=== PATIENT | female | born 1955 | race Hispanic/Latino ===

== ENCOUNTER 2018-06-17 17:48 | Emergency (ER) | payer OTHER ==
[2018-06-17] MEDS ORDERED: HYDROCODONE/APAP 7.5/325 MG TAB ONE (18:33)
--- NOTE | 2018-06-17 19:07 | RAD REPORT ---
EXAM DESCRIPTION: CT - CTHCSPWOC - 06/17/2018 6:41 pm CLINICAL HISTORY: Trauma, head and neck injury. PAIN COMPARISON: Head C Spine Mpr Wo Con dated 07/06/2017Head C Spine Mpr Wo Con dated 07/06/2017 TECHNIQUE: Axial 5 mm thick images of the head were obtained. Axial 2 mm thick images of the cervical spine were obtained with sagittal and coronal reconstruction images generated and reviewed. All CT scans are performed using dose optimization technique as appropriate and may include automated exposure control or mA/KV adjustment according to patient size. FINDINGS: CT HEAD WITHOUT CONTRAST: No acute hemorrhage, hydrocephalus or extra-axial collection is identified.No areas of brain edema or midline shift. The paranasal sinuses and mastoids are clear.The calvarium is intact. CT CERVICAL SPINE WITHOUT CONTRAST: No fracture or subluxation.No prevertebral soft tissues swelling is identified. IMPRESSION: No acute intracranial or cervical spine findings.
--- NOTE | 2018-06-17 19:31 | EDPHYS ---
Physician Documentation [facility] Name: Familia Ingram Age: 63 yrs Sex: Female : 1955 Arrival Date: 06/17/2018 Time: 17:49 Bed 20 Private MD: None, None ED Physician Dakota Quinn HPI: 06/17 18:38 This 63 yrs old Female presents to ER via Wheelchair with complaints of Head jr8 pain. 18:38 The patient or guardian reports pain. The complaints affect the left occipital area and jr8 right occipital area. Context of injury: The problem was sustained at home, resulted from a fall. Onset: The symptoms/episode began/occurred acutely, today. Associated signs and symptoms: Loss of consciousness: This patient did not experience any loss of consciousness. Pertinent positives: neck pain. Severity of symptoms: At their worst the symptoms were moderate, in the emergency department the symptoms are unchanged. The patient has not experienced similar symptoms in the past. The patient has not recently seen a physician. Patient stated that she has been having pain all over but today fell backwards on accident and hit head. Pain to head and neck now. Denies LOC. Feels numbness to right arm . Historical: - Allergies: 18:11 PENICILLINS; ch - PMHx: 18:11 Diabetes - IDDM; neurapathy; ch - PSHx: 18:11 None; ch - Immunization history:: Adult Immunizations up to date, Flu vaccine is not up to date. - Social history:: Smoking status: Patient uses tobacco products, smokes one-half pack cigarettes per day, Patient/guardian denies using alcohol, street drugs. - Ebola Screening: : Patient negative for fever greater than or equal to 101.5 degrees Fahrenheit, and additional compatible Ebola Virus Disease symptoms Patient denies exposure to infectious person Patient denies travel to an Ebola-affected area in the 21 days before illness onset No symptoms or risks identified at this time. ROS: 18:38 Eyes: Negative for injury, pain, redness, and discharge, ENT: Negative for injury, jr8 pain, and discharge, Cardiovascular: Negative for chest pain, palpitations, and edema, Respiratory: Negative for shortness of breath, cough, wheezing, and pleuritic chest pain, Abdomen/GI: Negative for abdominal pain, nausea, vomiting, diarrhea, and constipation, Back: Negative for injury and pain, MS/Extremity: Negative for injury and deformity, Skin: Negative for injury, rash, and discoloration. 18:38 Neck: Positive for pain with movement, pain at rest, Negative for bony tenderness. 18:38 Neuro: Positive for headache, numbness, Negative for altered mental status, dizziness, gait disturbance, hearing loss, loss of consciousness, seizure activity, speech changes, syncope, near syncope, tingling, tinnitus, tremor, visual changes, weakness. Exam: 18:38 Eyes: Pupils equal round and reactive to light, extra-ocular motions intact. Lids and jr8 lashes normal. Conjunctiva and sclera are non-icteric and not injected. Cornea within normal limits. Periorbital areas with no swelling, redness, or edema. ENT: Nares patent. No nasal discharge, no septal abnormalities noted. Tympanic membranes are normal and external auditory canals are clear. Oropharynx with no redness, swelling, or masses, exudates, or evidence of obstruction, uvula midline. Mucous membranes moist. Cardiovascular: Regular rate and rhythm with a normal S1 and S2. No gallops, murmurs, or rubs. Normal PMI, no JVD. No pulse deficits. Respiratory: Lungs have equal breath sounds bilaterally, clear to auscultation and percussion. No rales, rhonchi or wheezes noted. No increased work of breathing, no retractions or nasal flaring. Abdomen/GI: Soft, non-tender, with normal bowel sounds. No distension or tympany. No guarding or rebound. No evidence of tenderness throughout. Back: No spinal tenderness. No costovertebral tenderness. Full range of motion. Skin: Warm, dry with normal turgor. Normal color with no rashes, no lesions, and no evidence of cellulitis. MS/ Extremity: Pulses equal, no cyanosis. Neurovascular intact. Full, normal range of motion. Neuro: Awake and alert, GCS 15, oriented to person, place, time, and situation. Cranial nerves II-XII grossly intact. Motor strength 5/5 in all extremities. Sensory grossly intact. Cerebellar exam normal. Normal gait. 18:38 Neck: External neck: tenderness, that is mild, of the left mid cervical area, right mid cervical area, left trapezius and right trapezius, C-spine: vertebral tenderness, is not appreciated, crepitus, is not appreciated, Thyroid: appears normal, Trachea: is midline with no obvious abnormalities, ROM/movement: pain, that is mild, with any movement, limited range of motion, is not appreciated, Lymph nodes: no appreciated lymphadenopathy. Vital Signs: 18:11 BP 127 / 66; Pulse 68; Resp 18; Temp 98.1; Pulse Ox 99% on R/A; Weight 99.79 kg; Height ch 5 ft. 2 in. (157.48 cm); Pain 6/10; 19:30 BP 124 / 67; Pulse 60; Resp 14; Pulse Ox 96% ; bp 20:24 BP 125 / 92; Pulse 56; Resp 16; Pulse Ox 96% ; bp 18:11 Body Mass Index 40.24 (99.79 kg, 157.48 cm) ch Preston Coma Score: 18:38 Eye Response: spontaneous(4). Verbal Response: oriented(5). Motor Response: obeys jr8 commands(6). Total: 15. MDM: 18:23 Patient medically screened. jr8 19:28 Data reviewed: vital signs, nurses notes, radiologic studies, CT scan, and as a result, jr8 I will discharge patient. Data interpreted: Pulse oximetry: on room air is 99 %. Interpretation: normal. Counseling: I had a detailed discussion with the patient and/or guardian regarding: the historical points, exam findings, and any diagnostic results supporting the discharge/admit diagnosis, radiology results, the need for outpatient follow up, a family practitioner, to return to the emergency department if symptoms worsen or persist or if there are any questions or concerns that arise at home. 06/17 18:35 Order name: Glucose, Ancillary Testing; Complete Time: 18:41 EDMS 06/17 18:23 Order name: CT Head C Spine; Complete Time: 19:28 jr8 06/17 18:23 Order name: D stick; Complete Time: 18:34 jr8 Administered Medications: 18:34 Drug: [place] (7.5 mg-325 mg) 1 tabs Route: PO; jl7 19:02 Follow up: Response: Pain is decreased bp 19:50 Drug: Insulin Regular Human 10 units {Co-Signature: aa1 (Gaby Galan RN).} Route: bp Sub-Q; Site: right lower abdomen; 20:29 Follow up: Response: No adverse reaction bp Point of Care Testing: Blood Glucose: 18:36 Blood Glucose: 251 mg/dL; jl7 20:24 Blood Glucose: 237 mg/dL; bp Ranges: Critical Glucose Levels:Adult <50 mg/dl or >400 mg/dl <40 mg/dl or >180 mg/dl Disposition: 06/17/18 19:31 Discharged to Home. Impression: Acute pain due to trauma. - Condition is Stable. - Discharge Instructions: Head Injury, Adult. - Medication Reconciliation Form, Thank You Letter, Antibiotic Education, Prescription Opioid Use form. - Follow up: Private Physician; When: 2 - 3 days; Reason: Recheck today's complaints, Continuance of care, Re-evaluation by your physician. - Problem is new. - Symptoms have improved. Addendum: 06/19/2018 10:47 Co-signature as Attending Physician, Dakota Quinn MD I agree with the assessment and k dr plan of care. Signatures: Dispatcher [employer] EDMS Asiya De La Paz, RN RN Dakota Quinn MD MD [facility] Michael Lorenzo PA PA jr8 Constantino Neal RN RN jl7 Kyrie Lay, OTF RN bp Gaby Galan RN aa1 Corrections: (The following items were deleted from the chart) 06/17 20:30 19:31 06/17/2018 19:31 Discharged to Home. Impression: Acute pain due to trauma. bp Condition is Stable. Forms are Medication Reconciliation Form, Thank You Letter, Antibiotic Education, Prescription Opioid Use. Follow up: Private Physician; When: 2 - 3 days; Reason: Recheck today's complaints, Continuance of care, Re-evaluation by your physician. Problem is new. Symptoms have improved. jr8
--- NOTE | 2018-06-17 19:31 | ER ---
Nurse's Notes [facility] Name: Familia Ingram Age: 63 yrs Sex: Female : 1955 Arrival Date: 06/17/2018 Time: 17:49 Bed 20 Private MD: None, None Diagnosis: Acute pain due to trauma Presentation: 06/17 18:09 Presenting complaint: Patient states: pain to R hip, down my R leg, and sprading from ch my hip into my privates. has been there for weeks. when I sleep I get cramps in my legs. I fell this morning after tripping and hit my head, now all my body equally tingles and hurts. And I ran out of my diabetes medications 5-6 months ago, my doctor cant see me because my medicare wont pay her. Transition of care: patient was not received from another setting of care. Onset of symptoms was May 30, 2018. Risk Assessment: Do you want to hurt yourself or someone else? Patient reports no desire to harm self or others. Initial Sepsis Screen: Does the patient meet any 2 criteria? No. Patient's initial sepsis screen is negative. Does the patient have a suspected source of infection? No. Patient's initial sepsis screen is negative. Care prior to arrival: None. 18:09 Method Of Arrival: Wheelchair ch 18:09 Acuity: SUNNY 3 ch Triage Assessment: 18:11 General: Appears in no apparent distress. comfortable, Behavior is calm, cooperative, ch appropriate for age. Pain: Complains of pain in head, suprapubic area, right lower quadrant, pelvis, right arm, right leg, right foot and right gluteus hawa Pain currently is 6 out of 10 on a pain scale. Historical: - Allergies: 18:11 PENICILLINS; ch - PMHx: 18:11 Diabetes - IDDM; neurapathy; - PSHx: 18:11 None; - Immunization history:: Adult Immunizations up to date, Flu vaccine is not up to date. - Social history:: Smoking status: Patient uses tobacco products, smokes one-half pack cigarettes per day, Patient/guardian denies using alcohol, street drugs. - Ebola Screening: : Patient negative for fever greater than or equal to 101.5 degrees Fahrenheit, and additional compatible Ebola Virus Disease symptoms Patient denies exposure to infectious person Patient denies travel to an Ebola-affected area in the 21 days before illness onset No symptoms or risks identified at this time. Screenin:35 Abuse screen: Denies threats or abuse. Denies injuries from another. Nutritional jl7 screening: No deficits noted. Tuberculosis screening: No symptoms or risk factors identified. Fall Risk None identified. Assessment: 18:35 General: Appears in no apparent distress. uncomfortable, Behavior is calm, cooperative, jl7 appropriate for age. Pain: Complains of pain in all over Pain currently is 6 out of 10 on a pain scale. Neuro: Level of Consciousness is awake, alert, obeys commands, Oriented to person, place, time, situation. Cardiovascular: Patient's skin is warm and dry. Respiratory: Airway is patent Respiratory effort is even, unlabored, Respiratory pattern is regular, symmetrical. GI: No signs and/or symptoms were reported involving the gastrointestinal system. : No signs and/or symptoms were reported regarding the genitourinary system. EENT: No signs and/or symptoms were reported regarding the EENT system. Derm: Skin is pink, warm \T\ dry. Musculoskeletal: No signs and/or symptoms reported regarding the musculoskeletal system. 19:02 Reassessment: RECD REPORT FROM JE VANESSA. 63YO HF P/W GEN MYALGIA AND DIABETES bp NON-COMPLIANCE. ALL CURRENT STUDIES IN PROCESS, VS STABLE ON MONITOR. 19:49 Reassessment: D/C ON HOLD FOR GLUCOSE CONTROL. bp 20:28 Reassessment: PT D/C HOME WITH FAMILY, DX WITH ACUTE PAIN DUE TO FALL. bp Vital Signs: 18:11 BP 127 / 66; Pulse 68; Resp 18; Temp 98.1; Pulse Ox 99% on R/A; Weight 99.79 kg; Height ch 5 ft. 2 in. (157.48 cm); Pain 6/10; 19:30 BP 124 / 67; Pulse 60; Resp 14; Pulse Ox 96% ; bp 20:24 BP 125 / 92; Pulse 56; Resp 16; Pulse Ox 96% ; bp 18:11 Body Mass Index 40.24 (99.79 kg, 157.48 cm) Bean Coma Score: 18:38 Eye Response: spontaneous(4). Verbal Response: oriented(5). Motor Response: obeys jr8 commands(6). Total: 15. ED Course: 17:49 Patient arrived in ED. sb2 17:49 None, None is Private Physician. sb2 18:10 Triage completed. ch 18:11 Arm band placed on left wrist. Patient placed in an exam room, on a stretcher. ch 18:16 Michael Lorenzo PA is PHCP. jr8 18:16 Dakota Quinn MD is Attending Physician. jr8 18:16 Je Neal, OTF is Primary Nurse. jl7 18:[address] jg6 18:35 Patient has correct armband on for positive identification. Placed in gown. Bed in low jl7 position. Call light in reach. Side rails up X 1. Pulse ox on. NIBP on. 18:41 CT Head C Spine In Process Unspecified. EDMS 19:01 Primary Nurse role handed off by Je Neal RN bp 19:01 Kyrie Lay, RN is Primary Nurse. bp 20:28 No provider procedures requiring assistance completed. Patient did not have IV access bp during this emergency room visit. Administered Medications: 18:34 Drug: [place] (7.5 mg-325 mg) 1 tabs Route: PO; jl7 19:02 Follow up: Response: Pain is decreased bp 19:50 Drug: Insulin Regular Human 10 units {Co-Signature: aa1 (Gaby Galan RN).} Route: bp Sub-Q; Site: right lower abdomen; 20:29 Follow up: Response: No adverse reaction bp Point of Care Testing: Blood Glucose: 18:36 Blood Glucose: 251 mg/dL; jl7 20:24 Blood Glucose: 237 mg/dL; bp Ranges: Outcome: 19:31 Discharge ordered by . jr8 20:28 Discharged to home via wheelchair, with family. bp 20:28 Condition: stable 20:28 Discharge instructions given to patient, family, Instructed on discharge instructions, follow up and referral plans. medication usage, Demonstrated understanding of instructions, follow-up care, medications, Prescriptions given X 2, NOVOLIN 70/30, TRUJEO 20:30 Patient left the ED. bp Signatures: Dispatcher [employer] EDLA Asiya De La Paz RN RN Michael Lorenzo PA PA jrJe Cooper RN RN jl7 Peltier, Brian, RN RN bp Maddison Hobbs sb2 Quynh Howell jg6 Gaby Galan RN aa1
[2018-06-17] MEDS ORDERED: INSULIN -REGULAR HUMAN 50 UNIT/0.5 ML ML ONE (19:50)
[2018-06-17 20:41] VITALS: TEMP 98.1
[2018-06-17 20:42] VITALS: O2SAT 96
[2018-06-17 20:43] VITALS: BP 125/92
== END 2018-06-17 20:30 | disposition home or self-care (01) ==
LOC: ER 17:48
DX: G89.11 Acute pain due to trauma (principal); W19.XXXA Unspecified fall, initial encounter; Y93.89 Activity, other specified; Y92.009 Unspecified place in unspecified non-institutional (private) residence as the place of occurrence of the external cause; Z88.0 Allergy status to penicillin; F17.210 Nicotine dependence, cigarettes, uncomplicated
CPT/HCPCS: 70450; 72125; 82962; 96372; 99284

== ENCOUNTER 2019-08-03 09:27 | Emergency (ER) | payer OTHER ==
[2019-08-03] MEDS ORDERED: ONDANSETRON 4 MG/2 ML VIAL ONE (09:56)
[2019-08-03] MEDS ORDERED: NA CHLORIDE 0.9% 1,000 ML ONE (09:56)
[2019-08-03] MEDS ORDERED: MORPHINE 4 MG/ML SYR ONE (09:56)
[2019-08-03 10:19] LABS: Absolute Lymphocytes (CBC) 2.9 K/uL (0.7-4.9); Basophils % 0.9 % (0-1.3); Hematocrit 44.2 % (36.0-45.0); Lymphocytes % 28.6 % (15.3-44.8); MPV 10.5 fL (7.6-11.3); RBC Red Blood Cell Count 5.05 M/uL (3.86-4.86)
[2019-08-03 11:03] LABS: Bilirubin Direct 0.1 mg/dL (0-0.2); Bilirubin Total 0.4 mg/dL (0.2-1.0); Protein, Total 6.4 g/dL (6.4-8.2)
--- NOTE | 2019-08-03 11:39 | RAD REPORT ---
EXAM DESCRIPTION: CTAbdomen Pelvis W Contrast - 08/03/2019 11:29 am CLINICAL HISTORY: Abdominal pain. abdominal pain COMPARISON: Abdomen Pelvis W Contrast dated 12/11/2017; Abdomen Pelvis W Contrast dated 05/31/2016 TECHNIQUE: Biphasic CT imaging of the abdomen and pelvis was performed with 100 ml non-ionic IV cont rast. All CT scans are performed using dose optimization technique as appropriate and may include automated exposure control or mA/KV adjustment according to patient size. FINDINGS: The lung bases are clear. The liver demonstrates diffuse fatty infiltration. The spleen, pancreas and kidneys are within normal limits. Bilateral adrenal masses are present, unchanged. No bowel obstruction, free air, free fluid or abscess. Moderate fecal retention in the colon. The marquita endix is normal. No evidence of significant lymphadenopathy. No suspicious bony findings. IMPRESSION: Fatty liver. Stable bilateral adrenal masses. Moderate stool retained in the colon.
[2019-08-03] MEDS ORDERED: FENTANYL CITR 100 MCG/2 ML ONE (12:01)
--- NOTE | 2019-08-03 12:42 | RAD REPORT ---
EXAM DESCRIPTION: US - Abdomen Exam Limited - 08/03/2019 12:29 pm CLINICAL HISTORY: ABD PAIN COMPARISON: No comparisons FINDINGS: The gallbladder demonstrates no gallstones. No pericholecystic fluid or gallbladder wall t hickening. The common bile duct is normal measuring 4 mm. The liver demonstrates no findings of intrahepatic biliary dilatation. IMPRESSION: Unremarkable examination.
--- NOTE | 2019-08-03 12:49 | ER ---
Nurse's Notes [facility] Name: Familia Ingram Age: 64 yrs Sex: Female : 1955 Arrival Date: 08/03/2019 Time: 09:29 Bed 16 Private MD: Diagnosis: Generalized abdominal pain;Urinary tract infection, site not specified Presentation: 08/03 09:35 Presenting complaint: Patient states: RUQ PAIN x3 MONTHS, SEEN AND CLEARED BY PCP. bp Transition of care: patient was not received from another setting of care. Onset of symptoms is unknown. Risk Assessment: Do you want to hurt yourself or someone else? Patient reports no desire to harm self or others. Initial Sepsis Screen: Does the patient meet any 2 criteria? No. Patient's initial sepsis screen is negative. Does the patient have a suspected source of infection? No. Patient's initial sepsis screen is negative. Care prior to arrival: None. 09:35 Method Of Arrival: Ambulatory bp 09:35 Acuity: SUNNY 3 bp Historical: - Allergies: 09:36 PENICILLINS; bp - Home Meds: 09:36 Humulin 70/30 100 unit/mL (70-30) Sub-Q susp [Active]; bp - PMHx: 09:36 Diabetes - IDDM; neurapathy; bp - Immunization history:: Adult Immunizations up to date. - Social history:: Smoking status: Patient/guardian denies using tobacco. - Ebola Screening: : No symptoms or risks identified at this time. Screenin:51 Abuse screen: Denies threats or abuse. Denies injuries from another. Nutritional sv screening: No deficits noted. Tuberculosis screening: No symptoms or risk factors identified. Fall Risk None identified. Assessment: 10:05 General: Appears in no apparent distress. uncomfortable, well developed, Behavior is sv calm, cooperative, appropriate for age. Pain: Complains of pain in right upper quadrant Quality of pain is described as sharp, Pain began 3 months ago Is intermittent. Neuro: Level of Consciousness is awake, alert, obeys commands, Oriented to person, place, time, situation, Gait is steady. Respiratory: Respiratory effort is even, unlabored, Respiratory pattern is regular, symmetrical. GI: Abdomen is round. Derm: Skin is pink, warm \T\ dry. 11:23 Reassessment: Patient appears in no apparent distress at this time. Patient and/or sv family updated on plan of care and expected duration. Pain level reassessed. Patient is alert, oriented x 3, equal unlabored respirations, skin warm/dry/pink. Patient states feeling better. Patient states symptoms have improved. 12:05 Reassessment: Patient appears in no apparent distress at this time. Patient and/or sv family updated on plan of care and expected duration. Pain level reassessed. Patient is alert, oriented x 3, equal unlabored respirations, skin warm/dry/pink. Pain: Complains of pain in right upper quadrant Pain currently is 8 out of 10 on a pain scale. 13:09 Reassessment: Patient appears in no apparent distress at this time. Patient and/or sv family updated on plan of care and expected duration. Pain level reassessed. Patient is alert, oriented x 3, equal unlabored respirations, skin warm/dry/pink. Patient denies pain at this time. Patient states feeling better. Patient states symptoms have improved. Vital Signs: 09:36 BP 134 / 65; Pulse 79; Resp 17; Temp 97.6; Pulse Ox 100% ; Weight 96.62 kg; Height 5 bp ft. 2 in. (157.48 cm); 10:30 BP 105 / 53; Pulse 68; Resp 18; Pulse Ox 97% ; sv 11:04 BP 98 / 50; Pulse 69; Resp 16; Pulse Ox 99% ; sv 12:00 BP 109 / 54; Pulse 65; Resp 18; Pulse Ox 99% ; sv 12:30 Pain 2/10; sv 12:33 BP 123 / 61; Pulse 65; Resp 18; Pulse Ox 99% ; sv 13:05 Pain 4/10; sv 09:36 Body Mass Index 38.96 (96.62 kg, 157.48 cm) bp ED Course: 09:29 Patient arrived in ED. as 09:35 Triage completed. bp 09:36 Arm band placed on. bp 09:38 Nova Negrete RN is Primary Nurse. sv 09:45 Selvin Bartholomew PA is PHCP. jmm 09:45 Srinivas Bernal MD is Attending Physician. jmm 09:51 Nurse Practitioner and/or Physician Maintenance Of Way Clerk to see patient. sv 09:51 Patient has correct armband on for positive identification. Bed in low position. Call sv light in reach. Door closed. Head of bed elevated. 10:05 Inserted saline lock: 20 gauge in left forearm, using aseptic technique. Blood sv collected. Flushed left forearm with 5 ml normal saline. 11:[address] Scan. sv 11:[address] via wheelchair. sv 11:29 CT Abd/Pelvis - IV Contrast Only In Process Unspecified. EDMS 11:50 Urine collected: clean catch specimen, clear. dh3 12:10 Patient taken to ultrasound. via wheelchair. sv 12:26 Ultrasound completed. Patient tolerated well. Patient moved back from ultrasound. lc3 12:28 Patient moved back from ultrasound. sv 12:30 US Abdomen Limited In Process Unspecified. EDMS 12:48 Brigette Sánchez MD is Referral Physician. [facility] [place] 13:09 No provider procedures requiring assistance completed. IV discontinued, intact, sv bleeding controlled, No redness/swelling at site. Pressure dressing applied. Administered Medications: 10:12 Drug: NS 0.9% 1000 ml Route: IV; Rate: 1 bolus; Site: left forearm; sv 11:00 Follow up: Response: No adverse reaction; IV Status: Completed infusion; IV Intake: sv 1000ml 10:12 Drug: morphine 4 mg Route: IVP; Site: left forearm; sv 13:05 Follow up: Pain 4/10; Response: No adverse reaction; Pain is decreased; RASS: Alert and sv Calm (0) 10:12 Drug: Zofran 4 mg Route: IVP; Site: left forearm; sv 10:40 Follow up: Response: No adverse reaction sv 12:06 Drug: fentaNYL (PF) 25 mcg Route: IVP; Site: left forearm; sv 12:30 Follow up: Pain 2/10 Adult; Response: No adverse reaction; Pain is decreased; RASS: sv Alert and Calm (0) Intake: 11:00 IV: 1000ml; Total: 1000ml. sv Outcome: 12:48 Discharge ordered by . [facility] [place] 13:09 Discharged to home ambulatory, with friend. sv 13:09 Condition: stable 13:09 Condition: improved 13:09 Discharge instructions given to patient, Instructed on discharge instructions, follow up and referral plans. medication usage, Demonstrated understanding of instructions, follow-up care, medications, Prescriptions given X 2. 13:09 Patient left the ED. sv Signatures: Dispatcher [employer] EDMS Nova Negrete RN RN sv Selvin Bartholomew PA PA jmm Martinez, Amelia as Cunningham, Laulita lc3 Herrera, De[facility] Kyrie Lay RN RN bp Corrections: (The following items were deleted from the chart) 13:05 10:40 Pain 4/10 Adult; Response: No adverse reaction; Pain is decreased sv sv
--- NOTE | 2019-08-03 12:49 | EDPHYS ---
Physician Documentation [facility] Name: Familia Ingram Age: 64 yrs Sex: Female : 1955 Arrival Date: 08/03/2019 Time: 09:29 Bed 16 Private MD: ED Physician Srinivas Bernal HPI: 08/03 09:53 This 64 yrs old Female presents to ER via Ambulatory with complaints of jmm Epigastric Pain - x3 months. 09:53 The patient presents with abdominal pain. Onset: The symptoms/episode began/occurred jmm gradually, 3 month(s) ago. The symptoms do not radiate. Associated signs and symptoms: Pertinent positives: Pertinent negatives: nausea and vomiting, fever. The symptoms are described as achy. Modifying factors: The symptoms are alleviated by nothing, the symptoms are aggravated by nothing. This is a 64 year old female with a history of DM, that presents to the ED with complaints of worsening right sided abdominal pain beginning 3 months ago. Patient states evaluation by GI revealed precancerous polyps which were removed. . Historical: - Allergies: 09:36 PENICILLINS; bp - Home Meds: 09:36 Humulin 70/30 100 unit/mL (70-30) Sub-Q susp [Active]; bp - PMHx: 09:36 Diabetes - IDDM; neurapathy; bp - Immunization history:: Adult Immunizations up to date. - Social history:: Smoking status: Patient/guardian denies using tobacco. - Ebola Screening: : No symptoms or risks identified at this time. ROS: 09:53 Constitutional: Negative for fever, chills, and weight loss, Cardiovascular: Negative jmm for chest pain, palpitations, and edema, Respiratory: Negative for shortness of breath, cough, wheezing, and pleuritic chest pain. 09:53 Abdomen/GI: Positive for abdominal pain. 09:53 All other systems are negative. Exam: 09:53 Constitutional: This is a well developed, well nourished patient who is awake, alert, jmm and in no acute distress. Head/Face: atraumatic. Eyes: EOMI, no conjunctival erythema appreciated ENT: Moist Mucus Membranes Neck: Trachea midline, Supple Chest/axilla: Normal chest wall appearance and motion. Cardiovascular: Regular rate and rhythm. No edema appreciated Respiratory: Normal respirations, no respiratory distress appreciated 09:53 Abdomen/GI: Inspection: abdomen appears normal, Bowel sounds: normal, Palpation: soft, moderate abdominal tenderness, in the right upper quadrant and right lower quadrant. 09:53 Musculoskeletal/extremity: ROM: intact in all extremities. 09:53 Skin: Appearance: Color: normal in color. 09:53 Neuro: Orientation: is normal, Mentation: is normal, Memory: is normal. 09:53 Psych: Behavior/mood is pleasant, cooperative. Vital Signs: 09:36 BP 134 / 65; Pulse 79; Resp 17; Temp 97.6; Pulse Ox 100% ; Weight 96.62 kg; Height 5 bp ft. 2 in. (157.48 cm); 10:30 BP 105 / 53; Pulse 68; Resp 18; Pulse Ox 97% ; sv 11:04 BP 98 / 50; Pulse 69; Resp 16; Pulse Ox 99% ; sv 12:00 BP 109 / 54; Pulse 65; Resp 18; Pulse Ox 99% ; sv 12:30 Pain 2/10; sv 12:33 BP 123 / 61; Pulse 65; Resp 18; Pulse Ox 99% ; sv 13:05 Pain 4/10; sv 09:36 Body Mass Index 38.96 (96.62 kg, 157.48 cm) bp MDM: 09:53 Patient medically screened. [facility] 12:46 Data reviewed: vital signs, nurses notes. Counseling: I had a detailed discussion with keena the patient and/or guardian regarding: the historical points, exam findings, and any diagnostic results supporting the discharge/admit diagnosis, lab results, radiology results, the need for outpatient follow up, to return to the emergency department if symptoms worsen or persist or if there are any questions or concerns that arise at home. ED course: Patient is alert and non toxic in appearance in the ED. Patient advised to follow up with GI. I discussed CT results with the patient and the need to follow up with pcp for reevaluation. Patient was otherwise given strict return precautions. Patient understood and agrees with the plan of care. . 08/03 09:54 Order name: Basic Metabolic Panel; Complete Time: 11:04 [facility] 08/03 09:54 Order name: CBC with Diff; Complete Time: 10:25 [facility] 08/03 09:54 Order name: Creatinine for Radiology; Complete Time: 11:22 [facility] 08/03 09:54 Order name: Hepatic Function; Complete Time: 11:04 [facility] 08/03 09:54 Order name: Lipase; Complete Time: 11:04 [facility] 08/03 11:50 Order name: Urine Culture dh3 08/03 09:54 Order name: IV Saline Lock; Complete Time: 10:12 [facility] 08/03 09:54 Order name: CT Abd/Pelvis - IV Contrast Only; Complete Time: 11:45 [facility] 08/03 11:55 Order name: US Abdomen Limited; Complete Time: 12:45 [facility] 08/03 12:01 Order name: Urine Dipstick--Ancillary (enter results) bd 08/03 09:54 Order name: Labs collected and sent; Complete Time: 10:12 [facility] 08/03 09:54 Order name: Urine Dipstick-Ancillary (obtain specimen); Complete Time: 11:51 [facility] 08/03 10:31 Order name: Labs - recollect needed; Complete Time: 11:10 bd Administered Medications: 10:12 Drug: NS 0.9% 1000 ml Route: IV; Rate: 1 bolus; Site: left forearm; sv 11:00 Follow up: Response: No adverse reaction; IV Status: Completed infusion; IV Intake: sv 1000ml 10:12 Drug: morphine 4 mg Route: IVP; Site: left forearm; sv 13:05 Follow up: Pain 4/10; Response: No adverse reaction; Pain is decreased; RASS: Alert and sv Calm (0) 10:12 Drug: Zofran 4 mg Route: IVP; Site: left forearm; sv 10:40 Follow up: Response: No adverse reaction sv 12:06 Drug: fentaNYL (PF) 25 mcg Route: IVP; Site: left forearm; sv 12:30 Follow up: Pain 2/10 Adult; Response: No adverse reaction; Pain is decreased; RASS: sv Alert and Calm (0) Disposition: 08/04 06:20 Co-signature as Attending Physician, Srinivas Bernal MD I agree with the assessment and chris plan of care. Disposition: 08/03/19 12:48 Discharged to Home. Impression: Generalized abdominal pain, Urinary tract infection, site not specified. - Condition is Stable. - Discharge Instructions: Abdominal Pain, Adult, Urinary Tract Infection, Adult. - Prescriptions for Bentyl 20 mg Oral Tablet - take 1 tablet by ORAL route every 6 hours As needed; 20 tablet. Cipro 500 mg Oral Tablet - take 1 tablet by ORAL route every 12 hours for 10 days; 20 tablet. - Medication Reconciliation Form, Thank You Letter, Antibiotic Education, Prescription Opioid Use form. - Follow up: Brigette Sánchez MD; When: 2 - 3 days; Reason: Recheck today's complaints, Continuance of care, Re-evaluation by your physician. Signatures: Dispatcher [employer] EDMS Deidre Calolway Stephanie, RN RN Srinivas Manjarrez MD MD cha Mickail, Joel, PA PA [facility] Kyrie Lay, RN RN bp Corrections: (The following items were deleted from the chart) 08/03 12:49 12:48 08/03/2019 12:48 Discharged to Home. Impression: Generalized abdominal pain. [facility] Condition is Stable. Forms are Medication Reconciliation Form, Thank You Letter, Antibiotic Education, Prescription Opioid Use. Follow up: Brigette Sánchez; When: 2 - 3 days; Reason: Recheck today's complaints, Continuance of care, Re-evaluation by your physician. [facility] 13:09 12:49 08/03/2019 12:48 Discharged to Home. Impression: Generalized abdominal pain; sv Urinary tract infection, site not specified. Condition is Stable. Discharge Instructions: Abdominal Pain, Adult. Prescriptions for Bentyl 20 mg Oral Tablet - take 1 tablet by ORAL route every 6 hours As needed; 20 tablet. and Forms are Medication Reconciliation Form, Thank You Letter, Antibiotic Education, Prescription Opioid Use. Follow up: Brigette Sánchez; When: 2 - 3 days; Reason: Recheck today's complaints, Continuance of care, Re-evaluation by your physician. [facility]
[2019-08-03 13:16] VITALS: TEMP 97.6
[2019-08-03 13:18] VITALS: O2SAT 99
[2019-08-03 13:22] VITALS: BP 123/61
[2019-08-03 13:37] LABS: Urine Blood 1+ (NEG); Urine Glucose 2+ (NEG); Urine Protein NEGATIVE (NEG); Urine Specific Gravity 1.015 (1.005-1.030); Urine pH 7.5 (5.0-7.0)
== END 2019-08-03 13:09 | disposition home or self-care (01) ==
LOC: ER 09:27
DX: N39.0 Urinary tract infection, site not specified (principal); E11.9 Type 2 diabetes mellitus without complications; Z79.4 Long term (current) use of insulin
CPT/HCPCS: 96361; 87088; 85025; 87086; 80048; 36415; 80076; 81003; 83690; 74177; 76705; 96375; 96374; 99284; Q9967; J3010; J7030; J2405

== ENCOUNTER 2019-09-12 11:46 | Emergency (ER) | payer OTHER ==
--- OUTSIDE RECORDS SUMMARY | 2019-09-12 11:47 | XMS REPORT ---
:1955 [facility] Address [address] [place] [address] Dr. Emanuel [address] [place] [id number] Care Team Providers Name Role Phone Unavailable Unavailable Unavailable Problems This patient has no known problems. Allergies, Adverse Reactions, Alerts This patient has no known allergies or adverse reactions. Medications This patient has no known medications.
[2019-09-12] MEDS ORDERED: ONDANSETRON 4 MG/2 ML VIAL ONE (12:52)
[2019-09-12] MEDS ORDERED: MORPHINE 2 MG/ML SYR ONE (12:52)
[2019-09-12 13:26] LABS: Albumin 3.5 g/dL (3.4-5.0); Bilirubin Direct 0.2 mg/dL (0-0.2); Bilirubin Total 0.6 mg/dL (0.2-1.0); Potassium 3.7 mmol/L (3.5-5.1); Protein, Total 7.2 g/dL (6.4-8.2)
--- NOTE | 2019-09-12 13:34 | RAD REPORT ---
EXAM DESCRIPTION: US - Abdomen Exam Limited - 09/12/2019 1:26 pm CLINICAL HISTORY: abdominal pain COMPARISON: Abdomen Exam Limited dated 08/03/2019 FINDINGS: The gallbladder demonstrates no gallstones. No pericholecystic fluid or gallbladder wall t hickening. The common bile duct is normal measuring 4 mm. The liver demonstrates no findings of intrahepatic biliary dilatation. IMPRESSION: Unremarkable examination.
[2019-09-12 14:06] LABS: Urine Blood TRACE (NEG); Urine Glucose 2+ (NEG); Urine Protein NEGATIVE (NEG); Urine pH 6.5 (5.0-7.0)
[2019-09-12 14:07] LABS: Absolute Lymphocytes (CBC) 4.1 K/uL (0.7-4.9); Basophils % 0.8 % (0-1.3); Hematocrit 44.9 % (36.0-45.0); MPV 10.3 fL (7.6-11.3); RBC Red Blood Cell Count 5.21 M/uL (3.86-4.86)
[2019-09-12 14:12] LABS: Urine Bacteria >50 /HPF (<20); Urine Culture Reflex Order REFLEXED; Urine Yeast PRESENT (NONE SEEN)
--- NOTE | 2019-09-12 14:18 | RAD REPORT ---
EXAM DESCRIPTION: CTAbdomen Pelvis W Contrast - 09/12/2019 2:10 pm CLINICAL HISTORY: Abdominal pain. right sided abdominal pain COMPARISON: Abdomen Pelvis W Contrast dated 08/03/2019; Abdomen Pelvis W Contrast dated 8; Abdomen Pelvis W Contrast dated 05/31/2016 TECHNIQUE: Biphasic CT imaging of the abdomen and pelvis was performed with 100 ml non-ionic IV cont rast. All CT scans are performed using dose optimization technique as appropriate and may include automated exposure control or mA/KV adjustment according to patient size. FINDINGS: The lung bases are clear. The liver is diffusely fatty. Spleen, pancreas, and kidneys are within normal limits. Bilateral adren al masses, unchanged. No bowel obstruction, free air, free fluid or abscess. Sigmoid diverticulosis without diverticulitis. The appendix is normal. No evidence of significant lymphadenopathy. Lumbosacral degenerative changes. IMPRESSION: No acute intra-abdominal or pelvic finding.
--- NOTE | 2019-09-12 14:40 | EDPHYS ---
Physician Documentation [facility] Name: Familia Ingram Age: 64 yrs Sex: Female : 1955 Arrival Date: 09/12/2019 Time: 11:47 Bed 25 Private MD: ED Physician Dakota Quinn HPI: 09/12 12:21 This 64 yrs old Female presents to ER via Ambulatory with complaints of jmm Abdominal Pain. 12:21 The patient presents with abdominal pain in the upper abdomen. Onset: The jmm symptoms/episode began/occurred gradually, 4 month(s) ago. The symptoms do not radiate. Associated signs and symptoms: Pertinent positives: dysuria, Pertinent negatives: nausea and vomiting, fever. Modifying factors: The symptoms are alleviated by nothing, the symptoms are aggravated by. This is a 64 year old female with a history of DM that presents to the ED with complaints of episotgastric abdominal pain which has been ongoing for the past 4 months. Denies vomiting. Visited GI 2 months ago with negative EGD. Denies fever, denies vomiting, but complains of dysuria. . Historical: - Allergies: 12:08 PENICILLINS; sg - Home Meds: 12:08 Humulin 70/30 100 unit/mL (70-30) Sub-Q susp [Active]; sg - PMHx: 12:08 Diabetes - IDDM; Neuropathy; sg - Immunization history:: Adult Immunizations up to date. - Social history:: Smoking status: Patient/guardian denies using tobacco. - Ebola Screening: : Patient negative for fever greater than or equal to 101.5 degrees Fahrenheit, and additional compatible Ebola Virus Disease symptoms Patient denies exposure to infectious person Patient denies travel to an Ebola-affected area in the 21 days before illness onset No symptoms or risks identified at this time. ROS: 12:21 Constitutional: Negative for fever, chills, and weight loss, Cardiovascular: Negative jmm for chest pain, palpitations, and edema, Respiratory: Negative for shortness of breath, cough, wheezing, and pleuritic chest pain. 12:21 Abdomen/GI: Positive for abdominal pain. 12:21 : Positive for urinary symptoms. 12:21 All other systems are negative. Exam: 12:21 Constitutional: This is a well developed, well nourished patient who is awake, alert, jmm and in no acute distress. Head/Face: atraumatic. Eyes: EOMI, no conjunctival erythema appreciated ENT: Moist Mucus Membranes Neck: Trachea midline, Supple Chest/axilla: Normal chest wall appearance and motion. Cardiovascular: Regular rate and rhythm. No edema appreciated Respiratory: Normal respirations, no respiratory distress appreciated 12:21 Abdomen/GI: Inspection: abdomen appears normal, Bowel sounds: normal, Palpation: soft, mild abdominal tenderness, in the right upper quadrant. 12:21 Musculoskeletal/extremity: ROM: intact in all extremities. 12:21 Skin: Exam negative for Appearance: Color: normal in color. 12:21 Neuro: Orientation: is normal, Mentation: is normal, Memory: is normal. 12:21 Psych: Behavior/mood is pleasant, cooperative. Vital Signs: 12:04 BP 131 / 52; Pulse 78; Resp 18; Temp 97.6; Pulse Ox 96% on R/A; Weight 97.52 kg; Height sg 5 ft. 5 in. (165.10 cm); Pain 8/10; 13:00 BP 106 / 57; Pulse 63; Resp 18; Pulse Ox 98% on R/A; ca1 13:45 BP 132 / 45; Pulse 67; Resp 18 S; Pulse Ox 98% on R/A; ca1 14:45 BP 102 / 59; Pulse 71; Resp 17 S; Pulse Ox 98% on R/A; ca1 12:04 Body Mass Index 35.78 (97.52 kg, 165.10 cm) sg MDM: 12:21 Patient medically screened. [facility] 14:38 Data reviewed: vital signs, nurses notes. Counseling: I had a detailed discussion with [facility] the patient and/or guardian regarding: the historical points, exam findings, and any diagnostic results supporting the discharge/admit diagnosis, lab results, radiology results, the need for outpatient follow up, to return to the emergency department if symptoms worsen or persist or if there are any questions or concerns that arise at home. 14:38 ED course: Patient is alert and non toxic in appearance in the ED. Pain is relieved. [facility] Patient is advised to follow up with GI for reevaluation. Patient otherwise given strict return precautions. Patient understood and agrees with the plan of care. . 09/12 12:24 Order name: Basic Metabolic Panel; Complete Time: 13:29 [facility] 09/12 12:24 Order name: CBC with Diff; Complete Time: 14:17 [facility] 09/12 12:24 Order name: Creatinine for Radiology; Complete Time: 13:26 [facility] 09/12 12:24 Order name: Hepatic Function; Complete Time: 13:29 [facility] 09/12 12:24 Order name: Lipase; Complete Time: 13:29 [facility] 09/12 13:48 Order name: Urine Microscopic Only; Complete Time: 14:17 ca1 09/12 12:24 Order name: IV Saline Lock; Complete Time: 13:01 [facility] 09/12 12:24 Order name: Labs collected and sent; Complete Time: 13:01 [facility] 09/12 12:24 Order name: US Abdomen Limited; Complete Time: 13:40 [facility] 09/12 13:42 Order name: CT Abd/Pelvis - IV Contrast Only; Complete Time: 14:19 [facility] 09/12 13:50 Order name: Urine Dipstick--Ancillary (enter results); Complete Time: 14:17 ms 09/12 14:13 Order name: Urine Culture [facility] 09/12 12:24 Order name: Urine Dipstick-Ancillary (obtain specimen); Complete Time: 13:48 [facility] 09/12 13:25 Order name: Labs - recollect needed; Complete Time: 13:54 ms Administered Medications: 13:02 Drug: Zofran 4 mg Route: IVP; Site: left antecubital; ca1 13:54 Follow up: Response: No adverse reaction; Nausea is decreased ca1 13:05 Drug: morphine 2 mg {Note: RASS - 0.} Route: IVP; Site: left antecubital; ca1 13:54 Follow up: Response: No adverse reaction; Pain is decreased; RASS: Alert and Calm (0) ca1 Disposition: 16:41 Co-signature as Attending Physician, Dakota Quinn MD I agree with the assessment and kdr plan of care. Disposition: 09/12/19 14:39 Discharged to Home. Impression: Upper abdominal pain, unspecified, Urinary tract infection, site not specified. - Condition is Stable. - Discharge Instructions: Abdominal Pain, Adult, Urinary Tract Infection, Adult. - Prescriptions for Bentyl 20 mg Oral Tablet - take 2 tablet by ORAL route every 6 hours As needed; 40 tablet. Ultracet 37.5- 325 mg Oral Tablet - take 1 tablet by ORAL route every 6 hours - for up to 5 days; do not exceed 8 tablets per day.; 12 tablet. Macrobid 100 mg Oral Capsule - take 1 capsule by ORAL route every 12 hours for 7 days; 14 capsule. - Medication Reconciliation Form, Thank You Letter, Antibiotic Education, Prescription Opioid Use form. - Follow up: Brigette Sánchez MD; When: 2 - 3 days; Reason: Recheck today's complaints, Continuance of care, Re-evaluation by your physician. Signatures: Dispatcher [employer] EDAbhi Martinez, RN RN sg Dakota Quinn MD MD kdr Selvin Bartholomew PA PA Alka Dowd ms Shahrzad Lackey, RN RN ca1 Corrections: (The following items were deleted from the chart) 14:50 14:39 09/12/2019 14:39 Discharged to Home. Impression: Upper abdominal pain, ca1 unspecified; Urinary tract infection, site not specified. Condition is Stable. Forms are Medication Reconciliation Form, Thank You Letter, Antibiotic Education, Prescription Opioid Use. Follow up: Brigette Sánchez; When: 2 - 3 days; Reason: Recheck today's complaints, Continuance of care, Re-evaluation by your physician. keena
--- NOTE | 2019-09-12 14:40 | ER ---
Nurse's Notes [facility] Name: Familia Ingram Age: 64 yrs Sex: Female : 1955 Arrival Date: 09/12/2019 Time: 11:47 Bed 25 Private MD: Diagnosis: Upper abdominal pain, unspecified;Urinary tract infection, site not specified Presentation: 09/12 12:05 Presenting complaint: Patient states: R upper and lower abd pain, reports having been sg seen and treated for the pain and given medication but the medications just are not working, reports feeling tired when walking that started today. Transition of care: patient was not received from another setting of care. Onset of symptoms was September 12, 2019. Risk Assessment: Do you want to hurt yourself or someone else? Patient reports no desire to harm self or others. Initial Sepsis Screen: Does the patient meet any 2 criteria? No. Patient's initial sepsis screen is negative. Does the patient have a suspected source of infection? Yes: Acute abdominal pain. Care prior to arrival: None. 12:05 Method Of Arrival: Ambulatory sg 12:05 Acuity: SUNNY 3 sg Historical: - Allergies: 12:08 PENICILLINS; sg - Home Meds: 12:08 Humulin 70/30 100 unit/mL (70-30) Sub-Q susp [Active]; sg - PMHx: 12:08 Diabetes - IDDM; Neuropathy; sg - Immunization history:: Adult Immunizations up to date. - Social history:: Smoking status: Patient/guardian denies using tobacco. - Ebola Screening: : Patient negative for fever greater than or equal to 101.5 degrees Fahrenheit, and additional compatible Ebola Virus Disease symptoms Patient denies exposure to infectious person Patient denies travel to an Ebola-affected area in the 21 days before illness onset No symptoms or risks identified at this time. Screenin:01 Abuse screen: Denies threats or abuse. Denies injuries from another. Nutritional ca1 screening: No deficits noted. Tuberculosis screening: No symptoms or risk factors identified. Fall Risk IV access (20 points). Assessment: 13:01 General: Appears in no apparent distress. uncomfortable, Behavior is calm, cooperative, ca1 appropriate for age. Pain: Complains of pain in right upper quadrant Pain radiates to right mid back Pain currently is 7 out of 10 on a pain scale. Quality of pain is described as "something is pulling inside" Pain began 2-3 days ago. Is continuous. Neuro: Level of Consciousness is awake, alert, obeys commands, Oriented to person, place, time, situation. Cardiovascular: Heart tones S1 S2 present Capillary refill < 3 seconds Patient's skin is warm and dry. Respiratory: Airway is patent Respiratory effort is even, unlabored, Respiratory pattern is regular, symmetrical, Breath sounds are clear bilaterally. GI: Abdomen is round non-distended, Bowel sounds present X 4 quads. Abd is soft X 4 quads Abdomen is tender to palpation in right upper quadrant Reports bloating, constipation, nausea. : Reports incontinence. EENT: No deficits noted. No signs and/or symptoms were reported regarding the EENT system. Derm: Skin is intact, is healthy with good turgor, Skin is pink, warm \\T\\ dry. Musculoskeletal: Circulation, motion, and sensation intact. Capillary refill < 3 seconds, Range of motion: intact in all extremities. 14:00 Reassessment: Patient appears in no apparent distress at this time. Patient and/or ca1 family updated on plan of care and expected duration. Pain level reassessed. Patient is alert, oriented x 3, equal unlabored respirations, skin warm/dry/pink. 14:45 Reassessment: Patient appears in no apparent distress at this time. Patient is alert, ca1 oriented x 3, equal unlabored respirations, skin warm/dry/pink. Vital Signs: 12:04 BP 131 / 52; Pulse 78; Resp 18; Temp 97.6; Pulse Ox 96% on R/A; Weight 97.52 kg; Height sg 5 ft. 5 in. (165.10 cm); Pain 8/10; 13:00 BP 106 / 57; Pulse 63; Resp 18; Pulse Ox 98% on R/A; ca1 13:45 BP 132 / 45; Pulse 67; Resp 18 S; Pulse Ox 98% on R/A; ca1 14:45 BP 102 / 59; Pulse 71; Resp 17 S; Pulse Ox 98% on R/A; ca1 12:04 Body Mass Index 35.78 (97.52 kg, 165.10 cm) ED Course: 11:47 Patient arrived in ED. mr 12:02 Selvin Bartholomew PA is PHCP. jmm 12:02 Dakota Quinn MD is Attending Physician. jmm 12:03 Arm band placed on. sg 12:06 Triage completed. sg 12:13 Shahrzad Lackey, OTF is Primary Nurse. ca1 13:00 Ultrasound completed. Patient tolerated well. sg3 13:01 Patient has correct armband on for positive identification. Placed in gown. Bed in low ca1 position. Call light in reach. Side rails up X 1. Pulse ox on. NIBP on. Warm blanket given. 13:01 No provider procedures requiring assistance completed. Initial lab(s) drawn, by me, ca1 sent to lab. Inserted saline lock: 22 gauge in left antecubital area, using aseptic technique. Blood collected. 13:27 US Abdomen Limited In Process Unspecified. EDMS 13:54 Lab(s) recollected, by me, sent to lab. ca1 13:57 Urine collected: clean catch specimen, cloudy, Amount Voided: 50mL. ca1 14:10 CT completed. Patient tolerated procedure well. Patient moved back from CT. mw3 14:11 CT Abd/Pelvis - IV Contrast Only In Process Unspecified. EDMS 14:39 Brigette Sánchez MD is Referral Physician. jmm 14:40 IV discontinued, intact, bleeding controlled, No redness/swelling at site. Pressure ca1 dressing applied. Administered Medications: 13:02 Drug: Zofran 4 mg Route: IVP; Site: left antecubital; ca1 13:54 Follow up: Response: No adverse reaction; Nausea is decreased ca1 13:05 Drug: morphine 2 mg {Note: RASS - 0.} Route: IVP; Site: left antecubital; ca1 13:54 Follow up: Response: No adverse reaction; Pain is decreased; RASS: Alert and Calm (0) ca1 Outcome: 14:39 Discharge ordered by MD. jmm 14:40 Discharged to home ambulatory. ca1 14:40 Condition: stable 14:40 Discharge instructions given to patient, Instructed on discharge instructions, follow up and referral plans. medication usage, Demonstrated understanding of instructions, follow-up care, medications, Prescriptions given X 3. 14:50 Patient left the ED. ca1 Signatures: Dispatcher [employer] EDMS Abhi Hicks RN RN sg Selvin Bartholomew PA PA [facility] Yee Joseph mr DumontLluvia 3 Mariia Alexandre mw3 Shahrzad Lackey RN RN ca1 Corrections: (The following items were deleted from the chart) 13:20 13:19 BP 106 / 57; Pulse 63bpm; Resp 18bpm; Pulse Ox 98% RA; ca1 ca1 21:34 14:40 Discharge instructions given to patient, Instructed on discharge instructions, ca1 follow up and referral plans. medication usage, Demonstrated understanding of instructions, follow-up care, medications, Prescriptions given X 2, ca1
[2019-09-12 15:06] VITALS: TEMP 97.6
[2019-09-12 15:07] VITALS: O2SAT 98
[2019-09-12 15:10] VITALS: BP 102/59
== END 2019-09-12 14:50 | disposition home or self-care (01) ==
LOC: ER 11:46
DX: N39.0 Urinary tract infection, site not specified (principal); E11.40 Type 2 diabetes mellitus with diabetic neuropathy, unspecified; Z79.4 Long term (current) use of insulin; Z88.0 Allergy status to penicillin
CPT/HCPCS: 87088; 85025; 87086; 80048; 36415; 80076; 83690; 74177; 76705; 96375; 96374; 99284; Q9967; J2270; J2405; 81003; 81015

== ENCOUNTER 2020-06-12 08:57 | Emergency (ER) | payer OTHER ==
--- OUTSIDE RECORDS SUMMARY | 2020-06-12 08:58 | XMS REPORT | Continuity of Care Document ---
:1955 Author Organization [facility] t Address [address] [place] [address] [address]. [address] [place] [address] Care Team Providers Name Role Phone Unavailable Unavailable Unavailable Problems This patient has no known problems. Allergies, Adverse Reactions, Alerts This patient has no known allergies or adverse reactions. Medications This patient has no known medications. Procedures This patient has no known procedures. Results This patient has no known results.
[2020-06-12] MEDS ORDERED: NA CHLORIDE 0.9% 1,000 ML ONE (10:04)
[2020-06-12] MEDS ORDERED: FAMOTIDINE 20 MG/2 ML VIAL IV ONE (10:04)
[2020-06-12] MEDS ORDERED: ACETAMINOPHEN 500 MG TAB ONE (10:26)
[2020-06-12] MEDS ORDERED: ACETAMINOPHEN 325 MG TABLET ONE (10:27)
[2020-06-12 10:39] LABS: Absolute Lymphocytes (CBC) 3.3 K/uL (0.7-4.9); Basophils % 0.7 % (0-1.3); Hematocrit 45.8 % (36.0-45.0); Lymphocytes % 31.4 % (15.3-44.8); MPV 10.8 fL (7.6-11.3); RBC Red Blood Cell Count 5.24 M/uL (3.86-4.86)
[2020-06-12 10:54] LABS: ALT/SGPT 39 U/L (12-78); AST/SGOT 32 U/L (15-37); Alkaline Phosphatase 186 U/L (45-117); BUN Blood Urea Nitrogen 10 mg/dL (7-18); Bicarbonate 25 mmol/L (21-32); Bilirubin Direct 0.2 mg/dL (0-0.2); Bilirubin Total 0.8 mg/dL (0.2-1.0); Glucose Level 234 mg/dL (74-106); Magnesium 2.2 mg/dL (1.8-2.4); NT PRO-BNP 73 pg/mL (<125); Sodium Level 141 mmol/L (136-145); Troponin (Emerg Dept Use Only) < 0.02 ng/mL (0.0-0.045)
--- NOTE | 2020-06-12 11:50 | RAD REPORT ---
EXAM DESCRIPTION: CT - Abdomen Pelvis W Contrast - 06/12/2020 11:23 am CLINICAL HISTORY: Abdominal pain COMPARISON: 2015 TECHNIQUE: Computed axial tomography of the abdomen pelvis was obtained. 100 cc Isovue-300 was admin istered intravenously. Oral contrast was not requested which limits evaluation of bowel. All CT scans are performed using dose optimization technique as appropriate and may include automated exposure control or mA/KV adjustment according to patient size. FINDINGS: Fatty liver Spleen, pancreas, and kidneys appear unremarkable. Bilateral adrenal masses without significant likely adenomas Small calcified uterine fibroids are present. There is no evidence of diverticulitis. Normal appendix Spondylosis involves the lumbar spine resulting in spinal stenosis IMPRESSION: No acute abnormality is displayed.
--- NOTE | 2020-06-12 11:54 | RAD REPORT ---
EXAM DESCRIPTION: Lexy Single View06/12/2020 10:29 am CLINICAL HISTORY: Chest pain COMPARISON: 2017 FINDINGS: The lungs appear clear of acute infiltrate. The heart is normal size IMPRESSION: No acute abnormalities displayed
[2020-06-12 12:02] LABS: Urine Blood TRACE (NEG); Urine Glucose 2+ (NEG); Urine Protein NEGATIVE (NEG); Urine Specific Gravity 1.015 (1.005-1.030)
--- NOTE | 2020-06-12 12:13 | ER ---
Nurse's Notes [facility] Name: Familia Ingram Age: 65 yrs Sex: Female : 1955 Arrival Date: 06/12/2020 Time: 09:00 Bed 20 Private MD: Diagnosis: Urinary tract infection, site not specified;Abdominal tenderness;Dysuria;Functional dyspepsia;Type 1 diabetes mellitus Presentation: 06/12 09:18 Chief complaint: Patient states: upper abd pain that began "months ago" but got worse aa5 last night. Pt denies N/V/D. Reports constipation and reports last BM was 2 days ago. Pt also reports body aches, headaches, and burning with urination x 2 days ago. 09:18 Coronavirus screen: Client denies travel out of the [place] in the last 14 days. headache, aa5 muscle pain, Pt also reports baseline smoker's cough Client presents with at least one sign or symptom that may indicate coronavirus-19. Standard/surgical mask placed on the client. Provider contacted for isolation considerations. The client denies any previous COVID testing. Ebola Screen: Patient negative for fever greater than or equal to 101.5 degrees Fahrenheit, and additional compatible Ebola Virus Disease symptoms. Initial Sepsis Screen: Does the patient meet any 2 criteria? No. Patient's initial sepsis screen is negative. Does the patient have a suspected source of infection? No. Patient's initial sepsis screen is negative. Risk Assessment: Do you want to hurt yourself or someone else? Patient reports no desire to harm self or others. Onset of symptoms was 2019. 09:18 Acuity: SUNNY 3 aa5 09:18 Method Of Arrival: Ambulatory aa5 Historical: - Allergies: 09:19 PENICILLINS; aa5 09:19 Flu vaccine; aa5 - PMHx: 09:19 Diabetes - IDDM; neuropathy; aa5 - Immunization history:: Adult Immunizations unknown. - Social history:: Smoking status: Patient reports the use of cigarette tobacco products, smokes one-half pack cigarettes per day. - Family history:: not pertinent. Screenin:10 Abuse screen: Denies threats or abuse. Denies injuries from another. Nutritional ca1 screening: No deficits noted. Tuberculosis screening: No symptoms or risk factors identified. Fall Risk IV access (20 points). Assessment: 10:10 General: Appears in no apparent distress. comfortable, Behavior is calm, cooperative, ca1 appropriate for age. Pain: Complains of pain in face and scalp and left upper quadrant and right upper quadrant and epigastric area Pain currently is 8 out of 10 on a pain scale. Pain began 2-3 days ago. Is intermittent. Neuro: Level of Consciousness is awake, alert, obeys commands, Oriented to person, place, time, situation, Appropriate for age. Cardiovascular: Heart tones S1 S2 present Capillary refill < 3 seconds Patient's skin is warm and dry. Rhythm is sinus rhythm. Respiratory: Airway is patent Respiratory effort is even, unlabored, Respiratory pattern is regular, symmetrical, Breath sounds are clear bilaterally. GI: Abdomen is round non-distended, Bowel sounds present X 4 quads. Abd is soft and non tender X 4 quads. Reports constipation. : No signs and/or symptoms were reported regarding the genitourinary system. EENT: No signs and/or symptoms were reported regarding the EENT system. Derm: Skin is intact, is healthy with good turgor, Skin is pink, warm \\T\\ dry. Musculoskeletal: Circulation, motion, and sensation intact. Capillary refill < 3 seconds. 11:00 Reassessment: Patient appears in no apparent distress at this time. Patient and/or ca1 family updated on plan of care and expected duration. Pain level reassessed. Patient is alert, oriented x 3, equal unlabored respirations, skin warm/dry/pink. 11:45 Reassessment: Patient appears in no apparent distress at this time. Patient and/or ca1 family updated on plan of care and expected duration. Pain level reassessed. Patient is alert, oriented x 3, equal unlabored respirations, skin warm/dry/pink. 12:44 Reassessment: Patient appears in no apparent distress at this time. Patient is alert, ca1 oriented x 3, equal unlabored respirations, skin warm/dry/pink. Vital Signs: 09:18 BP 129 / 46; Pulse 73; Resp 18 S; Temp 98.6(O); Pulse Ox 96% on R/A; Weight 95.25 kg aa5 (R); Height 5 ft. 2 in. (157.48 cm) (R); Pain 7/10; 10:26 BP 103 / 74; Pulse 63; Resp 15 S; Pulse Ox 98% on R/A; ca1 12:01 BP 112 / 48; Pulse 59; Resp 19 S; Pulse Ox 95% on R/A; ca1 12:44 BP 109 / 60; Pulse 59; Resp 19 S; Pulse Ox 97% on R/A; ca1 09:18 Body Mass Index 38.41 (95.25 kg, 157.48 cm) aa5 ED Course: 09:00 Patient arrived in ED. as 09:18 Arm band placed on Patient placed in an exam room, on a stretcher. aa5 09:19 Srinivas Bernal MD is Attending Physician. chris 09:35 Triage completed. aa5 09:49 Shahrzad Lackey, OTF is Primary Nurse. ca1 10:10 Patient has correct armband on for positive identification. Placed in gown. Bed in low ca1 position. Call light in reach. Side rails up X2. cook fish eggs on. Pulse ox on. NIBP on. Warm blanket given. 10:10 No provider procedures requiring assistance completed. Initial lab(s) drawn, by az, ca1 sent to lab. Inserted saline lock: 22 gauge in right antecubital area, using aseptic technique. Blood collected. 10:24 COVID-19 Sent. ca1 10:29 XRAY Chest (1 view) In Process Unspecified. EDMS 11:23 CT Abd/Pelvis - IV Contrast Only In Process Unspecified. EDMS 12:12 Brigette Sánchez MD is Referral Physician. chris 12:52 IV discontinued, intact, bleeding controlled, No redness/swelling at site. Pressure ca1 dressing applied. Administered Medications: 10:11 Drug: NS 0.9% 1000 ml Route: IV; Rate: 1 bolus; Site: right antecubital; ca1 11:15 Follow up: Response: No adverse reaction; IV Status: Completed infusion; IV Intake: ca1 1000ml 10:13 Drug: Pepcid 20 mg Route: IVP; Site: right antecubital; ca1 12:45 Follow up: Response: No adverse reaction ca1 10:22 Drug: Tylenol 650 mg Route: PO; ca1 12:12 Follow up: Response: No adverse reaction; Pain is decreased ca1 12:17 Drug: Rocephin 1 grams Route: IV; Rate: per protocol; Site: right antecubital; ca1 12:45 Follow up: Response: No adverse reaction; IV Status: Completed infusion ca1 Intake: 11:15 IV: 1000ml; Total: 1000ml. ca1 Outcome: 12:13 Discharge ordered by . chris 12:52 Discharged to home ambulatory. ca1 12:52 Condition: stable 12:52 Discharge instructions given to patient, Instructed on discharge instructions, follow up and referral plans. medication usage, Demonstrated understanding of instructions, follow-up care, medications, Prescriptions given X 4. 12:53 Patient left the ED. ca1 Addendum: 06/15/2020 09:25 Addendum: Culture Results: Positive urine culture. Bacteria is resistant to, has a a5 intermediate sensitivity, or is not tested against prescribed antibiotics. Report given to IMTIAZ for further evaluation and then to electronic component processor for follow up with patient. Prescription called-in to pharmacy of choice. to [facility] pharmacy in [place], [place] per pt's request. Called-in Levaquin 500mg PO Daily x 3 days per JEAN-CLAUDE Devlin, pt also instructed to stop taking Cipro. 15:02 Addendum: COVID-19 Result: Negative result given to RN to notify pt. Notified pt of a a5 negative COVID 19 swab results. Pt advised that even with a negative test result they should remain in isolation until symptom free for 3 days without medication. Pt also advised to return to the ED for worsening symptoms. Signatures: Dispatcher [employer] EDNJ Srinivas Bernal MD MD cha Martinez, Amelia as Calderon, Audri, RN RN aa5 Shahrzad Lackey RN RN ca1 Corrections: (The following items were deleted from the chart) 06/12 10:24 10:22 To radiology for Abdomen Pelvis W Con+CT.RAD.BRZ. ca1 ca1
--- NOTE | 2020-06-12 12:13 | EDPHYS ---
Physician Documentation [facility] Name: Familia Ingram Age: 65 yrs Sex: Female : 1955 Arrival Date: 06/12/2020 Time: 09:00 Bed 20 Private MD: ED Physician Srinivas Bernal HPI: 06/12 09:50 This 65 yrs old Female presents to ER via Ambulatory with complaints of chris Abdominal Pain. 09:50 The patient presents with abdominal pain in the upper abdomen, in the left upper chris quadrant, abdominal distention in the upper abdomen, in the lower abdomen. Onset: The symptoms/episode began/occurred 2 day(s) ago. malaise, abd pain, cough, weakness. The patient or guardian reports cough, that is intermittent. Onset: The symptoms/episode began/occurred 5 day(s) ago. Severity of symptoms: At their worst the symptoms were mild, in the emergency department the symptoms are unchanged. Onset: The symptoms/episode began/occurred gradually. Modifying factors: The symptoms are alleviated by cool environment, the symptoms are aggravated by smoke. Associated signs and symptoms: Pertinent positives: nausea. Modifying factors: The symptoms are alleviated by nothing, the symptoms are aggravated by movement, touching the area. Severity of pain: At its worst the pain was moderate in the emergency department the pain is unchanged. Associated signs and symptoms: Pertinent positives: nausea. Severity of symptoms: At their worst the symptoms were mild moderate. The patient has not experienced similar symptoms in the past. Historical: - Allergies: 09:19 PENICILLINS; aa5 09:19 Flu vaccine; aa5 - PMHx: 09:19 Diabetes - IDDM; neuropathy; aa5 - Immunization history:: Adult Immunizations unknown. - Social history:: Smoking status: Patient reports the use of cigarette tobacco products, smokes one-half pack cigarettes per day. - Family history:: not pertinent. ROS: 09:50 Constitutional: Negative for fever, chills, and weight loss, Eyes: Negative for injury, chris pain, redness, and discharge, ENT: Negative for injury, pain, and discharge, Neck: Negative for injury, pain, and swelling, Cardiovascular: Negative for chest pain, palpitations, and edema, Back: Negative for injury and pain, : Negative for injury, bleeding, discharge, and swelling, MS/Extremity: Negative for injury and deformity, Skin: Negative for injury, rash, and discoloration, Neuro: Negative for headache, weakness, numbness, tingling, and seizure. 09:50 Respiratory: Positive for cough. 09:50 Abdomen/GI: Positive for abdominal pain, nausea, of the epigastric area, right upper quadrant and left upper quadrant. Exam: 09:50 Constitutional: This is a well developed, well nourished patient who is awake, alert, chris and in no acute distress. Head/Face: Normocephalic, atraumatic. Eyes: Pupils equal round and reactive to light, extra-ocular motions intact. Lids and lashes normal. Conjunctiva and sclera are non-icteric and not injected. Cornea within normal limits. Periorbital areas with no swelling, redness, or edema. ENT: Nares patent. No nasal discharge, no septal abnormalities noted. Tympanic membranes are normal and external auditory canals are clear. Oropharynx with no redness, swelling, or masses, exudates, or evidence of obstruction, uvula midline. Mucous membranes moist. Neck: Trachea midline, no thyromegaly or masses palpated, and no cervical lymphadenopathy. Supple, full range of motion without nuchal rigidity, or vertebral point tenderness. No Meningismus. Chest/axilla: Normal chest wall appearance and motion. Nontender with no deformity. No lesions are appreciated. Cardiovascular: Regular rate and rhythm with a normal S1 and S2. No gallops, murmurs, or rubs. Normal PMI, no JVD. No pulse deficits. Respiratory: Lungs have equal breath sounds bilaterally, clear to auscultation and percussion. No rales, rhonchi or wheezes noted. No increased work of breathing, no retractions or nasal flaring. Back: No spinal tenderness. No costovertebral tenderness. Full range of motion. Skin: Warm, dry with normal turgor. Normal color with no rashes, no lesions, and no evidence of cellulitis. MS/ Extremity: Pulses equal, no cyanosis. Neurovascular intact. Full, normal range of motion. Neuro: Awake and alert, GCS 15, oriented to person, place, time, and situation. Cranial nerves II-XII grossly intact. Motor strength 5/5 in all extremities. Sensory grossly intact. Cerebellar exam normal. Normal gait. Psych: Awake, alert, with orientation to person, place and time. Behavior, mood, and affect are within normal limits. 09:50 Abdomen/GI: Inspection: distension, Bowel sounds: normal, Palpation: moderate abdominal tenderness, in the epigastric area, right upper quadrant and left upper quadrant, Liver: no appreciated palpable abnormalities, Hernia: not appreciated. 10:26 ECG was reviewed by the Attending Physician. [facility] Vital Signs: 09:18 BP 129 / 46; Pulse 73; Resp 18 S; Temp 98.6(O); Pulse Ox 96% on R/A; Weight 95.25 kg aa5 (R); Height 5 ft. 2 in. (157.48 cm) (R); Pain 7/10; 10:26 BP 103 / 74; Pulse 63; Resp 15 S; Pulse Ox 98% on R/A; ca1 12:01 BP 112 / 48; Pulse 59; Resp 19 S; Pulse Ox 95% on R/A; ca1 12:44 BP 109 / 60; Pulse 59; Resp 19 S; Pulse Ox 97% on R/A; ca1 09:18 Body Mass Index 38.41 (95.25 kg, 157.48 cm) aa5 MDM: 09:19 Patient medically screened. [facility] 09:56 Data reviewed: vital signs, nurses notes, lab test result(s), EKG, radiologic studies, chris CT scan, plain films. 09:56 Differential Diagnosis sepsis, flu, Bronchitis Influenza Upper Respiratory Infection chris Pneumonia. Differential diagnosis: cholecystitis, Cholelithiasis, Irritable bowel syndrome, myocardia ischemia or infarction, non-specific abd pain, Peptic Ulcer Disease, Perf. Duodenal Ulcer, Perf. Gastric Ulcer, Peritonitis, Ureterolithiasis, urinary tract infection. Data interpreted: shelter monitor: rate is 73 beats/min, rhythm is regular, Pulse oximetry: on room air is 96 %. Test interpretation: by ED physician or midlevel provider: ECG, plain radiologic studies. Counseling: I had a detailed discussion with the patient and/or guardian regarding: the historical points, exam findings, and any diagnostic results supporting the discharge/admit diagnosis, lab results, radiology results. 12:10 ED course: all labs explained, follow up important, patient will do. [facility] 06/12 09:47 Order name: Basic Metabolic Panel; Complete Time: 10:[address] [facility] 06/12 09:47 Order name: CBC with Diff; Complete Time: 10:[address] [facility] 06/12 09:47 Order name: LFT's; Complete Time: 10:[address] [facility] 06/12 09:47 Order name: Magnesium; Complete Time: 10:[address] [facility] 06/12 09:47 Order name: NT PRO-BNP; Complete Time: 10:[address] [facility] 06/12 09:47 Order name: Troponin (emerg Dept Use Only); Complete Time: 10:[address] [facility] 06/12 09:47 Order name: XRAY Chest (1 view); Complete Time: 12:[address] [facility] 06/12 09:49 Order name: Lipase [facility] 06/12 09:49 Order name: COVID-[address] [facility] 06/12 09:49 Order name: Lipase; Complete Time: 10:59 EDAK 06/12 11:52 Order name: Urine Dipstick--Ancillary (enter results) me 06/12 11:53 Order name: Urine Dipstick-Ancillary; Complete Time: 12:09 EDAK 06/12 12:10 Order name: Urine Culture [facility] 06/12 12:11 Order name: Urine Culture [facility] 06/12 09:47 Order name: Cardiac monitoring; Complete Time: 10:[address] [facility] 06/12 09:47 Order name: EKG - Nurse/Tech; Complete Time: 10:[address] [facility] 06/12 09:47 Order name: IV Saline Lock; Complete Time: 10:[address] [facility] 06/12 09:47 Order name: Labs collected and sent; Complete Time: 10:[address] [facility] 06/12 09:47 Order name: O2 Per Protocol; Complete Time: 10:[address] [facility] 06/12 09:47 Order name: O2 Sat Monitoring; Complete Time: 10:[address] [facility] 06/12 09:49 Order name: CT Abd/Pelvis - IV Contrast Only; Complete Time: 12:[address] [facility] 06/12 09:49 Order name: Urine Dipstick-Ancillary (obtain specimen); Complete Time: 12:[address] [facility] EC:26 Rate is 62 beats/min. Rhythm is regular. QRS [place] is Normal. [place] interval is normal. QRS chris interval is normal. QT interval is normal. No Q waves. T waves are Normal. No ST changes noted. Clinical impression: Normal ECG and No evidence of ischemia. Interpreted by me. Reviewed by me. Administered Medications: 10:11 Drug: NS 0.9% 1000 ml Route: IV; Rate: 1 bolus; Site: right antecubital; ca1 11:15 Follow up: Response: No adverse reaction; IV Status: Completed infusion; IV Intake: ca1 1000ml 10:13 Drug: Pepcid 20 mg Route: IVP; Site: right antecubital; ca1 12:45 Follow up: Response: No adverse reaction ca1 10:22 Drug: Tylenol 650 mg Route: PO; ca1 12:12 Follow up: Response: No adverse reaction; Pain is decreased ca1 12:17 Drug: Rocephin 1 grams Route: IV; Rate: per protocol; Site: right antecubital; ca1 12:45 Follow up: Response: No adverse reaction; IV Status: Completed infusion ca1 Disposition: 06/12/20 12:13 Discharged to Home. Impression: Urinary tract infection, site not specified, Abdominal tenderness, Dysuria, Functional dyspepsia, Type 1 diabetes mellitus. - Condition is Stable. - Discharge Instructions: Abdominal Pain, Adult, Type 1 Diabetes Mellitus, Diagnosis, Adult, Dysuria, Nausea and Vomiting, Adult, Urinary Tract Infection, Adult, Urinary Tract Infection, Adult, [id number], Abdominal Pain, Adult, [id number], Diabetes Mellitus and Food, Type 1 Diabetes Mellitus, Self Care, Adult, [id number]. - Prescriptions for Bentyl 20 mg Oral Tablet - take 1 tablet by ORAL route every 6 hours As needed; 20 tablet. Pepcid 20 mg Oral Tablet - take 1 tablet by ORAL route every 12 hours for 10 days; 20 tablet. Zofran 4 mg Oral Tablet - take 1 tablet by ORAL route every 12 hours As needed; 20 tablet. Cipro 500 mg Oral Tablet - take 1 tablet by ORAL route every 12 hours for 7 days; 14 tablet. - Medication Reconciliation Form, Thank You Letter, Antibiotic Education, Prescription Opioid Use form. - Follow up: Private Physician; When: 2 - 3 days; Reason: Recheck today's complaints, Continuance of care, Re-evaluation by your physician. Follow up: Brigette Sácnhez MD; When: 2 - 3 days; Reason: Recheck today's complaints, Re-evaluation by your physician. - Problem is new. - Symptoms have improved. Signatures: Dispatcher [employer] EDSrinivas Miller MD MD cha Calderon, Audri RN RN aa5 Constantino Neal RN RN jlShahrzad Lacy RN RN ca1 Corrections: (The following items were deleted from the chart) 12:53 12:13 06/12/2020 12:13 Discharged to Home. Impression: Urinary tract infection, site ca1 not specified; Abdominal tenderness; Dysuria; Functional dyspepsia; Type 1 diabetes mellitus. Condition is Stable. Forms are Medication Reconciliation Form, Thank You Letter, Antibiotic Education, Prescription Opioid Use. Follow up: Private Physician; When: 2 - 3 days; Reason: Recheck today's complaints, Continuance of care, Re-evaluation by your physician. Follow up: Brigette Sánchez; When: 2 - 3 days; Reason: Recheck today's complaints, Re-evaluation by your physician. Problem is new. Symptoms have improved. chris
[2020-06-12] MEDS ORDERED: CEFTRIAXONE/SWI 1gm 1 GM/10 ML SYR ONE (12:25)
--- NOTE | 2020-06-14 10:47 | EKG ---
Test Date: 2020-06-12 Test Time: 10:21:07 [employer]al Supply Supervisor: SHANKAR MEASUREMENT RESULTS: Intervals: Rate: 62 OR: 192 QRSD: 82 QT: 430 QTc: 436 [place]: P: 46 OR: 192 QRS: 48 T: 28 INTERPRETIVE STATEMENTS: Normal sinus rhythm Normal ECG Compared to ECG 09/29/2015 17:35:12 No significant changes Electronically Signed On 06-14-20 10:43:59 CDT by Sudheer Alford
== END 2020-06-12 12:53 | disposition home or self-care (01) ==
LOC: ER 08:57
DX: N39.0 Urinary tract infection, site not specified (principal); K30 Functional dyspepsia; R30.0 Dysuria; E10.9 Type 1 diabetes mellitus without complications; F17.210 Nicotine dependence, cigarettes, uncomplicated; Z88.0 Allergy status to penicillin; Z88.7 Allergy status to serum and vaccine
CPT/HCPCS: 96365; 96361; 93005; 87088; 85025; 87086; 80048; 36415; 83735; 80076; 87077; 87186; 81003; 84484; 83690; 83880; 74177; 71045; 96375; 99284; U0002; Q9967; J0696; J7030

== ENCOUNTER 2021-01-08 08:16 | Emergency (ER) | payer OTHER ==
--- OUTSIDE RECORDS SUMMARY | 2021-01-08 08:19 | XMS REPORT | Continuity of Care Document ---
:1955 Author Organization [facility] t Address [address] [place] [address] Care Team Providers Name Role Phone Unavailable Unavailable Unavailable Problems This patient has no known problems. Allergies, Adverse Reactions, Alerts This patient has no known allergies or adverse reactions. Medications This patient has no known medications. Procedures This patient has no known procedures. Results This patient has no known results.
[2021-01-08] MEDS ORDERED: NA CHLORIDE 0.9% 1,000 ML ONE (08:58)
[2021-01-08] MEDS ORDERED: MORPHINE 4 MG/ML SYR ONE (08:58)
[2021-01-08] MEDS ORDERED: ONDANSETRON 4 MG/2 ML VIAL ONE (08:58)
[2021-01-08 09:07] LABS: Absolute Lymphocytes (CBC) 3.5 K/uL (0.7-4.9); Basophils % 0.5 % (0-1.3); Hematocrit 47.6 % (36.0-45.0); Lymphocytes % 29.7 % (15.3-44.8); RBC Red Blood Cell Count 5.43 M/uL (3.86-4.86)
[2021-01-08 09:09] LABS: Urine Blood NEGATIVE (NEG); Urine Glucose 1+ (NEG); Urine Protein NEGATIVE (NEG)
[2021-01-08 09:27] LABS: ALT/SGPT 42 U/L (12-78); AST/SGOT 35 U/L (15-37); Albumin 3.3 g/dL (3.4-5.0); Alkaline Phosphatase 183 U/L (45-117); BUN Blood Urea Nitrogen 6 mg/dL (7-18); Bicarbonate 27 mmol/L (21-32); Bilirubin Direct 0.1 mg/dL (0-0.2); Bilirubin Total 0.6 mg/dL (0.2-1.0); Glucose Level 162 mg/dL (74-106); Lipase 91 U/L (73-393); Potassium 3.8 mmol/L (3.5-5.1); Protein, Total 7.2 g/dL (6.4-8.2); Sodium Level 141 mmol/L (136-145)
--- NOTE | 2021-01-08 10:05 | RAD REPORT ---
EXAM DESCRIPTION: CT - Abdomen Pelvis W Contrast - 01/08/2021 9:47 am CLINICAL HISTORY: Abdominal pain COMPARISON: 2019 and 2015 TECHNIQUE: Computed axial tomography of the abdomen pelvis was obtained. 100 cc Isovue-300 was admin istered intravenously. Oral contrast was not requested which limits evaluation of bowel. All CT scans are performed using dose optimization technique as appropriate and may include automated exposure control or mA/KV adjustment according to patient size. FINDINGS: Fatty liver Spleen, pancreas and kidneys are unremarkable. Bilateral adrenal masses unchanged presumably adenomas Spondylosis involves the lumbar spine resulting in spinal stenosis. Normal appendix. No evidence of diverticulitis. Small calcified uterine fibroids IMPRESSION: No acute abnormality is displayed.
--- NOTE | 2021-01-08 10:06 | RAD REPORT ---
EXAM DESCRIPTION: Lexy Single View01/08/2021 9:10 am CLINICAL HISTORY: Chest pain COMPARISON: 2019 FINDINGS: The lungs appear clear of acute infiltrate. The heart is normal size IMPRESSION: No acute abnormalities displayed
--- NOTE | 2021-01-08 11:02 | ER ---
Nurse's Notes [facility] Name: Familia Ingram Age: 65 yrs Sex: Female : 1955 Arrival Date: 01/08/2021 Time: 08:18 Bed 18 Private MD: Mariaa Gibson C Diagnosis: Upper abdominal pain, unspecified Presentation: 01/08 08:19 Chief complaint: Patient states: Pain in the right arm, chest tightness, reports she rb3 feels like she needs to burp and can't. Pain 8/10 radiates to the LUQ. Coronavirus screen: At this time, the client does not indicate any symptoms associated with coronavirus-19. Ebola Screen: Patient denies travel to an Ebola-affected area in the 21 days before illness onset. Initial Sepsis Screen: Does the patient meet any 2 criteria? No. Patient's initial sepsis screen is negative. Risk Assessment: Do you want to hurt yourself or someone else? Patient reports no desire to harm self or others. 08:19 Method Of Arrival: Ambulatory rb3 08:19 Initial Sepsis Screen: Does the patient have a suspected source of infection? No. rb3 Patient's initial sepsis screen is negative. Onset of symptoms was January 07, 2021. 08:19 Acuity: SUNNY 3 rb3 Triage Assessment: 08:19 General: Appears in no apparent distress. Behavior is calm, cooperative, Denies fever. rb3 Pain: Complains of pain in right arm, left upper quadrant Pain currently is 8 out of 10 on a pain scale. Neuro: Level of Consciousness is awake, alert, obeys commands, Oriented to person, place, time, situation. Cardiovascular: Patient's skin is warm and dry. Respiratory: Reports cough that is dry, Airway is patent Respiratory effort is even, unlabored, Respiratory pattern is regular, symmetrical. GI: No signs and/or symptoms were reported involving the gastrointestinal system. : No signs and/or symptoms were reported regarding the genitourinary system. Musculoskeletal: Range of motion: intact in all extremities. Historical: - Allergies: 08:19 FLU VACCINE; rb3 08:19 PENICILLINS; rb3 - Home Meds: 08:19 Levemir 100 unit/mL subcutaneous soln 60 unit [Active]; Insulin 10 units twice a day rb3 [Active]; - PMHx: 08:19 Diabetes - IDDM; neurapathy; rb3 - PSHx: 08:19 None; rb3 - Immunization history:: Adult Immunizations unknown. - Social history:: Smoking status: Patient reports the use of cigarette tobacco products, smokes one-half pack cigarettes per day, Patient/guardian denies using alcohol, street drugs. - Family history:: not pertinent. Screenin:19 Abuse screen: Denies threats or abuse. Nutritional screening: No deficits noted. rb3 Tuberculosis screening: No symptoms or risk factors identified. Fall Risk None identified. Assessment: 08:19 General: See triage assessment. rb3 09:15 Reassessment: Patient appears in no apparent distress at this time. Patient and/or rb3 family updated on plan of care and expected duration. Pain level reassessed. Patient is alert, oriented x 3, equal unlabored respirations, skin warm/dry/pink. 10:15 Reassessment: Patient appears in no apparent distress at this time. No changes from rb3 previously documented assessment. 11:13 Reassessment: Patient appears in no apparent distress at this time. Patient and/or rb3 family updated on plan of care and expected duration. Pain level reassessed. Patient is alert, oriented x 3, equal unlabored respirations, skin warm/dry/pink. Vital Signs: 08:19 BP 144 / 72; Pulse 68; Resp 17; Temp 97.4(TE); Pulse Ox 100% on R/A; Weight 92.53 kg; rb3 Height 5 ft. 2 in. (157.48 cm); Pain 8/10; 09:15 BP 115 / 59; Pulse 60; Resp 16; Pulse Ox 97% ; Pain 6/10; rb3 10:15 BP 116 / 43; Pulse 60; Resp 17; Pulse Ox 100% ; rb3 11:01 BP 126 / 57; Pulse 62; Resp 19; Pulse Ox 100% ; rb3 08:19 Body Mass Index 37.31 (92.53 kg, 157.48 cm) rb3 ED Course: 08:18 Patient arrived in ED. am2 08:19 Mariaa Gibson FNP is Private Physician. am2 08:19 Terra Foster, RN is Primary Nurse. rb3 08:19 Arm band placed on right wrist. rb3 08:19 Patient has correct armband on for positive identification. Bed in low position. Call rb3 light in reach. Side rails up X 1. Pulse ox on. NIBP on. 08:21 Isabela Chen MD is Attending Physician. ma2 08:30 Triage completed. rb3 08:56 Pillow given. mh5 08:56 Urine collected: clean catch specimen, clear. mh5 08:57 Troponin (Emerg Dept Use Only) Sent. mh5 08:57 Troponin (emerg Dept Use Only) Sent. mh5 08:57 Basic Metabolic Panel Sent. mh5 08:58 CBC with Diff Sent. mh5 08:58 Hepatic Function Sent. mh5 08:58 Lipase Sent. mh5 08:58 Inserted saline lock: 20 gauge in right antecubital area, using aseptic technique. rb3 Blood collected. 09:12 Chest Single View XRAY In Process Unspecified. EDMS 09:47 CT Abd/Pelvis - IV Contrast Only In Process Unspecified. EDMS 11:01 Specner Hoover MD is Referral Physician. ma2 11:28 No provider procedures requiring assistance completed. IV discontinued, intact, rb3 bleeding controlled, No redness/swelling at site. Pressure dressing applied. Administered Medications: 09:01 Drug: morphine 4 mg Route: IVP; Site: right antecubital; rb3 09:17 Follow up: Response: No adverse reaction; Pain is decreased rb3 09:01 Drug: Zofran (Ondansetron) 4 mg Route: IVP; Site: right antecubital; rb3 09:17 Follow up: Response: No adverse reaction; Nausea is decreased rb3 09:02 Drug: NS 0.9% 1000 ml Route: IV; Rate: 1 bolus; Site: right antecubital; rb3 10:11 Follow up: IV Status: Completed infusion rb3 Outcome: 11:01 Discharge ordered by . ma2 11:28 Discharged to home ambulatory. rb3 11:28 Condition: stable 11:28 Discharge instructions given to patient, Instructed on discharge instructions, follow up and referral plans. medication usage, Demonstrated understanding of instructions, follow-up care, medications, Prescriptions given X 2. 11:28 Patient left the ED. rb3 Signatures: Dispatcher [employer] EDMS Alka Arias 5 Sarai Levine am2 Isabela Chen MD MD ma2 Terra Foster, RN RN rb3 Corrections: (The following items were deleted from the chart) 08:36 08:19 Pulse 68bpm; Resp 17bpm; Pulse Ox 100% RA; Temp 97.4F Temporal; 92.53 kg; Height rb3 5 ft. 2 in.; BMI: 37.3; Pain 8/10; rb3
--- NOTE | 2021-01-08 11:02 | EDPHYS ---
Physician Documentation [facility] Name: Familia Ingram Age: 65 yrs Sex: Female : 1955 Arrival Date: 01/08/2021 Time: 08:18 Bed 18 Private MD: Mariaa Gibson C ED Physician Isabela Chen HPI: 01/08 08:50 This 65 yrs old Female presents to ER via Ambulatory with complaints of Pain ma2 All Over, Heartburn. 08:50 The patient presents with abdominal pain in the epigastric area. Onset: The ma2 symptoms/episode began/occurred gradually, 2 day(s) ago. Associated signs and symptoms: Pertinent negatives: anorexia, chest pain, diarrhea, fever. Severity of pain: At its worst the pain was mild in the emergency department the pain is unchanged. The patient has experienced similar episodes in the past. Historical: - Allergies: 08:19 FLU VACCINE; rb3 08:19 PENICILLINS; rb3 - Home Meds: 08:19 Levemir 100 unit/mL subcutaneous soln 60 unit [Active]; Insulin 10 units twice a day rb3 [Active]; - PMHx: 08:19 Diabetes - IDDM; neurapathy; rb3 - PSHx: 08:19 None; rb3 - Immunization history:: Adult Immunizations unknown. - Social history:: Smoking status: Patient reports the use of cigarette tobacco products, smokes one-half pack cigarettes per day, Patient/guardian denies using alcohol, street drugs. - Family history:: not pertinent. ROS: 08:50 Constitutional: Negative for fever, chills, and weight loss. ma2 08:50 All other systems are negative. Exam: 08:50 Constitutional: This is a well developed, well nourished patient who is awake, alert, ma2 and in no acute distress. 08:50 Head/Face: Normocephalic, atraumatic. ENT: Nares patent. No nasal discharge, no septal abnormalities noted. Tympanic membranes are normal and external auditory canals are clear. Oropharynx with no redness, swelling, or masses, exudates, or evidence of obstruction, uvula midline. Mucous membranes moist. Neck: Trachea midline, no thyromegaly or masses palpated, and no cervical lymphadenopathy. Supple, full range of motion without nuchal rigidity, or vertebral point tenderness. No Meningismus. Chest/axilla: Normal chest wall appearance and motion. Nontender with no deformity. No lesions are appreciated. Cardiovascular: Regular rate and rhythm with a normal S1 and S2. No gallops, murmurs, or rubs. Normal PMI, no JVD. No pulse deficits. Respiratory: Lungs have equal breath sounds bilaterally, clear to auscultation and percussion. No rales, rhonchi or wheezes noted. No increased work of breathing, no retractions or nasal flaring. Abdomen/GI: Soft, non-tender, with normal bowel sounds. No distension or tympany. No guarding or rebound. No evidence of tenderness throughout. Vital Signs: 08:19 BP 144 / 72; Pulse 68; Resp 17; Temp 97.4(TE); Pulse Ox 100% on R/A; Weight 92.53 kg; rb3 Height 5 ft. 2 in. (157.48 cm); Pain 8/10; 09:15 BP 115 / 59; Pulse 60; Resp 16; Pulse Ox 97% ; Pain 6/10; rb3 10:15 BP 116 / 43; Pulse 60; Resp 17; Pulse Ox 100% ; rb3 11:01 BP 126 / 57; Pulse 62; Resp 19; Pulse Ox 100% ; rb3 08:19 Body Mass Index 37.31 (92.53 kg, 157.48 cm) rb3 MDM: 08:21 Patient medically screened. [facility] 08:50 Differential diagnosis: cholecystitis, Cholelithiasis, diverticulitis, Irritable bowel nh2 syndrome. 10:59 Data reviewed: vital signs, nurses notes. Counseling: I had a detailed discussion with ma2 the patient and/or guardian regarding: the historical points, exam findings, and any diagnostic results supporting the discharge/admit diagnosis, the presence of at least one elevated blood pressure reading (>120/80) during this emergency department visit, the need for outpatient follow up. Response to treatment: the patient's symptoms have markedly improved after treatment. 01/08 08:23 Order name: Basic Metabolic Panel; Complete Time: 09:32 [facility] 01/08 08:23 Order name: CBC with Diff [facility] 01/08 08:23 Order name: Hepatic Function; Complete Time: 09:32 [facility] 01/08 08:23 Order name: Lipase; Complete Time: 09:32 [facility] 01/08 08:27 Order name: Troponin (emerg Dept Use Only) [facility] 01/08 08:28 Order name: Troponin (Emerg Dept Use Only); Complete Time: 09:32 [facility] 01/08 08:23 Order name: IV Saline Lock; Complete Time: 08:57 [facility] 01/08 08:23 Order name: Labs collected and sent; Complete Time: 08:57 [facility] 01/08 08:36 Order name: CT Abd/Pelvis - IV Contrast Only; Complete Time: 10:19 [facility] 01/08 08:36 Order name: Chest Single View XRAY; Complete Time: 10:19 [facility] 01/08 08:56 Order name: Urine Dipstick--Ancillary (enter results); Complete Time: 09:32 01/08 08:27 Order name: Urine Dipstick-Ancillary (obtain specimen); Complete Time: 08:56 ma Administered Medications: 09:01 Drug: morphine 4 mg Route: IVP; Site: right antecubital; rb3 09:17 Follow up: Response: No adverse reaction; Pain is decreased rb3 09:01 Drug: Zofran (Ondansetron) 4 mg Route: IVP; Site: right antecubital; rb3 09:17 Follow up: Response: No adverse reaction; Nausea is decreased rb3 09:02 Drug: NS 0.9% 1000 ml Route: IV; Rate: 1 bolus; Site: right antecubital; rb3 10:11 Follow up: IV Status: Completed infusion rb3 Disposition: 01/08/21 11:01 Discharged to Home. Impression: Upper abdominal pain, unspecified. - Condition is Stable. - Discharge Instructions: Abdominal Pain, Adult. - Prescriptions for Diclofenac Sodium 75 mg Oral Tablet Sustained Release - take 1 tablet by ORAL route 2 times per day; 30 tablet. Pepcid 20 mg Oral Tablet - take 1 tablet by ORAL route once daily for 10 days; 10 tablet. - Medication Reconciliation Form, Thank You Letter, Antibiotic Education, Prescription Opioid Use form. - Follow up: Private Physician; When: Tomorrow; Reason: If symptoms return. Follow up: Spencer Hoover MD; When: Tomorrow; Reason: Continuance of care. Signatures: Dispatcher [employer] EDKS Isabela Chen, MD MD ma2 Terra Foster RN RN rb3 Corrections: (The following items were deleted from the chart) 11:28 11:01 01/08/2021 11:01 Discharged to Home. Impression: Upper abdominal pain, rb3 unspecified. Condition is Stable. Prescriptions for Diclofenac Sodium 75 mg Oral Tablet Sustained Release - take 1 tablet by ORAL route 2 times per day; 30 tablet, Pepcid 20 mg Oral Tablet - take 1 tablet by ORAL route once daily for 10 days; 10 tablet. and Forms are Medication Reconciliation Form, Thank You Letter, Antibiotic Education, Prescription Opioid Use. Follow up: Private Physician; When: Tomorrow; Reason: If symptoms return. Follow up: Spencer Hoover; When: Tomorrow; Reason: Continuance of care. ma2
[2021-01-08 11:33] VITALS: TEMP 97.4
[2021-01-08 11:35] VITALS: O2SAT 100
[2021-01-08 11:37] VITALS: BP 126/57
== END 2021-01-08 11:28 | disposition home or self-care (01) ==
LOC: ER 08:16
DX: R10.13 Epigastric pain (principal); E11.40 Type 2 diabetes mellitus with diabetic neuropathy, unspecified; Z79.4 Long term (current) use of insulin; F17.210 Nicotine dependence, cigarettes, uncomplicated; Z88.0 Allergy status to penicillin; Z88.7 Allergy status to serum and vaccine
CPT/HCPCS: 96361; 85025; 80048; 36415; 80076; 81003; 84484; 83690; 74177; 71045; 96375; 96374; 99284; Q9967; J7030; J2405

== ENCOUNTER 2021-03-06 07:15 | Day surgery (SDC) | payer OTHER ==
--- NOTE | 2021-03-03 16:10 | RAD REPORT ---
EXAM DESCRIPTION: Lexy Duran And Margarito (2 Views)03/03/2021 4:01 pm CLINICAL HISTORY: Preop COMPARISON: December 2020 FINDINGS: The lungs appear clear of acute infiltrate. The heart is normal size IMPRESSION: No acute abnormalities displayed
[2021-03-03 16:17] LABS: Absolute Lymphocytes (CBC) 4.1 K/uL (0.7-4.9); Basophils % 0.4 % (0-1.3); Hematocrit 47.5 % (36.0-45.0); Lymphocytes % 32.2 % (15.3-44.8); MPV 10.2 fL (7.6-11.3); RBC Red Blood Cell Count 5.43 M/uL (3.86-4.86)
[2021-03-03 16:25] LABS: BUN Blood Urea Nitrogen 10 mg/dL (7-18); Bicarbonate 30 mmol/L (21-32); Glucose Level 228 mg/dL (74-106); Potassium 4.1 mmol/L (3.5-5.1); Sodium Level 142 mmol/L (136-145)
[2021-03-06] MEDS ORDERED: NA CHLORIDE 0.9% 1,000 ML ONE (07:55)
[2021-03-06] MEDS ORDERED: FENTANYL CITR 100 MCG/2 ML ONE (08:27)
[2021-03-06] MEDS ORDERED: propofoL 200 MG/20 ML VIAL IV ONE (08:27)
[2021-03-06] MEDS ORDERED: LIDOCAINE 1% MPF 5 ML VIAL ONE (08:28)
[2021-03-06] MEDS ORDERED: MIDAZOLAM HCL 2 MG/2 ML INJ ONE (08:28)
[2021-03-06] MEDS: CEFAZOLIN/SWI 1gm 1 GM/10 ML SYR ONE ×2 (08:42→08:45)
[2021-03-06] MEDS ORDERED: NS 0.9% VIAL 10 ML ONE (09:08)
[2021-03-06] MEDS ORDERED: EPHEDRINE SULF 50 MG/ML VIAL ONE (09:08)
[2021-03-06] MEDS ORDERED: KETOROLAC 30 MG/ML INJ ONE (09:14)
[2021-03-06] MEDS ORDERED: ONDANSETRON 4 MG/2 ML VIAL ONE (09:30)
[2021-03-06 10:03] VITALS: O2SAT 100
--- NOTE | 2021-03-06 13:04 | DS ---
Diagnosis: Tender left flank abdominal wall mass. Procedure: Excisional biopsy of left flank abdominal wall mass, 5 x 5 cm with layered closure. Disposition: Home. Discharge Instructions: Activity as tolerated. No heavy lifting. MAXI drain to bulb suction, require output q.24 hours. Followup in my office in 1 week. Keep the area intact. Medications: See previous orders. NATALYA/CINTHIA Voice ID: [id number] Report ID: [id number]
[2021-03-06 15:02] VITALS: BP 109/74; TEMP 96.8
--- NOTE | 2021-03-06 18:42 | OP ---
Date of Procedure: 03/06/2021 Surgeon: Freddy Arias MD Preoperative Diagnosis: Tender left flank pain. Postoperative Diagnosis: Tender left flank pain. Procedure: Excisional biopsy with layered closure of tender left flank pain. Anesthesia: General plus local. Complications: None. Findings: Fatty tumor. Indication: This is the case of a 65-year-old patient, who comes with specific tenderness over the l eft flank, lateral abdominal area right at midaxillary line. The patient can pinpoint the area of th e lump. The patient happened to have also a rib cage right in that region so she was told many times could be many causes that may be also even the costochondritis, but she still has a lump in that are a and she pinpointed when she pressed the lump, it is where she has more of the tenderness so she wan ts the lump excised. The lump is deep. It is palpated by me and the patient. The benefits, alterna tives, and risks were explained to the patient, which include, but not limited to infection, bleeding , damage to adjacent structures, anesthesia complication, nonhealing wound, seroma, hematoma, MS, and even . She also understands this may not relieve any symptoms. She might need more than one s urgical intervention. She understood, signed a consent. Procedure In Detail: The area of concern was marked by me and the patient in the holding room. The patient was brought to the operating room, placed in supine position. Anesthesia was done without co mplication. The left flank and abdomen were prepped and draped in usual sterile fashion. The incisi on was made, marked by me and the patient marked in the holding area. Incision was carried down to t he subcutaneous tissue. Indeed, we noticed a fatty tumor in that region, goes all the way down to mu scles, some fascia of the muscle have to come with it. It does not penetrate the muscle. The area w as irrigated. That left big incision and deep incision in that area, so we are afraid she is going t o have a seroma since there is volume loss in that region, so we put a MAXI drain exiting through anoth er incision, secured in place with 2-0 nylon. Then, we proceeded to close this in about 3 layers and then after that, the skin was approximated with karyn. The patient tolerated the procedure well. Sponge count and instrument counts correct. The patient was sent to recovery in stable condition. NATALYA/MODL Voice ID: [id number] Report ID: [id number]
== END 2021-03-06 10:50 | disposition home or self-care (01) ==
LOC: OR 07:15
PROVIDERS: ATTEND Surgery
PROC: 0JB80ZZ Excision of Abdomen Subcutaneous Tissue and Fascia, Open Approach (ICD-10-PCS; 2021-03-06)
PROC: 0JQ80ZZ Repair Abdomen Subcutaneous Tissue and Fascia, Open Approach (ICD-10-PCS; principal; 2021-03-06 08:30)
DX: D17.1 Benign lipomatous neoplasm of skin and subcutaneous tissue of trunk (principal); E11.9 Type 2 diabetes mellitus without complications; F17.210 Nicotine dependence, cigarettes, uncomplicated; Z20.822 Contact with and (suspected) exposure to COVID-19
CPT/HCPCS: 11406; 12032; 93005; 85025; 80048; 36415; 82947 ×2; 88304; 71046; U0003; J2704; J2250; J3010; J0690; J7030; J2405

== ENCOUNTER 2021-05-21 12:48 | Emergency (ER) | payer OTHER ==
--- OUTSIDE RECORDS SUMMARY | 2021-05-21 12:50 | XMS REPORT | Continuity of Care Document ---
:1955 Author Organization [facility] t Address [address] [place] [address] Care Team Providers Name Role Phone Unavailable Unavailable Unavailable Problems This patient has no known problems. Allergies, Adverse Reactions, Alerts This patient has no known allergies or adverse reactions. Medications This patient has no known medications. Procedures This patient has no known procedures. Results This patient has no known results.
--- NOTE | 2021-05-21 17:29 | ER ---
Nurse's Notes [facility] Name: Familia Ingram Age: 66 yrs Sex: Female : 1955 Arrival Date: 05/21/2021 Time: 12:55 Bed Waiting Private MD: Diagnosis: Presentation: 05/21 13:35 Chief complaint: Patient states: Dizzy, L sided [place], R arm pain, body aches, slight ll1 cough for 3 days. + diarrhea. No fever. Coronavirus screen: Client denies travel out of the [place] in the last 14 days. cough unrelated to allergies, diarrhea, fatigue, headache, runny nose, Client presents with at least one sign or symptom that may indicate coronavirus-19. Standard/surgical mask placed on the client. Ebola Screen: Patient denies travel to an Ebola-affected area in the 21 days before illness onset. Initial Sepsis Screen: Does the patient meet any 2 criteria? No. Patient's initial sepsis screen is negative. Does the patient have a suspected source of infection? No. Patient's initial sepsis screen is negative. Risk Assessment: Do you want to hurt yourself or someone else? Patient reports no desire to harm self or others. Onset of symptoms was May 19, 2021. 13:35 Method Of Arrival: Ambulatory ll1 13:35 Acuity: SUNNY 3 ll1 Historical: - Allergies: 13:38 FLU VACCINE; ll1 - PMHx: 13:38 Diabetes - IDDM; neuropathy; ll1 - PSHx: 13:38 abdominal tumor removed; ll1 - Immunization history:: Client reports receiving the 2nd dose of the Covid vaccine, Flu vaccine is not up to date. - Social history:: Smoking status: Patient reports the use of cigarette tobacco products, smokes one-half pack cigarettes per day. Vital Signs: 13:35 BP 121 / 60; Pulse 76; Resp 18; Temp 97.3; Pulse Ox 99% ; Weight 99.79 kg; Height 5 ft. ll1 2 in. (157.48 cm); Pain 5/10; 13:35 Body Mass Index 40.24 (99.79 kg, 157.48 cm) ll1 ED Course: 12:55 Patient arrived in ED. ds1 13:37 Triage completed. ll1 13:38 Arm band placed on. ll1 Administered Medications: No medications were administered Outcome: 17:29 Patient left the ED. ll1 Signatures: Priscilla Owen ds1 Perla Douglas RN RN ll1 Corrections: (The following items were deleted from the chart) 13:38 13:38 Allergies: PENICILLINS; 1 1
[2021-05-21 17:34] VITALS: BP 121/60; TEMP 97.3; O2SAT 99
== END 2021-05-21 17:29 | disposition left against medical advice (07) ==
LOC: ER 12:48
DX: Z53.21 Procedure and treatment not carried out due to patient leaving prior to being seen by health care provider (principal)
CPT/HCPCS: 99281

== ENCOUNTER 2022-02-01 20:15 | Emergency (ER) | payer OTHER ==
--- OUTSIDE RECORDS SUMMARY | 2022-02-01 20:17 | XMS REPORT | Continuity of Care Document ---
:1955 Author Organization [facility] t Address [address] [place] [address] [address] [place] [id number] Care Team Providers Name Role Phone Unavailable Unavailable Unavailable Problems This patient has no known problems. Allergies, Adverse Reactions, Alerts This patient has no known allergies or adverse reactions. Medications This patient has no known medications. Procedures This patient has no known procedures. Results This patient has no known results.
[2022-02-01 22:33] LABS: Absolute Lymphocytes (CBC) 5.5 K/uL (0.7-4.9); Hematocrit 48.1 % (36.0-45.0); Lymphocytes % 32.6 % (15.3-44.8); RBC Red Blood Cell Count 5.51 M/uL (3.86-4.86)
[2022-02-01 22:42] LABS: BUN Blood Urea Nitrogen 8 mg/dL (7-18); Bicarbonate 26 mmol/L (21-32); Glucose Level 164 mg/dL (74-106); Potassium 3.7 mmol/L (3.5-5.1); Sodium Level 139 mmol/L (136-145)
[2022-02-01] MEDS ORDERED: FENTANYL CITR 100 MCG/2 ML ONE (23:46)
--- NOTE | 2022-02-02 01:45 | ER ---
Nurse's Notes [facility] Name: Familia Ingram Age: 66 yrs Sex: Female : 1955 Arrival Date: 02/01/2022 Time: 20:22 Bed 28 Private MD: Diagnosis: Fall (on) (from) other stairs and steps;Contusion of left lower leg;Pain in right hip;Low back pain;Contusion of unspecified part of head, initial encounter Presentation: 02/01 20:46 Chief complaint: Patient states: I started to go up the stairs at my apartment and my jb4 legs gave out and I fell on my right side. My right arm hurts. I have knot on the right side of my head, my neck hurts and my feet are swollen, and my back hurts. 20:46 Care prior to arrival: None. Mechanism of Injury: Fall from standing position. Trauma jb4 event details: Injury occurred in the [facility]. 20:46 Acuity: SUNNY 2 jb4 20:46 Method Of Arrival: Wheelchair jb4 20:46 Coronavirus screen: At this time, the client does not indicate any symptoms associated jb4 with coronavirus-19. 20:46 Ebola Screen: No symptoms or risks identified at this time. Initial Sepsis Screen: Does jb4 the patient meet any 2 criteria? No. Patient's initial sepsis screen is negative. Does the patient have a suspected source of infection? No. Patient's initial sepsis screen is negative. Risk Assessment: Do you want to hurt yourself or someone else? Patient reports no desire to harm self or others. Transition of care: patient was not received from another setting of care. 02/02 00:30 Onset of symptoms was February 01, 2022. Trauma Activation: Alert Physician: ED Physician; Name: Chapito; Notified At: 20:46; Arrived At: 20:46 Physician: General Surgeon; Name: ; Notified At: 20:46; Arrived At: Physician: Radiology; Name: ; Notified At: 20:46; Arrived At: Physician: Respiratory; Name: ; Notified At: 20:46; Arrived At: Physician: Lab; Name: ; Notified At: 20:46; Arrived At: Historical: - Allergies: 02/01 20:52 FLU VACCINE; bb - Home Meds: 20:52 Humulin 70/30 100 unit/mL (70-30) Sub-Q susp [Active]; insulin 10 units twice a day bb [Active]; Levemir 100 unit/mL subcutaneous soln 60 unit [Active]; - PMHx: 20:52 Diabetes - IDDM; neurapathy; bb - PSHx: 20:52 abdominal tumor removed; bb - Immunization history:: Adult Immunizations up to date. - Social history:: Smoking status: Patient reports the use of cigarette tobacco products, smokes one pack cigarettes per day. - Immunization history: Last tetanus immunization: unknown. Screenin:26 Abuse screen: Denies threats or abuse. Tuberculosis screening: No symptoms or risk jb4 factors identified. 23:36 Nutritional screening: No deficits noted. Fall Risk Fall in past 12 months (25 points). fu No secondary diagnosis (0 pts). IV access (20 points). Ambulatory Aid- None/Bed Rest/Nurse Assist (0 pts). Gait- Normal/Bed Rest/Wheelchair (0 pts) Mental Status- Oriented to own ability (0 pts). Total Perdomo Fall Scale indicates High Risk Score (45 or more points). Fall prevention measures have been instituted. Side Rails Up X 2 Placed Close to Nursing Station Frequent Obs/Assessments Occuring As available patient and family educated on Fall Prevention Program and Strategies. Primary Survey: 20:26 NO uncontrolled hemorrhage observed. A: The patient is alert. Airway: patent, No jb4 supplemental oxygen in use on arrival. Oral cavity: clear, gag reflex present, Trachea midline. Breathing/Chest: Respiratory pattern: regular, Respiratory effort: spontaneous, unlabored. Circulation: Skin color: pink, Skin temperature: warm, dry. Disability Alert. Exposure/Environment: All clothing and personal items were removed. Forensic evidence collection is not deemed to be indicated at this time. Items placed in patient belonging bag. A warming method has been applied: A warm blanket has been provided to the patient. 21:41 Reassessment Airway Airway Patent Breathing/Chest Respiratory pattern Regular fu Circulation Heart rhythm Sinus rhythm Heart tones Present Pulses Palpable Color [place] Temperature Warm Disability Alert. Assessment: 21:49 General: Appears uncomfortable, Behavior is calm, cooperative, appropriate for age. fu Pain: Complains of pain in head, right shoulder, rosie, hip, both legs Pain does not radiate. Pain currently is 9 out of 10 on a pain scale. Pain began 6 hours ago. Neuro: Level of Consciousness is awake, alert, obeys commands, Oriented to person, place, time, situation, [employer] are equal bilaterally Moves all extremities. Speech is normal, Facial symmetry appears normal. Respiratory: Respiratory effort is even, unlabored, Respiratory pattern is regular. Derm: abrasion to left big toe, swelling of left knee and both feet. 22:30 Reassessment: Patient and/or family updated on plan of care and expected duration. Pain fu level reassessed. Patient is alert, oriented x 3, equal unlabored respirations, skin warm/dry/pink. 23:33 Reassessment: No changes from previously documented assessment. Patient and/or family fu updated on plan of care and expected duration. Pain level reassessed. Patient is alert, oriented x 3, equal unlabored respirations, skin warm/dry/pink. patient complaining of pain, PCP notified. 02/02 00:36 Reassessment: Patient and/or family updated on plan of care and expected duration. Pain fu level reassessed. Patient is alert, oriented x 3, equal unlabored respirations, skin warm/dry/pink. Patient states feeling better. Patient states symptoms have improved. 02:02 Reassessment: Patient appears in no apparent distress at this time. Patient and/or wh family updated on plan of care and expected duration. Pain level reassessed. Patient is alert, oriented x 3, equal unlabored respirations, skin warm/dry/pink. Vital Signs: 02/01 20:46 BP 140 / 115; Pulse 87; Resp 18; Temp 98.1(TE); Pulse Ox 100% on R/A; Weight 108.8 kg jb4 (R); Height 5 ft. 1 in. (154.94 cm) (R); Pain 10/10; 21:46 BP 139 / 90; Pulse 81; Resp 18; Pulse Ox 98% on R/A; Pain 9/10; fu 22:45 BP 113 / 67; Pulse 79; Resp 13; Temp 97.6(O); Pulse Ox 100% on R/A; Pain 9/10; fu 23:30 BP 127 / 84; Pulse 77; Resp 22; Pulse Ox 100% on R/A; fu 02/02 00:00 BP 107 / 96; Pulse 77; Resp 17; Pulse Ox 100% on R/A; fu 00:30 BP 120 / 85; Pulse 78; Resp 17; Pulse Ox 100% on R/A; fu 02:00 BP 121 / 89; Pulse 59; Resp 18; Pulse Ox 100% ; wh 02/01 20:46 Body Mass Index 45.32 (108.80 kg, 154.94 cm) jb4 Tolley Coma Score: 02/01 20:26 Eye Response: spontaneous(4). Verbal Response: oriented(5). Motor Response: obeys jb4 commands(6). Total: 15. Trauma Score (Adult): 20:26 Eye Response: spontaneous(1); Verbal Response: oriented(1); Motor Response: obeys jb4 commands(2); Systolic BP: > 89 mm Hg(4); Respiratory Rate: 10 to 29 per min(4); Bean Score: 15; Trauma Score: 12 ED Course: 20:22 Patient arrived in ED. kz 20:26 Patient has correct armband on for positive identification. Bed in low position. Call jb4 light in reach. Side rails up X 1. 20:26 Patient maintains SpO2 saturation greater than 95% on room air. jb4 20:52 Triage completed. bb 20:53 Arm band placed on right wrist. bb 21:21 Jordan Sethi RN is Primary Nurse. fu 21:33 Srinivas Oliveros PA is PHCP. cp 21:33 Dakota Quinn MD is Attending Physician. cp 22:00 Initial lab(s) drawn, by co, sent to lab. Inserted saline lock: 20 gauge in left fu antecubital area, using aseptic technique. Blood collected. 22:09 Basic Metabolic Panel Sent. fu 22:09 CBC with Diff Sent. fu 22:09 Type And Screen Sent. fu 23:29 CT Traumagram (Head C Spine CAP W Con) In Process Unspecified. EDMS 23:37 palliative care nurse on. Pulse ox on. NIBP on. Warm blanket given. fu 02/02 00:30 Thermoregulation: warm blanket given to patient. 01:01 Report given to OTF Garrison. fu 01:02 XRAY Tib Fib LEFT In Process Unspecified. EDMS 01:03 XRAY Foot LEFT 3 View In Process Unspecified. EDMS 02:02 No provider procedures requiring assistance completed. IV discontinued, intact, bleeding controlled, No redness/swelling at site. Administered Medications: 02/01 23:48 Drug: fentaNYL (PF) 25 mcg Route: IVP; Site: left antecubital; fu 02/02 00:34 Follow up: Response: Pain is decreased Intake: 02:03 PO: 50ml (Water); Total: 50ml. Outcome: 01:44 Discharge ordered by MD. cp 02:03 Discharged to home via wheelchair, with family. 02:03 Condition: stable 02:03 Discharge instructions given to patient, family, Instructed on discharge instructions, follow up and referral plans. medication usage, POC Demonstrated understanding of instructions, follow-up care, medications, POC Prescriptions given X 2. 02:03 Patient's length of stay was not longer than 2 hours. 02:04 Patient left the ED. Signatures: Dispatcher [employer] Lesia Joshua RN RN bb Page, Corey, PA PA cp Bryson, James, RN RN [facility] Meli Mejia RN RN Jordan Sethi RN RN fu Zapata, Kelly kz Corrections: (The following items were deleted from the chart) 02/01 22:41 20:46 Chief complaint: Patient states: I started to go up the stairs at my apartment jb4 and my legs gave out and I fell on my right side. My right arm hurts. I have knot on the right side of my head, my neck hurts and my feet are swollen, and my back hurts. 22:41 20:46 Method Of Arrival: Wheelchair [facility] :41 20:46 Acuity: SUNNY 2 [facility] 22:43 20:46 Coronavirus screen: At this time, the client does not indicate any symptoms 4 associated with coronavirus-19. :43 20:46 Ebola Screen: No symptoms or risks identified at this time. [facility] 22:43 20:46 Initial Sepsis Screen: Does the patient meet any 2 criteria? No. Patient's 4 initial sepsis screen is negative. Does the patient have a suspected source of infection? No. Patient's initial sepsis screen is negative. 20:46 Risk Assessment: Do you want to hurt yourself or someone else? Patient reports no 4 desire to harm self or others. 20:46 Onset of symptoms was February 01, 2022 [facility] 20:46 Transition of care: patient was not received from another setting of care. [facility] : 20:46 BP 140 / 115; Pulse 87bpm; Resp 18bpm; Pulse Ox 100% RA; Temp 98.1F Temporal; jb4 108.86 kg; Height 5 ft. 1 in. Reported; BMI: 45.3; Pain 10/10; bb 23:49 23:33 Reassessment: No changes from previously documented assessment. Patient and/or fu family updated on plan of care and expected duration. Pain level reassessed. Patient is alert, oriented x 3, equal unlabored respirations, skin warm/dry/pink. fu
--- NOTE | 2022-02-02 01:45 | EDPHYS ---
Physician Documentation [facility] Name: Familia Ingram Age: 66 yrs Sex: Female : 1955 Arrival Date: 02/01/2022 Time: 20:22 Bed 28 Private MD: ED Physician Dakota Quinn HPI: 02/01 22:00 This 66 yrs old Female presents to ER via Wheelchair with complaints of Fall cp Injury. 22:00 Details of fall: The patient fell from an upright position, while walking, and struck a cp concrete surface. Onset: The symptoms/episode began/occurred this afternoon. Associated injuries: The patient sustained injury to the head, contusion, neck injury, pain, upper back injury, pain, injury to the low back, pain, left lower leg and left foot, painful injury. Severity of symptoms: in the emergency department the symptoms are unchanged, despite home interventions. 22:00 Daughter reports patient has cane and/or walker to assist with ambulation but was not cp using prior to fall. Historical: - Allergies: 20:52 FLU VACCINE; bb - Home Meds: 20:52 Humulin 70/30 100 unit/mL (70-30) Sub-Q susp [Active]; insulin 10 units twice a day bb [Active]; Levemir 100 unit/mL subcutaneous soln 60 unit [Active]; - PMHx: 20:52 Diabetes - IDDM; neurapathy; bb - PSHx: 20:52 abdominal tumor removed; bb - Immunization history:: Adult Immunizations up to date. - Social history:: Smoking status: Patient reports the use of cigarette tobacco products, smokes one pack cigarettes per day. - Immunization history: Last tetanus immunization: unknown. ROS: 22:10 Constitutional: Negative for body aches, chills, fever, poor PO intake. cp 22:10 Neck: Positive for pain with movement, pain at rest. cp 22:10 Cardiovascular: Positive for chest pain, of the chest, Negative for edema, palpitations. 22:10 Respiratory: Negative for cough, shortness of breath, wheezing. 22:10 Abdomen/GI: Negative for abdominal pain, nausea, vomiting, and diarrhea. 22:10 Back: Positive for pain at rest, pain with movement. 22:10 MS/extremity: Positive for pain, swelling, tenderness, of the left lower leg and left foot, Negative for decreased range of motion, deformity. Exam: 22:17 Constitutional: The patient appears in no acute distress, alert, awake, cp non-diaphoretic, non-toxic, well developed, well nourished, obese, uncomfortable. 22:17 Head/face: Noted is swelling, that is mild, of the right frontal area, tenderness, cp that is mild, of the right frontal area. 22:17 Eyes: Periorbital structures: appear normal, Pupils: equal, round, and reactive to light and accomodation, Extraocular movements: intact throughout, Sclera: no appreciated abnormality, Lids and lashes: appear normal, bilaterally. 22:17 ENT: External ear(s): are unremarkable, Nose: is normal, Mouth: Lips: moist, Oral mucosa: moist, Posterior pharynx: Airway: no evidence of obstruction, patent. 22:17 Neck: C-spine: C-collar placed in ED. 22:17 Chest/axilla: Inspection: normal, Palpation: crepitus, is not appreciated, tenderness, that is mild, of the anterior aspect of right upper chest and anterior aspect of left upper chest. 22:17 Cardiovascular: Rate: normal, Rhythm: regular, Pulses: dorsalis pedis pulses palpable, weak, Edema: pedal edema, that is very mild, JVD: is not appreciated. 22:17 Respiratory: the patient does not display signs of respiratory distress, Respirations: normal, no use of accessory muscles, no retractions, labored breathing, is not present, Breath sounds: are clear throughout, no decreased breath sounds, no stridor, no wheezing. 22:17 Abdomen/GI: Inspection: abdomen appears normal, Palpation: abdomen is soft and non-tender, in all quadrants. 22:17 Back: pain, that is moderate, of the thoracic area and lumbar area, ROM is painful, with all movement. 22:17 Musculoskeletal/extremity: Extremities: grossly normal except: noted in the left lower leg and left foot: pain, swelling, tenderness, Perfusion: the extremity is cool, bilateral lower legs. 22:17 Neuro: Orientation: to person, place \T\ time. Mentation: is normal, Motor: moves all fours, strength is normal, Sensation: no obvious gross deficits. Vital Signs: 20:46 BP 140 / 115; Pulse 87; Resp 18; Temp 98.1(TE); Pulse Ox 100% on R/A; Weight 108.8 kg jb4 (R); Height 5 ft. 1 in. (154.94 cm) (R); Pain 10/10; 21:46 BP 139 / 90; Pulse 81; Resp 18; Pulse Ox 98% on R/A; Pain 9/10; fu 22:45 BP 113 / 67; Pulse 79; Resp 13; Temp 97.6(O); Pulse Ox 100% on R/A; Pain 9/10; fu 23:30 BP 127 / 84; Pulse 77; Resp 22; Pulse Ox 100% on R/A; fu 02/02 00:00 BP 107 / 96; Pulse 77; Resp 17; Pulse Ox 100% on R/A; fu 00:30 BP 120 / 85; Pulse 78; Resp 17; Pulse Ox 100% on R/A; fu 02:00 BP 121 / 89; Pulse 59; Resp 18; Pulse Ox 100% ; wh 02/01 20:46 Body Mass Index 45.32 (108.80 kg, 154.94 cm) jb4 Renick Coma Score: 02/01 20:26 Eye Response: spontaneous(4). Verbal Response: oriented(5). Motor Response: obeys jb4 commands(6). Total: 15. Trauma Score (Adult): 20:26 Eye Response: spontaneous(1); Verbal Response: oriented(1); Motor Response: obeys jb4 commands(2); Systolic BP: > 89 mm Hg(4); Respiratory Rate: 10 to 29 per min(4); Bean Score: 15; Trauma Score: 12 MDM: 21:39 Patient medically screened. cp 22:00 Differential diagnosis: closed head injury, contusion, fracture, laceration, multiple cp trauma. 02/02 01:44 Data reviewed: vital signs, nurses notes, lab test result(s), radiologic studies, CT cp scan, plain films. 01:44 Test interpretation: by ED physician or midlevel provider: plain radiologic studies. cp Counseling: I had a detailed discussion with the patient and/or guardian regarding: the historical points, exam findings, and any diagnostic results supporting the discharge/admit diagnosis, lab results, radiology results, the need for outpatient follow up, a family practitioner, to return to the emergency department if symptoms worsen or persist or if there are any questions or concerns that arise at home. Response to treatment: Pain improved. Radiology studies reviewed. Will discharge to home for continued monitoring. Special discussion: Based on the patient's history, exam and DX evaluation, there is no indication for emergent intervention or inpatient TX. It is understood by the patient/guardian that if the SXs persist or worsen they need to return immediately for re-evaluation. 02/01 21:49 Order name: Basic Metabolic Panel; Complete Time: 23:00 cp 02/01 23:00 Interpretation: Normal except: CL 111; GLUC 164. cp 02/01 21:49 Order name: CBC with Diff; Complete Time: 23:00 cp 02/02 01:17 Interpretation: Normal except: WBC 16.9; RBC 5.51; HGB 15.6; HCT 48.1; NEUT A 10.0; cp LYMA 5.5. 02/01 21:49 Order name: Type And Screen; Complete Time: 01:17 cp 02/01 21:49 Order name: CT Traumagram (Head C Spine CAP W Con) cp 02/02 00:28 Order name: XRAY Tib Fib LEFT cp 02/02 00:28 Order name: XRAY Foot LEFT 3 View cp 02/01 21:49 Order name: Labs collected and sent; Complete Time: 22:09 cp Administered Medications: 02/01 23:48 Drug: fentaNYL (PF) 25 mcg Route: IVP; Site: left antecubital; fu 02/02 00:34 Follow up: Response: Pain is decreased fu Disposition: 05:26 Co-signature as Attending Physician, Dakota Quinn MD I agree with the assessment and kdr plan of care. Disposition Summary: 02/02/22 01:44 Discharge Ordered Location: Home cp Problem: new cp Symptoms: have improved cp Condition: Stable cp Diagnosis - Fall (on) (from) other stairs and steps cp - Contusion of left lower leg cp - Pain in right hip cp - Low back pain cp - Contusion of unspecified part of head, initial encounter cp Followup: cp - With: Private Physician - When: 2 - 3 days - Reason: Recheck today's complaints Discharge Instructions: - Discharge Summary Sheet cp - Acute Back Pain, Adult cp - Hip Pain cp - Back Exercises cp - Facial or Scalp Contusion cp - Heat Therapy cp Forms: - Medication Reconciliation Form cp - Thank You Letter cp - Antibiotic Education cp - Prescription Opioid Use cp Prescriptions: - Ibuprofen 800 mg Oral Tablet - take 1 tablet by ORAL route every 8 hours As needed take with food; 30 tablet; cp Refills: 0, Product Selection Permitted - Lidoderm 5 % Topical adhesive patch,medicated - apply 1 patch by TOPICAL route once daily; 1 box; Refills: 0, Product Selection cp Permitted Signatures: Dispatcher [employer] EDDakota Oreilly MD MD kdr Ballard, Brenda RN RN bb Srinivas Oliveros PA PA cp Sagar Mathis, RN RN jb4 Jordan Sethi RN RN fu Corrections: (The following items were deleted from the chart) 01:39 01:18 Urine Dipstick-Ancillary ordered. cp wh
[2022-02-02 09:19] VITALS: TEMP 97.6; O2SAT 100
[2022-02-02 09:27] VITALS: BP 121/89
--- NOTE | 2022-02-02 13:51 | RAD REPORT ---
EXAM DESCRIPTION: RAD - Tib Fib Left - 02/02/2022 1:00 am CLINICAL HISTORY: 66 years Female, PAIN left lower cavity pain TECHNIQUE: 2 views COMPARISON: None. FINDINGS: BONES/JOINT: Bones are demineralized. No acute fracture or dislocation. No focal lytic or blastic abnormality. SOFT TISSUES: Unremarkable. No radiopaque foreign body. IMPRESSION: 1. No acute fracture. Electronically signed by: Marlon Wolff MD 02/02/2022 1:30 AM CDT Due to temporary technical issues with the PACS/Fluency reporting system, reports are being signed by the in house radiologist without review as a courtesy to ensure prompt reporting. The interpreting r adiologist is fully responsible for the content of the report.
--- NOTE | 2022-02-02 13:55 | RAD REPORT ---
EXAM DESCRIPTION: RAD - Foot Left 3 View - 02/02/2022 1:01 am CLINICAL HISTORY: 66 years Female, PAIN left foot pain TECHNIQUE: 3 views COMPARISON: None. FINDINGS: BONES/JOINT: Osteopenia. No acute fracture or dislocation. Joint spaces are unremarkable. SOFT TISSUES: Unremarkable. No radiopaque foreign body. IMPRESSION: 1. No acute osseous abnormalities or significant degenerative changes. 2. Osteopenia. Electronically signed by: Marlon Wolff MD 02/02/2022 1:31 AM CDT Due to temporary technical issues with the PACS/Fluency reporting system, reports are being signed by the in house radiologist without review as a courtesy to ensure prompt reporting. The interpreting r adiologist is fully responsible for the content of the report.
--- NOTE | 2022-02-02 13:58 | RAD REPORT ---
EXAM DESCRIPTION: CT - Head C Spine Cap Jase Schaefer - 02/02/2022 6:48 am CLINICAL HISTORY: 66 years Female, fall, head pain, neck pain, and right-sided body pain TECHNIQUE: Helical CT axial images are obtained of the brain and cervical spine without IV contrast. Multiplanar reconstruction. Helical CT axial images are obtained from the thoracic inlet to the pubi c symphysis with IV contrast. No oral contrast was administered. Multiplanar reconstruction. This exam was performed according to our departmental dose-optimization program, which includes automated exposure control, adjustment of the mA and/or kV according to patient size and/or use of iterative r econstruction technique. COMPARISON: CT brain 06/09/2018, CT abdomen pelvis 01/08/2021 FINDINGS: BRAIN: BRAIN: No infarcts. No parenchymal hemorrhage, intra-axial mass, mass effect, or midline shift. No a bnormal extra-axial fluid collections. VENTRICLES: Ventricles are normal in size and configuration. No hydrocephalus. CALVARIUM: Bone windows show no skull fracture or calvarial lesions. PARANASAL SINUSES AND MASTOIDS: Visualized paranasal sinuses are clear. Mastoid air cells are mayo r. CERVICAL SPINE: VERTEBRA: There is straightening of the cervical spine. No acute fracture or subluxation. Cervical vertebra are normal in height. Moderate degenerative changes atlantodental interval. Mild anterio r marginal osteophytes at C5 and C6. Craniocervical junction is intact. DISCS: Mild disc space narrowing C5-C6 level. LEVELS: From the C2-C3 through the C7-T1 levels, no canal or foraminal stenosis. SOFT TISSUES: Paravertebral soft tissues are unremarkable. CHEST: LUNGS: No pulmonary contusion or consolidation. Lung parenchyma is clear. No pulmonary masses or suspicious nodules. MEDIASTINUM: Small calcified mediastinal lymph nodes. No abnormally enlarged mediastinal or hilar lymph nodes. PLEURA: No pleural effusion. No pneumothorax. CARDIAC: Normal heart size. No pericardial effusion. VASCULAR: Thoracic aorta is normal in caliber without aneurysm. The pulmonary vasculature demonstrat es no significant dilatation. CHEST WALL: No acute rib fracture. Chest wall is intact. No abnormal axillary lymphadenopathy. ABDOMEN/PELVIS: LIVER: Normal in size. Normal attenuation. No focal masses. HEPATOBILIARY: Query mild biliary sludge versus small gallstones. No intra- or extrahepatic ductal dilatation. SPLEEN: Normal size. PANCREAS: Normal size and contour. No focal mass. ADRENAL GLANDS: Right adrenal gland 2.0 cm benign adenoma. Left adrenal gland 1.5 cm benign adenoma. Along the upper aspect of the left adrenal gland is again indeterminate 1.8 cm indeterminate nodule. KIDNEYS: Bilateral kidneys are normal in size without obstructing calculi or hydronephrosis. No ne phrolithiasis. Couple of small left renal cysts, no further workup is warranted. BOWEL AND MESENTERY: No small or large bowel dilatation. No colonic diverticulosis. Normal appendix. No abnormal mesenteric lymphadenopathy. No free fluid or pneumoperitoneum. RETROPERITONEUM: ormal caliber abdominal aorta without aneurysm. No abnormal retroperitoneal lymphad enopathy. PELVIS: Urinary bladder is unremarkable. Couple of small calcified fibroids measuring up to 1.5 cm. Otherwise nonenlarged uterus. Adnexal regions are unremarkable. ABDOMINAL WALL: The abdominal wall is intact. BONES: No acute fracture. Moderate to severe thoracolumbar spine degenerative changes. No suspicious osseous lytic or blastic lesions seen. IMPRESSION: 1. No acute intracranial disease. 2. No acute fracture or CT evidence of traumatic injury to cervical spine. 3. Straightening of cervical spine. Mild degenerative changes C5-C6. 4. No acute disease or evidence for traumatic injury to chest, abdomen, or pelvis. 5. Left adrenal gland 1.8 cm indeterminate nodule, unchanged from December 2020. Bilateral benign cam omas, 2.0 cm on the right, 1.5 cm and left. 6. Mild biliary sludge versus small gallstones. Electronically signed by: Marlon Wolff MD 02/02/2022 12:28 AM CDT Due to temporary technical issues with the PACS/Fluency reporting system, reports are being signed by the in house radiologist without review as a courtesy to ensure prompt reporting. The interpreting r adiologist is fully responsible for the content of the report.
== END 2022-02-02 02:04 | disposition home or self-care (01) ==
LOC: ER 20:15
DX: S00.83XA Contusion of other part of head, initial encounter (principal); S80.12XA Contusion of left lower leg, initial encounter; M25.551 Pain in right hip; M54.50 Low back pain, unspecified; W10.9XXA Fall (on) (from) unspecified stairs and steps, initial encounter; E11.40 Type 2 diabetes mellitus with diabetic neuropathy, unspecified; Z79.4 Long term (current) use of insulin; Z88.7 Allergy status to serum and vaccine
CPT/HCPCS: 85025; 80048; 36415; 86900; 86850; 86901; 70450; 72125; 71260; 74177; 73630; 73590; 96374; 99285; Q9967; J3010

== ENCOUNTER 2023-07-07 15:06 | Emergency (ER) | payer OTHER ==
--- OUTSIDE RECORDS SUMMARY | 2023-07-07 15:09 | XMS REPORT | Continuity of Care Document ---
:[address] [facility] t Address [address] [place] [address] Care Team Providers Name Role Phone Unavailable Unavailable Unavailable Problems This patient has no known problems. Allergies, Adverse Reactions, Alerts This patient has no known allergies or adverse reactions. Medications This patient has no known medications. Procedures This patient has no known procedures. Encounters Start End Encounter Admission Attending Care Care Encounter Source Date/Time Date/Time Type Type Clinicians Facility Department ID 2023-07-01 2023-07-01 Outpatient [facility] [id number] Volodymyr Greene 14:54:40 14:54:40 [id number] [place] Results This patient has no known results.
[2023-07-07 15:55] LABS: Absolute Lymphocytes (CBC) 2.3 K/uL (0.7-4.9); Lymphocytes % 18.3 % (15.3-44.8); MCV 87.5 fL (80-100); MPV 9.5 fL (7.6-11.3); Platelets 174 thou/uL (152-406); RBC Red Blood Cell Count 5.37 M/uL (3.86-4.86)
[2023-07-07 15:56] LABS: Protime INR 1.17
[2023-07-07 16:09] LABS: Potassium 3.7 mEq/L (3.5-5.1)
[2023-07-07] MEDS ORDERED: ONDANSETRON 4 MG/2 ML VIAL ONE (17:09)
[2023-07-07] MEDS ORDERED: FENTANYL CITR 100 MCG/2 ML ONE (17:09)
--- NOTE | 2023-07-07 17:37 | RAD REPORT ---
EXAM DESCRIPTION: CT - Head C Spine Cap W Con - 07/07/2023 4:38 pm CLINICAL HISTORY: fall COMPARISON: Head C Spine Cap W Con dated 02/01/2022; Abdomen Pelvis W Contrast dated 01/30/2023 TECHNIQUE: Head and cervical spine CT images were obtained without IV contrast. Chest, abdomen, and pelvis CT images were obtained following intravenous administration of 95 mL Isovue-300. Multiplanar reformats were generated and reviewed. All CT scans are performed using dose optimization technique as appropriate and may include automated exposure control or mA/KV adjustment according to patient size. FINDINGS: CT HEAD: No intracranial hemorrhage, mass effect, or edema. No evidence of acute territorial infarct. No midli ne shift or abnormal fluid collection. The ventricles are normal in caliber and configuration for age . Basal cisterns are patent. Mastoid aircells and paranasal sinuses are clear. No acute skull fractur e. CT CERVICAL SPINE: No acute cervical spine fracture or subluxation. Vertebral body heights are well maintained. Facet vesta ints are normal in alignment. No hyperattenuating canal hematoma. Prevertebral and paraspinous soft t issues are unremarkable. CT CHEST: No pneumothorax, pulmonary contusion or pleural fluid collection. No mediastinal hematoma and the aor ta and pulmonary arteries are unremarkable. No chest will mass or abnormal axillary finding. No displ aced rib fracture or other significant bony finding. CT ABDOMEN/ PELVIS: No evidence of traumatic injury to solid abdominal viscera. Gallbladder shows layering sludge without echogenic calculi. Biliary tree shows no abnormal prominence. . Bilateral adrenal masses, largest me asuring 2.7 x 2.1 cm on the right and 2.8 x 1.6 cm on the left, stable. No bowel injury or significan t finding. Small calcified fibroids of the uterus. No free air, free fluid or abnormal fat stranding. No urinary bladder abnormality. No significant bony finding. IMPRESSION: No acute traumatic findings. Stable incidental findings including bilateral adrenal masses, as above.
--- NOTE | 2023-07-07 17:40 | RAD REPORT ---
EXAM DESCRIPTION: CT - CTFB CLINICAL HISTORY: TRAUMA COMPARISON: No comparisons TECHNIQUE: Axial thin cut noncontrast CT images of the face were obtained with sagittal and coronal reconstruction images. All CT scans are performed using dose optimization technique as appropriate and may include automated exposure control or mA/KV adjustment according to patient size. FINDINGS: No acute facial bone fracture is seen.The mandible is intact. Soft tissue swelling and subcutaneous edema overlying the right zygomatic process. The globes and orbital contents are grossly unremarkable.The paranasal sinuses and mastoids are clear . IMPRESSION: Negative for facial bone fracture. Soft tissue swelling and subcutaneous edema overlying the right zygomatic process.
--- NOTE | 2023-07-07 17:48 | RAD REPORT ---
EXAM DESCRIPTION: RAD - Knee Right 3 View - 07/07/2023 4:00 pm CLINICAL HISTORY: PAIN COMPARISON: Knee Left 3 View dated 07/07/2023; Pelvis dated 07/07/2023; Chest Single View dated 023 TECHNIQUE: Right knee, 3 views. FINDINGS: No fracture, dislocation or periosteal reaction.No joint effusion seen. No joint space malia rowing. No soft tissue abnormality. Clinical concerns for internal derangement or occult bony injury could be further assessed with MR im aging. IMPRESSION: Negative right knee.
--- NOTE | 2023-07-07 17:49 | RAD REPORT ---
EXAM DESCRIPTION: RAD - Knee Left 3 View - 07/07/2023 4:00 pm CLINICAL HISTORY: PAIN COMPARISON: No comparisons TECHNIQUE: Left knee, 3 views. FINDINGS: No fracture, dislocation or periosteal reaction.No joint effusion seen. Moderate tricompar tmental osteoarthritic changes. No soft tissue abnormality. Clinical concerns for internal derangement or occult bony injury could be further assessed with MR im aging. IMPRESSION: No acute osseus abnormality. Moderate tricompartmental osteoarthritic changes.
--- NOTE | 2023-07-07 17:50 | RAD REPORT ---
EXAM DESCRIPTION: RAD - Pelvis - 07/07/2023 4:00 pm CLINICAL HISTORY: fall COMPARISON: No comparisons TECHNIQUE: Single AP view of the pelvis. FINDINGS: The visualized pelvic ring is intact. No suspicious osseous lesions. Bilateral mild degene rative changes of the hip joints. Other pelvic joints are unremarkable. Visualized aspects of the abd omen and soft tissues are unremarkable. IMPRESSION: No acute osseous abnormality of the bony pelvis. Bilateral mild hip joint degenerative changes.
--- NOTE | 2023-07-07 17:51 | RAD REPORT ---
EXAM DESCRIPTION: RADChest Single View07/07/2023 4:00 pm CLINICAL HISTORY: FALL COMPARISON: Chest Single View dated 01/30/2023; Chest Pa And Lat (2 Views) dated 03/03/2021; Chest Sin gle View dated 01/08/2021; Chest Single View dated 06/12/2020 TECHNIQUE: Portable AP view of the chest. FINDINGS: The lungs are clear. No pneumothorax or effusion. The cardiomediastinal contours are unre markable. IMPRESSION: No acute cardiopulmonary process.
[2023-07-07 18:56] LABS: Urine Bacteria 20-50 /HPF (<20); Urine Bilirubin NEGATIVE (Negative); Urine Blood Negative (Negative); Urine Clarity Clear (Clear); Urine Color Light-Yellow (Yellow); Urine Glucose 3+ (Negative); Urine Protein TRACE (Negative); Urine Urobilinogen 1+ (Normal); Urine WBC Clump Rare /HPF (None Seen); Urine pH 8.5 (5.0-7.0)
[2023-07-07 19:00] LABS: Specific Gravity > 1.030 (1.005-1.030)
[2023-07-07] MEDS ORDERED: KETOROLAC 30 MG/ML INJ ONE (19:10)
--- NOTE | 2023-07-07 19:12 | ER ---
Nurse's Notes [facility] Name: Familia Ingram Age: 68 yrs Sex: Female : 1955 Arrival Date: 07/07/2023 Time: 15:06 Bed 15 Private MD: Diagnosis: Fall on same level from slipping, tripping and stumbling with subsequent striking against object;Contusion of unspecified part of head, initial encounter;Dorsalgia, unspecified;Cervicalgia;Contusion of left knee;Contusion of right knee Presentation: 07/07 15:32 Chief complaint: Lost balance while walking in living room, fell and hit head on table, hb c/o bilateral knee pain and right sided head and face pain 07/30. Negative LOC. Coronavirus screen: At this time, the client does not indicate any symptoms associated with coronavirus-19. Ebola Screen: No symptoms or risks identified at this time. Onset of symptoms was July 07, 2023. 15:32 Method Of Arrival: Wheelchair hb 15:32 Acuity: SUNNY 3 hb 19:52 Initial Sepsis Screen: Does the patient meet any 2 criteria? No. Patient's initial bp sepsis screen is negative. Does the patient have a suspected source of infection? No. Patient's initial sepsis screen is negative. Risk Assessment: Do you want to hurt yourself or someone else? Patient reports no desire to harm self or others. Historical: - Allergies: 15:48 FLU VACCINE; db - PMHx: 15:48 Diabetes - IDDM; neurapathy; neuropathy; db - PSHx: 15:48 abdominal tumor removed; db - Immunization history:: Adult Immunizations unknown. - Social history:: Smoking status: Patient denies any tobacco usage or history of. Screenin:48 [facility] ED Fall Risk Assessment (Adult) History of falling in the last 3 months, db including since admission Yes- fall prone (multiple falls) (3 pts) Confusion or Disorientation No (0 pts) Intoxicated or Sedated No (0 pts) Impaired Gait No (0 pts) Mobility Assist Device Used Yes (1 pt) Altered Elimination No (0 pt) Score/Fall Risk Level 3 or more points = High Risk Oriented to surroundings, Maintained a safe environment. Abuse screen: Denies threats or abuse. Denies injuries from another. Nutritional screening: No deficits noted. Tuberculosis screening: No symptoms or risk factors identified. Assessment: 15:47 Reassessment: Patient appears in no apparent distress at this time. Patient and/or db family updated on plan of care and expected duration. Pain level reassessed. Patient is alert, oriented x 3, equal unlabored respirations, skin warm/dry/pink. General: Appears in no apparent distress. comfortable, Behavior is calm, cooperative. Pain: Complains of pain in face and back. Neuro: Level of Consciousness is awake, alert, obeys commands, Oriented to person, place, time, situation. Respiratory: Airway is patent Respiratory effort is even, unlabored. 18:30 Reassessment: Patient appears in no apparent distress at this time. Patient and/or db family updated on plan of care and expected duration. Pain level reassessed. Patient is alert, oriented x 3, equal unlabored respirations, skin warm/dry/pink. PATIENT TO RESTROOM. Vital Signs: 15:32 BP 134 / 87; Pulse 82; Resp 18; Temp 98.4; Pulse Ox 100% on R/A; Weight 99.79 kg; hb Height 5 ft. 1 in. ; Pain 10/10; 17:03 BP 133 / 58; Pulse 74; Resp 16; Pulse Ox 98% on R/A; db 18:00 BP 135 / 61; Pulse 77; Resp 16; Pulse Ox 100% on R/A; db 18:30 BP 113 / 52; Pulse 77; Resp 16; Pulse Ox 100% on R/A; db 15:32 Body Mass Index 41.57 (99.79 kg, 154.94 cm) hb 15:32 Pain Scale: Adult hb [place] Coma Score: 17:03 Eye Response: spontaneous(4). Motor Response: obeys commands(6). Verbal Response: db oriented(5). Total: 15. Trauma Score (Adult): 17:03 Eye Response: spontaneous(1); Verbal Response: oriented(1); Motor Response: obeys db commands(2); Systolic BP: > 89 mm Hg(4); Respiratory Rate: 10 to 29 per min(4); Bean Score: 15; Trauma Score: 12 ED Course: 15:10 Patient arrived in ED. im 15:20 Srinivas Oliveros PA is PHCP. yessenia 15:20 Chery Sams is Attending Physician. cp 15:34 Triage completed. hb 15:37 Trina Parsons, RN is Primary Nurse. db 15:47 Inserted saline lock: 20 gauge in right antecubital area, using aseptic technique. db Blood collected. 15:48 Patient has correct armband on for positive identification. Bed in low position. Call db light in reach. Side rails up X 1. Client placed on continuous cardiac and pulse oximetry monitoring. NIBP monitoring applied. Warm blanket given. 16:02 XRAY Chest (1 view) In Process Unspecified. EDMS 16:02 XRAY Knee RIGHT 3 view In Process Unspecified. EDMS 16:02 XRAY Knee LEFT 3 view In Process Unspecified. EDMS 16:02 XRAY Pelvis In Process Unspecified. EDMS 16:40 CT Traumagram (Head C Spine CAP W Con) In Process Unspecified. EDMS 16:41 CT Facial Bones W/O Con In Process Unspecified. EDMS 19:52 IV discontinued, intact, bleeding controlled, No redness/swelling at site. Pressure bp dressing applied. 19:52 No provider procedures requiring assistance completed. bp Administered Medications: 17:03 Drug: fentaNYL (PF) IVP 25 mcg Route: IVP; Site: right antecubital; db 18:53 Follow up: Response: No adverse reaction db 17:03 Drug: Ondansetron IVP 4 mg Route: IVP; Site: right antecubital; db 18:52 Follow up: Response: No adverse reaction db 19:00 Drug: Ketorolac IVP 15 mg Route: IVP; Site: right antecubital; db 19:51 Follow up: Response: No adverse reaction bp Medication: 15:48 VIS not applicable for this client. db Outcome: 19:12 Discharge ordered by MD. cp 19:52 Discharged to home via wheelchair, with family. bp 19:52 Condition: stable 19:52 Discharge instructions given to patient, Instructed on discharge instructions, follow up and referral plans. medication usage, Demonstrated understanding of instructions, follow-up care, medications, Prescriptions given X 1. 19:53 Patient left the ED. bp Signatures: Dispatcher [employer] EDWI Srinivas Oliveros PA PA cp Sera Burgess RN RN hb Peltier, Brian, RN RN bp Trina Parsons, RN RN db Ana Lilia Farias im
--- NOTE | 2023-07-07 19:12 | EDPHYS ---
Physician Documentation [facility] Name: Familia Ingram Age: 68 yrs Sex: Female : 1955 Arrival Date: 07/07/2023 Time: 15:06 Bed 15 Private MD: ED Physician Chery Sams HPI: 07/07 15:35 This 68 yrs old Female presents to ER via Wheelchair with complaints of Fall cp Injury, Neck and Upper Back Pain. 15:35 Details of fall: The patient fell from an upright position, while walking, and struck a cp carpeted surface, table. Onset: The symptoms/episode began/occurred just prior to arrival. Associated injuries: The patient sustained injury to the head, contusion, swelling, tenderness, back pain and knee pain. 15:35 Patient is 68 y/o female brought to ED accompanied by daughter after reported fall from cp standing while in home this afternoon. Patient reports striking right side of head against table prior to landing on ground. No LOC. Patient c/o headache, neck and back pain, bilateral knee pain. Historical: - Allergies: 15:48 FLU VACCINE; db - PMHx: 15:48 Diabetes - IDDM; neurapathy; neuropathy; db - PSHx: 15:48 abdominal tumor removed; db - Immunization history:: Adult Immunizations unknown. - Social history:: Smoking status: Patient denies any tobacco usage or history of. ROS: 15:40 Constitutional: Negative for fever, poor PO intake. cp 15:40 Respiratory: Negative for cough, shortness of breath, wheezing. cp 15:40 Eyes: Negative for injury, pain, redness, and discharge. cp 15:40 Neck: Positive for pain with movement, tenderness. 15:40 Cardiovascular: Negative for chest pain, palpitations. 15:40 Abdomen/GI: Negative for abdominal pain, nausea, vomiting, and diarrhea. 15:40 Back: Positive for pain at rest, pain with movement. 15:40 MS/extremity: Positive for abrasion, pain, swelling, tenderness, of the left knee and right knee, Negative for decreased range of motion, deformity. 15:40 Neuro: Negative for altered mental status, headache, loss of consciousness, syncope. 15:40 All other systems are negative. Exam: 15:55 Constitutional: The patient appears in no acute distress, alert, awake, cp non-diaphoretic, non-toxic, well developed, well nourished, overweight 15:55 Head/face: Noted is contusion, that is superficial, of the forehead, right cheek, cp right ear, right jewish and right jaw, swelling, that is mild. 15:55 Eyes: Periorbital structures: appear normal, Pupils: equal, round, and reactive to light and accomodation, Extraocular movements: intact throughout, Conjunctiva: normal, no exudate, no injection, Lids and lashes: appear normal, bilaterally. 15:55 ENT: Ear canal(s): are normal, clear, TM's: dullness, bilaterally, Nose: is normal, Mouth: Lips: moist, Oral mucosa: pink and intact, moist, Posterior pharynx: is normal, airway is patent, no erythema, no exudate. 15:55 Neck: C-spine: vertebral tenderness, is not appreciated, crepitus, is not appreciated, ROM/movement: pain, that is mild, with any movement. 15:55 Chest/axilla: Inspection: normal. 15:55 Cardiovascular: Rate: normal, Rhythm: regular, Edema: is not appreciated, JVD: is not appreciated. 15:55 Respiratory: the patient does not display signs of respiratory distress, Respirations: normal, no use of accessory muscles, no retractions, labored breathing, is not present, Breath sounds: are clear throughout, no decreased breath sounds, no stridor, no wheezing. 15:55 Abdomen/GI: Inspection: abdomen appears normal, Bowel sounds: active, all quadrants, Palpation: abdomen is soft and non-tender, in all quadrants. 15:55 Back: pain, that is moderate, of the right trapezius, right scapular area, right subscapular area and right mid back. 15:55 Musculoskeletal/extremity: Joints: the left knee and right knee displays swelling, tenderness, superficial abrasions, Weight bearing: able to fully bear weight. 15:55 Neuro: Orientation: to person, place \T\ time. Mentation: is normal, Motor: moves all fours, strength is normal, Sensation: is normal, Gait: is steady. 16:08 ECG was reviewed by the Attending Physician. cp Vital Signs: 15:32 BP 134 / 87; Pulse 82; Resp 18; Temp 98.4; Pulse Ox 100% on R/A; Weight 99.79 kg; hb Height 5 ft. 1 in. ; Pain 10/10; 17:03 BP 133 / 58; Pulse 74; Resp 16; Pulse Ox 98% on R/A; db 18:00 BP 135 / 61; Pulse 77; Resp 16; Pulse Ox 100% on R/A; db 18:30 BP 113 / 52; Pulse 77; Resp 16; Pulse Ox 100% on R/A; db 15:32 Body Mass Index 41.57 (99.79 kg, 154.94 cm) hb 15:32 Pain Scale: Adult hb [place] Coma Score: 17:03 Eye Response: spontaneous(4). Motor Response: obeys commands(6). Verbal Response: db oriented(5). Total: 15. Trauma Score (Adult): 17:03 Eye Response: spontaneous(1); Verbal Response: oriented(1); Motor Response: obeys db commands(2); Systolic BP: > 89 mm Hg(4); Respiratory Rate: 10 to 29 per min(4); Bean Score: 15; Trauma Score: 12 MDM: 15:26 Patient medically screened. 16:00 Differential diagnosis: closed head injury, contusion, fracture, laceration, multiple cp trauma. 19:10 Data reviewed: vital signs, nurses notes, lab test result(s), EKG, radiologic studies, cp CT scan, plain films. 19:11 I considered the following discharge prescriptions or medication management in the emergency department Medications were administered in the Emergency Department. See DEC. 19:11 Independent interpretation of the following test(s) in the Emergency Department EKG: See my EKG interpretation above. Care significantly affected by the following chronic conditions: Diabetes. Counseling: I had a detailed discussion with the patient and/or guardian regarding the historical points, exam findings, and any diagnostic results supporting the discharge/admit diagnosis, lab results, radiology results, to return to the emergency department if symptoms worsen or persist or if there are any questions or concerns that arise at home. Response to treatment: the patient's symptoms have markedly improved after treatment, and as a result, I will discharge patient. Special discussion: Based on the patient's history, exam and DX evaluation, there is no indication for emergent intervention or inpatient TX. It is understood by the patient/guardian that if the SXs persist or worsen they need to return immediately for re-evaluation. 07/07 15:32 Order name: Basic Metabolic Panel; Complete Time: 17:08 07/07 17:08 Interpretation: Normal except: GLUC 206; BUN 6; GFR 82. 07/07 15:32 Order name: CBC with Diff; Complete Time: 17:08 07/07 17:09 Interpretation: Normal except: WBC 12.80; RBC 5.37; HGB 15.3; HCT 47.0; DONNIE% 74.3; NEUT cp A 9.5. 07/07 15:32 Order name: PT-INR; Complete Time: 17:08 07/07 15:32 Order name: Urinalysis W/Microscopic; Complete Time: 19:07 07/07 19:07 Interpretation: Reviewed. 07/07 15:32 Order name: XRAY Chest (1 view); Complete Time: 17:54 07/07 17:54 Interpretation: Report review. 07/07 15:32 Order name: CT Traumagram (Head C Spine CAP W Con); Complete Time: 17:54 07/07 15:32 Order name: XRAY Knee RIGHT 3 view; Complete Time: 17:54 cp 07/07 15:32 Order name: XRAY Knee LEFT 3 view; Complete Time: 17:54 cp 07/07 15:32 Order name: XRAY Pelvis; Complete Time: 17:54 cp 07/07 15:58 Order name: CT Facial Bones W/O Con; Complete Time: 17:54 07/07 15:32 Order name: EKG; Complete Time: 15:32 07/07 15:32 Order name: Cardiac monitoring; Complete Time: 15:57 07/07 15:32 Order name: EKG - Nurse/Tech; Complete Time: 16:08 07/07 15:32 Order name: IV Saline Lock; Complete Time: 15:57 cp 07/07 15:32 Order name: Labs collected and sent; Complete Time: 15:57 cp 07/07 15:32 Order name: O2 Per Protocol; Complete Time: 15:57 07/07 15:32 Order name: O2 Sat Monitoring; Complete Time: 15:57 cp EC:08 Rate is 75 beats/min. Rhythm is regular. MD interval is normal. QRS interval is normal. cp QT interval is normal. T waves are Inverted in lead aVR. Interpreted by me. Reviewed by me. Administered Medications: 17:03 Drug: fentaNYL (PF) IVP 25 mcg Route: IVP; Site: right antecubital; db 18:53 Follow up: Response: No adverse reaction db 17:03 Drug: Ondansetron IVP 4 mg Route: IVP; Site: right antecubital; db 18:52 Follow up: Response: No adverse reaction db 19:00 Drug: Ketorolac IVP 15 mg Route: IVP; Site: right antecubital; db 19:51 Follow up: Response: No adverse reaction bp Disposition: 07/08 18:16 Co-signature as Attending Physician, Chery Sams I agree with the assessment ci and plan of care. I reviewed the patient's care provided by the Advanced Practice Provider and agree with the diagnosis and treatment plan. Disposition Summary: 07/07/23 19:12 Discharge Ordered Location: Home cp Problem: new cp Symptoms: have improved cp Condition: Stable cp Diagnosis - Fall on same level from slipping, tripping and stumbling with subsequent striking cp against object - Contusion of unspecified part of head, initial encounter cp - Dorsalgia, unspecified cp - Cervicalgia cp - Contusion of left knee cp - Contusion of right knee cp Followup: cp - With: Private Physician - When: 2 - 3 days - Reason: Recheck today's complaints Discharge Instructions: - Discharge Summary Sheet cp - Acute Back Pain, Adult cp - Facial or Scalp Contusion cp - Head Injury, Adult cp - Acute Knee Pain, Adult cp - Heat Therapy cp - Neck Exercises cp Forms: - Medication Reconciliation Form cp - Thank You Letter cp - Antibiotic Education cp - Prescription Opioid Use cp - Patient Portal Instructions cp - Leadership Thank You Letter cp Prescriptions: - Ibuprofen 800 mg Oral Tablet - take 1 tablet by ORAL route every 8 hours As needed take with food; 30 tablet; cp Refills: 0, Product Selection Permitted Signatures: Dispatcher [employer] EDMS Srinivas Oliveros PA PA cp Benton, Danielle, RN RN Chery Franklin Brian RN bp Corrections: (The following items were deleted from the chart) 14:55 07/07 15:55 Neuro: Orientation: to person, place \T\ time. Mentation: is normal, Motor: cp moves all fours, strength is normal, Sensation: is normal, cp
[2023-07-07 20:49] VITALS: TEMP 98.4
[2023-07-07 20:52] VITALS: O2SAT 100
[2023-07-07 20:53] VITALS: BP 113/52
--- NOTE | 2023-07-08 19:05 | EKG ---
Test Date: 2023-07-07 Test Time: 16:03:34 Cyber Security Manager: [place] MEASUREMENT RESULTS: Intervals: Rate: 75 NV: 186 QRSD: 80 QT: 382 QTc: 426 [place]: P: 38 NV: 186 QRS: 33 T: 47 INTERPRETIVE STATEMENTS: Normal sinus rhythm Cannot rule out Anterior infarct, age undetermined Abnormal ECG Compared to ECG 01/30/2023 18:06:39 Myocardial infarct finding now present Atrial premature complex(es) no longer present Left posterior fascicular block no longer present Electronically Signed On 07-08-23 19:03:39 CDT by Bg Sosa
== END 2023-07-07 19:53 | disposition home or self-care (01) ==
LOC: ER 15:06
DX: S00.83XA Contusion of other part of head, initial encounter (principal); S80.02XA Contusion of left knee, initial encounter; S80.01XA Contusion of right knee, initial encounter; M54.9 Dorsalgia, unspecified; M54.2 Cervicalgia; W01.10XA Fall on same level from slipping, tripping and stumbling with subsequent striking against unspecified object, initial encounter; Z88.7 Allergy status to serum and vaccine
CPT/HCPCS: 93005; 85025; 81001; 80048; 36415; 85610; 70450; 72125; 71260; 70486; 76377; 74177; 71045; 72170; 73562 ×2; 96375; 96374; 99284; Q9967; J3010; J2405

== ENCOUNTER 2025-05-28 10:32 | Emergency (ER) | payer OTHER ==
[2025-05-28] MEDS ORDERED: HYDROCODONE/APAP 7.5/325 MG TAB ONE (10:39)
--- OUTSIDE RECORDS SUMMARY | 2025-05-28 10:56 | XMS REPORT | Continuity of Care Document ---
Author Name Unknown Address [address] [facility] [address]. [address] [place] [address] [facility] [place] Address [address] [facility]. [address] [place] [address] Care Team Providers Care Legal Clerk Name Role Phone Mariaa Gibson NP Primary Care Physician Mariaa Gibson Attending Clinician Unavailabl e Payers Payer Name Policy Type Policy Number Effective Date Expirati on Date Source [facility] Dual Complete (HMO-POS D-SNP) [id number] [facility] Problems Condition Name Condition Details Condition Category Status Onset Date Resolution Date Last Treatment Date Treating Clinician Comments Source [id number] Lumbar spondylosi s Problem [facility] [id number] Right flank pain Problem [facility] [id number] RLQ abdominal pain Problem [facility] Social History Social Habit Start Date Stop Date Quantity Comments Source History of Tobacco Use Current Smoker [facility] Sex Assigned At [facility] Smoking Status Start Date Stop Date Source Current Smoker 2024-01-23 00:00:00 [facility] Medications Ordered Medication Name Filled Medication Name Start Date Stop Date Current Medication? Ordering Clinician Indication Dosage Frequency Signature (SIG) Comments Components Source furosemide 20 mg tablet 05-14 00:00: 00 Yes mg Jc Gerardo Klor-Con 10 mEq tablet,exte nded release 05-14 00:00: 00 Yes 1mEq Jc Gerardo Tresiba FlexTouch U-100 insulin 100 unit/mL (3 mL) subcutaneou s pen 04-13 00:00: 00 Yes (3 mL) Jc Gerardo Humalog KwikPen (U-100) Insulin 100 unit/mL subcutaneou s 04-13 00:00: 00 Yes unit/mL Jc Gerardo albuterol sulfate HFA 90 mcg/actuati on aerosol inhaler 04-13 00:00: 00 Yes 2mcg/ac tuation Jc Gerardo cetirizine 10 mg tablet 04-13 00:00: 00 Yes 1mg Jc Gerardo atorvastati n 10 mg tablet 04-13 00:00: 00 Yes 1mg Jc Gerardo diclofenac sodium 75 mg tablet,aga yed release 04-13 00:00: 00 Yes 1mg Jc Gerardo cyclobenzap rine 10 mg tablet 04-13 00:00: 00 Yes 1mg Jc Gerardo fluticasone propionate 50 mcg/actuati on nasal spray,suspe nsion 04-13 00:00: 00 Yes 2mcg/ac tuation Jc Gerardo diclofenac sodium 75 mg tablet,aga yed release 03-24 00:00: 00 Yes 1mg Jc Gerardo cyclobenzap rine 10 mg tablet 6- 00:00: 00 Yes 1mg Jc Gerardo Cipro 500 mg tablet 3-03 00:00: 00 Yes 1mg Jc Gerardo cyclobenzap rine 10 mg tablet 3-03 00:00: 00 Yes 1mg Jc Gerardo cyclobenzap rine 10 mg tablet 2-26 00:00: 00 Yes 1mg Jc Gerardo hydralazine 25 mg tablet 2-12 00:00: 00 Yes 1mg Jc Gerardo Benadryl 25 mg capsule 2-05 00:00: 00 Yes 12mg Jc Gerardo halobetasol propionate 0.05 % topical cream 2023-10 0-23 00:00: 00 Yes 1% Jc Gerardo Tresiba FlexTouch U-100 insulin 100 unit/mL (3 mL) subcutaneou s pen 2023-10 0-14 00:00: 00 Yes (3 mL) Jc Gerardo triamcinolo ne acetonide 0.1 % topical cream 2023-10 0-14 00:00: 00 Yes 1% Jc Gerardo Tresiba FlexTouch U-100 insulin 100 unit/mL (3 mL) subcutaneou s pen 0 9-27 00:00: 00 Yes (3 mL) Jc Gerardo Humalog KwikPen (U-100) Insulin 100 unit/mL subcutaneou s 0 9-27 00:00: 00 Yes unit/mL Jc Gerardo albuterol sulfate HFA 90 mcg/actuati on aerosol inhaler 0 9- 00:00: 00 Yes 2mcg/ac tuation Jc Gerardo cetirizine 10 mg tablet 0 9- 00:00: 00 Yes 1mg Jc Gerardo atorvastati n 10 mg tablet 0 9- 00:00: 00 Yes 1mg Jc Gerardo fluticasone propionate 50 mcg/actuati on nasal spray,suspe nsion 9- 00:00: 00 Yes 2mcg/ac tuation Jc Gerardo atorvastati n 10 mg tablet 9-17 00:00: 00 Yes 1mg Jc Gerardo Tresiba FlexTouch U-100 insulin 100 unit/mL (3 mL) subcutane s pen 0 7-25 00:00: 00 Yes (3 mL) Jc Gerardo Humalog KwikPen (U-100) Insulin 100 unit/mL subcutaneou s 0 6-07 00:00: 00 Yes unit/mL Jc Gerardo Cipro 500 mg tablet 6-07 00:00: 00 Yes 1mg Jc Gerardo Tresiba FlexTouch U-100 insulin 100 unit/mL (3 mL) subcutaneou s pen 0 5-17 00:00: 00 Yes (3 mL) Jc Gerardo albuterol sulfate HFA 90 mcg/actuati on aerosol inhaler 03-06 00:00: 00 Yes 2mcg/ac tuation Jc Gerardo atorvastati n 10 mg tablet 03-06 00:00: 00 Yes 1mg Jc Gerardo terbinafine HCl 250 mg tablet 03-06 00:00: 00 Yes 1mg Jc Gerardo Tresiba FlexTouch U-100 insulin 100 unit/mL (3 mL) subcutaneou s pen 2022-10 00:00: 00 Yes (3 mL) Jc Gerardo Humalog KwikPen (U-100) Insulin 100 unit/mL subcutaneou s 2022-10 00:00: 00 Yes unit/mL Jc Gerardo TAKE 1 CAPSULE TWICE DAILY. 2022-10 00:00: 00 02-26 00:00 :00 No 100 Jc Gerardo atorvastati n 10 mg tablet 2022-10 00:00: 00 Yes mg Jc Gerardo 80U SQ ONCE IN AM 2022-10 00:00: 00 Yes 100 Jc Gerardo 10 UNITS SQ BID WITH EACH MEAL AFTER CHECKING GLU - MAY INCREASE OR DECREASE 2 UNITS /GLU READING 2022-10 00:00: 00 Yes 100 Jc Gerardo SULFAMETHOX AZOLE/TRIME THOPRIM DS 800-160 MG TABS 2022-10 00:00: 00 Yes Jc Gerardo FLUCONAZOLE 150 MG TABS 2022-10 00:00: 00 Yes Jc Gerardo TAKE 1 TABLET TWICE DAILY. 2022-10 00:00: 00 02-26 00:00 :00 No [id number] Jc Gerardo TAKE 1 TABLET NOW, AND REPEAT IN 4 DAYS. 2022-10 00:00: 00 02-26 00:00 :00 No 150 Jc Gerardo TAKE 1 TABLET NOW, AND REPEAT IN 4 DAYS. 2022-10 00:00: 00 02-26 00:00 :00 No 150 Jc Gerardo TAKE 1 CAPSULE TWICE DAILY. 2022-10 00:00: 00 02-26 00:00 :00 No 100 Jc Gerardo TAKE 1 TABLET DAILY. 2022-10 00:00: 00 02-26 00:00 :00 No 10 Jc Gerardo hydrochloro thiazide 12.5 mg tablet 2022-1015 00:00: 00 Yes mg Jc Gerardo TAKE 1 CAPSULE BY MOUTH TWICE DAILY 2022-10 00:00: 00 Yes Jc Gerardo TAKE 1 CAPSULE TWICE DAILY. 2022-10 00:00: 00 02-26 00:00 :00 No 100 Jc Gerardo TAKE 1 TABLET DAILY IN THE MORNING. 2022-10 00:00: 00 02-26 00:00 :00 No 125 Jc Gerardo INJECT 10 UNITS UNDER THE SKIN WITH EACH MEAL AFTER CHECKING GLUCOSE (MAY INCREASE OR DECREASE BY 2 UNITS/GLUCO SE READING) 07-01 00:00: 00 Yes Jc Gerardo 10 UNITS SQ BID WITH EACH MEAL AFTER CHECKING GLU - MAY INCREASE OR DECREASE 2 UNITS /GLU READING 07-01 00:00: 00 02-26 00:00 :00 No 100 Jc Gerardo 80U SQ ONCE IN AM 07-01 00:00: 00 02-26 00:00 :00 No 100 cJ Gerardo TIZANIDINE HYDROCHLORI DE 4 MG TABS 01-30 00:00: 00 Yes Jc Gerardo INJECT 10 UNITS SUBCUTANEOU SLY BEFORE EACH MEAL THREE TIMES A DAY PER SLIDING SCALE 2021-10 00:00: 00 Yes Jc Gerardo TRESIBA FLEXTOUCH 200 UNIT/ML SOPN 2021-10 00:00: 00 Yes Jc Gerardo CYCLOBENZAP RINE HYDROCHLORI DE 10 MG TABS 2021-10 00:00: 00 Yes Jc Gerardo TAKE 1 TABLET BY MOUTH ONCE DAILY 2021-10 00:00: 00 Yes Jc Gerardo NABUMETONE 750 MG TABS 2021-10 00:00: 00 Yes Jc Gerardo Levemir U-100 Insulin 100 unit/mL subcutaneou s solution 2 00:00: 00 Yes unit/mL Jc Gerardo amitriptyli ne 50 mg tablet 11-24 00:00: 00 Yes 1mg Jc Gerardo dicyclomine 20 mg tablet 2 00:00: 00 Yes 2mg Jc Gerardo dicyclomine 20 mg tablet 2018-10 00:00: 00 Yes 2mg Jc Gerardo tramadol 37.5 mg-acetamin ophen 325 mg tablet 2018-10 00:00: 00 Yes 1mg Jc Gerardo Novolin R Regular U-100 Insulin 100 unit/mL injection solution 2018-10 0 00:00: 00 Yes 10unit/ mL Jc Gerardo Levemir U-100 Insulin 100 unit/mL subcutaneou s solution 2018-10 0 00:00: 00 Yes unit/mL Jc Gerardo Levemir U-100 Insulin 100 unit/mL subcutaneou s solution 2018-10 0 00:00: 00 Yes unit/mL Jc Gerardo pioglitazon e 45 mg tablet 2018-10 0 00:00: 00 Yes 1mg Jc Gerardo glimepiride 4 mg tablet 2018-10 0 00:00: 00 Yes 1mg Jc Gerardo atorvastati n 10 mg tablet 2018-10 0 00:00: 00 Yes 1mg Jc Gerardo gabapentin 300 mg capsule 2018-10 0 00:00: 00 Yes 1mg Jc Gerardo mupirocin 2 % topical ointment 2018-10 0 00:00: 00 Yes 1% Jc Gerardo sulfamethox azole 800 mg-trimetho prim 160 mg tablet 2018-10 0 00:00: 00 Yes 1mg Jc Gerardo glimepiride 4 mg tablet 06-12 00:00: 00 Yes 1mg Jc Gerardo melatonin 3 mg tablet 06-12 00:00: 00 Yes 1mg Jc Gerardo gabapentin 300 mg capsule 06-12 00:00: 00 Yes 1mg Jc Gerardo Levemir U-100 Insulin 100 unit/mL subcutaneou s solution 04-28 00:00: 00 Yes 30unit/ mL Jc Gerardo Novolin R Regular U-100 Insulin 100 unit/mL injection solution 04-28 00:00: 00 Yes 10unit/ mL Jc Gerardo sulfamethox azole 800 mg-trimetho prim 160 mg tablet 04-28 00:00: 00 Yes 1mg Jc Gerardo glimepiride 4 mg tablet 04-28 00:00: 00 Yes 1mg Jc Gerardo melatonin 3 mg tablet 04-28 00:00: 00 Yes 1mg Jc Gerardo gabapentin 300 mg capsule 04-28 00:00: 00 Yes 1mg Jc Gerardo Novolin R Regular U-100 Insulin 100 unit/mL injection solution 01-06 00:00: 00 Yes 8unit/m L Jc Gerardo Novolin 70/30 U-100 Insulin 100 unit/mL subcutaneou s suspension 01-06 00:00: 00 Yes 1unit/m L (70-30) Jc Gerardo glimepiride 4 mg tablet 01-06 00:00: 00 Yes 1mg Jc Gerardo gabapentin 300 mg capsule 01-06 00:00: 00 Yes 1mg Jc Gerardo diclofenac sodium 75 mg tablet,aga yed release 16 00:00: 00 Yes 1mg Jc Gerardo Novolin R Regular U-100 Insulin 100 unit/mL injection solution 2017-10 00:00: 00 Yes 8unit/m L Jc Gerardo Novolin 70/30 U-100 Insulin 100 unit/mL subcutaneou s suspension 2017-10 00:00: 00 Yes 1unit/m L (70-30) Jc Gerardo glimepiride 4 mg tablet 2017-10 00:00: 00 Yes 1mg Jc Gerardo gabapentin 300 mg capsule 2017-10 00:00: 00 Yes 1mg Jc Gerardo Ventolin HFA 90 mcg/actuati on aerosol inhaler 2017-10 00:00: 00 Yes 1mcg/ac tuation Jc Gerardo metronidazo le 500 mg tablet 2017-10 00:00: 00 Yes 1mg Jc Gerardo clarithromy esther 500 mg tablet 2017-10 00:00: 00 Yes 1mg Jc Gerardo pantoprazol e 40 mg tablet,aga yed release 2018-1 2-18 00:00: 00 Yes 1mg Jc Gerardo glipizide 5 mg tablet 2017-10 00:00: 00 Yes 1mg Jc Gerardo prednisone 20 mg tablet 2017-10 00:00: 00 Yes 1mg Jc Gerardo azithromyci n 250 mg tablet 2017-10 00:00: 00 Yes mg Jc Gerardo promethazin e-DM 6.25 mg-15 mg/5 mL syrup 2017-10 00:00: 00 Yes 5mg/5 mL Jc Gerardo glipizide 5 mg tablet 2017-10 00:00: 00 Yes 1mg Jc Gerardo Novolin 70/30 U-100 Insulin 100 unit/mL subcutaneou s suspension 07-16 00:00: 00 Yes 1unit/m L (70-30) Jc Gerardo Alcohol Prep Pads 07-16 00:00: 00 Yes 1 Jc Gerardo gabapentin 300 mg capsule 07-16 00:00: 00 Yes 1mg Jc Gerardo Novolin 70/30 U-100 Insulin 100 unit/mL subcutaneou s suspension 06-18 00:00: 00 Yes 1unit/m L (70-30) Jc Gerardo Insulin Lispro Insulin Lispro No Insulin Lispro Insulin Lispro Insulin Lispro No Insulin Lispro Tresiba Tresiba No Tresiba Vital Signs Vital Name Observation Time Observation Value Comments S ource height 2024-01-23 10:15:00 62 [in_i] Commo n [facility] weight 2024-01-23 10:15:00 223.6 [lb_av] Co mmon [facility] temperature 2024-01-23 10:15:00 97.9 [degF] Com mon [facility] bmi 2024-01-23 10:15:00 40.89 kg/m2 Comm on [facility] oximetry 2024-01-23 10:15:00 100 % Commo n [facility] respiratory rate 2024-01-23 10:15:00 18 /min Common [facility] blood pressure systolic 2024-01-23 10:15:00 157 mm[Hg] [facility] blood pressure diastolic 2024-01-23 10:15:00 80 mm[Hg] [facility] height 2023-12-11 14:45:00 62 [in_i] Commo n [facility] weight 2023-12-11 14:45:00 223.6 [lb_av] Co mmon [facility] temperature 2023-12-11 14:45:00 97.6 [degF] Com mon [facility] bmi 2023-12-11 14:45:00 40.89 kg/m2 Comm on [facility] oximetry 2023-12-11 14:45:00 97 % Commo n [facility] respiratory rate 2023-12-11 14:45:00 18 /min [facility] blood pressure systolic 2023-12-11 14:45:00 132 mm[Hg] [facility] blood pressure diastolic 2023-12-11 14:45:00 68 mm[Hg] [facility] height 2023-12-11 14:45:00 62 [in_i] Commo n [facility] weight 2023-12-11 14:45:00 223.6 [lb_av] Co mmon [facility] temperature 2023-12-11 14:45:00 97.6 [degF] Com mon [facility] bmi 2023-12-11 14:45:00 40.89 kg/m2 Comm on [facility] oximetry 2023-12-11 14:45:00 97 % Commo n [facility] respiratory rate 2023-12-11 14:45:00 18 /min [facility] blood pressure systolic 2023-12-11 14:45:00 132 mm[Hg] Common Spiri t [facility] blood pressure diastolic 2023-12-11 14:45:00 68 mm[Hg] Common Spiri t [facility] BP Systolic 2025-03-24 10:50:00 130 mm[Hg] Step hen F Akin BP Diastolic 2025-03-24 10:50:00 52 mm[Hg] Aaron phen F Akin Weight Measured 2025-03-24 10:50:00 228.00 pounds Jc F Akin Height Measured 2025-03-24 10:50:00 60.50 inches Jc F Akin Body Temperature 2025-03-24 10:50:00 98.00 degrees Jc F Akin Heart Rate 2025-03-24 10:50:00 69.00 /min Pennie en F Akin Respiratory Rate 2025-03-24 10:50:00 18.00 /min Jc F Akin BP Systolic 2024-12-21 15:06:00 Step hen F Akin BP Diastolic 2024-12-21 15:06:00 Aaron phen F Akin Weight Measured 2024-12-21 15:06:00 Jc F Akin Height Measured 2024-12-21 15:06:00 Jc F Akin Body Temperature 2024-12-21 15:06:00 Jc F Akin Heart Rate 2024-12-21 15:06:00 Pennie en F Akin Respiratory Rate 2024-12-21 15:06:00 Jc F Akin BP Systolic 2024-12-16 09:09:00 114 mm[Hg] Step hen F Akin BP Diastolic 2024-12-16 09:09:00 50 mm[Hg] Aaron phen F Akin Weight Measured 2024-12-16 09:09:00 224.00 pounds Jc Monty Gerardo Height Measured 2024-12-16 09:09:00 60.50 inches Jc F Akin Body Temperature 2024-12-16 09:09:00 98.30 degrees Jc F Akin Heart Rate 2024-12-16 09:09:00 78.00 /min Pennie en F Akin Respiratory Rate 2024-12-16 09:09:00 18.00 /min Jc F Akin BP Systolic 2024-12-09 09:24:00 120 mm[Hg] Step hen F Akin BP Diastolic 2024-12-09 09:24:00 86 mm[Hg] Aaron phen F Akin Weight Measured 2024-12-09 09:24:00 224.00 pounds Jc F Akin Height Measured 2024-12-09 09:24:00 60.50 inches Jc F Akin Body Temperature 2024-12-09 09:24:00 97.20 degrees Jc F Akin Heart Rate 2024-12-09 09:24:00 75.00 /min Pennie en F Akin Respiratory Rate 2024-12-09 09:24:00 20.00 /min Jc F Akin BP Systolic 2024-12-02 09:25:00 130 mm[Hg] Step hen F Akin BP Diastolic 2024-12-02 09:25:00 72 mm[Hg] Aaron phen F Akin Weight Measured 2024-12-02 09:25:00 227.00 pounds Jc F Akin Height Measured 2024-12-02 09:25:00 60.50 inches Jc F Akin Body Temperature 2024-12-02 09:25:00 97.50 degrees Jc F Akin Heart Rate 2024-12-02 09:25:00 52.00 /min Pennie en F Akin Respiratory Rate 2024-12-02 09:25:00 18.00 /min Jc F Akin BP Systolic 2024-11-25 10:20:00 1130 mm[Hg] Aaron phen F Akin BP Diastolic 2024-11-25 10:20:00 70 mm[Hg] Aaron phen F Akin Weight Measured 2024-11-25 10:20:00 180.00 pounds Jc F Akin Height Measured 2024-11-25 10:20:00 60.50 inches Jc F Akin Body Temperature 2024-11-25 10:20:00 961.00 degrees Jc F Akin Heart Rate 2024-11-25 10:20:00 72.00 /min Pennie en F Akin Respiratory Rate 2024-11-25 10:20:00 17.00 /min Jc F Akin BP Systolic 2024-08-12 09:23:00 110 mm[Hg] Step hen F Akin BP Diastolic 2024-08-12 09:23:00 68 mm[Hg] Aaron phen F Akin Weight Measured 2024-08-12 09:23:00 219.00 pounds Jc F Akin Height Measured 2024-08-12 09:23:00 60.50 inches Jc F Akin Body Temperature 2024-08-12 09:23:00 97.90 degrees Jc F Akin Heart Rate 2024-08-12 09:23:00 78.00 /min Pennie en F Akin Respiratory Rate 2024-08-12 09:23:00 20.00 /min Jc F Akin BP Systolic 2024-08-03 08:09:00 110 mm[Hg] Step hen F Akin BP Diastolic 2024-08-03 08:09:00 60 mm[Hg] Aaron phen F Akin Weight Measured 2024-08-03 08:09:00 217.00 pounds Jc F Akin Height Measured 2024-08-03 08:09:00 60.50 inches Jc F Akin Body Temperature 2024-08-03 08:09:00 98.10 degrees Jc F Akin Heart Rate 2024-08-03 08:09:00 62.00 /min Pennie en F Akin Respiratory Rate 2024-08-03 08:09:00 18.00 /min Jc F Akin BP Systolic 2024-07-27 09:09:00 143 mm[Hg] Step hen F Akin BP Diastolic 2024-07-27 09:09:00 61 mm[Hg] Aaron phen F Akin Weight Measured 2024-07-27 09:09:00 210.90 pounds Jc F Akin Height Measured 2024-07-27 09:09:00 60.50 inches Jc F Akin Body Temperature 2024-07-27 09:09:00 98.20 degrees Jc F Akin Heart Rate 2024-07-27 09:09:00 81.00 /min Pennie en F Akin Respiratory Rate 2024-07-27 09:09:00 18.00 /min Jc F Akin BP Systolic 2024-07-17 09:05:00 120 mm[Hg] Step hen F Akin BP Diastolic 2024-07-17 09:05:00 78 mm[Hg] Aaron phen F Akin Weight Measured 2024-07-17 09:05:00 210.00 pounds Jc F Akin Height Measured 2024-07-17 09:05:00 60.50 inches Jc F Akin Body Temperature 2024-07-17 09:05:00 98.30 degrees Jc F Akin Heart Rate 2024-07-17 09:05:00 72.00 /min Pennie en F Akin Respiratory Rate 2024-07-17 09:05:00 16.00 /min Jc F Akin BP Systolic 2024-04-17 09:04:00 116 mm[Hg] Step hen F Akin BP Diastolic 2024-04-17 09:04:00 68 mm[Hg] Aaron phen F Akin Weight Measured 2024-04-17 09:04:00 226.00 pounds Jc F Akin Height Measured 2024-04-17 09:04:00 60.50 inches Jc F Akin Body Temperature 2024-04-17 09:04:00 97.90 degrees Jc F Akin Heart Rate 2024-04-17 09:04:00 77.00 /min Pennie en F Akin Respiratory Rate 2024-04-17 09:04:00 18.00 /min Jc F Akin BP Systolic 2024-03-27 08:26:00 116 mm[Hg] Step hen F Akin BP Diastolic 2024-03-27 08:26:00 76 mm[Hg] Aaron phen F Akin Weight Measured 2024-03-27 08:26:00 221.00 pounds Jc F Akin Height Measured 2024-03-27 08:26:00 60.50 inches Jc F Akin Body Temperature 2024-03-27 08:26:00 97.00 degrees Jc F Akin Heart Rate 2024-03-27 08:26:00 76.00 /min Pennie en F Akin Respiratory Rate 2024-03-27 08:26:00 20.00 /min Jc F Akin BP Systolic 2024-03-06 13:57:00 118 mm[Hg] Step hen F Akin BP Diastolic 2024-03-06 13:57:00 70 mm[Hg] Aaron phen F Akin Weight Measured 2024-03-06 13:57:00 220.00 pounds Jc F Akin Height Measured 2024-03-06 13:57:00 60.50 inches Jc F Akin Body Temperature 2024-03-06 13:57:00 98.40 degrees Jc F Akin Heart Rate 2024-03-06 13:57:00 75.00 /min Pennie en F Akin Respiratory Rate 2024-03-06 13:57:00 18.00 /min Jc F Akin BP Systolic 2023-10-01 14:58:00 Step hen F Akin BP Diastolic 2023-10-01 14:58:00 Aaron phen F Akin Weight Measured 2023-10-01 14:58:00 Jc F Akin Height Measured 2023-10-01 14:58:00 Jc F Akin Body Temperature 2023-10-01 14:58:00 Jc F Akin Heart Rate 2023-10-01 14:58:00 Pennie en F Akin Respiratory Rate 2023-10-01 14:58:00 Jc F Akin BP Systolic 2023-09-27 09:03:00 120 mm[Hg] Step hen F Akin BP Diastolic 2023-09-27 09:03:00 80 mm[Hg] Aaron phen F Akin Weight Measured 2023-09-27 09:03:00 229.00 pounds Jc F Akin Height Measured 2023-09-27 09:03:00 60.50 inches Jc F Akin Body Temperature 2023-09-27 09:03:00 97.10 degrees Jc F Akin Heart Rate 2023-09-27 09:03:00 70.00 /min Pennie en F Akin Respiratory Rate 2023-09-27 09:03:00 18.00 /min Jc F Akin BP Systolic 2023-09-18 08:53:00 128 mm[Hg] Step hen F Akin BP Diastolic 2023-09-18 08:53:00 70 mm[Hg] Aaron phen F Akin Weight Measured 2023-09-18 08:53:00 226.00 pounds Jc F Akin Height Measured 2023-09-18 08:53:00 60.50 inches Jc F Akin Body Temperature 2023-09-18 08:53:00 98.20 degrees Jc F Akin Heart Rate 2023-09-18 08:53:00 96.00 /min Pennie en F Akin Respiratory Rate 2023-09-18 08:53:00 20.00 /min Jc F Akin BP Systolic 2023-09-03 11:04:00 120 mm[Hg] Step hen F Akin BP Diastolic 2023-09-03 11:04:00 76 mm[Hg] Aaron phen F Akin Weight Measured 2023-09-03 11:04:00 224.00 pounds Jc F Akin Height Measured 2023-09-03 11:04:00 60.50 inches Jc F Akin Body Temperature 2023-09-03 11:04:00 97.40 degrees Jc F Akin Heart Rate 2023-09-03 11:04:00 69.00 /min Pennie en F Akin Respiratory Rate 2023-09-03 11:04:00 20.00 /min Jc F Akin BP Systolic 2023-08-19 10:02:00 126 mm[Hg] Step hen F Akin BP Diastolic 2023-08-19 10:02:00 82 mm[Hg] Aaron phen F Akin Weight Measured 2023-08-19 10:02:00 218.00 pounds Jc F Akin Height Measured 2023-08-19 10:02:00 60.50 inches Jc F Akin Body Temperature 2023-08-19 10:02:00 98.40 degrees Jc F Akin Heart Rate 2023-08-19 10:02:00 66.00 /min Pennie en F Akin Respiratory Rate 2023-08-19 10:02:00 20.00 /min Jc F Akin BP Systolic 2023-07-01 14:58:00 122 mm[Hg] Step hen F Akin BP Diastolic 2023-07-01 14:58:00 88 mm[Hg] Aaron phen F Akin Weight Measured 2023-07-01 14:58:00 221.00 pounds Jc F Akin Height Measured 2023-07-01 14:58:00 60.50 inches Jc F Akin Body Temperature 2023-07-01 14:58:00 98.50 degrees Jc F Akin Heart Rate 2023-07-01 14:58:00 69.00 /min Pennie en F Akin Respiratory Rate 2023-07-01 14:58:00 20.00 /min Jc F Akin BP Systolic 2019-11-24 08:33:00 112 mm[Hg] Step hen F Akin BP Diastolic 2019-11-24 08:33:00 73 mm[Hg] Aaron phen F Akin Weight Measured 2019-11-24 08:33:00 204.20 pounds Jc F Akin Height Measured 2019-11-24 08:33:00 61.60 inches Jc F Akin Body Temperature 2019-11-24 08:33:00 98.20 degrees Jc F Akin Heart Rate 2019-11-24 08:33:00 87.00 /min Pennie en F Akin Respiratory Rate 2019-11-24 08:33:00 16.00 /min Jcscott Gerardo BP Systolic 2019-07-21 09:01:00 123 mm[Hg] Step hen F Akin BP Diastolic 2019-07-21 09:01:00 67 mm[Hg] Aaron phen F Akin Weight Measured 2019-07-21 09:01:00 213.60 pounds Jc Gerardo Height Measured 2019-07-21 09:01:00 61.30 inches Jc Monty Gerardo Body Temperature 2019-07-21 09:01:00 98.40 degrees Jc Gerardo Heart Rate 2019-07-21 09:01:00 77.00 /min Pennie en F Akin Respiratory Rate 2019-07-21 09:01:00 17.00 /min Jc Gerardo BP Systolic 2019-05-19 09:45:00 123 mm[Hg] Step hen F Akin BP Diastolic 2019-05-19 09:45:00 73 mm[Hg] Aaron phen F Akin Weight Measured 2019-05-19 09:45:00 217.60 pounds Jc Gerardo Height Measured 2019-05-19 09:45:00 61.30 inches Jc Gerardo Body Temperature 2019-05-19 09:45:00 99.10 degrees Jc Gerardo Heart Rate 2019-05-19 09:45:00 72.00 /min Pennie en Monty Gerardo Respiratory Rate 2019-05-19 09:45:00 16.00 /min cJ Gerardo Encounters Start Date/Time End Date/Time Encounter Type Admission Type Attending [facility] Care Facility Care Department Encounter ID Source 2024-01-15 07:39:00 Outpatient ArthurMariaa melgar [facility] [id number] [facility] 2023-12-11 14:48:02 Outpatient ArthurMariaa [facility] [id number] [facility] 2025-05-14 00:00:00 2025-05-14 00:00:00 Outpatient Visit [facility] [id number] Jc Gerardo 2025-03-24 10:39:29 2025-03-24 10:39:29 Outpatient SFA SFA [id number] Jc Millan Akin 2025-03-24 00:00:00 2025-03-24 00:00:00 Outpatient Visit [facility]FA [id number] Jc Millan Akin 2024-12-21 15:06:04 2024-12-21 15:06:04 Outpatient SFA SFA [id number] Jc Millan Akin 2024-12-21 00:00:00 2024-12-21 00:00:00 Outpatient Visit SFA [id number] Jc Millan [place] 2024-12-16 15:33:40 2024-12-16 15:33:40 Outpatient SFA SFA [id number] Jc Millan [place] 2024-12-16 00:00:00 2024-12-16 00:00:00 Outpatient Visit SFA [id number] Jc Millan [place] 2024-12-09 09:17:23 2024-12-09 09:17:23 Outpatient SFA SFA [id number] Jc Millan [place] 2024-12-09 00:00:00 2024-12-09 00:00:00 Outpatient Visit SFA [id number] Jc Millan [place] 2024-12-02 09:16:48 2024-12-02 09:16:48 Outpatient SFA SFA [id number] Jc Millan [place] 2024-12-02 00:00:00 2024-12-02 00:00:00 Outpatient Visit SFA [id number] Jc Millan [place] 2024-11-25 10:02:41 2024-11-25 10:02:41 Outpatient SFA SFA [id number] Jc Millan [place] 2024-11-25 00:00:00 2024-11-25 00:00:00 Outpatient Visit SFA [id number] Jc Gerardo 2024-08-12 09:15:41 2024-08-12 09:15:41 Outpatient SFA SFA [id number] Jc Gerardo 2024-08-12 00:00:00 2024-08-12 00:00:00 Outpatient Visit SFA [id number] Jc Gerardo 2024-08-03 08:08:09 2024-08-03 08:08:09 Outpatient SFA SFA [id number] Jc Gerardo 2024-08-03 00:00:00 2024-08-03 00:00:00 Outpatient Visit SFA [id number] Jc Gerardo 2024-07-27 09:04:26 2024-07-27 09:04:26 Outpatient SFA SFA [id number] Jc Gerardo 2024-07-27 00:00:00 2024-07-27 00:00:00 Outpatient Visit SFA [id number] Jc Gerardo 2024-07-24 09:19:59 2024-07-24 09:19:59 Outpatient SFA SFA [id number] Jc Gerardo 2024-07-17 09:05:24 2024-07-17 09:05:24 Outpatient SFA SFA [id number] 0927 Jc Gerardo 2024-07-17 00:00:00 2024-07-17 00:00:00 Outpatient Visit SFA [id number] Jc Gerardo 2024-04-17 09:12:32 2024-04-17 09:12:32 Outpatient SFA SFA [id number] 0628 Jc Gerardo 2024-04-17 00:00:00 2024-04-17 00:00:00 Outpatient Visit SFA [id number] Jc Gerardo 2024-03-27 08:19:49 2024-03-27 08:19:49 Outpatient SFA SFA [id number] Jc Gerardo 2024-03-27 00:00:00 2024-03-27 00:00:00 Outpatient Visit SFA [id number] Jc Gerardo 2024-03-06 13:56:15 2024-03-06 13:56:15 Outpatient SFA SFA [id number] Jc Gerardo 2024-03-06 00:00:00 2024-03-06 00:00:00 Outpatient Visit SFA [id number] Jc Gerardo 2024-01-23 00:00:00 2024-01-23 00:00:00 OFFICE VISIT ESTAB PT LEVEL 2 STLMLC STLMLC [id number] [facility] 2023-12-11 00:00:00 2023-12-11 00:00:00 OFFICE VISIT NEW PT LEVEL 2 STLMLC STLMLC [id number] [facility] 2023-10-01 15:21:19 2023-10-01 15:21:19 Outpatient SFA SFA [id number] Jc Gerardo 2023-09-27 09:00:36 2023-09-27 09:00:36 Outpatient SFA SFA [id number] Jc Gerardo 2023-09-18 08:52:55 2023-09-18 08:52:55 Outpatient SFA SFA [id number] 1129 Jc Gerardo 2023-09-03 10:56:07 2023-09-03 10:56:07 Outpatient SFA SFA [id number] 1114 Jc Gerardo 2023-08-27 09:08:06 2023-08-27 09:08:06 Outpatient SFA SFA [id number] Jc Gerardo 2023-08-19 09:57:59 2023-08-19 09:57:59 Outpatient [facility] [id number] Jc Gerardo 2023-07-01 14:54:40 2023-07-01 14:54:40 Outpatient [facility] 0911 Jc Gerardo Results Test Description Test Time Test Comments Results Result Co mments Source Jc GerardoMICROALBUMIN, RANDOM URINE (W/CREATININE)2024-12-17 00:00:00* Test Item Value Reference Range Interpretation Comme nts CREATININE, RANDOM URINE (te st code = 2161-8) 107 mg/dL ALBUMIN, URINE (test code = 05437-7) 0.7 mg/dL ALBUMIN/CREATININE RATIO, RA NDOM URINE (test code = 9318-7) 7 mg/gcreat Jc GerardoURINALYSIS [id number] 00:00:00* Test Item Value Reference Range Interpretation Comme nts COLOR (test code = 5778-6) TNP APPEARANCE (test code = 5767-9) DNR SPECIFIC GRAVITY (test code = 5811-5) DNR PH (test code = 5803-2) DNR GLUCOSE (test code = 41759-0) DNR BILIRUBIN (test code = 5770-3) DNR KETONES (test code = 2514-8) DNR OCCULT BLOOD (test code = 5794-3) DNR PROTEIN (test code = 30572-2) DNR NITRITE (test code = 5802-4) DNR LEUKOCYTE ESTERASE (test cod e = 5799-2) DNR WBC (test code = 5821-4) DNR /HPF RBC (test code = 04964-0) DNR /HPF SQUAMOUS EPITHELIAL CELLS (t est code = 78156-6) DNR /HPF TRANSITIONAL EPITHELIAL CELL S (test code = 98763-9) DNR /HPF RENAL EPITHELIAL CELLS (test code = 55121-1) DNR /HPF BACTERIA (test code = 5769-5) DNR /HPF CALCIUM OXALATE CRYSTALS (te st code = 26249-7) DNR /HPF TRIPLE PHOSPHATE CRYSTALS (t est code = 34756-8) DNR /HPF URIC ACID CRYSTALS (test cod e = 28828-1) DNR /HPF AMORPHOUS SEDIMENT (test cod e = 8246-1) DNR /HPF CRYSTALS (test code = 53016-1) DNR /HPF HYALINE CAST (test code = 5796-8) DNR /LPF GRANULAR CAST (test code = 5793-5) DNR /LPF CASTS (test code = 9842-6) DNR /LPF YEAST (test code = 5822-2) DNR /HPF COMMENTS (test code = 8251-1) DNR Jc Millan AustinMICROALBUMIN, RANDOM URINE (W/CREATININE)2024-12-17 00:00:00* Test Item Value Reference Range Interpretation Comme nts CREATININE, RANDOM URINE (te st code = 2161-8) 107 mg/dL ALBUMIN, URINE (test code = 09348-5) 0.7 mg/dL ALBUMIN/CREATININE RATIO, RA NDOM URINE (test code = 9318-7) 7 mg/gcreat Jc Millan AustinURINALYSIS [id number] 00:00:00* Test Item Value Reference Range Interpretation Comme nts COLOR (test code = 5778-6) TNP APPEARANCE (test code = 5767-9) DNR SPECIFIC GRAVITY (test code = 5811-5) DNR PH (test code = 5803-2) DNR GLUCOSE (test code = 51892-6) DNR BILIRUBIN (test code = 5770-3) DNR KETONES (test code = 2514-8) DNR OCCULT BLOOD (test code = 5794-3) DNR PROTEIN (test code = 62947-6) DNR NITRITE (test code = 5802-4) DNR LEUKOCYTE ESTERASE (test cod e = 5799-2) DNR WBC (test code = 5821-4) DNR /HPF RBC (test code = 41566-4) DNR /HPF SQUAMOUS EPITHELIAL CELLS (t est code = 59878-8) DNR /HPF TRANSITIONAL EPITHELIAL CELL S (test code = 04801-5) DNR /HPF RENAL EPITHELIAL CELLS (test code = 59388-7) DNR /HPF BACTERIA (test code = 5769-5) DNR /HPF CALCIUM OXALATE CRYSTALS (te st code = 21911-9) DNR /HPF TRIPLE PHOSPHATE CRYSTALS (t est code = 49658-1) DNR /HPF URIC ACID CRYSTALS (test cod e = 79669-0) DNR /HPF AMORPHOUS SEDIMENT (test cod e = 8246-1) DNR /HPF CRYSTALS (test code = 22398-9) DNR /HPF HYALINE CAST (test code = 5796-8) DNR /LPF GRANULAR CAST (test code = 5793-5) DNR /LPF CASTS (test code = 9842-6) DNR /LPF YEAST (test code = 5822-2) DNR /HPF COMMENTS (test code = 8251-1) DNR Jc GerardoMICROALBUMIN, RANDOM URINE (W/CREATININE)2024-12-17 00:00:00* Test Item Value Reference Range Interpretation Comme nts CREATININE, RANDOM URINE (te st code = 2161-8) 107 mg/dL ALBUMIN, URINE (test code = 01963-1) 0.7 mg/dL ALBUMIN/CREATININE RATIO, RA NDOM URINE (test code = 9318-7) 7 mg/gcreat Jc Millan AustinCBC W/AUTO [id number] 00:00:00* Test Item Value Reference Range Interpretation Comme nts WBC (test code = 1001) 13.6 K/UL RBC (test code = 1002) 5.52 M/UL HEMOGLOBIN (test code = 1003) 16.0 G/DL HEMATOCRIT (test code = 1004) 50.0 % MCV (test code = 1005) 90.6 fL MCH (test code = 1006) 29.0 PG MCHC (test code = 1007) 32.0 G/DL RDW (test code = 1038) 13.1 % NEUTROPHILS (test code = 1008) 64.4 % LYMPHOCYTES (test code = 1010) 28.3 % MONOCYTES (test code = 1011) 4.6 % EOSINOPHILS (test code = 1012) 1.8 % BASOPHILS (test code = 1013) 0.6 % IMMATURE GRANULOCYTES (test code = 1036) 0.3 % NUCLEATED RBCS (test code = 1065) 0.0 /100WBC'S PLATELET COUNT (test code = 1015) 193 K/UL ABSOLUTE NEUTROPHILS (test c ode = 1066) 8.76 K/UL ABSOLUTE LYMPHOCYTES (test c ode = 1067) 3.84 K/UL ABSOLUTE MONOCYTES (test cod e = 1068) 0.63 K/UL ABSOLUTE EOSINOPHILS (test c ode = 1040) 0.24 K/UL ABSOLUTE BASOPHILS (test cod e = 1069) 0.08 K/UL ABS IMMATURE GRANULOCYTES (t est code = 1020) 0.04 K/UL ABS NUCLEATED RBCS (test cod e = 93489) 0.00 K/UL Jc GerardoLIPID [id number] 00:00:00* Test Item Value Reference Range Interpretation Comme nts CHOLESTEROL (test code = 2210) 146 MG/DL TRIGLYCERIDES (test code = 2232) 82 MG/DL HDL CHOLESTEROL (test code = 2220) 36 MG/DL CALC LDL CHOL (test code = 2237) 93 MG/DL RISK RATIO LDL/HDL (test cod e = 2238) 2.58 RATIO Jc GerardoHEMOGLOBIN [id number] 00:00:00* Test Item Value Reference Range Interpretation Comme nts HEMOGLOBIN A1c (test code = 83798) 9.3 % Jc GerardoCOMPREHENSIVE METABOLIC [id number] 00:00:00* Test Item Value Reference Range Interpretation Comme nts GLUCOSE (test code = 2217) 178 MG/DL BUN (test code = 2208) 9 MG/DL CREATININE (test code = 2214) 0.66 MG/DL eGFR (2020 CKD-EPI) (test co de = 08443) 95 ML/MIN/1.73 CALC BUN/CREAT (test code = 2235) 14 RATIO SODIUM (test code = 2231) 143 MEQ/L POTASSIUM (test code = 2228) 4.9 MEQ/L CHLORIDE (test code = 2215) 107 MEQ/L CARBON DIOXIDE (test code = 2206) 24 MEQ/L CALCIUM (test code = 2209) 9.7 MG/DL PROTEIN, TOTAL (test code = 2229) 6.6 G/DL ALBUMIN (test code = 2201) 3.7 G/DL CALC GLOBULIN (test code = 2240) 2.9 G/DL CALC A/G RATIO (test code = 2234) 1.3 RATIO BILIRUBIN, TOTAL (test code = 2207) 0.6 MG/DL ALKALINE PHOSPHATASE (test code = 2204) 209 U/L AST (test code = 2218) 31 U/L ALT (test code = 2219) 22 U/L Jc GerardoCBC W/AUTO [id number] 00:00:00* Test Item Value Reference Range Interpretation Comme nts WBC (test code = 1001) 13.6 K/UL RBC (test code = 1002) 5.52 M/UL HEMOGLOBIN (test code = 1003) 16.0 G/DL HEMATOCRIT (test code = 1004) 50.0 % MCV (test code = 1005) 90.6 fL MCH (test code = 1006) 29.0 PG MCHC (test code = 1007) 32.0 G/DL RDW (test code = 1038) 13.1 % NEUTROPHILS (test code = 1008) 64.4 % LYMPHOCYTES (test code = 1010) 28.3 % MONOCYTES (test code = 1011) 4.6 % EOSINOPHILS (test code = 1012) 1.8 % BASOPHILS (test code = 1013) 0.6 % IMMATURE GRANULOCYTES (test code = 1036) 0.3 % NUCLEATED RBCS (test code = 1065) 0.0 /100WBC'S PLATELET COUNT (test code = 1015) 193 K/UL ABSOLUTE NEUTROPHILS (test c ode = 1066) 8.76 K/UL ABSOLUTE LYMPHOCYTES (test c ode = 1067) 3.84 K/UL ABSOLUTE MONOCYTES (test cod e = 1068) 0.63 K/UL ABSOLUTE EOSINOPHILS (test c ode = 1040) 0.24 K/UL ABSOLUTE BASOPHILS (test cod e = 1069) 0.08 K/UL ABS IMMATURE GRANULOCYTES (t est code = 1020) 0.04 K/UL ABS NUCLEATED RBCS (test cod e = 22594) 0.00 K/UL Jc GerardoLIPID [id number] 00:00:00* Test Item Value Reference Range Interpretation Comme nts CHOLESTEROL (test code = 2210) 146 MG/DL TRIGLYCERIDES (test code = 2232) 82 MG/DL HDL CHOLESTEROL (test code = 2220) 36 MG/DL CALC LDL CHOL (test code = 2237) 93 MG/DL RISK RATIO LDL/HDL (test cod e = 2238) 2.58 RATIO Jc GerardoHEMOGLOBIN [id number] 00:00:00* Test Item Value Reference Range Interpretation Comme nts HEMOGLOBIN A1c (test code = 62869) 9.3 % Jc Millan AkinCOMPREHENSIVE METABOLIC [id number] 00:00:00* Test Item Value Reference Range Interpretation Comme nts GLUCOSE (test code = 2217) 178 MG/DL BUN (test code = 2208) 9 MG/DL CREATININE (test code = 2214) 0.66 MG/DL eGFR (2020 CKD-EPI) (test co de = 79059) 95 ML/MIN/1.73 CALC BUN/CREAT (test code = 2235) 14 RATIO SODIUM (test code = 2231) 143 MEQ/L POTASSIUM (test code = 2228) 4.9 MEQ/L CHLORIDE (test code = 2215) 107 MEQ/L CARBON DIOXIDE (test code = 2206) 24 MEQ/L CALCIUM (test code = 2209) 9.7 MG/DL PROTEIN, TOTAL (test code = 2229) 6.6 G/DL ALBUMIN (test code = 2201) 3.7 G/DL CALC GLOBULIN (test code = 2240) 2.9 G/DL CALC A/G RATIO (test code = 2234) 1.3 RATIO BILIRUBIN, TOTAL (test code = 2207) 0.6 MG/DL ALKALINE PHOSPHATASE (test code = 2204) 209 U/L AST (test code = 2218) 31 U/L ALT (test code = 2219) 22 U/L [facility]an [facility]AUTO [id number] 00:00:00* Test Item Value Reference Range Interpretation Comme nts WBC (test code = 1001) 13.6 K/UL RBC (test code = 1002) 5.52 M/UL HEMOGLOBIN (test code = 1003) 16.0 G/DL HEMATOCRIT (test code = 1004) 50.0 % MCV (test code = 1005) 90.6 fL MCH (test code = 1006) 29.0 PG MCHC (test code = 1007) 32.0 G/DL RDW (test code = 1038) 13.1 % NEUTROPHILS (test code = 1008) 64.4 % LYMPHOCYTES (test code = 1010) 28.3 % MONOCYTES (test code = 1011) 4.6 % EOSINOPHILS (test code = 1012) 1.8 % BASOPHILS (test code = 1013) 0.6 % IMMATURE GRANULOCYTES (test code = 1036) 0.3 % NUCLEATED RBCS (test code = 1065) 0.0 /100WBC'S PLATELET COUNT (test code = 1015) 193 K/UL ABSOLUTE NEUTROPHILS (test c ode = 1066) 8.76 K/UL ABSOLUTE LYMPHOCYTES (test c ode = 1067) 3.84 K/UL ABSOLUTE MONOCYTES (test cod e = 1068) 0.63 K/UL ABSOLUTE EOSINOPHILS (test c ode = 1040) 0.24 K/UL ABSOLUTE BASOPHILS (test cod e = 1069) 0.08 K/UL ABS IMMATURE GRANULOCYTES (t est code = 1020) 0.04 K/UL ABS NUCLEATED RBCS (test cod e = 23477) 0.00 K/UL Jc GerardoLIPID [id number] 00:00:00* Test Item Value Reference Range Interpretation Comme nts CHOLESTEROL (test code = 2210) 146 MG/DL TRIGLYCERIDES (test code = 2232) 82 MG/DL HDL CHOLESTEROL (test code = 2220) 36 MG/DL CALC LDL CHOL (test code = 2237) 93 MG/DL RISK RATIO LDL/HDL (test cod e = 2238) 2.58 RATIO Jc GerardoHEMOGLOBIN [id number] 00:00:00* Test Item Value Reference Range Interpretation Comme nts HEMOGLOBIN A1c (test code = 48792) 9.3 % Jc GerardoCOMPREHENSIVE METABOLIC [id number] 00:00:00* Test Item Value Reference Range Interpretation Comme nts GLUCOSE (test code = 2217) 178 MG/DL BUN (test code = 2208) 9 MG/DL CREATININE (test code = 2214) 0.66 MG/DL eGFR (2020 CKD-EPI) (test co de = 17718) 95 ML/MIN/1.73 CALC BUN/CREAT (test code = 2235) 14 RATIO SODIUM (test code = 2231) 143 MEQ/L POTASSIUM (test code = 2228) 4.9 MEQ/L CHLORIDE (test code = 2215) 107 MEQ/L CARBON DIOXIDE (test code = 2206) 24 MEQ/L CALCIUM (test code = 2209) 9.7 MG/DL PROTEIN, TOTAL (test code = 2229) 6.6 G/DL ALBUMIN (test code = 2201) 3.7 G/DL CALC GLOBULIN (test code = 2240) 2.9 G/DL CALC A/G RATIO (test code = 2234) 1.3 RATIO BILIRUBIN, TOTAL (test code = 2207) 0.6 MG/DL ALKALINE PHOSPHATASE (test code = 2204) 209 U/L AST (test code = 2218) 31 U/L ALT (test code = 2219) 22 U/L Jc GerardoCBC W/AUTO [id number] 00:00:00* Test Item Value Reference Range Interpretation Comme nts WBC (test code = 1001) 11.7 K/UL RBC (test code = 1002) 5.39 M/UL HEMOGLOBIN (test code = 1003) 15.7 G/DL HEMATOCRIT (test code = 1004) 48.5 % MCV (test code = 1005) 90.0 fL MCH (test code = 1006) 29.1 PG MCHC (test code = 1007) 32.4 G/DL RDW (test code = 1038) 13.6 % NEUTROPHILS (test code = 1008) 60.5 % LYMPHOCYTES (test code = 1010) 32.2 % MONOCYTES (test code = 1011) 4.3 % EOSINOPHILS (test code = 1012) 2.1 % BASOPHILS (test code = 1013) 0.6 % IMMATURE GRANULOCYTES (test code = 1036) 0.3 % NUCLEATED RBCS (test code = 1065) 0.0 /100WBC'S PLATELET COUNT (test code = 1015) 195 K/UL ABSOLUTE NEUTROPHILS (test c ode = 1066) 7.07 K/UL ABSOLUTE LYMPHOCYTES (test c ode = 1067) 3.77 K/UL ABSOLUTE MONOCYTES (test cod e = 1068) 0.50 K/UL ABSOLUTE EOSINOPHILS (test c ode = 1040) 0.24 K/UL ABSOLUTE BASOPHILS (test cod e = 1069) 0.07 K/UL ABS IMMATURE GRANULOCYTES (t est code = 1020) 0.04 K/UL ABS NUCLEATED RBCS (test cod e = 64265) 0.00 K/UL Jc GerardoLIPID [id number] 00:00:00* Test Item Value Reference Range Interpretation Comme nts CHOLESTEROL (test code = 2210) 109 MG/DL TRIGLYCERIDES (test code = 2232) 84 MG/DL HDL CHOLESTEROL (test code = 2220) 36 MG/DL CALC LDL CHOL (test code = 2237) 57 MG/DL RISK RATIO LDL/HDL (test cod e = 2238) 1.58 RATIO Jc GerardoHEMOGLOBIN [id number] 00:00:00* Test Item Value Reference Range Interpretation Comme nts HEMOGLOBIN A1c (test code = 26919) 9.9 % Jc GerardoCOMPREHENSIVE METABOLIC [id number] 00:00:00* Test Item Value Reference Range Interpretation Comme nts GLUCOSE (test code = 2217) 215 MG/DL BUN (test code = 2208) 12 MG/DL CREATININE (test code = 2214) 0.66 MG/DL eGFR (2020 CKD-EPI) (test co de = 45515) 95 ML/MIN/1.73 CALC BUN/CREAT (test code = 2235) 18 RATIO SODIUM (test code = 2231) 140 MEQ/L POTASSIUM (test code = 2228) 4.5 MEQ/L CHLORIDE (test code = 2215) 106 MEQ/L CARBON DIOXIDE (test code = 2206) 25 MEQ/L CALCIUM (test code = 2209) 10.0 MG/DL PROTEIN, TOTAL (test code = 2229) 6.8 G/DL ALBUMIN (test code = 2201) 3.7 G/DL CALC GLOBULIN (test code = 2240) 3.1 G/DL CALC A/G RATIO (test code = 2234) 1.2 RATIO BILIRUBIN, TOTAL (test code = 2207) 0.7 MG/DL ALKALINE PHOSPHATASE (test code = 2204) 197 U/L AST (test code = 2218) 20 U/L ALT (test code = 2219) 19 U/L Jc GerardoCBC W/AUTO [id number] 00:00:00* Test Item Value Reference Range Interpretation Comme nts WBC (test code = 1001) 11.7 K/UL RBC (test code = 1002) 5.39 M/UL HEMOGLOBIN (test code = 1003) 15.7 G/DL HEMATOCRIT (test code = 1004) 48.5 % MCV (test code = 1005) 90.0 fL MCH (test code = 1006) 29.1 PG MCHC (test code = 1007) 32.4 G/DL RDW (test code = 1038) 13.6 % NEUTROPHILS (test code = 1008) 60.5 % LYMPHOCYTES (test code = 1010) 32.2 % MONOCYTES (test code = 1011) 4.3 % EOSINOPHILS (test code = 1012) 2.1 % BASOPHILS (test code = 1013) 0.6 % IMMATURE GRANULOCYTES (test code = 1036) 0.3 % NUCLEATED RBCS (test code = 1065) 0.0 /100WBC'S PLATELET COUNT (test code = 1015) 195 K/UL ABSOLUTE NEUTROPHILS (test c ode = 1066) 7.07 K/UL ABSOLUTE LYMPHOCYTES (test c ode = 1067) 3.77 K/UL ABSOLUTE MONOCYTES (test cod e = 1068) 0.50 K/UL ABSOLUTE EOSINOPHILS (test c ode = 1040) 0.24 K/UL ABSOLUTE BASOPHILS (test cod e = 1069) 0.07 K/UL ABS IMMATURE GRANULOCYTES (t est code = 1020) 0.04 K/UL ABS NUCLEATED RBCS (test cod e = 73746) 0.00 K/UL Jc GerardoLIPID [id number] 00:00:00* Test Item Value Reference Range Interpretation Comme nts CHOLESTEROL (test code = 2210) 109 MG/DL TRIGLYCERIDES (test code = 2232) 84 MG/DL HDL CHOLESTEROL (test code = 2220) 36 MG/DL CALC LDL CHOL (test code = 2237) 57 MG/DL RISK RATIO LDL/HDL (test cod e = 2238) 1.58 RATIO Jc GerardoHEMOGLOBIN [id number] 00:00:00* Test Item Value Reference Range Interpretation Comme nts HEMOGLOBIN A1c (test code = 00253) 9.9 % Jc GerardoCOMPREHENSIVE METABOLIC [id number] 00:00:00* Test Item Value Reference Range Interpretation Comme nts GLUCOSE (test code = 2217) 215 MG/DL BUN (test code = 2208) 12 MG/DL CREATININE (test code = 2214) 0.66 MG/DL eGFR (2020 CKD-EPI) (test co de = 82214) 95 ML/MIN/1.73 CALC BUN/CREAT (test code = 2235) 18 RATIO SODIUM (test code = 2231) 140 MEQ/L POTASSIUM (test code = 2228) 4.5 MEQ/L CHLORIDE (test code = 2215) 106 MEQ/L CARBON DIOXIDE (test code = 2206) 25 MEQ/L CALCIUM (test code = 2209) 10.0 MG/DL PROTEIN, TOTAL (test code = 2229) 6.8 G/DL ALBUMIN (test code = 2201) 3.7 G/DL CALC GLOBULIN (test code = 2240) 3.1 G/DL CALC A/G RATIO (test code = 2234) 1.2 RATIO BILIRUBIN, TOTAL (test code = 2207) 0.7 MG/DL ALKALINE PHOSPHATASE (test code = 2204) 197 U/L AST (test code = 2218) 20 U/L ALT (test code = 2219) 19 U/L Jc GerardoCBC W/AUTO [id number] 00:00:00* Test Item Value Reference Range Interpretation Comme nts WBC (test code = 1001) 11.7 K/UL RBC (test code = 1002) 5.39 M/UL HEMOGLOBIN (test code = 1003) 15.7 G/DL HEMATOCRIT (test code = 1004) 48.5 % MCV (test code = 1005) 90.0 fL MCH (test code = 1006) 29.1 PG MCHC (test code = 1007) 32.4 G/DL RDW (test code = 1038) 13.6 % NEUTROPHILS (test code = 1008) 60.5 % LYMPHOCYTES (test code = 1010) 32.2 % MONOCYTES (test code = 1011) 4.3 % EOSINOPHILS (test code = 1012) 2.1 % BASOPHILS (test code = 1013) 0.6 % IMMATURE GRANULOCYTES (test code = 1036) 0.3 % NUCLEATED RBCS (test code = 1065) 0.0 /100WBC'S PLATELET COUNT (test code = 1015) 195 K/UL ABSOLUTE NEUTROPHILS (test c ode = 1066) 7.07 K/UL ABSOLUTE LYMPHOCYTES (test c ode = 1067) 3.77 K/UL ABSOLUTE MONOCYTES (test cod e = 1068) 0.50 K/UL ABSOLUTE EOSINOPHILS (test c ode = 1040) 0.24 K/UL ABSOLUTE BASOPHILS (test cod e = 1069) 0.07 K/UL ABS IMMATURE GRANULOCYTES (t est code = 1020) 0.04 K/UL ABS NUCLEATED RBCS (test cod e = 19862) 0.00 K/UL Jc GerardoLIPID [id number] 00:00:00* Test Item Value Reference Range Interpretation Comme nts CHOLESTEROL (test code = 2210) 109 MG/DL TRIGLYCERIDES (test code = 2232) 84 MG/DL HDL CHOLESTEROL (test code = 2220) 36 MG/DL CALC LDL CHOL (test code = 2237) 57 MG/DL RISK RATIO LDL/HDL (test cod e = 2238) 1.58 RATIO Jc GerardoHEMOGLOBIN [id number] 00:00:00* Test Item Value Reference Range Interpretation Comme nts HEMOGLOBIN A1c (test code = 82254) 9.9 % Jc GerardoCOMPREHENSIVE METABOLIC [id number] 00:00:00* Test Item Value Reference Range Interpretation Comme nts GLUCOSE (test code = 2217) 215 MG/DL BUN (test code = 2208) 12 MG/DL CREATININE (test code = 2214) 0.66 MG/DL eGFR (2020 CKD-EPI) (test co de = 54484) 95 ML/MIN/1.73 CALC BUN/CREAT (test code = 2235) 18 RATIO SODIUM (test code = 2231) 140 MEQ/L POTASSIUM (test code = 2228) 4.5 MEQ/L CHLORIDE (test code = 2215) 106 MEQ/L CARBON DIOXIDE (test code = 2206) 25 MEQ/L CALCIUM (test code = 2209) 10.0 MG/DL PROTEIN, TOTAL (test code = 2229) 6.8 G/DL ALBUMIN (test code = 2201) 3.7 G/DL CALC GLOBULIN (test code = 2240) 3.1 G/DL CALC A/G RATIO (test code = 2234) 1.2 RATIO BILIRUBIN, TOTAL (test code = 2207) 0.7 MG/DL ALKALINE PHOSPHATASE (test code = 2204) 197 U/L AST (test code = 2218) 20 U/L ALT (test code = 2219) 19 U/L Jc GerardoCBC W/AUTO [id number] 00:00:00* Test Item Value Reference Range Interpretation Comme nts WBC (test code = 1001) 11.7 K/UL RBC (test code = 1002) 5.39 M/UL HEMOGLOBIN (test code = 1003) 15.7 G/DL HEMATOCRIT (test code = 1004) 48.5 % MCV (test code = 1005) 90.0 fL MCH (test code = 1006) 29.1 PG MCHC (test code = 1007) 32.4 G/DL RDW (test code = 1038) 13.6 % NEUTROPHILS (test code = 1008) 60.5 % LYMPHOCYTES (test code = 1010) 32.2 % MONOCYTES (test code = 1011) 4.3 % EOSINOPHILS (test code = 1012) 2.1 % BASOPHILS (test code = 1013) 0.6 % IMMATURE GRANULOCYTES (test code = 1036) 0.3 % NUCLEATED RBCS (test code = 1065) 0.0 /100WBC'S PLATELET COUNT (test code = 1015) 195 K/UL ABSOLUTE NEUTROPHILS (test c ode = 1066) 7.07 K/UL ABSOLUTE LYMPHOCYTES (test c ode = 1067) 3.77 K/UL ABSOLUTE MONOCYTES (test cod e = 1068) 0.50 K/UL ABSOLUTE EOSINOPHILS (test c ode = 1040) 0.24 K/UL ABSOLUTE BASOPHILS (test cod e = 1069) 0.07 K/UL ABS IMMATURE GRANULOCYTES (t est code = 1020) 0.04 K/UL ABS NUCLEATED RBCS (test cod e = 56020) 0.00 K/UL Jc Millan TucsonLIP[place] [id number] 00:00:00* Test Item Value Reference Range Interpretation Comme nts CHOLESTEROL (test code = 2210) 109 MG/DL TRIGLYCERIDES (test code = 2232) 84 MG/DL HDL CHOLESTEROL (test code = 2220) 36 MG/DL CALC LDL CHOL (test code = 2237) 57 MG/DL RISK RATIO LDL/HDL (test cod e = 2238) 1.58 RATIO Jc GerardoHEMOGLOBIN [id number] 00:00:00* Test Item Value Reference Range Interpretation Comme nts HEMOGLOBIN A1c (test code = 82796) 9.9 % Jc GerardoCOMPREHENSIVE METABOLIC [id number] 00:00:00* Test Item Value Reference Range Interpretation Comme nts GLUCOSE (test code = 2217) 215 MG/DL BUN (test code = 2208) 12 MG/DL CREATININE (test code = 2214) 0.66 MG/DL eGFR (2020 CKD-EPI) (test co de = 62186) 95 ML/MIN/1.73 CALC BUN/CREAT (test code = 2235) 18 RATIO SODIUM (test code = 2231) 140 MEQ/L POTASSIUM (test code = 2228) 4.5 MEQ/L CHLORIDE (test code = 2215) 106 MEQ/L CARBON DIOXIDE (test code = 2206) 25 MEQ/L CALCIUM (test code = 2209) 10.0 MG/DL PROTEIN, TOTAL (test code = 2229) 6.8 G/DL ALBUMIN (test code = 2201) 3.7 G/DL CALC GLOBULIN (test code = 2240) 3.1 G/DL CALC A/G RATIO (test code = 2234) 1.2 RATIO BILIRUBIN, TOTAL (test code = 2207) 0.7 MG/DL ALKALINE PHOSPHATASE (test code = 2204) 197 U/L AST (test code = 2218) 20 U/L ALT (test code = 2219) 19 U/L [facility]c [facility]/AUTO [id number] 00:00:00* Test Item Value Reference Range Interpretation Comme nts WBC (test code = 1001) 11.7 K/UL RBC (test code = 1002) 5.39 M/UL HEMOGLOBIN (test code = 1003) 15.7 G/DL HEMATOCRIT (test code = 1004) 48.5 % MCV (test code = 1005) 90.0 fL MCH (test code = 1006) 29.1 PG MCHC (test code = 1007) 32.4 G/DL RDW (test code = 1038) 13.6 % NEUTROPHILS (test code = 1008) 60.5 % LYMPHOCYTES (test code = 1010) 32.2 % MONOCYTES (test code = 1011) 4.3 % EOSINOPHILS (test code = 1012) 2.1 % BASOPHILS (test code = 1013) 0.6 % IMMATURE GRANULOCYTES (test code = 1036) 0.3 % NUCLEATED RBCS (test code = 1065) 0.0 /100WBC'S PLATELET COUNT (test code = 1015) 195 K/UL ABSOLUTE NEUTROPHILS (test c ode = 1066) 7.07 K/UL ABSOLUTE LYMPHOCYTES (test c ode = 1067) 3.77 K/UL ABSOLUTE MONOCYTES (test cod e = 1068) 0.50 K/UL ABSOLUTE EOSINOPHILS (test c ode = 1040) 0.24 K/UL ABSOLUTE BASOPHILS (test cod e = 1069) 0.07 K/UL ABS IMMATURE GRANULOCYTES (t est code = 1020) 0.04 K/UL ABS NUCLEATED RBCS (test cod e = 86268) 0.00 K/UL Jc GerardoLIPID [id number] 00:00:00* Test Item Value Reference Range Interpretation Comme nts CHOLESTEROL (test code = 2210) 109 MG/DL TRIGLYCERIDES (test code = 2232) 84 MG/DL HDL CHOLESTEROL (test code = 2220) 36 MG/DL CALC LDL CHOL (test code = 2237) 57 MG/DL RISK RATIO LDL/HDL (test cod e = 2238) 1.58 RATIO Jc GerardoHEMOGLOBIN [id number] 00:00:00* Test Item Value Reference Range Interpretation Comme nts HEMOGLOBIN A1c (test code = 13143) 9.9 % Jc GerardoCOMPREHENSIVE METABOLIC [id number] 00:00:00* Test Item Value Reference Range Interpretation Comme nts GLUCOSE (test code = 2217) 215 MG/DL BUN (test code = 2208) 12 MG/DL CREATININE (test code = 2214) 0.66 MG/DL eGFR (2020 CKD-EPI) (test co de = 10027) 95 ML/MIN/1.73 CALC BUN/CREAT (test code = 2235) 18 RATIO SODIUM (test code = 2231) 140 MEQ/L POTASSIUM (test code = 2228) 4.5 MEQ/L CHLORIDE (test code = 2215) 106 MEQ/L CARBON DIOXIDE (test code = 2206) 25 MEQ/L CALCIUM (test code = 2209) 10.0 MG/DL PROTEIN, TOTAL (test code = 2229) 6.8 G/DL ALBUMIN (test code = 2201) 3.7 G/DL CALC GLOBULIN (test code = 2240) 3.1 G/DL CALC A/G RATIO (test code = 2234) 1.2 RATIO BILIRUBIN, TOTAL (test code = 2207) 0.7 MG/DL ALKALINE PHOSPHATASE (test code = 2204) 197 U/L AST (test code = 2218) 20 U/L ALT (test code = 2219) 19 U/L Jc GerardoCBC W/AUTO [id number] 00:00:00* Test Item Value Reference Range Interpretation Comme nts WBC (test code = 1001) 11.7 K/UL RBC (test code = 1002) 5.39 M/UL HEMOGLOBIN (test code = 1003) 15.7 G/DL HEMATOCRIT (test code = 1004) 48.5 % MCV (test code = 1005) 90.0 fL MCH (test code = 1006) 29.1 PG MCHC (test code = 1007) 32.4 G/DL RDW (test code = 1038) 13.6 % NEUTROPHILS (test code = 1008) 60.5 % LYMPHOCYTES (test code = 1010) 32.2 % MONOCYTES (test code = 1011) 4.3 % EOSINOPHILS (test code = 1012) 2.1 % BASOPHILS (test code = 1013) 0.6 % IMMATURE GRANULOCYTES (test code = 1036) 0.3 % NUCLEATED RBCS (test code = 1065) 0.0 /100WBC'S PLATELET COUNT (test code = 1015) 195 K/UL ABSOLUTE NEUTROPHILS (test c ode = 1066) 7.07 K/UL ABSOLUTE LYMPHOCYTES (test c ode = 1067) 3.77 K/UL ABSOLUTE MONOCYTES (test cod e = 1068) 0.50 K/UL ABSOLUTE EOSINOPHILS (test c ode = 1040) 0.24 K/UL ABSOLUTE BASOPHILS (test cod e = 1069) 0.07 K/UL ABS IMMATURE GRANULOCYTES (t est code = 1020) 0.04 K/UL ABS NUCLEATED RBCS (test cod e = 11521) 0.00 K/UL Jc Monty AkinLIPID [id number] 00:00:00* Test Item Value Reference Range Interpretation Comme nts CHOLESTEROL (test code = 2210) 109 MG/DL TRIGLYCERIDES (test code = 2232) 84 MG/DL HDL CHOLESTEROL (test code = 2220) 36 MG/DL CALC LDL CHOL (test code = 2237) 57 MG/DL RISK RATIO LDL/HDL (test cod e = 2238) 1.58 RATIO Jc GerardoHEMOGLOBIN [id number] 00:00:00* Test Item Value Reference Range Interpretation Comme nts HEMOGLOBIN A1c (test code = 17881) 9.9 % Jc Monty AkinCOMPREHENSIVE METABOLIC [id number] 00:00:00* Test Item Value Reference Range Interpretation Comme nts GLUCOSE (test code = 2217) 215 MG/DL BUN (test code = 2208) 12 MG/DL CREATININE (test code = 2214) 0.66 MG/DL eGFR (2020 CKD-EPI) (test co de = 83003) 95 ML/MIN/1.73 CALC BUN/CREAT (test code = 2235) 18 RATIO SODIUM (test code = 2231) 140 MEQ/L POTASSIUM (test code = 2228) 4.5 MEQ/L CHLORIDE (test code = 2215) 106 MEQ/L CARBON DIOXIDE (test code = 2206) 25 MEQ/L CALCIUM (test code = 2209) 10.0 MG/DL PROTEIN, TOTAL (test code = 2229) 6.8 G/DL ALBUMIN (test code = 2201) 3.7 G/DL CALC GLOBULIN (test code = 2240) 3.1 G/DL CALC A/G RATIO (test code = 2234) 1.2 RATIO BILIRUBIN, TOTAL (test code = 2207) 0.7 MG/DL ALKALINE PHOSPHATASE (test code = 2204) 197 U/L AST (test code = 2218) 20 U/L ALT (test code = 2219) 19 U/L Jc Millan [facility] W/AUTO [id number] 00:00:00* Test Item Value Reference Range Interpretation Comme nts WBC (test code = 1001) 11.7 K/UL RBC (test code = 1002) 5.39 M/UL HEMOGLOBIN (test code = 1003) 15.7 G/DL HEMATOCRIT (test code = 1004) 48.5 % MCV (test code = 1005) 90.0 fL MCH (test code = 1006) 29.1 PG MCHC (test code = 1007) 32.4 G/DL RDW (test code = 1038) 13.6 % NEUTROPHILS (test code = 1008) 60.5 % LYMPHOCYTES (test code = 1010) 32.2 % MONOCYTES (test code = 1011) 4.3 % EOSINOPHILS (test code = 1012) 2.1 % BASOPHILS (test code = 1013) 0.6 % IMMATURE GRANULOCYTES (test code = 1036) 0.3 % NUCLEATED RBCS (test code = 1065) 0.0 /100WBC'S PLATELET COUNT (test code = 1015) 195 K/UL ABSOLUTE NEUTROPHILS (test c ode = 1066) 7.07 K/UL ABSOLUTE LYMPHOCYTES (test c ode = 1067) 3.77 K/UL ABSOLUTE MONOCYTES (test cod e = 1068) 0.50 K/UL ABSOLUTE EOSINOPHILS (test c ode = 1040) 0.24 K/UL ABSOLUTE BASOPHILS (test cod e = 1069) 0.07 K/UL ABS IMMATURE GRANULOCYTES (t est code = 1020) 0.04 K/UL ABS NUCLEATED RBCS (test cod e = 21421) 0.00 K/UL Jc GerardoLIPID [id number] 00:00:00* Test Item Value Reference Range Interpretation Comme nts CHOLESTEROL (test code = 2210) 109 MG/DL TRIGLYCERIDES (test code = 2232) 84 MG/DL HDL CHOLESTEROL (test code = 2220) 36 MG/DL CALC LDL CHOL (test code = 2237) 57 MG/DL RISK RATIO LDL/HDL (test cod e = 2238) 1.58 RATIO Jc GerardoHEMOGLOBIN [id number] 00:00:00* Test Item Value Reference Range Interpretation Comme nts HEMOGLOBIN A1c (test code = 35433) 9.9 % Jc GerardoCOMPREHENSIVE METABOLIC [id number] 00:00:00* Test Item Value Reference Range Interpretation Comme nts GLUCOSE (test code = 2217) 215 MG/DL BUN (test code = 2208) 12 MG/DL CREATININE (test code = 2214) 0.66 MG/DL eGFR (2020 CKD-EPI) (test co de = 63364) 95 ML/MIN/1.73 CALC BUN/CREAT (test code = 2235) 18 RATIO SODIUM (test code = 2231) 140 MEQ/L POTASSIUM (test code = 2228) 4.5 MEQ/L CHLORIDE (test code = 2215) 106 MEQ/L CARBON DIOXIDE (test code = 2206) 25 MEQ/L CALCIUM (test code = 2209) 10.0 MG/DL PROTEIN, TOTAL (test code = 2229) 6.8 G/DL ALBUMIN (test code = 2201) 3.7 G/DL CALC GLOBULIN (test code = 2240) 3.1 G/DL CALC A/G RATIO (test code = 2234) 1.2 RATIO BILIRUBIN, TOTAL (test code = 2207) 0.7 MG/DL ALKALINE PHOSPHATASE (test code = 2204) 197 U/L AST (test code = 2218) 20 U/L ALT (test code = 2219) 19 U/L Jc GerardoCBC W/AUTO [id number] 00:00:00* Test Item Value Reference Range Interpretation Comme nts WBC (test code = 1001) 11.7 K/UL RBC (test code = 1002) 5.39 M/UL HEMOGLOBIN (test code = 1003) 15.7 G/DL HEMATOCRIT (test code = 1004) 48.5 % MCV (test code = 1005) 90.0 fL MCH (test code = 1006) 29.1 PG MCHC (test code = 1007) 32.4 G/DL RDW (test code = 1038) 13.6 % NEUTROPHILS (test code = 1008) 60.5 % LYMPHOCYTES (test code = 1010) 32.2 % MONOCYTES (test code = 1011) 4.3 % EOSINOPHILS (test code = 1012) 2.1 % BASOPHILS (test code = 1013) 0.6 % IMMATURE GRANULOCYTES (test code = 1036) 0.3 % NUCLEATED RBCS (test code = 1065) 0.0 /100WBC'S PLATELET COUNT (test code = 1015) 195 K/UL ABSOLUTE NEUTROPHILS (test c ode = 1066) 7.07 K/UL ABSOLUTE LYMPHOCYTES (test c ode = 1067) 3.77 K/UL ABSOLUTE MONOCYTES (test cod e = 1068) 0.50 K/UL ABSOLUTE EOSINOPHILS (test c ode = 1040) 0.24 K/UL ABSOLUTE BASOPHILS (test cod e = 1069) 0.07 K/UL ABS IMMATURE GRANULOCYTES (t est code = 1020) 0.04 K/UL ABS NUCLEATED RBCS (test cod e = 77344) 0.00 K/UL Jc GerardoLIPID [id number] 00:00:00* Test Item Value Reference Range Interpretation Comme nts CHOLESTEROL (test code = 2210) 109 MG/DL TRIGLYCERIDES (test code = 2232) 84 MG/DL HDL CHOLESTEROL (test code = 2220) 36 MG/DL CALC LDL CHOL (test code = 2237) 57 MG/DL RISK RATIO LDL/HDL (test cod e = 2238) 1.58 RATIO Jc GerardoHEMOGLOBIN [id number] 00:00:00* Test Item Value Reference Range Interpretation Comme nts HEMOGLOBIN A1c (test code = 88098) 9.9 % Jc GerardoCOMPREHENSIVE METABOLIC [id number] 00:00:00* Test Item Value Reference Range Interpretation Comme nts GLUCOSE (test code = 2217) 215 MG/DL BUN (test code = 2208) 12 MG/DL CREATININE (test code = 2214) 0.66 MG/DL eGFR (2020 CKD-EPI) (test co de = 32842) 95 ML/MIN/1.73 CALC BUN/CREAT (test code = 2235) 18 RATIO SODIUM (test code = 2231) 140 MEQ/L POTASSIUM (test code = 2228) 4.5 MEQ/L CHLORIDE (test code = 2215) 106 MEQ/L CARBON DIOXIDE (test code = 2206) 25 MEQ/L CALCIUM (test code = 2209) 10.0 MG/DL PROTEIN, TOTAL (test code = 2229) 6.8 G/DL ALBUMIN (test code = 2201) 3.7 G/DL CALC GLOBULIN (test code = 2240) 3.1 G/DL CALC A/G RATIO (test code = 2234) 1.2 RATIO BILIRUBIN, TOTAL (test code = 2207) 0.7 MG/DL ALKALINE PHOSPHATASE (test code = 2204) 197 U/L AST (test code = 2218) 20 U/L ALT (test code = 2219) 19 U/L Jc Mill[facility] W/AUTO [id number] 00:00:00* Test Item Value Reference Range Interpretation Comme nts WBC (test code = 1001) 11.7 K/UL RBC (test code = 1002) 5.39 M/UL HEMOGLOBIN (test code = 1003) 15.7 G/DL HEMATOCRIT (test code = 1004) 48.5 % MCV (test code = 1005) 90.0 fL MCH (test code = 1006) 29.1 PG MCHC (test code = 1007) 32.4 G/DL RDW (test code = 1038) 13.6 % NEUTROPHILS (test code = 1008) 60.5 % LYMPHOCYTES (test code = 1010) 32.2 % MONOCYTES (test code = 1011) 4.3 % EOSINOPHILS (test code = 1012) 2.1 % BASOPHILS (test code = 1013) 0.6 % IMMATURE GRANULOCYTES (test code = 1036) 0.3 % NUCLEATED RBCS (test code = 1065) 0.0 /100WBC'S PLATELET COUNT (test code = 1015) 195 K/UL ABSOLUTE NEUTROPHILS (test c ode = 1066) 7.07 K/UL ABSOLUTE LYMPHOCYTES (test c ode = 1067) 3.77 K/UL ABSOLUTE MONOCYTES (test cod e = 1068) 0.50 K/UL ABSOLUTE EOSINOPHILS (test c ode = 1040) 0.24 K/UL ABSOLUTE BASOPHILS (test cod e = 1069) 0.07 K/UL ABS IMMATURE GRANULOCYTES (t est code = 1020) 0.04 K/UL ABS NUCLEATED RBCS (test cod e = 58895) 0.00 K/UL Jc GerardoLIPID [id number] 00:00:00* Test Item Value Reference Range Interpretation Comme nts CHOLESTEROL (test code = 2210) 109 MG/DL TRIGLYCERIDES (test code = 2232) 84 MG/DL HDL CHOLESTEROL (test code = 2220) 36 MG/DL CALC LDL CHOL (test code = 2237) 57 MG/DL RISK RATIO LDL/HDL (test cod e = 2238) 1.58 RATIO Jc GerardoHEMOGLOBIN [id number] 00:00:00* Test Item Value Reference Range Interpretation Comme nts HEMOGLOBIN A1c (test code = 02155) 9.9 % Jc GerardoCOMPREHENSIVE METABOLIC [id number] 00:00:00* Test Item Value Reference Range Interpretation Comme nts GLUCOSE (test code = 2217) 215 MG/DL BUN (test code = 2208) 12 MG/DL CREATININE (test code = 2214) 0.66 MG/DL eGFR (2020 CKD-EPI) (test co de = 43412) 95 ML/MIN/1.73 CALC BUN/CREAT (test code = 2235) 18 RATIO SODIUM (test code = 2231) 140 MEQ/L POTASSIUM (test code = 2228) 4.5 MEQ/L CHLORIDE (test code = 2215) 106 MEQ/L CARBON DIOXIDE (test code = 2206) 25 MEQ/L CALCIUM (test code = 2209) 10.0 MG/DL PROTEIN, TOTAL (test code = 2229) 6.8 G/DL ALBUMIN (test code = 2201) 3.7 G/DL CALC GLOBULIN (test code = 2240) 3.1 G/DL CALC A/G RATIO (test code = 2234) 1.2 RATIO BILIRUBIN, TOTAL (test code = 2207) 0.7 MG/DL ALKALINE PHOSPHATASE (test code = 2204) 197 U/L AST (test code = 2218) 20 U/L ALT (test code = 2219) 19 U/L Jc GerardoCBC W/AUTO [id number] 00:00:00* Test Item Value Reference Range Interpretation Comme nts WBC (test code = 1001) 11.7 K/UL RBC (test code = 1002) 5.39 M/UL HEMOGLOBIN (test code = 1003) 15.7 G/DL HEMATOCRIT (test code = 1004) 48.5 % MCV (test code = 1005) 90.0 fL MCH (test code = 1006) 29.1 PG MCHC (test code = 1007) 32.4 G/DL RDW (test code = 1038) 13.6 % NEUTROPHILS (test code = 1008) 60.5 % LYMPHOCYTES (test code = 1010) 32.2 % MONOCYTES (test code = 1011) 4.3 % EOSINOPHILS (test code = 1012) 2.1 % BASOPHILS (test code = 1013) 0.6 % IMMATURE GRANULOCYTES (test code = 1036) 0.3 % NUCLEATED RBCS (test code = 1065) 0.0 /100WBC'S PLATELET COUNT (test code = 1015) 195 K/UL ABSOLUTE NEUTROPHILS (test c ode = 1066) 7.07 K/UL ABSOLUTE LYMPHOCYTES (test c ode = 1067) 3.77 K/UL ABSOLUTE MONOCYTES (test cod e = 1068) 0.50 K/UL ABSOLUTE EOSINOPHILS (test c ode = 1040) 0.24 K/UL ABSOLUTE BASOPHILS (test cod e = 1069) 0.07 K/UL ABS IMMATURE GRANULOCYTES (t est code = 1020) 0.04 K/UL ABS NUCLEATED RBCS (test cod e = 55038) 0.00 K/UL Jc GerardoLIPID [id number] 00:00:00* Test Item Value Reference Range Interpretation Comme nts CHOLESTEROL (test code = 2210) 109 MG/DL TRIGLYCERIDES (test code = 2232) 84 MG/DL HDL CHOLESTEROL (test code = 2220) 36 MG/DL CALC LDL CHOL (test code = 2237) 57 MG/DL RISK RATIO LDL/HDL (test cod e = 2238) 1.58 RATIO Jc GerardoHEMOGLOBIN [id number] 00:00:00* Test Item Value Reference Range Interpretation Comme [facility] HEMOGLOBIN A1c (test code = 90326) 9.9 % Jc GerardoCOMPREHENSIVE METABOLIC [id number] 00:00:00* Test Item Value Reference Range Interpretation Comme nts GLUCOSE (test code = 2217) 215 MG/DL BUN (test code = 2208) 12 MG/DL CREATININE (test code = 2214) 0.66 MG/DL eGFR (2020 CKD-EPI) (test co de = 40259) 95 ML/MIN/1.73 CALC BUN/CREAT (test code = 2235) 18 RATIO SODIUM (test code = 2231) 140 MEQ/L POTASSIUM (test code = 2228) 4.5 MEQ/L CHLORIDE (test code = 2215) 106 MEQ/L CARBON DIOXIDE (test code = 2206) 25 MEQ/L CALCIUM (test code = 2209) 10.0 MG/DL PROTEIN, TOTAL (test code = 2229) 6.8 G/DL ALBUMIN (test code = 2201) 3.7 G/DL CALC GLOBULIN (test code = 2240) 3.1 G/DL CALC A/G RATIO (test code = 2234) 1.2 RATIO BILIRUBIN, TOTAL (test code = 2207) 0.7 MG/DL ALKALINE PHOSPHATASE (test code = 2204) 197 U/L AST (test code = 2218) 20 U/L ALT (test code = 2219) 19 U/L Jc GerardoCBC W/AUTO [id number] 00:00:00* Test Item Value Reference Range Interpretation Comme [facility] WBC (test code = 1001) 16.3 K/UL RBC (test code = 1002) 5.85 M/UL HEMOGLOBIN (test code = 1003) 16.8 G/DL HEMATOCRIT (test code = 1004) 52.4 % MCV (test code = 1005) 89.6 fL MCH (test code = 1006) 28.7 PG MCHC (test code = 1007) 32.1 G/DL RDW (test code = 1038) 13.2 % NEUTROPHILS (test code = 1008) 64.8 % LYMPHOCYTES (test code = 1010) 27.9 % MONOCYTES (test code = 1011) 4.5 % EOSINOPHILS (test code = 1012) 1.6 % BASOPHILS (test code = 1013) 0.6 % IMMATURE GRANULOCYTES (test code = 1036) 0.6 % NUCLEATED RBCS (test code = 1065) 0.0 /100WBC'S PLATELET COUNT (test code = 1015) 207 K/UL ABSOLUTE NEUTROPHILS (test c ode = 1066) 10.60 K/UL ABSOLUTE LYMPHOCYTES (test c ode = 1067) 4.55 K/UL ABSOLUTE MONOCYTES (test cod e = 1068) 0.73 K/UL ABSOLUTE EOSINOPHILS (test c ode = 1040) 0.26 K/UL ABSOLUTE BASOPHILS (test cod e = 1069) 0.09 K/UL ABS IMMATURE GRANULOCYTES (t est code = 1020) 0.09 K/UL ABS NUCLEATED RBCS (test cod e = 59417) 0.00 K/UL Jc GerardoLIPID [id number] 00:00:00* Test Item Value Reference Range Interpretation Comme nts CHOLESTEROL (test code = 2210) 148 MG/DL TRIGLYCERIDES (test code = 2232) 104 MG/DL HDL CHOLESTEROL (test code = 2220) 40 MG/DL CALC LDL CHOL (test code = 2237) 88 MG/DL RISK RATIO LDL/HDL (test cod e = 2238) 2.20 RATIO Jc GerardoHEMOGLOBIN [id number] 00:00:00* Test Item Value Reference Range Interpretation Comme nts HEMOGLOBIN A1c (test code = 11918) 10.8 % Jc GerardoCOMPREHENSIVE METABOLIC [id number] 00:00:00* Test Item Value Reference Range Interpretation Comme nts GLUCOSE (test code = 2217) 249 MG/DL BUN (test code = 2208) 7 MG/DL CREATININE (test code = 2214) 0.69 MG/DL eGFR (2020 CKD-EPI) (test co de = 43219) 95 ML/MIN/1.73 CALC BUN/CREAT (test code = 2235) 10 RATIO SODIUM (test code = 2231) 140 MEQ/L POTASSIUM (test code = 2228) 4.0 MEQ/L CHLORIDE (test code = 2215) 103 MEQ/L CARBON DIOXIDE (test code = 2206) 23 MEQ/L CALCIUM (test code = 2209) 10.8 MG/DL PROTEIN, TOTAL (test code = 2229) 7.4 G/DL ALBUMIN (test code = 2201) 3.8 G/DL CALC GLOBULIN (test code = 2240) 3.6 G/DL CALC A/G RATIO (test code = 2234) 1.1 RATIO BILIRUBIN, TOTAL (test code = 2207) 0.7 MG/DL ALKALINE PHOSPHATASE (test code = 2204) 254 U/L AST (test code = 2218) 24 U/L ALT (test code = 2219) 24 U/L Jc Monty AustinURINALYSIS W/REFLEX [id number] 00:00:00* Test Item Value Reference Range Interpretation Comme nts COLOR (test code = 1501) YELLOW APPEARANCE (test code = 1502) CLEAR SPECIFIC GRAVITY (test code = 1503) 1.022 LEUKOCYTE ESTERASE (test cod e = 1504) NEGATIVE NITRITE (test code = 1505) NEGATIVE pH (test code = 1506) 6.0 PROTEIN (test code = 1507) NEGATIVE GLUCOSE (test code = 1508) 3+ KETONES (test code = 1509) NEGATIVE UROBILINOGEN (test code = 1510) 1.0 MG/DL BILIRUBIN (test code = 1511) NEGATIVE OCCULT BLOOD (test code = 1512) NEGATIVE Jc Millan AkinALBUMIN/CREATININE RATIO, RANDOM [id number] 00:00:00* Test Item Value Reference Range Interpretation Comme nts CREATININE, URINE, CONC. (te st code = 2072) 47.3 MG/DL ALBUMIN, URINE, RANDOM (test code = 84919) 1.1 MG/DL CALC ALBUMIN/CREAT, RND (mariola t code = 88647) 23 MG/G Jc Millan AkinCBC W/AUTO [id number] 00:00:00* Test Item Value Reference Range Interpretation Comme nts WBC (test code = 1001) 16.3 K/UL RBC (test code = 1002) 5.85 M/UL HEMOGLOBIN (test code = 1003) 16.8 G/DL HEMATOCRIT (test code = 1004) 52.4 % MCV (test code = 1005) 89.6 fL MCH (test code = 1006) 28.7 PG MCHC (test code = 1007) 32.1 G/DL RDW (test code = 1038) 13.2 % NEUTROPHILS (test code = 1008) 64.8 % LYMPHOCYTES (test code = 1010) 27.9 % MONOCYTES (test code = 1011) 4.5 % EOSINOPHILS (test code = 1012) 1.6 % BASOPHILS (test code = 1013) 0.6 % IMMATURE GRANULOCYTES (test code = 1036) 0.6 % NUCLEATED RBCS (test code = 1065) 0.0 /100WBC'S PLATELET COUNT (test code = 1015) 207 K/UL ABSOLUTE NEUTROPHILS (test c ode = 1066) 10.60 K/UL ABSOLUTE LYMPHOCYTES (test c ode = 1067) 4.55 K/UL ABSOLUTE MONOCYTES (test cod e = 1068) 0.73 K/UL ABSOLUTE EOSINOPHILS (test c ode = 1040) 0.26 K/UL ABSOLUTE BASOPHILS (test cod e = 1069) 0.09 K/UL ABS IMMATURE GRANULOCYTES (t est code = 1020) 0.09 K/UL ABS NUCLEATED RBCS (test cod e = 29154) 0.00 K/UL Jc Millan AustinLIPID [id number] 00:00:00* Test Item Value Reference Range Interpretation Comme nts CHOLESTEROL (test code = 2210) 148 MG/DL TRIGLYCERIDES (test code = 2232) 104 MG/DL HDL CHOLESTEROL (test code = 2220) 40 MG/DL CALC LDL CHOL (test code = 2237) 88 MG/DL RISK RATIO LDL/HDL (test cod e = 2238) 2.20 RATIO Jc GerardoHEMOGLOBIN [id number] 00:00:00* Test Item Value Reference Range Interpretation Comme nts HEMOGLOBIN A1c (test code = 36127) 10.8 % Jc GerardoCOMPREHENSIVE METABOLIC [id number] 00:00:00* Test Item Value Reference Range Interpretation Comme nts GLUCOSE (test code = 2217) 249 MG/DL BUN (test code = 2208) 7 MG/DL CREATININE (test code = 2214) 0.69 MG/DL eGFR (2020 CKD-EPI) (test co de = 98888) 95 ML/MIN/1.73 CALC BUN/CREAT (test code = 2235) 10 RATIO SODIUM (test code = 2231) 140 MEQ/L POTASSIUM (test code = 2228) 4.0 MEQ/L CHLORIDE (test code = 2215) 103 MEQ/L CARBON DIOXIDE (test code = 2206) 23 MEQ/L CALCIUM (test code = 2209) 10.8 MG/DL PROTEIN, TOTAL (test code = 2229) 7.4 G/DL ALBUMIN (test code = 2201) 3.8 G/DL CALC GLOBULIN (test code = 2240) 3.6 G/DL CALC A/G RATIO (test code = 2234) 1.1 RATIO BILIRUBIN, TOTAL (test code = 2207) 0.7 MG/DL ALKALINE PHOSPHATASE (test code = 2204) 254 U/L AST (test code = 2218) 24 U/L ALT (test code = 2219) 24 U/L Jc Millan AustinURINALYSIS W/REFLEX [id number] 00:00:00* Test Item Value Reference Range Interpretation Comme nts COLOR (test code = 1501) YELLOW APPEARANCE (test code = 1502) CLEAR SPECIFIC GRAVITY (test code = 1503) 1.022 LEUKOCYTE ESTERASE (test cod e = 1504) NEGATIVE NITRITE (test code = 1505) NEGATIVE pH (test code = 1506) 6.0 PROTEIN (test code = 1507) NEGATIVE GLUCOSE (test code = 1508) 3+ KETONES (test code = 1509) NEGATIVE UROBILINOGEN (test code = 1510) 1.0 MG/DL BILIRUBIN (test code = 1511) NEGATIVE OCCULT BLOOD (test code = 1512) NEGATIVE Jc Millan AkinALBUMIN/CREATININE RATIO, RANDOM [id number] 00:00:00* Test Item Value Reference Range Interpretation Comme nts CREATININE, URINE, CONC. (te st code = 2072) 47.3 MG/DL ALBUMIN, URINE, RANDOM (test code = 40836) 1.1 MG/DL CALC ALBUMIN/CREAT, RND (mariola t code = 93205) 23 MG/G Jc Millan AkinCBC W/AUTO [id number] 00:00:00* Test Item Value Reference Range Interpretation Comme nts WBC (test code = 1001) 16.3 K/UL RBC (test code = 1002) 5.85 M/UL HEMOGLOBIN (test code = 1003) 16.8 G/DL HEMATOCRIT (test code = 1004) 52.4 % MCV (test code = 1005) 89.6 fL MCH (test code = 1006) 28.7 PG MCHC (test code = 1007) 32.1 G/DL RDW (test code = 1038) 13.2 % NEUTROPHILS (test code = 1008) 64.8 % LYMPHOCYTES (test code = 1010) 27.9 % MONOCYTES (test code = 1011) 4.5 % EOSINOPHILS (test code = 1012) 1.6 % BASOPHILS (test code = 1013) 0.6 % IMMATURE GRANULOCYTES (test code = 1036) 0.6 % NUCLEATED RBCS (test code = 1065) 0.0 /100WBC'S PLATELET COUNT (test code = 1015) 207 K/UL ABSOLUTE NEUTROPHILS (test c ode = 1066) 10.60 K/UL ABSOLUTE LYMPHOCYTES (test c ode = 1067) 4.55 K/UL ABSOLUTE MONOCYTES (test cod e = 1068) 0.73 K/UL ABSOLUTE EOSINOPHILS (test c ode = 1040) 0.26 K/UL ABSOLUTE BASOPHILS (test cod e = 1069) 0.09 K/UL ABS IMMATURE GRANULOCYTES (t est code = 1020) 0.09 K/UL ABS NUCLEATED RBCS (test cod e = 53999) 0.00 K/UL Jc Millan AustinLIPID [id number] 00:00:00* Test Item Value Reference Range Interpretation Comme nts CHOLESTEROL (test code = 2210) 148 MG/DL TRIGLYCERIDES (test code = 2232) 104 MG/DL HDL CHOLESTEROL (test code = 2220) 40 MG/DL CALC LDL CHOL (test code = 2237) 88 MG/DL RISK RATIO LDL/HDL (test cod e = 2238) 2.20 RATIO Jc GerardoHEMOGLOBIN [id number] 00:00:00* Test Item Value Reference Range Interpretation Comme nts HEMOGLOBIN A1c (test code = 56633) 10.8 % Jc GerardoCOMPREHENSIVE METABOLIC [id number] 00:00:00* Test Item Value Reference Range Interpretation Comme nts GLUCOSE (test code = 2217) 249 MG/DL BUN (test code = 2208) 7 MG/DL CREATININE (test code = 2214) 0.69 MG/DL eGFR (2020 CKD-EPI) (test co de = 71058) 95 ML/MIN/1.73 CALC BUN/CREAT (test code = 2235) 10 RATIO SODIUM (test code = 2231) 140 MEQ/L POTASSIUM (test code = 2228) 4.0 MEQ/L CHLORIDE (test code = 2215) 103 MEQ/L CARBON DIOXIDE (test code = 2206) 23 MEQ/L CALCIUM (test code = 2209) 10.8 MG/DL PROTEIN, TOTAL (test code = 2229) 7.4 G/DL ALBUMIN (test code = 2201) 3.8 G/DL CALC GLOBULIN (test code = 2240) 3.6 G/DL CALC A/G RATIO (test code = 2234) 1.1 RATIO BILIRUBIN, TOTAL (test code = 2207) 0.7 MG/DL ALKALINE PHOSPHATASE (test code = 2204) 254 U/L AST (test code = 2218) 24 U/L ALT (test code = 2219) 24 U/L Jc Monty AustinURINALYSIS W/REFLEX [id number] 00:00:00* Test Item Value Reference Range Interpretation Comme nts COLOR (test code = 1501) YELLOW APPEARANCE (test code = 1502) CLEAR SPECIFIC GRAVITY (test code = 1503) 1.022 LEUKOCYTE ESTERASE (test cod e = 1504) NEGATIVE NITRITE (test code = 1505) NEGATIVE pH (test code = 1506) 6.0 PROTEIN (test code = 1507) NEGATIVE GLUCOSE (test code = 1508) 3+ KETONES (test code = 1509) NEGATIVE UROBILINOGEN (test code = 1510) 1.0 MG/DL BILIRUBIN (test code = 1511) NEGATIVE OCCULT BLOOD (test code = 1512) NEGATIVE Jc Millan AustinALBUMIN/CREATININE RATIO, RANDOM [id number] 00:00:00* Test Item Value Reference Range Interpretation Comme nts CREATININE, URINE, CONC. (te st code = 2072) 47.3 MG/DL ALBUMIN, URINE, RANDOM (test code = 59787) 1.1 MG/DL CALC ALBUMIN/CREAT, RND (mariola t code = 19865) 23 MG/G Jc Monty AkinCBC W/AUTO [id number] 00:00:00* Test Item Value Reference Range Interpretation Comme nts WBC (test code = 1001) 16.3 K/UL RBC (test code = 1002) 5.85 M/UL HEMOGLOBIN (test code = 1003) 16.8 G/DL HEMATOCRIT (test code = 1004) 52.4 % MCV (test code = 1005) 89.6 fL MCH (test code = 1006) 28.7 PG MCHC (test code = 1007) 32.1 G/DL RDW (test code = 1038) 13.2 % NEUTROPHILS (test code = 1008) 64.8 % LYMPHOCYTES (test code = 1010) 27.9 % MONOCYTES (test code = 1011) 4.5 % EOSINOPHILS (test code = 1012) 1.6 % BASOPHILS (test code = 1013) 0.6 % IMMATURE GRANULOCYTES (test code = 1036) 0.6 % NUCLEATED RBCS (test code = 1065) 0.0 /100WBC'S PLATELET COUNT (test code = 1015) 207 K/UL ABSOLUTE NEUTROPHILS (test c ode = 1066) 10.60 K/UL ABSOLUTE LYMPHOCYTES (test c ode = 1067) 4.55 K/UL ABSOLUTE MONOCYTES (test cod e = 1068) 0.73 K/UL ABSOLUTE EOSINOPHILS (test c ode = 1040) 0.26 K/UL ABSOLUTE BASOPHILS (test cod e = 1069) 0.09 K/UL ABS IMMATURE GRANULOCYTES (t est code = 1020) 0.09 K/UL ABS NUCLEATED RBCS (test cod e = 86990) 0.00 K/UL Jc Millan AustinLIPID [id number] 00:00:00* Test Item Value Reference Range Interpretation Comme nts CHOLESTEROL (test code = 2210) 148 MG/DL TRIGLYCERIDES (test code = 2232) 104 MG/DL HDL CHOLESTEROL (test code = 2220) 40 MG/DL CALC LDL CHOL (test code = 2237) 88 MG/DL RISK RATIO LDL/HDL (test cod e = 2238) 2.20 RATIO Jc GerardoHEMOGLOBIN [id number] 00:00:00* Test Item Value Reference Range Interpretation Comme nts HEMOGLOBIN A1c (test code = 38514) 10.8 % Jc GerardoCOMPREHENSIVE METABOLIC [id number] 00:00:00* Test Item Value Reference Range Interpretation Comme nts GLUCOSE (test code = 2217) 249 MG/DL BUN (test code = 2208) 7 MG/DL CREATININE (test code = 2214) 0.69 MG/DL eGFR (2020 CKD-EPI) (test co de = 82483) 95 ML/MIN/1.73 CALC BUN/CREAT (test code = 2235) 10 RATIO SODIUM (test code = 2231) 140 MEQ/L POTASSIUM (test code = 2228) 4.0 MEQ/L CHLORIDE (test code = 2215) 103 MEQ/L CARBON DIOXIDE (test code = 2206) 23 MEQ/L CALCIUM (test code = 2209) 10.8 MG/DL PROTEIN, TOTAL (test code = 2229) 7.4 G/DL ALBUMIN (test code = 2201) 3.8 G/DL CALC GLOBULIN (test code = 2240) 3.6 G/DL CALC A/G RATIO (test code = 2234) 1.1 RATIO BILIRUBIN, TOTAL (test code = 2207) 0.7 MG/DL ALKALINE PHOSPHATASE (test code = 2204) 254 U/L AST (test code = 2218) 24 U/L ALT (test code = 2219) 24 U/L Jc GerardoURINALYSIS W/REFLEX [id number] 00:00:00* Test Item Value Reference Range Interpretation Comme nts COLOR (test code = 1501) YELLOW APPEARANCE (test code = 1502) CLEAR SPECIFIC GRAVITY (test code = 1503) 1.022 LEUKOCYTE ESTERASE (test cod e = 1504) NEGATIVE NITRITE (test code = 1505) NEGATIVE pH (test code = 1506) 6.0 PROTEIN (test code = 1507) NEGATIVE GLUCOSE (test code = 1508) 3+ KETONES (test code = 1509) NEGATIVE UROBILINOGEN (test code = 1510) 1.0 MG/DL BILIRUBIN (test code = 1511) NEGATIVE OCCULT BLOOD (test code = 1512) NEGATIVE Jc Monty AustinALBUMIN/CREATININE RATIO, RANDOM [id number] 00:00:00* Test Item Value Reference Range Interpretation Comme nts CREATININE, URINE, CONC. (te st code = 2072) 47.3 MG/DL ALBUMIN, URINE, RANDOM (test code = 71175) 1.1 MG/DL CALC ALBUMIN/CREAT, RND (mariola t code = 52206) 23 MG/G Jc GerardoCBC W/AUTO [id number] 00:00:00* Test Item Value Reference Range Interpretation Comme nts WBC (test code = 1001) 16.3 K/UL RBC (test code = 1002) 5.85 M/UL HEMOGLOBIN (test code = 1003) 16.8 G/DL HEMATOCRIT (test code = 1004) 52.4 % MCV (test code = 1005) 89.6 fL MCH (test code = 1006) 28.7 PG MCHC (test code = 1007) 32.1 G/DL RDW (test code = 1038) 13.2 % NEUTROPHILS (test code = 1008) 64.8 % LYMPHOCYTES (test code = 1010) 27.9 % MONOCYTES (test code = 1011) 4.5 % EOSINOPHILS (test code = 1012) 1.6 % BASOPHILS (test code = 1013) 0.6 % IMMATURE GRANULOCYTES (test code = 1036) 0.6 % NUCLEATED RBCS (test code = 1065) 0.0 /100WBC'S PLATELET COUNT (test code = 1015) 207 K/UL ABSOLUTE NEUTROPHILS (test c ode = 1066) 10.60 K/UL ABSOLUTE LYMPHOCYTES (test c ode = 1067) 4.55 K/UL ABSOLUTE MONOCYTES (test cod e = 1068) 0.73 K/UL ABSOLUTE EOSINOPHILS (test c ode = 1040) 0.26 K/UL ABSOLUTE BASOPHILS (test cod e = 1069) 0.09 K/UL ABS IMMATURE GRANULOCYTES (t est code = 1020) 0.09 K/UL ABS NUCLEATED RBCS (test cod e = 65281) 0.00 K/UL Jc Millan AustinLIPID [id number] 00:00:00* Test Item Value Reference Range Interpretation Comme nts CHOLESTEROL (test code = 2210) 148 MG/DL TRIGLYCERIDES (test code = 2232) 104 MG/DL HDL CHOLESTEROL (test code = 2220) 40 MG/DL CALC LDL CHOL (test code = 2237) 88 MG/DL RISK RATIO LDL/HDL (test cod e = 2238) 2.20 RATIO Jc GerardoHEMOGLOBIN [id number] 00:00:00* Test Item Value Reference Range Interpretation Comme nts HEMOGLOBIN A1c (test code = 22806) 10.8 % Jc GerardoCOMPREHENSIVE METABOLIC [id number] 00:00:00* Test Item Value Reference Range Interpretation Comme nts GLUCOSE (test code = 2217) 249 MG/DL BUN (test code = 2208) 7 MG/DL CREATININE (test code = 2214) 0.69 MG/DL eGFR (2020 CKD-EPI) (test co de = 40721) 95 ML/MIN/1.73 CALC BUN/CREAT (test code = 2235) 10 RATIO SODIUM (test code = 2231) 140 MEQ/L POTASSIUM (test code = 2228) 4.0 MEQ/L CHLORIDE (test code = 2215) 103 MEQ/L CARBON DIOXIDE (test code = 2206) 23 MEQ/L CALCIUM (test code = 2209) 10.8 MG/DL PROTEIN, TOTAL (test code = 2229) 7.4 G/DL ALBUMIN (test code = 2201) 3.8 G/DL CALC GLOBULIN (test code = 2240) 3.6 G/DL CALC A/G RATIO (test code = 2234) 1.1 RATIO BILIRUBIN, TOTAL (test code = 2207) 0.7 MG/DL ALKALINE PHOSPHATASE (test code = 2204) 254 U/L AST (test code = 2218) 24 U/L ALT (test code = 2219) 24 U/L Jc Millan AustinURINALYSIS W/REFLEX [id number] 00:00:00* Test Item Value Reference Range Interpretation Comme nts COLOR (test code = 1501) YELLOW APPEARANCE (test code = 1502) CLEAR SPECIFIC GRAVITY (test code = 1503) 1.022 LEUKOCYTE ESTERASE (test cod e = 1504) NEGATIVE NITRITE (test code = 1505) NEGATIVE pH (test code = 1506) 6.0 PROTEIN (test code = 1507) NEGATIVE GLUCOSE (test code = 1508) 3+ KETONES (test code = 1509) NEGATIVE UROBILINOGEN (test code = 1510) 1.0 MG/DL BILIRUBIN (test code = 1511) NEGATIVE OCCULT BLOOD (test code = 1512) NEGATIVE Jc GerardoALBUMIN/CREATININE RATIO, RANDOM [id number] 00:00:00* Test Item Value Reference Range Interpretation Comme nts CREATININE, URINE, CONC. (te st code = 2072) 47.3 MG/DL ALBUMIN, URINE, RANDOM (test code = 91100) 1.1 MG/DL CALC ALBUMIN/CREAT, RND (mariola t code = 88209) 23 MG/G Jc Millan AustinCBC W/AUTO [id number] 00:00:00* Test Item Value Reference Range Interpretation Comme nts WBC (test code = 1001) 16.3 K/UL RBC (test code = 1002) 5.85 M/UL HEMOGLOBIN (test code = 1003) 16.8 G/DL HEMATOCRIT (test code = 1004) 52.4 % MCV (test code = 1005) 89.6 fL MCH (test code = 1006) 28.7 PG MCHC (test code = 1007) 32.1 G/DL RDW (test code = 1038) 13.2 % NEUTROPHILS (test code = 1008) 64.8 % LYMPHOCYTES (test code = 1010) 27.9 % MONOCYTES (test code = 1011) 4.5 % EOSINOPHILS (test code = 1012) 1.6 % BASOPHILS (test code = 1013) 0.6 % IMMATURE GRANULOCYTES (test code = 1036) 0.6 % NUCLEATED RBCS (test code = 1065) 0.0 /100WBC'S PLATELET COUNT (test code = 1015) 207 K/UL ABSOLUTE NEUTROPHILS (test c ode = 1066) 10.60 K/UL ABSOLUTE LYMPHOCYTES (test c ode = 1067) 4.55 K/UL ABSOLUTE MONOCYTES (test cod e = 1068) 0.73 K/UL ABSOLUTE EOSINOPHILS (test c ode = 1040) 0.26 K/UL ABSOLUTE BASOPHILS (test cod e = 1069) 0.09 K/UL ABS IMMATURE GRANULOCYTES (t est code = 1020) 0.09 K/UL ABS NUCLEATED RBCS (test cod e = 70853) 0.00 K/UL Jc Millan AustinLIPID [id number] 00:00:00* Test Item Value Reference Range Interpretation Comme nts CHOLESTEROL (test code = 2210) 148 MG/DL TRIGLYCERIDES (test code = 2232) 104 MG/DL HDL CHOLESTEROL (test code = 2220) 40 MG/DL CALC LDL CHOL (test code = 2237) 88 MG/DL RISK RATIO LDL/HDL (test cod e = 2238) 2.20 RATIO Jc GerardoHEMOGLOBIN [id number] 00:00:00* Test Item Value Reference Range Interpretation Comme nts HEMOGLOBIN A1c (test code = 87734) 10.8 % Jc GerardoCOMPREHENSIVE METABOLIC [id number] 00:00:00* Test Item Value Reference Range Interpretation Comme nts GLUCOSE (test code = 2217) 249 MG/DL BUN (test code = 2208) 7 MG/DL CREATININE (test code = 2214) 0.69 MG/DL eGFR (2020 CKD-EPI) (test co de = 44931) 95 ML/MIN/1.73 CALC BUN/CREAT (test code = 2235) 10 RATIO SODIUM (test code = 2231) 140 MEQ/L POTASSIUM (test code = 2228) 4.0 MEQ/L CHLORIDE (test code = 2215) 103 MEQ/L CARBON DIOXIDE (test code = 2206) 23 MEQ/L CALCIUM (test code = 2209) 10.8 MG/DL PROTEIN, TOTAL (test code = 2229) 7.4 G/DL ALBUMIN (test code = 2201) 3.8 G/DL CALC GLOBULIN (test code = 2240) 3.6 G/DL CALC A/G RATIO (test code = 2234) 1.1 RATIO BILIRUBIN, TOTAL (test code = 2207) 0.7 MG/DL ALKALINE PHOSPHATASE (test code = 2204) 254 U/L AST (test code = 2218) 24 U/L ALT (test code = 2219) 24 U/L Jc GerardoURINALYSIS W/REFLEX [id number] 00:00:00* Test Item Value Reference Range Interpretation Comme nts COLOR (test code = 1501) YELLOW APPEARANCE (test code = 1502) CLEAR SPECIFIC GRAVITY (test code = 1503) 1.022 LEUKOCYTE ESTERASE (test cod e = 1504) NEGATIVE NITRITE (test code = 1505) NEGATIVE pH (test code = 1506) 6.0 PROTEIN (test code = 1507) NEGATIVE GLUCOSE (test code = 1508) 3+ KETONES (test code = 1509) NEGATIVE UROBILINOGEN (test code = 1510) 1.0 MG/DL BILIRUBIN (test code = 1511) NEGATIVE OCCULT BLOOD (test code = 1512) NEGATIVE Jc GerardoALBUMIN/CREATININE RATIO, RANDOM [id number] 00:00:00* Test Item Value Reference Range Interpretation Comme nts CREATININE, URINE, CONC. (te st code = 2072) 47.3 MG/DL ALBUMIN, URINE, RANDOM (test code = 01572) 1.1 MG/DL CALC ALBUMIN/CREAT, RND (mariola t code = 83862) 23 MG/G Jc GerardoCBC W/AUTO [id number] 00:00:00* Test Item Value Reference Range Interpretation Comme nts WBC (test code = 1001) 16.3 K/UL RBC (test code = 1002) 5.85 M/UL HEMOGLOBIN (test code = 1003) 16.8 G/DL HEMATOCRIT (test code = 1004) 52.4 % MCV (test code = 1005) 89.6 fL MCH (test code = 1006) 28.7 PG MCHC (test code = 1007) 32.1 G/DL RDW (test code = 1038) 13.2 % NEUTROPHILS (test code = 1008) 64.8 % LYMPHOCYTES (test code = 1010) 27.9 % MONOCYTES (test code = 1011) 4.5 % EOSINOPHILS (test code = 1012) 1.6 % BASOPHILS (test code = 1013) 0.6 % IMMATURE GRANULOCYTES (test code = 1036) 0.6 % NUCLEATED RBCS (test code = 1065) 0.0 /100WBC'S PLATELET COUNT (test code = 1015) 207 K/UL ABSOLUTE NEUTROPHILS (test c ode = 1066) 10.60 K/UL ABSOLUTE LYMPHOCYTES (test c ode = 1067) 4.55 K/UL ABSOLUTE MONOCYTES (test cod e = 1068) 0.73 K/UL ABSOLUTE EOSINOPHILS (test c ode = 1040) 0.26 K/UL ABSOLUTE BASOPHILS (test cod e = 1069) 0.09 K/UL ABS IMMATURE GRANULOCYTES (t est code = 1020) 0.09 K/UL ABS NUCLEATED RBCS (test cod e = 71114) 0.00 K/UL Jc GerardoLIPID [id number] 00:00:00* Test Item Value Reference Range Interpretation Comme nts CHOLESTEROL (test code = 2210) 148 MG/DL TRIGLYCERIDES (test code = 2232) 104 MG/DL HDL CHOLESTEROL (test code = 2220) 40 MG/DL CALC LDL CHOL (test code = 2237) 88 MG/DL RISK RATIO LDL/HDL (test cod e = 2238) 2.20 RATIO Jc GerardoHEMOGLOBIN [id number] 00:00:00* Test Item Value Reference Range Interpretation Comme nts HEMOGLOBIN A1c (test code = 22331) 10.8 % Jc F AustinCOMPREHENSIVE METABOLIC [id number] 00:00:00* Test Item Value Reference Range Interpretation Comme nts GLUCOSE (test code = 2217) 249 MG/DL BUN (test code = 2208) 7 MG/DL CREATININE (test code = 2214) 0.69 MG/DL eGFR (2020 CKD-EPI) (test co de = 63876) 95 ML/MIN/1.73 CALC BUN/CREAT (test code = 2235) 10 RATIO SODIUM (test code = 2231) 140 MEQ/L POTASSIUM (test code = 2228) 4.0 MEQ/L CHLORIDE (test code = 2215) 103 MEQ/L CARBON DIOXIDE (test code = 2206) 23 MEQ/L CALCIUM (test code = 2209) 10.8 MG/DL PROTEIN, TOTAL (test code = 2229) 7.4 G/DL ALBUMIN (test code = 2201) 3.8 G/DL CALC GLOBULIN (test code = 2240) 3.6 G/DL CALC A/G RATIO (test code = 2234) 1.1 RATIO BILIRUBIN, TOTAL (test code = 2207) 0.7 MG/DL ALKALINE PHOSPHATASE (test code = 2204) 254 U/L AST (test code = 2218) 24 U/L ALT (test code = 2219) 24 U/L Jc Millan AustinURINALYSIS W/REFLEX [id number] 00:00:00* Test Item Value Reference Range Interpretation Comme nts COLOR (test code = 1501) YELLOW APPEARANCE (test code = 1502) CLEAR SPECIFIC GRAVITY (test code = 1503) 1.022 LEUKOCYTE ESTERASE (test cod e = 1504) NEGATIVE NITRITE (test code = 1505) NEGATIVE pH (test code = 1506) 6.0 PROTEIN (test code = 1507) NEGATIVE GLUCOSE (test code = 1508) 3+ KETONES (test code = 1509) NEGATIVE UROBILINOGEN (test code = 1510) 1.0 MG/DL BILIRUBIN (test code = 1511) NEGATIVE OCCULT BLOOD (test code = 1512) NEGATIVE Jc GerardoALBUMIN/CREATININE RATIO, RANDOM [id number] 00:00:00* Test Item Value Reference Range Interpretation Comme nts CREATININE, URINE, CONC. (te st code = 2071) 47.3 MG/DL ALBUMIN, URINE, RANDOM (test code = 58969) 1.1 MG/DL CALC ALBUMIN/CREAT, RND (mariola t code = 41134) 23 MG/G Jc GerardoCBC W/AUTO [id number] 00:00:00* Test Item Value Reference Range Interpretation Comme nts WBC (test code = 1001) 16.3 K/UL RBC (test code = 1002) 5.85 M/UL HEMOGLOBIN (test code = 1003) 16.8 G/DL HEMATOCRIT (test code = 1004) 52.4 % MCV (test code = 1005) 89.6 fL MCH (test code = 1006) 28.7 PG MCHC (test code = 1007) 32.1 G/DL RDW (test code = 1038) 13.2 % NEUTROPHILS (test code = 1008) 64.8 % LYMPHOCYTES (test code = 1010) 27.9 % MONOCYTES (test code = 1011) 4.5 % EOSINOPHILS (test code = 1012) 1.6 % BASOPHILS (test code = 1013) 0.6 % IMMATURE GRANULOCYTES (test code = 1036) 0.6 % NUCLEATED RBCS (test code = 1065) 0.0 /100WBC'S PLATELET COUNT (test code = 1015) 207 K/UL ABSOLUTE NEUTROPHILS (test c ode = 1066) 10.60 K/UL ABSOLUTE LYMPHOCYTES (test c ode = 1067) 4.55 K/UL ABSOLUTE MONOCYTES (test cod e = 1068) 0.73 K/UL ABSOLUTE EOSINOPHILS (test c ode = 1040) 0.26 K/UL ABSOLUTE BASOPHILS (test cod e = 1069) 0.09 K/UL ABS IMMATURE GRANULOCYTES (t est code = 1020) 0.09 K/UL ABS NUCLEATED RBCS (test cod e = 42445) 0.00 K/UL Jc GerardoLIPID [id number] 00:00:00* Test Item Value Reference Range Interpretation Comme nts CHOLESTEROL (test code = 2210) 148 MG/DL TRIGLYCERIDES (test code = 2232) 104 MG/DL HDL CHOLESTEROL (test code = 2220) 40 MG/DL CALC LDL CHOL (test code = 2237) 88 MG/DL RISK RATIO LDL/HDL (test cod e = 2238) 2.20 RATIO Jc GerardoHEMOGLOBIN [id number] 00:00:00* Test Item Value Reference Range Interpretation Comme nts HEMOGLOBIN A1c (test code = 92411) 10.8 % Jc Millan AkinCOMPREHENSIVE METABOLIC [id number] 00:00:00* Test Item Value Reference Range Interpretation Comme nts GLUCOSE (test code = 2217) 249 MG/DL BUN (test code = 2208) 7 MG/DL CREATININE (test code = 2214) 0.69 MG/DL eGFR (2020 CKD-EPI) (test co de = 52376) 95 ML/MIN/1.73 CALC BUN/CREAT (test code = 2235) 10 RATIO SODIUM (test code = 2231) 140 MEQ/L POTASSIUM (test code = 2228) 4.0 MEQ/L CHLORIDE (test code = 2215) 103 MEQ/L CARBON DIOXIDE (test code = 2206) 23 MEQ/L CALCIUM (test code = 2209) 10.8 MG/DL PROTEIN, TOTAL (test code = 2229) 7.4 G/DL ALBUMIN (test code = 2201) 3.8 G/DL CALC GLOBULIN (test code = 2240) 3.6 G/DL CALC A/G RATIO (test code = 2234) 1.1 RATIO BILIRUBIN, TOTAL (test code = 2207) 0.7 MG/DL ALKALINE PHOSPHATASE (test code = 2204) 254 U/L AST (test code = 2218) 24 U/L ALT (test code = 2219) 24 U/L Jc Millan AkinURINALYSIS W/REFLEX [id number] 00:00:00* Test Item Value Reference Range Interpretation Comme nts COLOR (test code = 1501) YELLOW APPEARANCE (test code = 1502) CLEAR SPECIFIC GRAVITY (test code = 1503) 1.022 LEUKOCYTE ESTERASE (test cod e = 1504) NEGATIVE NITRITE (test code = 1505) NEGATIVE pH (test code = 1506) 6.0 PROTEIN (test code = 1507) NEGATIVE GLUCOSE (test code = 1508) 3+ KETONES (test code = 1509) NEGATIVE UROBILINOGEN (test code = 1510) 1.0 MG/DL BILIRUBIN (test code = 1511) NEGATIVE OCCULT BLOOD (test code = 1512) NEGATIVE Jc Monty AkinALBUMIN/CREATININE RATIO, RANDOM [id number] 00:00:00* Test Item Value Reference Range Interpretation Comme nts CREATININE, URINE, CONC. (te st code = 2072) 47.3 MG/DL ALBUMIN, URINE, RANDOM (test code = 14646) 1.1 MG/DL CALC ALBUMIN/CREAT, RND (mariola t code = 67255) 23 MG/G Jc GerardoCBC W/AUTO [id number] 00:00:00* Test Item Value Reference Range Interpretation Comme nts WBC (test code = 1001) 16.3 K/UL RBC (test code = 1002) 5.85 M/UL HEMOGLOBIN (test code = 1003) 16.8 G/DL HEMATOCRIT (test code = 1004) 52.4 % MCV (test code = 1005) 89.6 fL MCH (test code = 1006) 28.7 PG MCHC (test code = 1007) 32.1 G/DL RDW (test code = 1038) 13.2 % NEUTROPHILS (test code = 1008) 64.8 % LYMPHOCYTES (test code = 1010) 27.9 % MONOCYTES (test code = 1011) 4.5 % EOSINOPHILS (test code = 1012) 1.6 % BASOPHILS (test code = 1013) 0.6 % IMMATURE GRANULOCYTES (test code = 1036) 0.6 % NUCLEATED RBCS (test code = 1065) 0.0 /100WBC'S PLATELET COUNT (test code = 1015) 207 K/UL ABSOLUTE NEUTROPHILS (test c ode = 1066) 10.60 K/UL ABSOLUTE LYMPHOCYTES (test c ode = 1067) 4.55 K/UL ABSOLUTE MONOCYTES (test cod e = 1068) 0.73 K/UL ABSOLUTE EOSINOPHILS (test c ode = 1040) 0.26 K/UL ABSOLUTE BASOPHILS (test cod e = 1069) 0.09 K/UL ABS IMMATURE GRANULOCYTES (t est code = 1020) 0.09 K/UL ABS NUCLEATED RBCS (test cod e = 07515) 0.00 K/UL Jc GerardoLIPID [id number] 00:00:00* Test Item Value Reference Range Interpretation Comme nts CHOLESTEROL (test code = 2210) 148 MG/DL TRIGLYCERIDES (test code = 2232) 104 MG/DL HDL CHOLESTEROL (test code = 2220) 40 MG/DL CALC LDL CHOL (test code = 2237) 88 MG/DL RISK RATIO LDL/HDL (test cod e = 2238) 2.20 RATIO Jc GerardoHEMOGLOBIN [id number] 00:00:00* Test Item Value Reference Range Interpretation Comme nts HEMOGLOBIN A1c (test code = 25588) 10.8 % Jc GerardoCOMPREHENSIVE METABOLIC [id number] 00:00:00* Test Item Value Reference Range Interpretation Comme nts GLUCOSE (test code = 2217) 249 MG/DL BUN (test code = 2208) 7 MG/DL CREATININE (test code = 2214) 0.69 MG/DL eGFR (2020 CKD-EPI) (test co de = 05148) 95 ML/MIN/1.73 CALC BUN/CREAT (test code = 2235) 10 RATIO SODIUM (test code = 2231) 140 MEQ/L POTASSIUM (test code = 2228) 4.0 MEQ/L CHLORIDE (test code = 2215) 103 MEQ/L CARBON DIOXIDE (test code = 2206) 23 MEQ/L CALCIUM (test code = 2209) 10.8 MG/DL PROTEIN, TOTAL (test code = 2229) 7.4 G/DL ALBUMIN (test code = 2201) 3.8 G/DL CALC GLOBULIN (test code = 2240) 3.6 G/DL CALC A/G RATIO (test code = 2234) 1.1 RATIO BILIRUBIN, TOTAL (test code = 2207) 0.7 MG/DL ALKALINE PHOSPHATASE (test code = 2204) 254 U/L AST (test code = 2218) 24 U/L ALT (test code = 2219) 24 U/L Jc Millan AustinURINALYSIS W/REFLEX [id number] 00:00:00* Test Item Value Reference Range Interpretation Comme nts COLOR (test code = 1501) YELLOW APPEARANCE (test code = 1502) CLEAR SPECIFIC GRAVITY (test code = 1503) 1.022 LEUKOCYTE ESTERASE (test cod e = 1504) NEGATIVE NITRITE (test code = 1505) NEGATIVE pH (test code = 1506) 6.0 PROTEIN (test code = 1507) NEGATIVE GLUCOSE (test code = 1508) 3+ KETONES (test code = 1509) NEGATIVE UROBILINOGEN (test code = 1510) 1.0 MG/DL BILIRUBIN (test code = 1511) NEGATIVE OCCULT BLOOD (test code = 1512) NEGATIVE Jc F AustinALBUMIN/CREATININE RATIO, RANDOM [id number] 00:00:00* Test Item Value Reference Range Interpretation Comme nts CREATININE, URINE, CONC. (te st code = 2072) 47.3 MG/DL ALBUMIN, URINE, RANDOM (test code = 80703) 1.1 MG/DL CALC ALBUMIN/CREAT, RND (mariola t code = 18188) 23 MG/G Jc GerardoCBC W/AUTO [id number] 00:00:00* Test Item Value Reference Range Interpretation Comme nts WBC (test code = 1001) 16.3 K/UL RBC (test code = 1002) 5.85 M/UL HEMOGLOBIN (test code = 1003) 16.8 G/DL HEMATOCRIT (test code = 1004) 52.4 % MCV (test code = 1005) 89.6 fL MCH (test code = 1006) 28.7 PG MCHC (test code = 1007) 32.1 G/DL RDW (test code = 1038) 13.2 % NEUTROPHILS (test code = 1008) 64.8 % LYMPHOCYTES (test code = 1010) 27.9 % MONOCYTES (test code = 1011) 4.5 % EOSINOPHILS (test code = 1012) 1.6 % BASOPHILS (test code = 1013) 0.6 % IMMATURE GRANULOCYTES (test code = 1036) 0.6 % NUCLEATED RBCS (test code = 1065) 0.0 /100WBC'S PLATELET COUNT (test code = 1015) 207 K/UL ABSOLUTE NEUTROPHILS (test c ode = 1066) 10.60 K/UL ABSOLUTE LYMPHOCYTES (test c ode = 1067) 4.55 K/UL ABSOLUTE MONOCYTES (test cod e = 1068) 0.73 K/UL ABSOLUTE EOSINOPHILS (test c ode = 1040) 0.26 K/UL ABSOLUTE BASOPHILS (test cod e = 1069) 0.09 K/UL ABS IMMATURE GRANULOCYTES (t est code = 1020) 0.09 K/UL ABS NUCLEATED RBCS (test cod e = 13770) 0.00 K/UL Jc GerardoLIPID [id number] 00:00:00* Test Item Value Reference Range Interpretation Comme nts CHOLESTEROL (test code = 2210) 148 MG/DL TRIGLYCERIDES (test code = 2232) 104 MG/DL HDL CHOLESTEROL (test code = 2220) 40 MG/DL CALC LDL CHOL (test code = 2237) 88 MG/DL RISK RATIO LDL/HDL (test cod e = 2238) 2.20 RATIO Jc GerardoHEMOGLOBIN [id number] 00:00:00* Test Item Value Reference Range Interpretation Comme nts HEMOGLOBIN A1c (test code = 34886) 10.8 % cJ GerardoCOMPREHENSIVE METABOLIC [id number] 00:00:00* Test Item Value Reference Range Interpretation Comme nts GLUCOSE (test code = 2217) 249 MG/DL BUN (test code = 2208) 7 MG/DL CREATININE (test code = 2214) 0.69 MG/DL eGFR (2020 CKD-EPI) (test co de = 71619) 95 ML/MIN/1.73 CALC BUN/CREAT (test code = 2235) 10 RATIO SODIUM (test code = 2231) 140 MEQ/L POTASSIUM (test code = 2228) 4.0 MEQ/L CHLORIDE (test code = 2215) 103 MEQ/L CARBON DIOXIDE (test code = 2206) 23 MEQ/L CALCIUM (test code = 2209) 10.8 MG/DL PROTEIN, TOTAL (test code = 2229) 7.4 G/DL ALBUMIN (test code = 2201) 3.8 G/DL CALC GLOBULIN (test code = 2240) 3.6 G/DL CALC A/G RATIO (test code = 2234) 1.1 RATIO BILIRUBIN, TOTAL (test code = 2207) 0.7 MG/DL ALKALINE PHOSPHATASE (test code = 2204) 254 U/L AST (test code = 2218) 24 U/L ALT (test code = 2219) 24 U/L Jc GerardoURINALYSIS W/REFLEX [id number] 00:00:00* Test Item Value Reference Range Interpretation Comme nts COLOR (test code = 1501) YELLOW APPEARANCE (test code = 1502) CLEAR SPECIFIC GRAVITY (test code = 1503) 1.022 LEUKOCYTE ESTERASE (test cod e = 1504) NEGATIVE NITRITE (test code = 1505) NEGATIVE pH (test code = 1506) 6.0 PROTEIN (test code = 1507) NEGATIVE GLUCOSE (test code = 1508) 3+ KETONES (test code = 1509) NEGATIVE UROBILINOGEN (test code = 1510) 1.0 MG/DL BILIRUBIN (test code = 1511) NEGATIVE OCCULT BLOOD (test code = 1512) NEGATIVE Jc GerardoALBUMIN/CREATININE RATIO, RANDOM [id number] 00:00:00* Test Item Value Reference Range Interpretation Comme nts CREATININE, URINE, CONC. (te st code = 2072) 47.3 MG/DL ALBUMIN, URINE, RANDOM (test code = 84607) 1.1 MG/DL CALC ALBUMIN/CREAT, RND (mariola t code = 92712) 23 MG/G Jc GerardoCBC W/AUTO [id number] 00:00:00* Test Item Value Reference Range Interpretation Comme nts WBC (test code = 1001) 16.3 K/UL RBC (test code = 1002) 5.85 M/UL HEMOGLOBIN (test code = 1003) 16.8 G/DL HEMATOCRIT (test code = 1004) 52.4 % MCV (test code = 1005) 89.6 fL MCH (test code = 1006) 28.7 PG MCHC (test code = 1007) 32.1 G/DL RDW (test code = 1038) 13.2 % NEUTROPHILS (test code = 1008) 64.8 % LYMPHOCYTES (test code = 1010) 27.9 % MONOCYTES (test code = 1011) 4.5 % EOSINOPHILS (test code = 1012) 1.6 % BASOPHILS (test code = 1013) 0.6 % IMMATURE GRANULOCYTES (test code = 1036) 0.6 % NUCLEATED RBCS (test code = 1065) 0.0 /100WBC'S PLATELET COUNT (test code = 1015) 207 K/UL ABSOLUTE NEUTROPHILS (test c ode = 1066) 10.60 K/UL ABSOLUTE LYMPHOCYTES (test c ode = 1067) 4.55 K/UL ABSOLUTE MONOCYTES (test cod e = 1068) 0.73 K/UL ABSOLUTE EOSINOPHILS (test c ode = 1040) 0.26 K/UL ABSOLUTE BASOPHILS (test cod e = 1069) 0.09 K/UL ABS IMMATURE GRANULOCYTES (t est code = 1020) 0.09 K/UL ABS NUCLEATED RBCS (test cod e = 15158) 0.00 K/UL Jc GerardoLIPID [id number] 00:00:00* Test Item Value Reference Range Interpretation Comme nts CHOLESTEROL (test code = 2210) 148 MG/DL TRIGLYCERIDES (test code = 2232) 104 MG/DL HDL CHOLESTEROL (test code = 2220) 40 MG/DL CALC LDL CHOL (test code = 2237) 88 MG/DL RISK RATIO LDL/HDL (test cod e = 2238) 2.20 RATIO Jc GerardoHEMOGLOBIN [id number] 00:00:00* Test Item Value Reference Range Interpretation Comme tana HEMOGLOBIN A1c (test code = 59373) 10.8 % Jc GerardoCOMPREHENSIVE METABOLIC [id number] 00:00:00* Test Item Value Reference Range Interpretation Comme nts GLUCOSE (test code = 2217) 249 MG/DL BUN (test code = 2208) 7 MG/DL CREATININE (test code = 2214) 0.69 MG/DL eGFR (2020 CKD-EPI) (test co de = 81736) 95 ML/MIN/1.73 CALC BUN/CREAT (test code = 2235) 10 RATIO SODIUM (test code = 2231) 140 MEQ/L POTASSIUM (test code = 2228) 4.0 MEQ/L CHLORIDE (test code = 2215) 103 MEQ/L CARBON DIOXIDE (test code = 2206) 23 MEQ/L CALCIUM (test code = 2209) 10.8 MG/DL PROTEIN, TOTAL (test code = 2229) 7.4 G/DL ALBUMIN (test code = 2201) 3.8 G/DL CALC GLOBULIN (test code = 2240) 3.6 G/DL CALC A/G RATIO (test code = 2234) 1.1 RATIO BILIRUBIN, TOTAL (test code = 2207) 0.7 MG/DL ALKALINE PHOSPHATASE (test code = 2204) 254 U/L AST (test code = 2218) 24 U/L ALT (test code = 2219) 24 U/L Jc Millan AustinURINALYSIS W/REFLEX [id number] 00:00:00* Test Item Value Reference Range Interpretation Comme nts COLOR (test code = 1501) YELLOW APPEARANCE (test code = 1502) CLEAR SPECIFIC GRAVITY (test code = 1503) 1.022 LEUKOCYTE ESTERASE (test cod e = 1504) NEGATIVE NITRITE (test code = 1505) NEGATIVE pH (test code = 1506) 6.0 PROTEIN (test code = 1507) NEGATIVE GLUCOSE (test code = 1508) 3+ KETONES (test code = 1509) NEGATIVE UROBILINOGEN (test code = 1510) 1.0 MG/DL BILIRUBIN (test code = 1511) NEGATIVE OCCULT BLOOD (test code = 1512) NEGATIVE Jc GerardoALBUMIN/CREATININE RATIO, RANDOM [id number] 00:00:00* Test Item Value Reference Range Interpretation Comme nts CREATININE, URINE, CONC. (te st code = 2072) 47.3 MG/DL ALBUMIN, URINE, RANDOM (test code = 96788) 1.1 MG/DL CALC ALBUMIN/CREAT, RND (mariola t code = 38388) 23 MG/G Jc GerardoCBC W/AUTO [id number] 00:00:00* Test Item Value Reference Range Interpretation Comme nts WBC (test code = 1001) 16.3 K/UL RBC (test code = 1002) 5.85 M/UL HEMOGLOBIN (test code = 1003) 16.8 G/DL HEMATOCRIT (test code = 1004) 52.4 % MCV (test code = 1005) 89.6 fL MCH (test code = 1006) 28.7 PG MCHC (test code = 1007) 32.1 G/DL RDW (test code = 1038) 13.2 % NEUTROPHILS (test code = 1008) 64.8 % LYMPHOCYTES (test code = 1010) 27.9 % MONOCYTES (test code = 1011) 4.5 % EOSINOPHILS (test code = 1012) 1.6 % BASOPHILS (test code = 1013) 0.6 % IMMATURE GRANULOCYTES (test code = 1036) 0.6 % NUCLEATED RBCS (test code = 1065) 0.0 /100WBC'S PLATELET COUNT (test code = 1015) 207 K/UL ABSOLUTE NEUTROPHILS (test c ode = 1066) 10.60 K/UL ABSOLUTE LYMPHOCYTES (test c ode = 1067) 4.55 K/UL ABSOLUTE MONOCYTES (test cod e = 1068) 0.73 K/UL ABSOLUTE EOSINOPHILS (test c ode = 1040) 0.26 K/UL ABSOLUTE BASOPHILS (test cod e = 1069) 0.09 K/UL ABS IMMATURE GRANULOCYTES (t est code = 1020) 0.09 K/UL ABS NUCLEATED RBCS (test cod e = 20714) 0.00 K/UL Jc YeeID [id number] 00:00:00* Test Item Value Reference Range Interpretation Comme nts CHOLESTEROL (test code = 2210) 148 MG/DL TRIGLYCERIDES (test code = 2232) 104 MG/DL HDL CHOLESTEROL (test code = 2220) 40 MG/DL CALC LDL CHOL (test code = 2237) 88 MG/DL RISK RATIO LDL/HDL (test cod e = 2238) 2.20 RATIO Jc GerardoHEMOGLOBIN [id number] 00:00:00* Test Item Value Reference Range Interpretation Comme nts HEMOGLOBIN A1c (test code = 21872) 10.8 % Jc GerardoCOMPREHENSIVE METABOLIC [id number] 00:00:00* Test Item Value Reference Range Interpretation Comme nts GLUCOSE (test code = 2217) 249 MG/DL BUN (test code = 2208) 7 MG/DL CREATININE (test code = 2214) 0.69 MG/DL eGFR (2020 CKD-EPI) (test co de = 49148) 95 ML/MIN/1.73 CALC BUN/CREAT (test code = 2235) 10 RATIO SODIUM (test code = 2231) 140 MEQ/L POTASSIUM (test code = 2228) 4.0 MEQ/L CHLORIDE (test code = 2215) 103 MEQ/L CARBON DIOXIDE (test code = 2206) 23 MEQ/L CALCIUM (test code = 2209) 10.8 MG/DL PROTEIN, TOTAL (test code = 2229) 7.4 G/DL ALBUMIN (test code = 2201) 3.8 G/DL CALC GLOBULIN (test code = 2240) 3.6 G/DL CALC A/G RATIO (test code = 2234) 1.1 RATIO BILIRUBIN, TOTAL (test code = 2207) 0.7 MG/DL ALKALINE PHOSPHATASE (test code = 2204) 254 U/L AST (test code = 2218) 24 U/L ALT (test code = 2219) 24 U/L Jc GerardoURINALYSIS W/REFLEX [id number] 00:00:00* Test Item Value Reference Range Interpretation Comme nts COLOR (test code = 1501) YELLOW APPEARANCE (test code = 1502) CLEAR SPECIFIC GRAVITY (test code = 1503) 1.022 LEUKOCYTE ESTERASE (test cod e = 1504) NEGATIVE NITRITE (test code = 1505) NEGATIVE pH (test code = 1506) 6.0 PROTEIN (test code = 1507) NEGATIVE GLUCOSE (test code = 1508) 3+ KETONES (test code = 1509) NEGATIVE UROBILINOGEN (test code = 1510) 1.0 MG/DL BILIRUBIN (test code = 1511) NEGATIVE OCCULT BLOOD (test code = 1512) NEGATIVE Jc GerardoALBUMIN/CREATININE RATIO, RANDOM [id number] 00:00:00* Test Item Value Reference Range Interpretation Comme nts CREATININE, URINE, CONC. (te st code = 2072) 47.3 MG/DL ALBUMIN, URINE, RANDOM (test code = 18601) 1.1 MG/DL CALC ALBUMIN/CREAT, RND (mariola t code = 67254) 23 MG/G Jc GerardoCBC W/AUTO [id number] 00:00:00* Test Item Value Reference Range Interpretation Comme nts WBC (test code = 1001) 16.3 K/UL RBC (test code = 1002) 5.85 M/UL HEMOGLOBIN (test code = 1003) 16.8 G/DL HEMATOCRIT (test code = 1004) 52.4 % MCV (test code = 1005) 89.6 fL MCH (test code = 1006) 28.7 PG MCHC (test code = 1007) 32.1 G/DL RDW (test code = 1038) 13.2 % NEUTROPHILS (test code = 1008) 64.8 % LYMPHOCYTES (test code = 1010) 27.9 % MONOCYTES (test code = 1011) 4.5 % EOSINOPHILS (test code = 1012) 1.6 % BASOPHILS (test code = 1013) 0.6 % IMMATURE GRANULOCYTES (test code = 1036) 0.6 % NUCLEATED RBCS (test code = 1065) 0.0 /100WBC'S PLATELET COUNT (test code = 1015) 207 K/UL ABSOLUTE NEUTROPHILS (test c ode = 1066) 10.60 K/UL ABSOLUTE LYMPHOCYTES (test c ode = 1067) 4.55 K/UL ABSOLUTE MONOCYTES (test cod e = 1068) 0.73 K/UL ABSOLUTE EOSINOPHILS (test c ode = 1040) 0.26 K/UL ABSOLUTE BASOPHILS (test cod e = 1069) 0.09 K/UL ABS IMMATURE GRANULOCYTES (t est code = 1020) 0.09 K/UL ABS NUCLEATED RBCS (test cod e = 82603) 0.00 K/UL Jc GerardoLIPID [id number] 00:00:00* Test Item Value Reference Range Interpretation Comme nts CHOLESTEROL (test code = 2210) 148 MG/DL TRIGLYCERIDES (test code = 2232) 104 MG/DL HDL CHOLESTEROL (test code = 2220) 40 MG/DL CALC LDL CHOL (test code = 2237) 88 MG/DL RISK RATIO LDL/HDL (test cod e = 2238) 2.20 RATIO Jc GerardoHEMOGLOBIN [id number] 00:00:00* Test Item Value Reference Range Interpretation Comme nts HEMOGLOBIN A1c (test code = 74675) 10.8 % Jc GerardoCOMPREHENSIVE METABOLIC [id number] 00:00:00* Test Item Value Reference Range Interpretation Comme nts GLUCOSE (test code = 2217) 249 MG/DL BUN (test code = 2208) 7 MG/DL CREATININE (test code = 2214) 0.69 MG/DL eGFR (2020 CKD-EPI) (test co de = 12196) 95 ML/MIN/1.73 CALC BUN/CREAT (test code = 2235) 10 RATIO SODIUM (test code = 2231) 140 MEQ/L POTASSIUM (test code = 2228) 4.0 MEQ/L CHLORIDE (test code = 2215) 103 MEQ/L CARBON DIOXIDE (test code = 2206) 23 MEQ/L CALCIUM (test code = 2209) 10.8 MG/DL PROTEIN, TOTAL (test code = 2229) 7.4 G/DL ALBUMIN (test code = 2201) 3.8 G/DL CALC GLOBULIN (test code = 2240) 3.6 G/DL CALC A/G RATIO (test code = 2234) 1.1 RATIO BILIRUBIN, TOTAL (test code = 2207) 0.7 MG/DL ALKALINE PHOSPHATASE (test code = 2204) 254 U/L AST (test code = 2218) 24 U/L ALT (test code = 2219) 24 U/L Jc Millan AustinURINALYSIS W/REFLEX [id number] 00:00:00* Test Item Value Reference Range Interpretation Comme nts COLOR (test code = 1501) YELLOW APPEARANCE (test code = 1502) CLEAR SPECIFIC GRAVITY (test code = 1503) 1.022 LEUKOCYTE ESTERASE (test cod e = 1504) NEGATIVE NITRITE (test code = 1505) NEGATIVE pH (test code = 1506) 6.0 PROTEIN (test code = 1507) NEGATIVE GLUCOSE (test code = 1508) 3+ KETONES (test code = 1509) NEGATIVE UROBILINOGEN (test code = 1510) 1.0 MG/DL BILIRUBIN (test code = 1511) NEGATIVE OCCULT BLOOD (test code = 1512) NEGATIVE Jc Millan AustinALBUMIN/CREATININE RATIO, RANDOM [id number] 00:00:00* Test Item Value Reference Range Interpretation Comme nts CREATININE, URINE, CONC. (te st code = 2072) 47.3 MG/DL ALBUMIN, URINE, RANDOM (test code = 51393) 1.1 MG/DL CALC ALBUMIN/CREAT, RND (mariola t code = 54793) 23 MG/G Jc Millan AustinVAGINAL PATHOGENS DNA [id number] 00:00:00* Test Item Value Reference Range Interpretation Comme nts ALFREDO SPECIES (test code = 97160) POSITIVE G. VAGINALIS (test code = 60462) NEGATIVE T. VAGINALIS (test code = 89232) NEGATIVE Jc Monty AustinVAGINAL PATHOGENS DNA [id number] 00:00:00* Test Item Value Reference Range Interpretation Comme nts ALFREDO SPECIES (test code = 02551) POSITIVE G. VAGINALIS (test code = 20934) NEGATIVE T. VAGINALIS (test code = 63392) NEGATIVE Jc Millan AustinVAGINAL PATHOGENS DNA [id number] 00:00:00* Test Item Value Reference Range Interpretation Comme nts ALFREDO SPECIES (test code = 29689) POSITIVE G. VAGINALIS (test code = 74824) NEGATIVE T. VAGINALIS (test code = 18896) NEGATIVE Jc F AustinVAGINAL PATHOGENS DNA [id number] 00:00:00* Test Item Value Reference Range Interpretation Comme nts ALFREDO SPECIES (test code = 47131) POSITIVE G. VAGINALIS (test code = 31391) NEGATIVE T. VAGINALIS (test code = 08211) NEGATIVE Jc F AustinVAGINAL PATHOGENS DNA [id number] 00:00:00* Test Item Value Reference Range Interpretation Comme nts ALFREDO SPECIES (test code = 78328) POSITIVE G. VAGINALIS (test code = 97472) NEGATIVE T. VAGINALIS (test code = 74506) NEGATIVE Jc Millan AustinVAGINAL PATHOGENS DNA [id number] 00:00:00* Test Item Value Reference Range Interpretation Comme nts ALFREDO SPECIES (test code = 15064) POSITIVE G. VAGINALIS (test code = 00935) NEGATIVE T. VAGINALIS (test code = 96265) NEGATIVE Jc Millan AustinVAGINAL PATHOGENS DNA [id number] 00:00:00* Test Item Value Reference Range Interpretation Comme nts ALFREDO SPECIES (test code = 78595) POSITIVE G. VAGINALIS (test code = 59415) NEGATIVE T. VAGINALIS (test code = 66086) NEGATIVE Jc Millan AustinVAGINAL PATHOGENS DNA [id number] 00:00:00* Test Item Value Reference Range Interpretation Comme nts ALFREDO SPECIES (test code = 35612) POSITIVE G. VAGINALIS (test code = 07355) NEGATIVE T. VAGINALIS (test code = 02359) NEGATIVE Jc Millan AustinVAGINAL PATHOGENS DNA [id number] 00:00:00* Test Item Value Reference Range Interpretation Comme nts ALFREDO SPECIES (test code = 25688) POSITIVE G. VAGINALIS (test code = 07567) NEGATIVE T. VAGINALIS (test code = 63878) NEGATIVE Jc Millan AustinVAGINAL PATHOGENS DNA [id number] 00:00:00* Test Item Value Reference Range Interpretation Comme nts LAFREDO SPECIES (test code = 80221) POSITIVE G. VAGINALIS (test code = 68765) NEGATIVE T. VAGINALIS (test code = 24782) NEGATIVE Jc Millan AustinVAGINAL PATHOGENS DNA [id number] 00:00:00* Test Item Value Reference Range Interpretation Comme nts ALFREDO SPECIES (test code = 83698) POSITIVE G. VAGINALIS (test code = 88562) NEGATIVE T. VAGINALIS (test code = 75701) NEGATIVE Jc Millan AustinVAGINAL PATHOGENS DNA [id number] 00:00:00* Test Item Value Reference Range Interpretation Comme nts ALFREDO SPECIES (test code = 17095) POSITIVE G. VAGINALIS (test code = 75650) NEGATIVE T. VAGINALIS (test code = 08668) NEGATIVE Jc Millan AustinVAGINAL PATHOGENS DNA [id number] 00:00:00* Test Item Value Reference Range Interpretation Comme nts ALFREDO SPECIES (test code = ) POSITIVE G. VAGINALIS (test code = ) NEGATIVE T. VAGINALIS (test code = ) NEGATIVE Jc GerardoVAGINAL PATHOGENS DNA [id number] 00:00:00* Test Item Value Reference Range Interpretation Comme nts ALFREDO SPECIES (test code = ) POSITIVE G. VAGINALIS (test code = ) NEGATIVE T. VAGINALIS (test code = ) NEGATIVE Jc GerardoCBC W/AUTO [id number] 00:00:00* Test Item Value Reference Range Interpretation Comme nts WBC (test code = 1001) 14.0 K/UL RBC (test code = 1002) 5.39 M/UL HEMOGLOBIN (test code = 1003) 15.4 G/DL HEMATOCRIT (test code = 1004) 47.0 % MCV (test code = 1005) 87.2 fL MCH (test code = 1006) 28.6 PG MCHC (test code = 1007) 32.8 G/DL RDW (test code = 1038) 13.3 % NEUTROPHILS (test code = 1008) 61.1 % LYMPHOCYTES (test code = 1010) 30.9 % MONOCYTES (test code = 1011) 4.6 % EOSINOPHILS (test code = 1012) 2.4 % BASOPHILS (test code = 1013) 0.6 % IMMATURE GRANULOCYTES (test code = 1036) 0.4 % NUCLEATED RBCS (test code = 1065) 0.0 /100WBC'S PLATELET COUNT (test code = 1015) 218 K/UL ABSOLUTE NEUTROPHILS (test c ode = 1066) 8.54 K/UL ABSOLUTE LYMPHOCYTES (test c ode = 1067) 4.32 K/UL ABSOLUTE MONOCYTES (test cod e = 1068) 0.64 K/UL ABSOLUTE EOSINOPHILS (test c ode = 1040) 0.33 K/UL ABSOLUTE BASOPHILS (test cod e = 1069) 0.08 K/UL ABS IMMATURE GRANULOCYTES (t est code = 1020) 0.05 K/UL ABS NUCLEATED RBCS (test cod e = 34853) 0.00 K/UL Jc GerardoHEMOGLOBIN [id number] 00:00:00* Test Item Value Reference Range Interpretation Comme nts HEMOGLOBIN A1c (test code = 02522) 9.3 % Jc GerardoCOMPREHENSIVE METABOLIC [id number] 00:00:00* Test Item Value Reference Range Interpretation Comme nts GLUCOSE (test code = 2217) 135 MG/DL BUN (test code = 2208) 10 MG/DL CREATININE (test code = 2214) 0.64 MG/DL eGFR (2020 CKD-EPI) (test co de = 10053) 97 ML/MIN/1.73 CALC BUN/CREAT (test code = 2235) 16 RATIO SODIUM (test code = 2231) 145 MEQ/L POTASSIUM (test code = 2228) 4.5 MEQ/L CHLORIDE (test code = 2215) 109 MEQ/L CARBON DIOXIDE (test code = 2206) 26 MEQ/L CALCIUM (test code = 2209) 10.0 MG/DL PROTEIN, TOTAL (test code = 2229) 6.6 G/DL ALBUMIN (test code = 2201) 3.7 G/DL CALC GLOBULIN (test code = 2240) 2.9 G/DL CALC A/G RATIO (test code = 2234) 1.3 RATIO BILIRUBIN, TOTAL (test code = 2207) 0.5 MG/DL ALKALINE PHOSPHATASE (test code = 2204) 196 U/L AST (test code = 2218) 27 U/L ALT (test code = 2219) 23 U/L Jc GerardoLIPID [id number] 00:00:00* Test Item Value Reference Range Interpretation Comme nts CHOLESTEROL (test code = 2210) 140 MG/DL TRIGLYCERIDES (test code = 2232) 83 MG/DL HDL CHOLESTEROL (test code = 2220) 40 MG/DL CALC LDL CHOL (test code = 2237) 83 MG/DL RISK RATIO LDL/HDL (test cod e = 2238) 2.08 RATIO Jc Millan AustinURINALYSIS W/REFLEX [id number] 00:00:00* Test Item Value Reference Range Interpretation Comme nts COLOR (test code = 1501) YELLOW APPEARANCE (test code = 1502) CLOUDY SPECIFIC GRAVITY (test code = 1503) 1.015 LEUKOCYTE ESTERASE (test cod e = 1504) 3+ NITRITE (test code = 1505) NEGATIVE pH (test code = 1506) 7.5 PROTEIN (test code = 1507) 1+ GLUCOSE (test code = 1508) 4+ KETONES (test code = 1509) NEGATIVE UROBILINOGEN (test code = 1510) <2.0 MG/DL BILIRUBIN (test code = 1511) NEGATIVE OCCULT BLOOD (test code = 1512) 2+ WHITE BLOOD CELLS (test code = 1513) 16-20 /HPF RED BLOOD CELLS (test code = 1514) 3-5 /HPF EPITHELIAL CELLS (test code = 56248) 0-5 /HPF BACTERIA (test code = 1515) 2+ CRYSTALS (test code = 1516) PRESENT CASTS, HYALINE (test code = 1517) NONE SEEN OTHER (test code = 1518) PRESENT Jc GerardoALBUMIN/CREATININE RATIO, RANDOM [id number] 00:00:00* Test Item Value Reference Range Interpretation Comme nts CREATININE, URINE, CONC. (te st code = 2072) 85.5 MG/DL ALBUMIN, URINE, RANDOM (test code = 54024) 5.1 MG/DL CALC ALBUMIN/CREAT, RND (mariola t code = 39663) 60 MG/G Jc GerardoCBC W/AUTO [id number] 00:00:00* Test Item Value Reference Range Interpretation Comme nts WBC (test code = 1001) 14.0 K/UL RBC (test code = 1002) 5.39 M/UL HEMOGLOBIN (test code = 1003) 15.4 G/DL HEMATOCRIT (test code = 1004) 47.0 % MCV (test code = 1005) 87.2 fL MCH (test code = 1006) 28.6 PG MCHC (test code = 1007) 32.8 G/DL RDW (test code = 1038) 13.3 % NEUTROPHILS (test code = 1008) 61.1 % LYMPHOCYTES (test code = 1010) 30.9 % MONOCYTES (test code = 1011) 4.6 % EOSINOPHILS (test code = 1012) 2.4 % BASOPHILS (test code = 1013) 0.6 % IMMATURE GRANULOCYTES (test code = 1036) 0.4 % NUCLEATED RBCS (test code = 1065) 0.0 /100WBC'S PLATELET COUNT (test code = 1015) 218 K/UL ABSOLUTE NEUTROPHILS (test c ode = 1066) 8.54 K/UL ABSOLUTE LYMPHOCYTES (test c ode = 1067) 4.32 K/UL ABSOLUTE MONOCYTES (test cod e = 1068) 0.64 K/UL ABSOLUTE EOSINOPHILS (test c ode = 1040) 0.33 K/UL ABSOLUTE BASOPHILS (test cod e = 1069) 0.08 K/UL ABS IMMATURE GRANULOCYTES (t est code = 1020) 0.05 K/UL ABS NUCLEATED RBCS (test cod e = 90041) 0.00 K/UL Jc GerardoHEMOGLOBIN [id number] 00:00:00* Test Item Value Reference Range Interpretation Comme nts HEMOGLOBIN A1c (test code = 21464) 9.3 % Jc GerardoCOMPREHENSIVE METABOLIC [id number] 00:00:00* Test Item Value Reference Range Interpretation Comme nts GLUCOSE (test code = 2217) 135 MG/DL BUN (test code = 2208) 10 MG/DL CREATININE (test code = 2214) 0.64 MG/DL eGFR (2020 CKD-EPI) (test co de = 12411) 97 ML/MIN/1.73 CALC BUN/CREAT (test code = 2235) 16 RATIO SODIUM (test code = 2231) 145 MEQ/L POTASSIUM (test code = 2228) 4.5 MEQ/L CHLORIDE (test code = 2215) 109 MEQ/L CARBON DIOXIDE (test code = 2206) 26 MEQ/L CALCIUM (test code = 2209) 10.0 MG/DL PROTEIN, TOTAL (test code = 2229) 6.6 G/DL ALBUMIN (test code = 2201) 3.7 G/DL CALC GLOBULIN (test code = 2240) 2.9 G/DL CALC A/G RATIO (test code = 2234) 1.3 RATIO BILIRUBIN, TOTAL (test code = 2207) 0.5 MG/DL ALKALINE PHOSPHATASE (test code = 2204) 196 U/L AST (test code = 2218) 27 U/L ALT (test code = 2219) 23 U/L Jc GerardoLIPID [id number] 00:00:00* Test Item Value Reference Range Interpretation Comme nts CHOLESTEROL (test code = 2210) 140 MG/DL TRIGLYCERIDES (test code = 2232) 83 MG/DL HDL CHOLESTEROL (test code = 2220) 40 MG/DL CALC LDL CHOL (test code = 2237) 83 MG/DL RISK RATIO LDL/HDL (test cod e = 2238) 2.08 RATIO Jc Millan AustinURINALYSIS W/REFLEX [id number] 00:00:00* Test Item Value Reference Range Interpretation Comme nts COLOR (test code = 1501) YELLOW APPEARANCE (test code = 1502) CLOUDY SPECIFIC GRAVITY (test code = 1503) 1.015 LEUKOCYTE ESTERASE (test cod e = 1504) 3+ NITRITE (test code = 1505) NEGATIVE pH (test code = 1506) 7.5 PROTEIN (test code = 1507) 1+ GLUCOSE (test code = 1508) 4+ KETONES (test code = 1509) NEGATIVE UROBILINOGEN (test code = 1510) <2.0 MG/DL BILIRUBIN (test code = 1511) NEGATIVE OCCULT BLOOD (test code = 1512) 2+ WHITE BLOOD CELLS (test code = 1513) 16-20 /HPF RED BLOOD CELLS (test code = 1514) 3-5 /HPF EPITHELIAL CELLS (test code = 08193) 0-5 /HPF BACTERIA (test code = 1515) 2+ CRYSTALS (test code = 1516) PRESENT CASTS, HYALINE (test code = 1517) NONE SEEN OTHER (test code = 1518) PRESENT Jc Millan AustinALBUMIN/CREATININE RATIO, RANDOM [id number] 00:00:00* Test Item Value Reference Range Interpretation Comme nts CREATININE, URINE, CONC. (te st code = 2072) 85.5 MG/DL ALBUMIN, URINE, RANDOM (test code = 91860) 5.1 MG/DL CALC ALBUMIN/CREAT, RND (mariola t code = 77112) 60 MG/G Jc Millan AustinCBC W/AUTO [id number] 00:00:00* Test Item Value Reference Range Interpretation Comme nts WBC (test code = 1001) 14.0 K/UL RBC (test code = 1002) 5.39 M/UL HEMOGLOBIN (test code = 1003) 15.4 G/DL HEMATOCRIT (test code = 1004) 47.0 % MCV (test code = 1005) 87.2 fL MCH (test code = 1006) 28.6 PG MCHC (test code = 1007) 32.8 G/DL RDW (test code = 1038) 13.3 % NEUTROPHILS (test code = 1008) 61.1 % LYMPHOCYTES (test code = 1010) 30.9 % MONOCYTES (test code = 1011) 4.6 % EOSINOPHILS (test code = 1012) 2.4 % BASOPHILS (test code = 1013) 0.6 % IMMATURE GRANULOCYTES (test code = 1036) 0.4 % NUCLEATED RBCS (test code = 1065) 0.0 /100WBC'S PLATELET COUNT (test code = 1015) 218 K/UL ABSOLUTE NEUTROPHILS (test c ode = 1066) 8.54 K/UL ABSOLUTE LYMPHOCYTES (test c ode = 1067) 4.32 K/UL ABSOLUTE MONOCYTES (test cod e = 1068) 0.64 K/UL ABSOLUTE EOSINOPHILS (test c ode = 1040) 0.33 K/UL ABSOLUTE BASOPHILS (test cod e = 1069) 0.08 K/UL ABS IMMATURE GRANULOCYTES (t est code = 1020) 0.05 K/UL ABS NUCLEATED RBCS (test cod e = 44937) 0.00 K/UL Jc Millan AkinHEMOGLOBIN [id number] 00:00:00* Test Item Value Reference Range Interpretation Comme nts HEMOGLOBIN A1c (test code = 76159) 9.3 % Jc Millan AkinCOMPREHENSIVE METABOLIC [id number] 00:00:00* Test Item Value Reference Range Interpretation Comme nts GLUCOSE (test code = 2217) 135 MG/DL BUN (test code = 2208) 10 MG/DL CREATININE (test code = 2214) 0.64 MG/DL eGFR (2020 CKD-EPI) (test co de = 83279) 97 ML/MIN/1.73 CALC BUN/CREAT (test code = 2235) 16 RATIO SODIUM (test code = 2231) 145 MEQ/L POTASSIUM (test code = 2228) 4.5 MEQ/L CHLORIDE (test code = 2215) 109 MEQ/L CARBON DIOXIDE (test code = 2206) 26 MEQ/L CALCIUM (test code = 2209) 10.0 MG/DL PROTEIN, TOTAL (test code = 2229) 6.6 G/DL ALBUMIN (test code = 2201) 3.7 G/DL CALC GLOBULIN (test code = 2240) 2.9 G/DL CALC A/G RATIO (test code = 2234) 1.3 RATIO BILIRUBIN, TOTAL (test code = 2207) 0.5 MG/DL ALKALINE PHOSPHATASE (test code = 2204) 196 U/L AST (test code = 2218) 27 U/L ALT (test code = 2219) 23 U/L Jc GerardoLIPID [id number] 00:00:00* Test Item Value Reference Range Interpretation Comme nts CHOLESTEROL (test code = 2210) 140 MG/DL TRIGLYCERIDES (test code = 2232) 83 MG/DL HDL CHOLESTEROL (test code = 2220) 40 MG/DL CALC LDL CHOL (test code = 2237) 83 MG/DL RISK RATIO LDL/HDL (test cod e = 2238) 2.08 RATIO Jc GerardoURINALYSIS W/REFLEX [id number] 00:00:00* Test Item Value Reference Range Interpretation Comme nts COLOR (test code = 1501) YELLOW APPEARANCE (test code = 1502) CLOUDY SPECIFIC GRAVITY (test code = 1503) 1.015 LEUKOCYTE ESTERASE (test cod e = 1504) 3+ NITRITE (test code = 1505) NEGATIVE pH (test code = 1506) 7.5 PROTEIN (test code = 1507) 1+ GLUCOSE (test code = 1508) 4+ KETONES (test code = 1509) NEGATIVE UROBILINOGEN (test code = 1510) <2.0 MG/DL BILIRUBIN (test code = 1511) NEGATIVE OCCULT BLOOD (test code = 1512) 2+ WHITE BLOOD CELLS (test code = 1513) 16-20 /HPF RED BLOOD CELLS (test code = 1514) 3-5 /HPF EPITHELIAL CELLS (test code = 46960) 0-5 /HPF BACTERIA (test code = 1515) 2+ CRYSTALS (test code = 1516) PRESENT CASTS, HYALINE (test code = 1517) NONE SEEN OTHER (test code = 1518) PRESENT Jc GerardoALBUMIN/CREATININE RATIO, RANDOM [id number] 00:00:00* Test Item Value Reference Range Interpretation Comme nts CREATININE, URINE, CONC. (te st code = 2072) 85.5 MG/DL ALBUMIN, URINE, RANDOM (test code = 26370) 5.1 MG/DL CALC ALBUMIN/CREAT, RND (mariola t code = 32702) 60 MG/G Jc GerardoCBC W/AUTO [id number] 00:00:00* Test Item Value Reference Range Interpretation Comme nts WBC (test code = 1001) 14.0 K/UL RBC (test code = 1002) 5.39 M/UL HEMOGLOBIN (test code = 1003) 15.4 G/DL HEMATOCRIT (test code = 1004) 47.0 % MCV (test code = 1005) 87.2 fL MCH (test code = 1006) 28.6 PG MCHC (test code = 1007) 32.8 G/DL RDW (test code = 1038) 13.3 % NEUTROPHILS (test code = 1008) 61.1 % LYMPHOCYTES (test code = 1010) 30.9 % MONOCYTES (test code = 1011) 4.6 % EOSINOPHILS (test code = 1012) 2.4 % BASOPHILS (test code = 1013) 0.6 % IMMATURE GRANULOCYTES (test code = 1036) 0.4 % NUCLEATED RBCS (test code = 1065) 0.0 /100WBC'S PLATELET COUNT (test code = 1015) 218 K/UL ABSOLUTE NEUTROPHILS (test c ode = 1066) 8.54 K/UL ABSOLUTE LYMPHOCYTES (test c ode = 1067) 4.32 K/UL ABSOLUTE MONOCYTES (test cod e = 1068) 0.64 K/UL ABSOLUTE EOSINOPHILS (test c ode = 1040) 0.33 K/UL ABSOLUTE BASOPHILS (test cod e = 1069) 0.08 K/UL ABS IMMATURE GRANULOCYTES (t est code = 1020) 0.05 K/UL ABS NUCLEATED RBCS (test cod e = 98482) 0.00 K/UL Jc GerardoHEMOGLOBIN [id number] 00:00:00* Test Item Value Reference Range Interpretation Comme nts HEMOGLOBIN A1c (test code = 17857) 9.3 % Jc GerardoCOMPREHENSIVE METABOLIC [id number] 00:00:00* Test Item Value Reference Range Interpretation Comme nts GLUCOSE (test code = 2217) 135 MG/DL BUN (test code = 2208) 10 MG/DL CREATININE (test code = 2214) 0.64 MG/DL eGFR (2020 CKD-EPI) (test co de = 39178) 97 ML/MIN/1.73 CALC BUN/CREAT (test code = 2235) 16 RATIO SODIUM (test code = 2231) 145 MEQ/L POTASSIUM (test code = 2228) 4.5 MEQ/L CHLORIDE (test code = 2215) 109 MEQ/L CARBON DIOXIDE (test code = 2206) 26 MEQ/L CALCIUM (test code = 2209) 10.0 MG/DL PROTEIN, TOTAL (test code = 2229) 6.6 G/DL ALBUMIN (test code = 2201) 3.7 G/DL CALC GLOBULIN (test code = 2240) 2.9 G/DL CALC A/G RATIO (test code = 2234) 1.3 RATIO BILIRUBIN, TOTAL (test code = 2207) 0.5 MG/DL ALKALINE PHOSPHATASE (test code = 2204) 196 U/L AST (test code = 2218) 27 U/L ALT (test code = 2219) 23 U/L Jc GerardoLIPID [id number] 00:00:00* Test Item Value Reference Range Interpretation Comme nts CHOLESTEROL (test code = 2210) 140 MG/DL TRIGLYCERIDES (test code = 2232) 83 MG/DL HDL CHOLESTEROL (test code = 2220) 40 MG/DL CALC LDL CHOL (test code = 2237) 83 MG/DL RISK RATIO LDL/HDL (test cod e = 2238) 2.08 RATIO Jc GerardoURINALYSIS W/REFLEX [id number] 00:00:00* Test Item Value Reference Range Interpretation Comme nts COLOR (test code = 1501) YELLOW APPEARANCE (test code = 1502) CLOUDY SPECIFIC GRAVITY (test code = 1503) 1.015 LEUKOCYTE ESTERASE (test cod e = 1504) 3+ NITRITE (test code = 1505) NEGATIVE pH (test code = 1506) 7.5 PROTEIN (test code = 1507) 1+ GLUCOSE (test code = 1508) 4+ KETONES (test code = 1509) NEGATIVE UROBILINOGEN (test code = 1510) <2.0 MG/DL BILIRUBIN (test code = 1511) NEGATIVE OCCULT BLOOD (test code = 1512) 2+ WHITE BLOOD CELLS (test code = 1513) 16-20 /HPF RED BLOOD CELLS (test code = 1514) 3-5 /HPF EPITHELIAL CELLS (test code = 84605) 0-5 /HPF BACTERIA (test code = 1515) 2+ CRYSTALS (test code = 1516) PRESENT CASTS, HYALINE (test code = 1517) NONE SEEN OTHER (test code = 1518) PRESENT Jc F AustinALBUMIN/CREATININE RATIO, RANDOM [id number] 00:00:00* Test Item Value Reference Range Interpretation Comme nts CREATININE, URINE, CONC. (te st code = 2072) 85.5 MG/DL ALBUMIN, URINE, RANDOM (test code = 53070) 5.1 MG/DL CALC ALBUMIN/CREAT, RND (mariola t code = 64943) 60 MG/G Jc GerardoCBC W/AUTO [id number] 00:00:00* Test Item Value Reference Range Interpretation Comme nts WBC (test code = 1001) 14.0 K/UL RBC (test code = 1002) 5.39 M/UL HEMOGLOBIN (test code = 1003) 15.4 G/DL HEMATOCRIT (test code = 1004) 47.0 % MCV (test code = 1005) 87.2 fL MCH (test code = 1006) 28.6 PG MCHC (test code = 1007) 32.8 G/DL RDW (test code = 1038) 13.3 % NEUTROPHILS (test code = 1008) 61.1 % LYMPHOCYTES (test code = 1010) 30.9 % MONOCYTES (test code = 1011) 4.6 % EOSINOPHILS (test code = 1012) 2.4 % BASOPHILS (test code = 1013) 0.6 % IMMATURE GRANULOCYTES (test code = 1036) 0.4 % NUCLEATED RBCS (test code = 1065) 0.0 /100WBC'S PLATELET COUNT (test code = 1015) 218 K/UL ABSOLUTE NEUTROPHILS (test c ode = 1066) 8.54 K/UL ABSOLUTE LYMPHOCYTES (test c ode = 1067) 4.32 K/UL ABSOLUTE MONOCYTES (test cod e = 1068) 0.64 K/UL ABSOLUTE EOSINOPHILS (test c ode = 1040) 0.33 K/UL ABSOLUTE BASOPHILS (test cod e = 1069) 0.08 K/UL ABS IMMATURE GRANULOCYTES (t est code = 1020) 0.05 K/UL ABS NUCLEATED RBCS (test cod e = 97248) 0.00 K/UL Jc GerardoHEMOGLOBIN [id number] 00:00:00* Test Item Value Reference Range Interpretation Comme nts HEMOGLOBIN A1c (test code = 03699) 9.3 % Jc GerardoCOMPREHENSIVE METABOLIC [id number] 00:00:00* Test Item Value Reference Range Interpretation Comme nts GLUCOSE (test code = 2217) 135 MG/DL BUN (test code = 2208) 10 MG/DL CREATININE (test code = 2214) 0.64 MG/DL eGFR (2020 CKD-EPI) (test co de = 58315) 97 ML/MIN/1.73 CALC BUN/CREAT (test code = 2235) 16 RATIO SODIUM (test code = 2231) 145 MEQ/L POTASSIUM (test code = 2228) 4.5 MEQ/L CHLORIDE (test code = 2215) 109 MEQ/L CARBON DIOXIDE (test code = 2206) 26 MEQ/L CALCIUM (test code = 2209) 10.0 MG/DL PROTEIN, TOTAL (test code = 2229) 6.6 G/DL ALBUMIN (test code = 2201) 3.7 G/DL CALC GLOBULIN (test code = 2240) 2.9 G/DL CALC A/G RATIO (test code = 2234) 1.3 RATIO BILIRUBIN, TOTAL (test code = 2207) 0.5 MG/DL ALKALINE PHOSPHATASE (test code = 2204) 196 U/L AST (test code = 2218) 27 U/L ALT (test code = 2219) 23 U/L Jc Millan AkinLIPID [id number] 00:00:00* Test Item Value Reference Range Interpretation Comme nts CHOLESTEROL (test code = 2210) 140 MG/DL TRIGLYCERIDES (test code = 2232) 83 MG/DL HDL CHOLESTEROL (test code = 2220) 40 MG/DL CALC LDL CHOL (test code = 2237) 83 MG/DL RISK RATIO LDL/HDL (test cod e = 2238) 2.08 RATIO Jc Millan AustinURINALYSIS W/REFLEX [id number] 00:00:00* Test Item Value Reference Range Interpretation Comme nts COLOR (test code = 1501) YELLOW APPEARANCE (test code = 1502) CLOUDY SPECIFIC GRAVITY (test code = 1503) 1.015 LEUKOCYTE ESTERASE (test cod e = 1504) 3+ NITRITE (test code = 1505) NEGATIVE pH (test code = 1506) 7.5 PROTEIN (test code = 1507) 1+ GLUCOSE (test code = 1508) 4+ KETONES (test code = 1509) NEGATIVE UROBILINOGEN (test code = 1510) <2.0 MG/DL BILIRUBIN (test code = 1511) NEGATIVE OCCULT BLOOD (test code = 1512) 2+ WHITE BLOOD CELLS (test code = 1513) 16-20 /HPF RED BLOOD CELLS (test code = 1514) 3-5 /HPF EPITHELIAL CELLS (test code = 51754) 0-5 /HPF BACTERIA (test code = 1515) 2+ CRYSTALS (test code = 1516) PRESENT CASTS, HYALINE (test code = 1517) NONE SEEN OTHER (test code = 1518) PRESENT Jc GerardoALBUMIN/CREATININE RATIO, RANDOM [id number] 00:00:00* Test Item Value Reference Range Interpretation Comme nts CREATININE, URINE, CONC. (te st code = 2072) 85.5 MG/DL ALBUMIN, URINE, RANDOM (test code = 07360) 5.1 MG/DL CALC ALBUMIN/CREAT, RND (mariola t code = 17496) 60 MG/G Jc GerardoCBC W/AUTO [id number] 00:00:00* Test Item Value Reference Range Interpretation Comme nts WBC (test code = 1001) 14.0 K/UL RBC (test code = 1002) 5.39 M/UL HEMOGLOBIN (test code = 1003) 15.4 G/DL HEMATOCRIT (test code = 1004) 47.0 % MCV (test code = 1005) 87.2 fL MCH (test code = 1006) 28.6 PG MCHC (test code = 1007) 32.8 G/DL RDW (test code = 1038) 13.3 % NEUTROPHILS (test code = 1008) 61.1 % LYMPHOCYTES (test code = 1010) 30.9 % MONOCYTES (test code = 1011) 4.6 % EOSINOPHILS (test code = 1012) 2.4 % BASOPHILS (test code = 1013) 0.6 % IMMATURE GRANULOCYTES (test code = 1036) 0.4 % NUCLEATED RBCS (test code = 1065) 0.0 /100WBC'S PLATELET COUNT (test code = 1015) 218 K/UL ABSOLUTE NEUTROPHILS (test c ode = 1066) 8.54 K/UL ABSOLUTE LYMPHOCYTES (test c ode = 1067) 4.32 K/UL ABSOLUTE MONOCYTES (test cod e = 1068) 0.64 K/UL ABSOLUTE EOSINOPHILS (test c ode = 1040) 0.33 K/UL ABSOLUTE BASOPHILS (test cod e = 1069) 0.08 K/UL ABS IMMATURE GRANULOCYTES (t est code = 1020) 0.05 K/UL ABS NUCLEATED RBCS (test cod e = 95342) 0.00 K/UL Jc GerardoHEMOGLOBIN [id number] 00:00:00* Test Item Value Reference Range Interpretation Comme nts HEMOGLOBIN A1c (test code = 95190) 9.3 % Jc GerardoCOMPREHENSIVE METABOLIC [id number] 00:00:00* Test Item Value Reference Range Interpretation Comme nts GLUCOSE (test code = 2217) 135 MG/DL BUN (test code = 2208) 10 MG/DL CREATININE (test code = 2214) 0.64 MG/DL eGFR (2020 CKD-EPI) (test co de = 79986) 97 ML/MIN/1.73 CALC BUN/CREAT (test code = 2235) 16 RATIO SODIUM (test code = 2231) 145 MEQ/L POTASSIUM (test code = 2228) 4.5 MEQ/L CHLORIDE (test code = 2215) 109 MEQ/L CARBON DIOXIDE (test code = 2206) 26 MEQ/L CALCIUM (test code = 2209) 10.0 MG/DL PROTEIN, TOTAL (test code = 2229) 6.6 G/DL ALBUMIN (test code = 2201) 3.7 G/DL CALC GLOBULIN (test code = 2240) 2.9 G/DL CALC A/G RATIO (test code = 2234) 1.3 RATIO BILIRUBIN, TOTAL (test code = 2207) 0.5 MG/DL ALKALINE PHOSPHATASE (test code = 2204) 196 U/L AST (test code = 2218) 27 U/L ALT (test code = 2219) 23 U/L Jc GerardoLIPID [id number] 00:00:00* Test Item Value Reference Range Interpretation Comme nts CHOLESTEROL (test code = 2210) 140 MG/DL TRIGLYCERIDES (test code = 2232) 83 MG/DL HDL CHOLESTEROL (test code = 2220) 40 MG/DL CALC LDL CHOL (test code = 2237) 83 MG/DL RISK RATIO LDL/HDL (test cod e = 2238) 2.08 RATIO Jc Millan AustinURINALYSIS W/REFLEX [id number] 00:00:00* Test Item Value Reference Range Interpretation Comme nts COLOR (test code = 1501) YELLOW APPEARANCE (test code = 1502) CLOUDY SPECIFIC GRAVITY (test code = 1503) 1.015 LEUKOCYTE ESTERASE (test cod e = 1504) 3+ NITRITE (test code = 1505) NEGATIVE pH (test code = 1506) 7.5 PROTEIN (test code = 1507) 1+ GLUCOSE (test code = 1508) 4+ KETONES (test code = 1509) NEGATIVE UROBILINOGEN (test code = 1510) <2.0 MG/DL BILIRUBIN (test code = 1511) NEGATIVE OCCULT BLOOD (test code = 1512) 2+ WHITE BLOOD CELLS (test code = 1513) 16-20 /HPF RED BLOOD CELLS (test code = 1514) 3-5 /HPF EPITHELIAL CELLS (test code = 48648) 0-5 /HPF BACTERIA (test code = 1515) 2+ CRYSTALS (test code = 1516) PRESENT CASTS, HYALINE (test code = 1517) NONE SEEN OTHER (test code = 1518) PRESENT Jc Millan AkinALBUMIN/CREATININE RATIO, RANDOM [id number] 00:00:00* Test Item Value Reference Range Interpretation Comme nts CREATININE, URINE, CONC. (te st code = 2072) 85.5 MG/DL ALBUMIN, URINE, RANDOM (test code = 31329) 5.1 MG/DL CALC ALBUMIN/CREAT, RND (mariola t code = 26203) 60 MG/G Jc Millan AkinCBC W/AUTO [id number] 00:00:00* Test Item Value Reference Range Interpretation Comme nts WBC (test code = 1001) 14.0 K/UL RBC (test code = 1002) 5.39 M/UL HEMOGLOBIN (test code = 1003) 15.4 G/DL HEMATOCRIT (test code = 1004) 47.0 % MCV (test code = 1005) 87.2 fL MCH (test code = 1006) 28.6 PG MCHC (test code = 1007) 32.8 G/DL RDW (test code = 1038) 13.3 % NEUTROPHILS (test code = 1008) 61.1 % LYMPHOCYTES (test code = 1010) 30.9 % MONOCYTES (test code = 1011) 4.6 % EOSINOPHILS (test code = 1012) 2.4 % BASOPHILS (test code = 1013) 0.6 % IMMATURE GRANULOCYTES (test code = 1036) 0.4 % NUCLEATED RBCS (test code = 1065) 0.0 /100WBC'S PLATELET COUNT (test code = 1015) 218 K/UL ABSOLUTE NEUTROPHILS (test c ode = 1066) 8.54 K/UL ABSOLUTE LYMPHOCYTES (test c ode = 1067) 4.32 K/UL ABSOLUTE MONOCYTES (test cod e = 1068) 0.64 K/UL ABSOLUTE EOSINOPHILS (test c ode = 1040) 0.33 K/UL ABSOLUTE BASOPHILS (test cod e = 1069) 0.08 K/UL ABS IMMATURE GRANULOCYTES (t est code = 1020) 0.05 K/UL ABS NUCLEATED RBCS (test cod e = 19095) 0.00 K/UL Jc GerardoHEMOGLOBIN [id number] 00:00:00* Test Item Value Reference Range Interpretation Comme nts HEMOGLOBIN A1c (test code = 51061) 9.3 % Jc GerardoCOMPREHENSIVE METABOLIC [id number] 00:00:00* Test Item Value Reference Range Interpretation Comme nts GLUCOSE (test code = 2217) 135 MG/DL BUN (test code = 2208) 10 MG/DL CREATININE (test code = 2214) 0.64 MG/DL eGFR (2020 CKD-EPI) (test co de = 98431) 97 ML/MIN/1.73 CALC BUN/CREAT (test code = 2235) 16 RATIO SODIUM (test code = 2231) 145 MEQ/L POTASSIUM (test code = 2228) 4.5 MEQ/L CHLORIDE (test code = 2215) 109 MEQ/L CARBON DIOXIDE (test code = 2206) 26 MEQ/L CALCIUM (test code = 2209) 10.0 MG/DL PROTEIN, TOTAL (test code = 2229) 6.6 G/DL ALBUMIN (test code = 2201) 3.7 G/DL CALC GLOBULIN (test code = 2240) 2.9 G/DL CALC A/G RATIO (test code = 2234) 1.3 RATIO BILIRUBIN, TOTAL (test code = 2207) 0.5 MG/DL ALKALINE PHOSPHATASE (test code = 2204) 196 U/L AST (test code = 2218) 27 U/L ALT (test code = 2219) 23 U/L Jc GerardoLIPID [id number] 00:00:00* Test Item Value Reference Range Interpretation Comme nts CHOLESTEROL (test code = 2210) 140 MG/DL TRIGLYCERIDES (test code = 2232) 83 MG/DL HDL CHOLESTEROL (test code = 2220) 40 MG/DL CALC LDL CHOL (test code = 2237) 83 MG/DL RISK RATIO LDL/HDL (test cod e = 2238) 2.08 RATIO Jc GerardoURINALYSIS W/REFLEX [id number] 00:00:00* Test Item Value Reference Range Interpretation Comme nts COLOR (test code = 1501) YELLOW APPEARANCE (test code = 1502) CLOUDY SPECIFIC GRAVITY (test code = 1503) 1.015 LEUKOCYTE ESTERASE (test cod e = 1504) 3+ NITRITE (test code = 1505) NEGATIVE pH (test code = 1506) 7.5 PROTEIN (test code = 1507) 1+ GLUCOSE (test code = 1508) 4+ KETONES (test code = 1509) NEGATIVE UROBILINOGEN (test code = 1510) <2.0 MG/DL BILIRUBIN (test code = 1511) NEGATIVE OCCULT BLOOD (test code = 1512) 2+ WHITE BLOOD CELLS (test code = 1513) 16-20 /HPF RED BLOOD CELLS (test code = 1514) 3-5 /HPF EPITHELIAL CELLS (test code = 32754) 0-5 /HPF BACTERIA (test code = 1515) 2+ CRYSTALS (test code = 1516) PRESENT CASTS, HYALINE (test code = 1517) NONE SEEN OTHER (test code = 1518) PRESENT Jc GerardoALBUMIN/CREATININE RATIO, RANDOM [id number] 00:00:00* Test Item Value Reference Range Interpretation Comme nts CREATININE, URINE, CONC. (te st code = 2072) 85.5 MG/DL ALBUMIN, URINE, RANDOM (test code = 82299) 5.1 MG/DL CALC ALBUMIN/CREAT, RND (mariola t code = 75124) 60 MG/G Jc GerardoCBC W/AUTO [id number] 00:00:00* Test Item Value Reference Range Interpretation Comme nts WBC (test code = 1001) 14.0 K/UL RBC (test code = 1002) 5.39 M/UL HEMOGLOBIN (test code = 1003) 15.4 G/DL HEMATOCRIT (test code = 1004) 47.0 % MCV (test code = 1005) 87.2 fL MCH (test code = 1006) 28.6 PG MCHC (test code = 1007) 32.8 G/DL RDW (test code = 1038) 13.3 % NEUTROPHILS (test code = 1008) 61.1 % LYMPHOCYTES (test code = 1010) 30.9 % MONOCYTES (test code = 1011) 4.6 % EOSINOPHILS (test code = 1012) 2.4 % BASOPHILS (test code = 1013) 0.6 % IMMATURE GRANULOCYTES (test code = 1036) 0.4 % NUCLEATED RBCS (test code = 1065) 0.0 /100WBC'S PLATELET COUNT (test code = 1015) 218 K/UL ABSOLUTE NEUTROPHILS (test c ode = 1066) 8.54 K/UL ABSOLUTE LYMPHOCYTES (test c ode = 1067) 4.32 K/UL ABSOLUTE MONOCYTES (test cod e = 1068) 0.64 K/UL ABSOLUTE EOSINOPHILS (test c ode = 1040) 0.33 K/UL ABSOLUTE BASOPHILS (test cod e = 1069) 0.08 K/UL ABS IMMATURE GRANULOCYTES (t est code = 1020) 0.05 K/UL ABS NUCLEATED RBCS (test cod e = 74668) 0.00 K/UL Jc GerardoHEMOGLOBIN [id number] 00:00:00* Test Item Value Reference Range Interpretation Comme nts HEMOGLOBIN A1c (test code = 18439) 9.3 % Jc Millan AkinCOMPREHENSIVE METABOLIC [id number] 00:00:00* Test Item Value Reference Range Interpretation Comme nts GLUCOSE (test code = 2217) 135 MG/DL BUN (test code = 2208) 10 MG/DL CREATININE (test code = 2214) 0.64 MG/DL eGFR (2020 CKD-EPI) (test co de = 52942) 97 ML/MIN/1.73 CALC BUN/CREAT (test code = 2235) 16 RATIO SODIUM (test code = 2231) 145 MEQ/L POTASSIUM (test code = 2228) 4.5 MEQ/L CHLORIDE (test code = 2215) 109 MEQ/L CARBON DIOXIDE (test code = 2206) 26 MEQ/L CALCIUM (test code = 2209) 10.0 MG/DL PROTEIN, TOTAL (test code = 2229) 6.6 G/DL ALBUMIN (test code = 2201) 3.7 G/DL CALC GLOBULIN (test code = 2240) 2.9 G/DL CALC A/G RATIO (test code = 2234) 1.3 RATIO BILIRUBIN, TOTAL (test code = 2207) 0.5 MG/DL ALKALINE PHOSPHATASE (test code = 2204) 196 U/L AST (test code = 2218) 27 U/L ALT (test code = 2219) 23 U/L Jc GerardoLIPID [id number] 00:00:00* Test Item Value Reference Range Interpretation Comme nts CHOLESTEROL (test code = 2210) 140 MG/DL TRIGLYCERIDES (test code = 2232) 83 MG/DL HDL CHOLESTEROL (test code = 2220) 40 MG/DL CALC LDL CHOL (test code = 2237) 83 MG/DL RISK RATIO LDL/HDL (test cod e = 2238) 2.08 RATIO Jc Millan AkinURINALYSIS W/REFLEX [id number] 00:00:00* Test Item Value Reference Range Interpretation Comme nts COLOR (test code = 1501) YELLOW APPEARANCE (test code = 1502) CLOUDY SPECIFIC GRAVITY (test code = 1503) 1.015 LEUKOCYTE ESTERASE (test cod e = 1504) 3+ NITRITE (test code = 1505) NEGATIVE pH (test code = 1506) 7.5 PROTEIN (test code = 1507) 1+ GLUCOSE (test code = 1508) 4+ KETONES (test code = 1509) NEGATIVE UROBILINOGEN (test code = 1510) <2.0 MG/DL BILIRUBIN (test code = 1511) NEGATIVE OCCULT BLOOD (test code = 1512) 2+ WHITE BLOOD CELLS (test code = 1513) 16-20 /HPF RED BLOOD CELLS (test code = 1514) 3-5 /HPF EPITHELIAL CELLS (test code = 18016) 0-5 /HPF BACTERIA (test code = 1515) 2+ CRYSTALS (test code = 1516) PRESENT CASTS, HYALINE (test code = 1517) NONE SEEN OTHER (test code = 1518) PRESENT Jc Millan AkinALBUMIN/CREATININE RATIO, RANDOM [id number] 00:00:00* Test Item Value Reference Range Interpretation Comme nts CREATININE, URINE, CONC. (te st code = 2072) 85.5 MG/DL ALBUMIN, URINE, RANDOM (test code = 69454) 5.1 MG/DL CALC ALBUMIN/CREAT, RND (mariola t code = 00043) 60 MG/G Jc GerardoCBC W/AUTO [id number] 00:00:00* Test Item Value Reference Range Interpretation Comme nts WBC (test code = 1001) 14.0 K/UL RBC (test code = 1002) 5.39 M/UL HEMOGLOBIN (test code = 1003) 15.4 G/DL HEMATOCRIT (test code = 1004) 47.0 % MCV (test code = 1005) 87.2 fL MCH (test code = 1006) 28.6 PG MCHC (test code = 1007) 32.8 G/DL RDW (test code = 1038) 13.3 % NEUTROPHILS (test code = 1008) 61.1 % LYMPHOCYTES (test code = 1010) 30.9 % MONOCYTES (test code = 1011) 4.6 % EOSINOPHILS (test code = 1012) 2.4 % BASOPHILS (test code = 1013) 0.6 % IMMATURE GRANULOCYTES (test code = 1036) 0.4 % NUCLEATED RBCS (test code = 1065) 0.0 /100WBC'S PLATELET COUNT (test code = 1015) 218 K/UL ABSOLUTE NEUTROPHILS (test c ode = 1066) 8.54 K/UL ABSOLUTE LYMPHOCYTES (test c ode = 1067) 4.32 K/UL ABSOLUTE MONOCYTES (test cod e = 1068) 0.64 K/UL ABSOLUTE EOSINOPHILS (test c ode = 1040) 0.33 K/UL ABSOLUTE BASOPHILS (test cod e = 1069) 0.08 K/UL ABS IMMATURE GRANULOCYTES (t est code = 1020) 0.05 K/UL ABS NUCLEATED RBCS (test cod e = 80809) 0.00 K/UL Jc GerardoHEMOGLOBIN [id number] 00:00:00* Test Item Value Reference Range Interpretation Comme nts HEMOGLOBIN A1c (test code = 10509) 9.3 % Jc GerardoCOMPREHENSIVE METABOLIC [id number] 00:00:00* Test Item Value Reference Range Interpretation Comme nts GLUCOSE (test code = 2217) 135 MG/DL BUN (test code = 2208) 10 MG/DL CREATININE (test code = 2214) 0.64 MG/DL eGFR (2020 CKD-EPI) (test co de = 51861) 97 ML/MIN/1.73 CALC BUN/CREAT (test code = 2235) 16 RATIO SODIUM (test code = 2231) 145 MEQ/L POTASSIUM (test code = 2228) 4.5 MEQ/L CHLORIDE (test code = 2215) 109 MEQ/L CARBON DIOXIDE (test code = 2206) 26 MEQ/L CALCIUM (test code = 2209) 10.0 MG/DL PROTEIN, TOTAL (test code = 2229) 6.6 G/DL ALBUMIN (test code = 2201) 3.7 G/DL CALC GLOBULIN (test code = 2240) 2.9 G/DL CALC A/G RATIO (test code = 2234) 1.3 RATIO BILIRUBIN, TOTAL (test code = 2207) 0.5 MG/DL ALKALINE PHOSPHATASE (test code = 2204) 196 U/L AST (test code = 2218) 27 U/L ALT (test code = 2219) 23 U/L Jc F AustinLIPID [id number] 00:00:00* Test Item Value Reference Range Interpretation Comme nts CHOLESTEROL (test code = 2210) 140 MG/DL TRIGLYCERIDES (test code = 2232) 83 MG/DL HDL CHOLESTEROL (test code = 2220) 40 MG/DL CALC LDL CHOL (test code = 2237) 83 MG/DL RISK RATIO LDL/HDL (test cod e = 2238) 2.08 RATIO Jc Millan AustinURINALYSIS W/REFLEX [id number] 00:00:00* Test Item Value Reference Range Interpretation Comme nts COLOR (test code = 1501) YELLOW APPEARANCE (test code = 1502) CLOUDY SPECIFIC GRAVITY (test code = 1503) 1.015 LEUKOCYTE ESTERASE (test cod e = 1504) 3+ NITRITE (test code = 1505) NEGATIVE pH (test code = 1506) 7.5 PROTEIN (test code = 1507) 1+ GLUCOSE (test code = 1508) 4+ KETONES (test code = 1509) NEGATIVE UROBILINOGEN (test code = 1510) <2.0 MG/DL BILIRUBIN (test code = 1511) NEGATIVE OCCULT BLOOD (test code = 1512) 2+ WHITE BLOOD CELLS (test code = 1513) 16-20 /HPF RED BLOOD CELLS (test code = 1514) 3-5 /HPF EPITHELIAL CELLS (test code = 95106) 0-5 /HPF BACTERIA (test code = 1515) 2+ CRYSTALS (test code = 1516) PRESENT CASTS, HYALINE (test code = 1517) NONE SEEN OTHER (test code = 1518) PRESENT Jc GerardoALBUMIN/CREATININE RATIO, RANDOM [id number] 00:00:00* Test Item Value Reference Range Interpretation Comme nts CREATININE, URINE, CONC. (te st code = 2072) 85.5 MG/DL ALBUMIN, URINE, RANDOM (test code = 52111) 5.1 MG/DL CALC ALBUMIN/CREAT, RND (mariola t code = 43656) 60 MG/G Jc GerardoCBC W/AUTO [id number] 00:00:00* Test Item Value Reference Range Interpretation Comme nts WBC (test code = 1001) 14.0 K/UL RBC (test code = 1002) 5.39 M/UL HEMOGLOBIN (test code = 1003) 15.4 G/DL HEMATOCRIT (test code = 1004) 47.0 % MCV (test code = 1005) 87.2 fL MCH (test code = 1006) 28.6 PG MCHC (test code = 1007) 32.8 G/DL RDW (test code = 1038) 13.3 % NEUTROPHILS (test code = 1008) 61.1 % LYMPHOCYTES (test code = 1010) 30.9 % MONOCYTES (test code = 1011) 4.6 % EOSINOPHILS (test code = 1012) 2.4 % BASOPHILS (test code = 1013) 0.6 % IMMATURE GRANULOCYTES (test code = 1036) 0.4 % NUCLEATED RBCS (test code = 1065) 0.0 /100WBC'S PLATELET COUNT (test code = 1015) 218 K/UL ABSOLUTE NEUTROPHILS (test c ode = 1066) 8.54 K/UL ABSOLUTE LYMPHOCYTES (test c ode = 1067) 4.32 K/UL ABSOLUTE MONOCYTES (test cod e = 1068) 0.64 K/UL ABSOLUTE EOSINOPHILS (test c ode = 1040) 0.33 K/UL ABSOLUTE BASOPHILS (test cod e = 1069) 0.08 K/UL ABS IMMATURE GRANULOCYTES (t est code = 1020) 0.05 K/UL ABS NUCLEATED RBCS (test cod e = 27104) 0.00 K/UL Jc GerardoHEMOGLOBIN [id number] 00:00:00* Test Item Value Reference Range Interpretation Comme nts HEMOGLOBIN A1c (test code = 76224) 9.3 % Jc GerardoCOMPREHENSIVE METABOLIC [id number] 00:00:00* Test Item Value Reference Range Interpretation Comme nts GLUCOSE (test code = 2217) 135 MG/DL BUN (test code = 2208) 10 MG/DL CREATININE (test code = 2214) 0.64 MG/DL eGFR (2020 CKD-EPI) (test co de = 69738) 97 ML/MIN/1.73 CALC BUN/CREAT (test code = 2235) 16 RATIO SODIUM (test code = 2231) 145 MEQ/L POTASSIUM (test code = 2228) 4.5 MEQ/L CHLORIDE (test code = 2215) 109 MEQ/L CARBON DIOXIDE (test code = 2206) 26 MEQ/L CALCIUM (test code = 2209) 10.0 MG/DL PROTEIN, TOTAL (test code = 2229) 6.6 G/DL ALBUMIN (test code = 2201) 3.7 G/DL CALC GLOBULIN (test code = 2240) 2.9 G/DL CALC A/G RATIO (test code = 2234) 1.3 RATIO BILIRUBIN, TOTAL (test code = 2207) 0.5 MG/DL ALKALINE PHOSPHATASE (test code = 2204) 196 U/L AST (test code = 2218) 27 U/L ALT (test code = 2219) 23 U/L Jc GerardoLIPID [id number] 00:00:00* Test Item Value Reference Range Interpretation Comme nts CHOLESTEROL (test code = 2210) 140 MG/DL TRIGLYCERIDES (test code = 2232) 83 MG/DL HDL CHOLESTEROL (test code = 2220) 40 MG/DL CALC LDL CHOL (test code = 2237) 83 MG/DL RISK RATIO LDL/HDL (test cod e = 2238) 2.08 RATIO Jc Millan AustinURINALYSIS W/REFLEX [id number] 00:00:00* Test Item Value Reference Range Interpretation Comme nts COLOR (test code = 1501) YELLOW APPEARANCE (test code = 1502) CLOUDY SPECIFIC GRAVITY (test code = 1503) 1.015 LEUKOCYTE ESTERASE (test cod e = 1504) 3+ NITRITE (test code = 1505) NEGATIVE pH (test code = 1506) 7.5 PROTEIN (test code = 1507) 1+ GLUCOSE (test code = 1508) 4+ KETONES (test code = 1509) NEGATIVE UROBILINOGEN (test code = 1510) <2.0 MG/DL BILIRUBIN (test code = 1511) NEGATIVE OCCULT BLOOD (test code = 1512) 2+ WHITE BLOOD CELLS (test code = 1513) 16-20 /HPF RED BLOOD CELLS (test code = 1514) 3-5 /HPF EPITHELIAL CELLS (test code = 76036) 0-5 /HPF BACTERIA (test code = 1515) 2+ CRYSTALS (test code = 1516) PRESENT CASTS, HYALINE (test code = 1517) NONE SEEN OTHER (test code = 1518) PRESENT Jc Millan AkinALBUMIN/CREATININE RATIO, RANDOM [id number] 00:00:00* Test Item Value Reference Range Interpretation Comme nts CREATININE, URINE, CONC. (te st code = 2072) 85.5 MG/DL ALBUMIN, URINE, RANDOM (test code = 44502) 5.1 MG/DL CALC ALBUMIN/CREAT, RND (mariola t code = 06065) 60 MG/G Jc GerardoCBC W/AUTO [id number] 00:00:00* Test Item Value Reference Range Interpretation Comme nts WBC (test code = 1001) 14.0 K/UL RBC (test code = 1002) 5.39 M/UL HEMOGLOBIN (test code = 1003) 15.4 G/DL HEMATOCRIT (test code = 1004) 47.0 % MCV (test code = 1005) 87.2 fL MCH (test code = 1006) 28.6 PG MCHC (test code = 1007) 32.8 G/DL RDW (test code = 1038) 13.3 % NEUTROPHILS (test code = 1008) 61.1 % LYMPHOCYTES (test code = 1010) 30.9 % MONOCYTES (test code = 1011) 4.6 % EOSINOPHILS (test code = 1012) 2.4 % BASOPHILS (test code = 1013) 0.6 % IMMATURE GRANULOCYTES (test code = 1036) 0.4 % NUCLEATED RBCS (test code = 1065) 0.0 /100WBC'S PLATELET COUNT (test code = 1015) 218 K/UL ABSOLUTE NEUTROPHILS (test c ode = 1066) 8.54 K/UL ABSOLUTE LYMPHOCYTES (test c ode = 1067) 4.32 K/UL ABSOLUTE MONOCYTES (test cod e = 1068) 0.64 K/UL ABSOLUTE EOSINOPHILS (test c ode = 1040) 0.33 K/UL ABSOLUTE BASOPHILS (test cod e = 1069) 0.08 K/UL ABS IMMATURE GRANULOCYTES (t est code = 1020) 0.05 K/UL ABS NUCLEATED RBCS (test cod e = 55537) 0.00 K/UL Jc GerardoHEMOGLOBIN [id number] 00:00:00* Test Item Value Reference Range Interpretation Comme nts HEMOGLOBIN A1c (test code = 19868) 9.3 % Jc GerardoCOMPREHENSIVE METABOLIC [id number] 00:00:00* Test Item Value Reference Range Interpretation Comme nts GLUCOSE (test code = 2217) 135 MG/DL BUN (test code = 2208) 10 MG/DL CREATININE (test code = 2214) 0.64 MG/DL eGFR (2020 CKD-EPI) (test co de = 53139) 97 ML/MIN/1.73 CALC BUN/CREAT (test code = 2235) 16 RATIO SODIUM (test code = 2231) 145 MEQ/L POTASSIUM (test code = 2228) 4.5 MEQ/L CHLORIDE (test code = 2215) 109 MEQ/L CARBON DIOXIDE (test code = 2206) 26 MEQ/L CALCIUM (test code = 2209) 10.0 MG/DL PROTEIN, TOTAL (test code = 2229) 6.6 G/DL ALBUMIN (test code = 2201) 3.7 G/DL CALC GLOBULIN (test code = 2240) 2.9 G/DL CALC A/G RATIO (test code = 2234) 1.3 RATIO BILIRUBIN, TOTAL (test code = 2207) 0.5 MG/DL ALKALINE PHOSPHATASE (test code = 2204) 196 U/L AST (test code = 2218) 27 U/L ALT (test code = 2219) 23 U/L Jc GerardoLIPID [id number] 00:00:00* Test Item Value Reference Range Interpretation Comme nts CHOLESTEROL (test code = 2210) 140 MG/DL TRIGLYCERIDES (test code = 2232) 83 MG/DL HDL CHOLESTEROL (test code = 2220) 40 MG/DL CALC LDL CHOL (test code = 2237) 83 MG/DL RISK RATIO LDL/HDL (test cod e = 2238) 2.08 RATIO Jc Millan AustinURINALYSIS W/REFLEX [id number] 00:00:00* Test Item Value Reference Range Interpretation Comme nts COLOR (test code = 1501) YELLOW APPEARANCE (test code = 1502) CLOUDY SPECIFIC GRAVITY (test code = 1503) 1.015 LEUKOCYTE ESTERASE (test cod e = 1504) 3+ NITRITE (test code = 1505) NEGATIVE pH (test code = 1506) 7.5 PROTEIN (test code = 1507) 1+ GLUCOSE (test code = 1508) 4+ KETONES (test code = 1509) NEGATIVE UROBILINOGEN (test code = 1510) <2.0 MG/DL BILIRUBIN (test code = 1511) NEGATIVE OCCULT BLOOD (test code = 1512) 2+ WHITE BLOOD CELLS (test code = 1513) 16-20 /HPF RED BLOOD CELLS (test code = 1514) 3-5 /HPF EPITHELIAL CELLS (test code = 98640) 0-5 /HPF BACTERIA (test code = 1515) 2+ CRYSTALS (test code = 1516) PRESENT CASTS, HYALINE (test code = 1517) NONE SEEN OTHER (test code = 1518) PRESENT Jc Millan AustinALBUMIN/CREATININE RATIO, RANDOM [id number] 00:00:00* Test Item Value Reference Range Interpretation Comme nts CREATININE, URINE, CONC. (te st code = 2072) 85.5 MG/DL ALBUMIN, URINE, RANDOM (test code = 00108) 5.1 MG/DL CALC ALBUMIN/CREAT, RND (mariola t code = 75503) 60 MG/G Jc Millan AustinCBC W/AUTO [id number] 00:00:00* Test Item Value Reference Range Interpretation Comme nts WBC (test code = 1001) 14.0 K/UL RBC (test code = 1002) 5.39 M/UL HEMOGLOBIN (test code = 1003) 15.4 G/DL HEMATOCRIT (test code = 1004) 47.0 % MCV (test code = 1005) 87.2 fL MCH (test code = 1006) 28.6 PG MCHC (test code = 1007) 32.8 G/DL RDW (test code = 1038) 13.3 % NEUTROPHILS (test code = 1008) 61.1 % LYMPHOCYTES (test code = 1010) 30.9 % MONOCYTES (test code = 1011) 4.6 % EOSINOPHILS (test code = 1012) 2.4 % BASOPHILS (test code = 1013) 0.6 % IMMATURE GRANULOCYTES (test code = 1036) 0.4 % NUCLEATED RBCS (test code = 1065) 0.0 /100WBC'S PLATELET COUNT (test code = 1015) 218 K/UL ABSOLUTE NEUTROPHILS (test c ode = 1066) 8.54 K/UL ABSOLUTE LYMPHOCYTES (test c ode = 1067) 4.32 K/UL ABSOLUTE MONOCYTES (test cod e = 1068) 0.64 K/UL ABSOLUTE EOSINOPHILS (test c ode = 1040) 0.33 K/UL ABSOLUTE BASOPHILS (test cod e = 1069) 0.08 K/UL ABS IMMATURE GRANULOCYTES (t est code = 1020) 0.05 K/UL ABS NUCLEATED RBCS (test cod e = 50819) 0.00 K/UL Jc GerardoHEMOGLOBIN [id number] 00:00:00* Test Item Value Reference Range Interpretation Comme nts HEMOGLOBIN A1c (test code = 02606) 9.3 % Jc GerardoCOMPREHENSIVE METABOLIC [id number] 00:00:00* Test Item Value Reference Range Interpretation Comme nts GLUCOSE (test code = 2217) 135 MG/DL BUN (test code = 2208) 10 MG/DL CREATININE (test code = 2214) 0.64 MG/DL eGFR (2020 CKD-EPI) (test co de = 37085) 97 ML/MIN/1.73 CALC BUN/CREAT (test code = 2235) 16 RATIO SODIUM (test code = 2231) 145 MEQ/L POTASSIUM (test code = 2228) 4.5 MEQ/L CHLORIDE (test code = 2215) 109 MEQ/L CARBON DIOXIDE (test code = 2206) 26 MEQ/L CALCIUM (test code = 2209) 10.0 MG/DL PROTEIN, TOTAL (test code = 2229) 6.6 G/DL ALBUMIN (test code = 2201) 3.7 G/DL CALC GLOBULIN (test code = 2240) 2.9 G/DL CALC A/G RATIO (test code = 2234) 1.3 RATIO BILIRUBIN, TOTAL (test code = 2207) 0.5 MG/DL ALKALINE PHOSPHATASE (test code = 2204) 196 U/L AST (test code = 2218) 27 U/L ALT (test code = 2219) 23 U/L Jc GerardoLIPID [id number] 00:00:00* Test Item Value Reference Range Interpretation Comme nts CHOLESTEROL (test code = 2210) 140 MG/DL TRIGLYCERIDES (test code = 2232) 83 MG/DL HDL CHOLESTEROL (test code = 2220) 40 MG/DL CALC LDL CHOL (test code = 2237) 83 MG/DL RISK RATIO LDL/HDL (test cod e = 2238) 2.08 RATIO Jc Millan AustinURINALYSIS W/REFLEX [id number] 00:00:00* Test Item Value Reference Range Interpretation Comme nts COLOR (test code = 1501) YELLOW APPEARANCE (test code = 1502) CLOUDY SPECIFIC GRAVITY (test code = 1503) 1.015 LEUKOCYTE ESTERASE (test cod e = 1504) 3+ NITRITE (test code = 1505) NEGATIVE pH (test code = 1506) 7.5 PROTEIN (test code = 1507) 1+ GLUCOSE (test code = 1508) 4+ KETONES (test code = 1509) NEGATIVE UROBILINOGEN (test code = 1510) <2.0 MG/DL BILIRUBIN (test code = 1511) NEGATIVE OCCULT BLOOD (test code = 1512) 2+ WHITE BLOOD CELLS (test code = 1513) 16-20 /HPF RED BLOOD CELLS (test code = 1514) 3-5 /HPF EPITHELIAL CELLS (test code = 65411) 0-5 /HPF BACTERIA (test code = 1515) 2+ CRYSTALS (test code = 1516) PRESENT CASTS, HYALINE (test code = 1517) NONE SEEN OTHER (test code = 1518) PRESENT Jc GerardoALBUMIN/CREATININE RATIO, RANDOM [id number] 00:00:00* Test Item Value Reference Range Interpretation Comme nts CREATININE, URINE, CONC. (te st code = 2071) 85.5 MG/DL ALBUMIN, URINE, RANDOM (test code = 70282) 5.1 MG/DL CALC ALBUMIN/CREAT, RND (mariola t code = 82690) 60 MG/G Jc GerardoCBC W/AUTO [id number] 00:00:00* Test Item Value Reference Range Interpretation Comme nts WBC (test code = 1001) 14.0 K/UL RBC (test code = 1002) 5.39 M/UL HEMOGLOBIN (test code = 1003) 15.4 G/DL HEMATOCRIT (test code = 1004) 47.0 % MCV (test code = 1005) 87.2 fL MCH (test code = 1006) 28.6 PG MCHC (test code = 1007) 32.8 G/DL RDW (test code = 1038) 13.3 % NEUTROPHILS (test code = 1008) 61.1 % LYMPHOCYTES (test code = 1010) 30.9 % MONOCYTES (test code = 1011) 4.6 % EOSINOPHILS (test code = 1012) 2.4 % BASOPHILS (test code = 1013) 0.6 % IMMATURE GRANULOCYTES (test code = 1036) 0.4 % NUCLEATED RBCS (test code = 1065) 0.0 /100WBC'S PLATELET COUNT (test code = 1015) 218 K/UL ABSOLUTE NEUTROPHILS (test c ode = 1066) 8.54 K/UL ABSOLUTE LYMPHOCYTES (test c ode = 1067) 4.32 K/UL ABSOLUTE MONOCYTES (test cod e = 1068) 0.64 K/UL ABSOLUTE EOSINOPHILS (test c ode = 1040) 0.33 K/UL ABSOLUTE BASOPHILS (test cod e = 1069) 0.08 K/UL ABS IMMATURE GRANULOCYTES (t est code = 1020) 0.05 K/UL ABS NUCLEATED RBCS (test cod e = 69880) 0.00 K/UL Jc GerardoHEMOGLOBIN [id number] 00:00:00* Test Item Value Reference Range Interpretation Comme nts HEMOGLOBIN A1c (test code = 62994) 9.3 % Jc GerardoCOMPREHENSIVE METABOLIC [id number] 00:00:00* Test Item Value Reference Range Interpretation Comme nts GLUCOSE (test code = 2217) 135 MG/DL BUN (test code = 2208) 10 MG/DL CREATININE (test code = 2214) 0.64 MG/DL eGFR (2020 CKD-EPI) (test co de = 33008) 97 ML/MIN/1.73 CALC BUN/CREAT (test code = 2235) 16 RATIO SODIUM (test code = 2231) 145 MEQ/L POTASSIUM (test code = 2228) 4.5 MEQ/L CHLORIDE (test code = 2215) 109 MEQ/L CARBON DIOXIDE (test code = 2206) 26 MEQ/L CALCIUM (test code = 2209) 10.0 MG/DL PROTEIN, TOTAL (test code = 2229) 6.6 G/DL ALBUMIN (test code = 2201) 3.7 G/DL CALC GLOBULIN (test code = 2240) 2.9 G/DL CALC A/G RATIO (test code = 2234) 1.3 RATIO BILIRUBIN, TOTAL (test code = 2207) 0.5 MG/DL ALKALINE PHOSPHATASE (test code = 2204) 196 U/L AST (test code = 2218) 27 U/L ALT (test code = 2219) 23 U/L Jc Millan AustinLIPID [id number] 00:00:00* Test Item Value Reference Range Interpretation Comme nts CHOLESTEROL (test code = 2210) 140 MG/DL TRIGLYCERIDES (test code = 2232) 83 MG/DL HDL CHOLESTEROL (test code = 2220) 40 MG/DL CALC LDL CHOL (test code = 2237) 83 MG/DL RISK RATIO LDL/HDL (test cod e = 2238) 2.08 RATIO Jc Millan AustinURINALYSIS W/REFLEX [id number] 00:00:00* Test Item Value Reference Range Interpretation Comme nts COLOR (test code = 1501) YELLOW APPEARANCE (test code = 1502) CLOUDY SPECIFIC GRAVITY (test code = 1503) 1.015 LEUKOCYTE ESTERASE (test cod e = 1504) 3+ NITRITE (test code = 1505) NEGATIVE pH (test code = 1506) 7.5 PROTEIN (test code = 1507) 1+ GLUCOSE (test code = 1508) 4+ KETONES (test code = 1509) NEGATIVE UROBILINOGEN (test code = 1510) <2.0 MG/DL BILIRUBIN (test code = 1511) NEGATIVE OCCULT BLOOD (test code = 1512) 2+ WHITE BLOOD CELLS (test code = 1513) 16-20 /HPF RED BLOOD CELLS (test code = 1514) 3-5 /HPF EPITHELIAL CELLS (test code = 97879) 0-5 /HPF BACTERIA (test code = 1515) 2+ CRYSTALS (test code = 1516) PRESENT CASTS, HYALINE (test code = 1517) NONE SEEN OTHER (test code = 1518) PRESENT Jc GerardoCOMPREHENSIVE METABOLIC [id number] 00:00:00* Test Item Value Reference Range Interpretation Comme nts GLUCOSE (test code = 2217) 135 MG/DL BUN (test code = 2208) 10 MG/DL CREATININE (test code = 2214) 0.64 MG/DL eGFR (2020 CKD-EPI) (test co de = 22085) 97 ML/MIN/1.73 CALC BUN/CREAT (test code = 2235) 16 RATIO SODIUM (test code = 2231) 145 MEQ/L POTASSIUM (test code = 2228) 4.5 MEQ/L CHLORIDE (test code = 2215) 109 MEQ/L CARBON DIOXIDE (test code = 2206) 26 MEQ/L CALCIUM (test code = 2209) 10.0 MG/DL PROTEIN, TOTAL (test code = 2229) 6.6 G/DL ALBUMIN (test code = 2201) 3.7 G/DL CALC GLOBULIN (test code = 2240) 2.9 G/DL CALC A/G RATIO (test code = 2234) 1.3 RATIO BILIRUBIN, TOTAL (test code = 2207) 0.5 MG/DL ALKALINE PHOSPHATASE (test code = 2204) 196 U/L AST (test code = 2218) 27 U/L ALT (test code = 2219) 23 U/L Jc Millan AkinALBUMIN/CREATININE RATIO, RANDOM [id number] 00:00:00* Test Item Value Reference Range Interpretation Comme nts CREATININE, URINE, CONC. (te st code = 2072) 85.5 MG/DL ALBUMIN, URINE, RANDOM (test code = 68691) 5.1 MG/DL CALC ALBUMIN/CREAT, RND (mariola t code = 61060) 60 MG/G Jc Millan AkinCBC W/AUTO [id number] 00:00:00* Test Item Value Reference Range Interpretation Comme nts WBC (test code = 1001) 14.0 K/UL RBC (test code = 1002) 5.39 M/UL HEMOGLOBIN (test code = 1003) 15.4 G/DL HEMATOCRIT (test code = 1004) 47.0 % MCV (test code = 1005) 87.2 fL MCH (test code = 1006) 28.6 PG MCHC (test code = 1007) 32.8 G/DL RDW (test code = 1038) 13.3 % NEUTROPHILS (test code = 1008) 61.1 % LYMPHOCYTES (test code = 1010) 30.9 % MONOCYTES (test code = 1011) 4.6 % EOSINOPHILS (test code = 1012) 2.4 % BASOPHILS (test code = 1013) 0.6 % IMMATURE GRANULOCYTES (test code = 1036) 0.4 % NUCLEATED RBCS (test code = 1065) 0.0 /100WBC'S PLATELET COUNT (test code = 1015) 218 K/UL ABSOLUTE NEUTROPHILS (test c ode = 1066) 8.54 K/UL ABSOLUTE LYMPHOCYTES (test c ode = 1067) 4.32 K/UL ABSOLUTE MONOCYTES (test cod e = 1068) 0.64 K/UL ABSOLUTE EOSINOPHILS (test c ode = 1040) 0.33 K/UL ABSOLUTE BASOPHILS (test cod e = 1069) 0.08 K/UL ABS IMMATURE GRANULOCYTES (t est code = 1020) 0.05 K/UL ABS NUCLEATED RBCS (test cod e = 96642) 0.00 K/UL Jc GearrdoHEMOGLOBIN [id number] 00:00:00* Test Item Value Reference Range Interpretation Comme nts HEMOGLOBIN A1c (test code = 52077) 9.3 % Jc Millan AustinLIPID [id number] 00:00:00* Test Item Value Reference Range Interpretation Comme nts CHOLESTEROL (test code = 2210) 140 MG/DL TRIGLYCERIDES (test code = 2232) 83 MG/DL HDL CHOLESTEROL (test code = 2220) 40 MG/DL CALC LDL CHOL (test code = 2237) 83 MG/DL RISK RATIO LDL/HDL (test cod e = 2238) 2.08 RATIO Jc Millan AustinURINALYSIS W/REFLEX [id number] 00:00:00* Test Item Value Reference Range Interpretation Comme nts COLOR (test code = 1501) YELLOW APPEARANCE (test code = 1502) CLOUDY SPECIFIC GRAVITY (test code = 1503) 1.015 LEUKOCYTE ESTERASE (test cod e = 1504) 3+ NITRITE (test code = 1505) NEGATIVE pH (test code = 1506) 7.5 PROTEIN (test code = 1507) 1+ GLUCOSE (test code = 1508) 4+ KETONES (test code = 1509) NEGATIVE UROBILINOGEN (test code = 1510) <2.0 MG/DL BILIRUBIN (test code = 1511) NEGATIVE OCCULT BLOOD (test code = 1512) 2+ WHITE BLOOD CELLS (test code = 1513) 16-20 /HPF RED BLOOD CELLS (test code = 1514) 3-5 /HPF EPITHELIAL CELLS (test code = 25787) 0-5 /HPF BACTERIA (test code = 1515) 2+ CRYSTALS (test code = 1516) PRESENT CASTS, HYALINE (test code = 1517) NONE SEEN OTHER (test code = 1518) PRESENT Jc GerardoALBUMIN/CREATININE RATIO, RANDOM [id number] 00:00:00* Test Item Value Reference Range Interpretation Comme nts CREATININE, URINE, CONC. (te st code = 207) 85.5 MG/DL ALBUMIN, URINE, RANDOM (test code = 88571) 5.1 MG/DL CALC ALBUMIN/CREAT, RND (mariola t code = 48930) 60 MG/G Jc Millan AkinCOMPREHENSIVE METABOLIC [id number] 00:00:00* Test Item Value Reference Range Interpretation Comme nts GLUCOSE (test code = 2217) 248 MG/DL BUN (test code = 2208) 7 MG/DL CREATININE (test code = 2214) 0.50 MG/DL eGFR AMER. (test cod e = 27994) 119 ML/MIN/1.73 eGFR NON- AMER. (test code = 34162) 103 ML/MIN/1.73 CALC BUN/CREAT (test code = 2235) 14 RATIO SODIUM (test code = 2231) 140 MEQ/L POTASSIUM (test code = 2228) 4.3 MEQ/L CHLORIDE (test code = 2215) 103 MEQ/L CARBON DIOXIDE (test code = 2206) 24 MEQ/L CALCIUM (test code = 2209) 9.9 MG/DL PROTEIN, TOTAL (test code = 2229) 6.9 G/DL ALBUMIN (test code = 2201) 4.1 G/DL CALC GLOBULIN (test code = 2240) 2.8 G/DL CALC A/G RATIO (test code = 2234) 1.5 RATIO BILIRUBIN, TOTAL (test code = 2207) 0.6 MG/DL ALKALINE PHOSPHATASE (test code = 2204) 214 U/L AST (test code = 2218) 27 U/L ALT (test code = 2219) 27 U/L Jc GerardoCBC W/AUTO [id number] 00:00:00* Test Item Value Reference Range Interpretation Comme nts WBC (test code = 1001) 11.5 K/UL RBC (test code = 1002) 5.65 M/UL HEMOGLOBIN (test code = 1003) 16.1 G/DL HEMATOCRIT (test code = 1004) 48.1 % MCV (test code = 1005) 85.1 fL MCH (test code = 1006) 28.5 PG MCHC (test code = 1007) 33.5 G/DL RDW (test code = 1038) 12.9 % NEUTROPHILS (test code = 1008) 60.7 % LYMPHOCYTES (test code = 1010) 31.3 % MONOCYTES (test code = 1011) 5.4 % EOSINOPHILS (test code = 1012) 2.0 % BASOPHILS (test code = 1013) 0.6 % PLATELET COUNT (test code = 1015) 93 K/UL Jc GerardoHEMOGLOBIN [id number] 00:00:00* Test Item Value Reference Range Interpretation Comme tana HEMOGLOBIN A1c (test code = 05833) 10.3 % Jc GerardoCOMPREHENSIVE METABOLIC [id number] 00:00:00* Test Item Value Reference Range Interpretation Comme nts GLUCOSE (test code = 2217) 248 MG/DL BUN (test code = 2208) 7 MG/DL CREATININE (test code = 2214) 0.50 MG/DL eGFR AMER. (test cod e = 62657) 119 ML/MIN/1.73 eGFR NON- AMER. (test code = 94072) 103 ML/MIN/1.73 CALC BUN/CREAT (test code = 2235) 14 RATIO SODIUM (test code = 2231) 140 MEQ/L POTASSIUM (test code = 2228) 4.3 MEQ/L CHLORIDE (test code = 2215) 103 MEQ/L CARBON DIOXIDE (test code = 2206) 24 MEQ/L CALCIUM (test code = 2209) 9.9 MG/DL PROTEIN, TOTAL (test code = 2229) 6.9 G/DL ALBUMIN (test code = 2201) 4.1 G/DL CALC GLOBULIN (test code = 2240) 2.8 G/DL CALC A/G RATIO (test code = 2234) 1.5 RATIO BILIRUBIN, TOTAL (test code = 2207) 0.6 MG/DL ALKALINE PHOSPHATASE (test code = 2204) 214 U/L AST (test code = 2218) 27 U/L ALT (test code = 2219) 27 U/L Jc GerardoCBC W/AUTO [id number] 00:00:00* Test Item Value Reference Range Interpretation Comme nts WBC (test code = 1001) 11.5 K/UL RBC (test code = 1002) 5.65 M/UL HEMOGLOBIN (test code = 1003) 16.1 G/DL HEMATOCRIT (test code = 1004) 48.1 % MCV (test code = 1005) 85.1 fL MCH (test code = 1006) 28.5 PG MCHC (test code = 1007) 33.5 G/DL RDW (test code = 1038) 12.9 % NEUTROPHILS (test code = 1008) 60.7 % LYMPHOCYTES (test code = 1010) 31.3 % MONOCYTES (test code = 1011) 5.4 % EOSINOPHILS (test code = 1012) 2.0 % BASOPHILS (test code = 1013) 0.6 % PLATELET COUNT (test code = 1015) 93 K/UL Jc GerardoHEMOGLOBIN [id number] 00:00:00* Test Item Value Reference Range Interpretation Comme [facility] HEMOGLOBIN A1c (test code = 92731) 10.3 % Jc GerardoCOMPREHENSIVE METABOLIC [id number] 00:00:00* Test Item Value Reference Range Interpretation Comme [facility] GLUCOSE (test code = 2217) 248 MG/DL BUN (test code = 2208) 7 MG/DL CREATININE (test code = 2214) 0.50 MG/DL eGFR AMER. (test cod e = 11797) 119 ML/MIN/1.73 eGFR NON- AMER. (test code = 88562) 103 ML/MIN/1.73 CALC BUN/CREAT (test code = 2235) 14 RATIO SODIUM (test code = 2231) 140 MEQ/L POTASSIUM (test code = 2228) 4.3 MEQ/L CHLORIDE (test code = 2215) 103 MEQ/L CARBON DIOXIDE (test code = 2206) 24 MEQ/L CALCIUM (test code = 2209) 9.9 MG/DL PROTEIN, TOTAL (test code = 2229) 6.9 G/DL ALBUMIN (test code = 2201) 4.1 G/DL CALC GLOBULIN (test code = 2240) 2.8 G/DL CALC A/G RATIO (test code = 2234) 1.5 RATIO BILIRUBIN, TOTAL (test code = 2207) 0.6 MG/DL ALKALINE PHOSPHATASE (test code = 2204) 214 U/L AST (test code = 2218) 27 U/L ALT (test code = 2219) 27 U/L Jc GerardoCBC W/AUTO [id number] 00:00:00* Test Item Value Reference Range Interpretation Comme nts WBC (test code = 1001) 11.5 K/UL RBC (test code = 1002) 5.65 M/UL HEMOGLOBIN (test code = 1003) 16.1 G/DL HEMATOCRIT (test code = 1004) 48.1 % MCV (test code = 1005) 85.1 fL MCH (test code = 1006) 28.5 PG MCHC (test code = 1007) 33.5 G/DL RDW (test code = 1038) 12.9 % NEUTROPHILS (test code = 1008) 60.7 % LYMPHOCYTES (test code = 1010) 31.3 % MONOCYTES (test code = 1011) 5.4 % EOSINOPHILS (test code = 1012) 2.0 % BASOPHILS (test code = 1013) 0.6 % PLATELET COUNT (test code = 1015) 93 K/UL Jc GerardoHEMOGLOBIN [id number] 00:00:00* Test Item Value Reference Range Interpretation Comme nts HEMOGLOBIN A1c (test code = 67643) 10.3 % Jc GerardoCOMPREHENSIVE METABOLIC [id number] 00:00:00* Test Item Value Reference Range Interpretation Comme nts GLUCOSE (test code = 2217) 248 MG/DL BUN (test code = 2208) 7 MG/DL CREATININE (test code = 2214) 0.50 MG/DL eGFR AMER. (test cod e = 85363) 119 ML/MIN/1.73 eGFR NON- AMER. (test code = 52446) 103 ML/MIN/1.73 CALC BUN/CREAT (test code = 2235) 14 RATIO SODIUM (test code = 2231) 140 MEQ/L POTASSIUM (test code = 2228) 4.3 MEQ/L CHLORIDE (test code = 2215) 103 MEQ/L CARBON DIOXIDE (test code = 2206) 24 MEQ/L CALCIUM (test code = 2209) 9.9 MG/DL PROTEIN, TOTAL (test code = 2229) 6.9 G/DL ALBUMIN (test code = 2201) 4.1 G/DL CALC GLOBULIN (test code = 2240) 2.8 G/DL CALC A/G RATIO (test code = 2234) 1.5 RATIO BILIRUBIN, TOTAL (test code = 2207) 0.6 MG/DL ALKALINE PHOSPHATASE (test code = 2204) 214 U/L AST (test code = 2218) 27 U/L ALT (test code = 2219) 27 U/L Jc GerardoCBC W/AUTO [id number] 00:00:00* Test Item Value Reference Range Interpretation Comme nts WBC (test code = 1001) 11.5 K/UL RBC (test code = 1002) 5.65 M/UL HEMOGLOBIN (test code = 1003) 16.1 G/DL HEMATOCRIT (test code = 1004) 48.1 % MCV (test code = 1005) 85.1 fL MCH (test code = 1006) 28.5 PG MCHC (test code = 1007) 33.5 G/DL RDW (test code = 1038) 12.9 % NEUTROPHILS (test code = 1008) 60.7 % LYMPHOCYTES (test code = 1010) 31.3 % MONOCYTES (test code = 1011) 5.4 % EOSINOPHILS (test code = 1012) 2.0 % BASOPHILS (test code = 1013) 0.6 % PLATELET COUNT (test code = 1015) 93 K/UL Jc GerardoHEMOGLOBIN [id number] 00:00:00* Test Item Value Reference Range Interpretation Comme nts HEMOGLOBIN A1c (test code = 06290) 10.3 % Jc GerardoCOMPREHENSIVE METABOLIC [id number] 00:00:00* Test Item Value Reference Range Interpretation Comme nts GLUCOSE (test code = 2217) 248 MG/DL BUN (test code = 2208) 7 MG/DL CREATININE (test code = 2214) 0.50 MG/DL eGFR AMER. (test cod e = 65626) 119 ML/MIN/1.73 eGFR NON- AMER. (test code = 54562) 103 ML/MIN/1.73 CALC BUN/CREAT (test code = 2235) 14 RATIO SODIUM (test code = 2231) 140 MEQ/L POTASSIUM (test code = 2228) 4.3 MEQ/L CHLORIDE (test code = 2215) 103 MEQ/L CARBON DIOXIDE (test code = 2206) 24 MEQ/L CALCIUM (test code = 2209) 9.9 MG/DL PROTEIN, TOTAL (test code = 2229) 6.9 G/DL ALBUMIN (test code = 2201) 4.1 G/DL CALC GLOBULIN (test code = 2240) 2.8 G/DL CALC A/G RATIO (test code = 2234) 1.5 RATIO BILIRUBIN, TOTAL (test code = 2207) 0.6 MG/DL ALKALINE PHOSPHATASE (test code = 2204) 214 U/L AST (test code = 2218) 27 U/L ALT (test code = 2219) 27 U/L Jc GerardoCBC W/AUTO [id number] 00:00:00* Test Item Value Reference Range Interpretation Comme nts WBC (test code = 1001) 11.5 K/UL RBC (test code = 1002) 5.65 M/UL HEMOGLOBIN (test code = 1003) 16.1 G/DL HEMATOCRIT (test code = 1004) 48.1 % MCV (test code = 1005) 85.1 fL MCH (test code = 1006) 28.5 PG MCHC (test code = 1007) 33.5 G/DL RDW (test code = 1038) 12.9 % NEUTROPHILS (test code = 1008) 60.7 % LYMPHOCYTES (test code = 1010) 31.3 % MONOCYTES (test code = 1011) 5.4 % EOSINOPHILS (test code = 1012) 2.0 % BASOPHILS (test code = 1013) 0.6 % PLATELET COUNT (test code = 1015) 93 K/UL Jc GerardoHEMOGLOBIN [id number] 00:00:00* Test Item Value Reference Range Interpretation Comme nts HEMOGLOBIN A1c (test code = 73873) 10.3 % Jc GerardoCOMPREHENSIVE METABOLIC [id number] 00:00:00* Test Item Value Reference Range Interpretation Comme nts GLUCOSE (test code = 2217) 248 MG/DL BUN (test code = 2208) 7 MG/DL CREATININE (test code = 2214) 0.50 MG/DL eGFR AMER. (test cod e = 00062) 119 ML/MIN/1.73 eGFR NON- AMER. (test code = 31007) 103 ML/MIN/1.73 CALC BUN/CREAT (test code = 2235) 14 RATIO SODIUM (test code = 2231) 140 MEQ/L POTASSIUM (test code = 2228) 4.3 MEQ/L CHLORIDE (test code = 2215) 103 MEQ/L CARBON DIOXIDE (test code = 2206) 24 MEQ/L CALCIUM (test code = 2209) 9.9 MG/DL PROTEIN, TOTAL (test code = 2229) 6.9 G/DL ALBUMIN (test code = 2201) 4.1 G/DL CALC GLOBULIN (test code = 2240) 2.8 G/DL CALC A/G RATIO (test code = 2234) 1.5 RATIO BILIRUBIN, TOTAL (test code = 2207) 0.6 MG/DL ALKALINE PHOSPHATASE (test code = 2204) 214 U/L AST (test code = 2218) 27 U/L ALT (test code = 2219) 27 U/L Jc GerardoCBC W/AUTO [id number] 00:00:00* Test Item Value Reference Range Interpretation Comme nts WBC (test code = 1001) 11.5 K/UL RBC (test code = 1002) 5.65 M/UL HEMOGLOBIN (test code = 1003) 16.1 G/DL HEMATOCRIT (test code = 1004) 48.1 % MCV (test code = 1005) 85.1 fL MCH (test code = 1006) 28.5 PG MCHC (test code = 1007) 33.5 G/DL RDW (test code = 1038) 12.9 % NEUTROPHILS (test code = 1008) 60.7 % LYMPHOCYTES (test code = 1010) 31.3 % MONOCYTES (test code = 1011) 5.4 % EOSINOPHILS (test code = 1012) 2.0 % BASOPHILS (test code = 1013) 0.6 % PLATELET COUNT (test code = 1015) 93 K/UL Jc GerardoHEMOGLOBIN [id number] 00:00:00* Test Item Value Reference Range Interpretation Comme nts HEMOGLOBIN A1c (test code = 53229) 10.3 % Jc GerardoCOMPREHENSIVE METABOLIC [id number] 00:00:00* Test Item Value Reference Range Interpretation Comme nts GLUCOSE (test code = 2217) 248 MG/DL BUN (test code = 2208) 7 MG/DL CREATININE (test code = 2214) 0.50 MG/DL eGFR AMER. (test cod e = 33845) 119 ML/MIN/1.73 eGFR NON- AMER. (test code = 45787) 103 ML/MIN/1.73 CALC BUN/CREAT (test code = 2235) 14 RATIO SODIUM (test code = 2231) 140 MEQ/L POTASSIUM (test code = 2228) 4.3 MEQ/L CHLORIDE (test code = 2215) 103 MEQ/L CARBON DIOXIDE (test code = 2206) 24 MEQ/L CALCIUM (test code = 2209) 9.9 MG/DL PROTEIN, TOTAL (test code = 2229) 6.9 G/DL ALBUMIN (test code = 2201) 4.1 G/DL CALC GLOBULIN (test code = 2240) 2.8 G/DL CALC A/G RATIO (test code = 2234) 1.5 RATIO BILIRUBIN, TOTAL (test code = 2207) 0.6 MG/DL ALKALINE PHOSPHATASE (test code = 2204) 214 U/L AST (test code = 2218) 27 U/L ALT (test code = 2219) 27 U/L Jc GerardoCBC W/AUTO [id number] 00:00:00* Test Item Value Reference Range Interpretation Comme nts WBC (test code = 1001) 11.5 K/UL RBC (test code = 1002) 5.65 M/UL HEMOGLOBIN (test code = 1003) 16.1 G/DL HEMATOCRIT (test code = 1004) 48.1 % MCV (test code = 1005) 85.1 fL MCH (test code = 1006) 28.5 PG MCHC (test code = 1007) 33.5 G/DL RDW (test code = 1038) 12.9 % NEUTROPHILS (test code = 1008) 60.7 % LYMPHOCYTES (test code = 1010) 31.3 % MONOCYTES (test code = 1011) 5.4 % EOSINOPHILS (test code = 1012) 2.0 % BASOPHILS (test code = 1013) 0.6 % PLATELET COUNT (test code = 1015) 93 K/UL Jc GerardoHEMOGLOBIN [id number] 00:00:00* Test Item Value Reference Range Interpretation Comme nts HEMOGLOBIN A1c (test code = 64287) 10.3 % Jc GerardoCOMPREHENSIVE METABOLIC [id number] 00:00:00* Test Item Value Reference Range Interpretation Comme nts GLUCOSE (test code = 2217) 248 MG/DL BUN (test code = 2208) 7 MG/DL CREATININE (test code = 2214) 0.50 MG/DL eGFR AMER. (test cod e = 06629) 119 ML/MIN/1.73 eGFR NON- AMER. (test code = 75195) 103 ML/MIN/1.73 CALC BUN/CREAT (test code = 2235) 14 RATIO SODIUM (test code = 2231) 140 MEQ/L POTASSIUM (test code = 2228) 4.3 MEQ/L CHLORIDE (test code = 2215) 103 MEQ/L CARBON DIOXIDE (test code = 2206) 24 MEQ/L CALCIUM (test code = 2209) 9.9 MG/DL PROTEIN, TOTAL (test code = 2229) 6.9 G/DL ALBUMIN (test code = 2201) 4.1 G/DL CALC GLOBULIN (test code = 2240) 2.8 G/DL CALC A/G RATIO (test code = 2234) 1.5 RATIO BILIRUBIN, TOTAL (test code = 2207) 0.6 MG/DL ALKALINE PHOSPHATASE (test code = 2204) 214 U/L AST (test code = 2218) 27 U/L ALT (test code = 2219) 27 U/L Jc Millan AkinCBC W/AUTO [id number] 00:00:00* Test Item Value Reference Range Interpretation Comme nts WBC (test code = 1001) 11.5 K/UL RBC (test code = 1002) 5.65 M/UL HEMOGLOBIN (test code = 1003) 16.1 G/DL HEMATOCRIT (test code = 1004) 48.1 % MCV (test code = 1005) 85.1 fL MCH (test code = 1006) 28.5 PG MCHC (test code = 1007) 33.5 G/DL RDW (test code = 1038) 12.9 % NEUTROPHILS (test code = 1008) 60.7 % LYMPHOCYTES (test code = 1010) 31.3 % MONOCYTES (test code = 1011) 5.4 % EOSINOPHILS (test code = 1012) 2.0 % BASOPHILS (test code = 1013) 0.6 % PLATELET COUNT (test code = 1015) 93 K/UL Jc GerardoHEMOGLOBIN [id number] 00:00:00* Test Item Value Reference Range Interpretation Comme nts HEMOGLOBIN A1c (test code = 34536) 10.3 % Jc GerardoCOMPREHENSIVE METABOLIC [id number] 00:00:00* Test Item Value Reference Range Interpretation Comme nts GLUCOSE (test code = 2217) 248 MG/DL BUN (test code = 2208) 7 MG/DL CREATININE (test code = 2214) 0.50 MG/DL eGFR AMER. (test cod e = 63363) 119 ML/MIN/1.73 eGFR NON- AMER. (test code = 35181) 103 ML/MIN/1.73 CALC BUN/CREAT (test code = 2235) 14 RATIO SODIUM (test code = 2231) 140 MEQ/L POTASSIUM (test code = 2228) 4.3 MEQ/L CHLORIDE (test code = 2215) 103 MEQ/L CARBON DIOXIDE (test code = 2206) 24 MEQ/L CALCIUM (test code = 2209) 9.9 MG/DL PROTEIN, TOTAL (test code = 2229) 6.9 G/DL ALBUMIN (test code = 2201) 4.1 G/DL CALC GLOBULIN (test code = 2240) 2.8 G/DL CALC A/G RATIO (test code = 2234) 1.5 RATIO BILIRUBIN, TOTAL (test code = 2207) 0.6 MG/DL ALKALINE PHOSPHATASE (test code = 2204) 214 U/L AST (test code = 2218) 27 U/L ALT (test code = 2219) 27 U/L Jc GerardoCBC W/AUTO [id number] 00:00:00* Test Item Value Reference Range Interpretation Comme nts WBC (test code = 1001) 11.5 K/UL RBC (test code = 1002) 5.65 M/UL HEMOGLOBIN (test code = 1003) 16.1 G/DL HEMATOCRIT (test code = 1004) 48.1 % MCV (test code = 1005) 85.1 fL MCH (test code = 1006) 28.5 PG MCHC (test code = 1007) 33.5 G/DL RDW (test code = 1038) 12.9 % NEUTROPHILS (test code = 1008) 60.7 % LYMPHOCYTES (test code = 1010) 31.3 % MONOCYTES (test code = 1011) 5.4 % EOSINOPHILS (test code = 1012) 2.0 % BASOPHILS (test code = 1013) 0.6 % PLATELET COUNT (test code = 1015) 93 K/UL Jc GerardoHEMOGLOBIN [id number] 00:00:00* Test Item Value Reference Range Interpretation Comme nts HEMOGLOBIN A1c (test code = 23559) 10.3 % Jc GerardoCOMPREHENSIVE METABOLIC [id number] 00:00:00* Test Item Value Reference Range Interpretation Comme nts GLUCOSE (test code = 2217) 248 MG/DL BUN (test code = 2208) 7 MG/DL CREATININE (test code = 2214) 0.50 MG/DL eGFR AMER. (test cod e = 35088) 119 ML/MIN/1.73 eGFR NON- AMER. (test code = 74596) 103 ML/MIN/1.73 CALC BUN/CREAT (test code = 2235) 14 RATIO SODIUM (test code = 2231) 140 MEQ/L POTASSIUM (test code = 2228) 4.3 MEQ/L CHLORIDE (test code = 2215) 103 MEQ/L CARBON DIOXIDE (test code = 2206) 24 MEQ/L CALCIUM (test code = 2209) 9.9 MG/DL PROTEIN, TOTAL (test code = 2229) 6.9 G/DL ALBUMIN (test code = 2201) 4.1 G/DL CALC GLOBULIN (test code = 2240) 2.8 G/DL CALC A/G RATIO (test code = 2234) 1.5 RATIO BILIRUBIN, TOTAL (test code = 2207) 0.6 MG/DL ALKALINE PHOSPHATASE (test code = 2204) 214 U/L AST (test code = 2218) 27 U/L ALT (test code = 2219) 27 U/L Jc GerardoCBC W/AUTO [id number] 00:00:00* Test Item Value Reference Range Interpretation Comme nts WBC (test code = 1001) 11.5 K/UL RBC (test code = 1002) 5.65 M/UL HEMOGLOBIN (test code = 1003) 16.1 G/DL HEMATOCRIT (test code = 1004) 48.1 % MCV (test code = 1005) 85.1 fL MCH (test code = 1006) 28.5 PG MCHC (test code = 1007) 33.5 G/DL RDW (test code = 1038) 12.9 % NEUTROPHILS (test code = 1008) 60.7 % LYMPHOCYTES (test code = 1010) 31.3 % MONOCYTES (test code = 1011) 5.4 % EOSINOPHILS (test code = 1012) 2.0 % BASOPHILS (test code = 1013) 0.6 % PLATELET COUNT (test code = 1015) 93 K/UL Jc GerardoHEMOGLOBIN [id number] 00:00:00* Test Item Value Reference Range Interpretation Comme [facility] HEMOGLOBIN A1c (test code = 90007) 10.3 % Jc GerardoCOMPREHENSIVE METABOLIC [id number] 00:00:00* Test Item Value Reference Range Interpretation Comme nts GLUCOSE (test code = 2217) 248 MG/DL BUN (test code = 2208) 7 MG/DL CREATININE (test code = 2214) 0.50 MG/DL eGFR AMER. (test cod e = 47161) 119 ML/MIN/1.73 eGFR NON- AMER. (test code = 62281) 103 ML/MIN/1.73 CALC BUN/CREAT (test code = 2235) 14 RATIO SODIUM (test code = 2231) 140 MEQ/L POTASSIUM (test code = 2228) 4.3 MEQ/L CHLORIDE (test code = 2215) 103 MEQ/L CARBON DIOXIDE (test code = 2206) 24 MEQ/L CALCIUM (test code = 2209) 9.9 MG/DL PROTEIN, TOTAL (test code = 2229) 6.9 G/DL ALBUMIN (test code = 2201) 4.1 G/DL CALC GLOBULIN (test code = 2240) 2.8 G/DL CALC A/G RATIO (test code = 2234) 1.5 RATIO BILIRUBIN, TOTAL (test code = 2207) 0.6 MG/DL ALKALINE PHOSPHATASE (test code = 2204) 214 U/L AST (test code = 2218) 27 U/L ALT (test code = 2219) 27 U/L [facility]AUTO [id number] 00:00:00* Test Item Value Reference Range Interpretation Comme nts WBC (test code = 1001) 11.5 K/UL RBC (test code = 1002) 5.65 M/UL HEMOGLOBIN (test code = 1003) 16.1 G/DL HEMATOCRIT (test code = 1004) 48.1 % MCV (test code = 1005) 85.1 fL MCH (test code = 1006) 28.5 PG MCHC (test code = 1007) 33.5 G/DL RDW (test code = 1038) 12.9 % NEUTROPHILS (test code = 1008) 60.7 % LYMPHOCYTES (test code = 1010) 31.3 % MONOCYTES (test code = 1011) 5.4 % EOSINOPHILS (test code = 1012) 2.0 % BASOPHILS (test code = 1013) 0.6 % PLATELET COUNT (test code = 1015) 93 K/UL Jc GerardoHEMOGLOBIN [id number] 00:00:00* Test Item Value Reference Range Interpretation Comme [facility] HEMOGLOBIN A1c (test code = 06662) 10.3 % Jc Millan TucsonCOMPREHENSIVE METABOLIC [id number] 00:00:00* Test Item Value Reference Range Interpretation Comme nts GLUCOSE (test code = 2217) 248 MG/DL BUN (test code = 2208) 7 MG/DL CREATININE (test code = 2214) 0.50 MG/DL eGFR AMER. (test cod e = 02975) 119 ML/MIN/1.73 eGFR NON- AMER. (test code = 42938) 103 ML/MIN/1.73 CALC BUN/CREAT (test code = 2235) 14 RATIO SODIUM (test code = 2231) 140 MEQ/L POTASSIUM (test code = 2228) 4.3 MEQ/L CHLORIDE (test code = 2215) 103 MEQ/L CARBON DIOXIDE (test code = 2206) 24 MEQ/L CALCIUM (test code = 2209) 9.9 MG/DL PROTEIN, TOTAL (test code = 2229) 6.9 G/DL ALBUMIN (test code = 2201) 4.1 G/DL CALC GLOBULIN (test code = 2240) 2.8 G/DL CALC A/G RATIO (test code = 2234) 1.5 RATIO BILIRUBIN, TOTAL (test code = 2207) 0.6 MG/DL ALKALINE PHOSPHATASE (test code = 2204) 214 U/L AST (test code = 2218) 27 U/L ALT (test code = 2219) 27 U/L Jc GerardoCBC W/AUTO [id number] 00:00:00* Test Item Value Reference Range Interpretation Comme nts WBC (test code = 1001) 11.5 K/UL RBC (test code = 1002) 5.65 M/UL HEMOGLOBIN (test code = 1003) 16.1 G/DL HEMATOCRIT (test code = 1004) 48.1 % MCV (test code = 1005) 85.1 fL MCH (test code = 1006) 28.5 PG MCHC (test code = 1007) 33.5 G/DL RDW (test code = 1038) 12.9 % NEUTROPHILS (test code = 1008) 60.7 % LYMPHOCYTES (test code = 1010) 31.3 % MONOCYTES (test code = 1011) 5.4 % EOSINOPHILS (test code = 1012) 2.0 % BASOPHILS (test code = 1013) 0.6 % PLATELET COUNT (test code = 1015) 93 K/UL Jc GerardoHEMOGLOBIN [id number] 00:00:00* Test Item Value Reference Range Interpretation Comme nts HEMOGLOBIN A1c (test code = 77636) 10.3 % Jc GerardoCOMPREHENSIVE METABOLIC [id number] 00:00:00* Test Item Value Reference Range Interpretation Comme nts GLUCOSE (test code = 2217) 248 MG/DL BUN (test code = 2208) 7 MG/DL CREATININE (test code = 2214) 0.50 MG/DL eGFR AMER. (test cod e = 84726) 119 ML/MIN/1.73 eGFR NON- AMER. (test code = 06951) 103 ML/MIN/1.73 CALC BUN/CREAT (test code = 2235) 14 RATIO SODIUM (test code = 2231) 140 MEQ/L POTASSIUM (test code = 2228) 4.3 MEQ/L CHLORIDE (test code = 2215) 103 MEQ/L CARBON DIOXIDE (test code = 2206) 24 MEQ/L CALCIUM (test code = 2209) 9.9 MG/DL PROTEIN, TOTAL (test code = 2229) 6.9 G/DL ALBUMIN (test code = 2201) 4.1 G/DL CALC GLOBULIN (test code = 2240) 2.8 G/DL CALC A/G RATIO (test code = 2234) 1.5 RATIO BILIRUBIN, TOTAL (test code = 2207) 0.6 MG/DL ALKALINE PHOSPHATASE (test code = 2204) 214 U/L AST (test code = 2218) 27 U/L ALT (test code = 2219) 27 U/L Jc GerardoCBC W/AUTO [id number] 00:00:00* Test Item Value Reference Range Interpretation Comme nts WBC (test code = 1001) 11.5 K/UL RBC (test code = 1002) 5.65 M/UL HEMOGLOBIN (test code = 1003) 16.1 G/DL HEMATOCRIT (test code = 1004) 48.1 % MCV (test code = 1005) 85.1 fL MCH (test code = 1006) 28.5 PG MCHC (test code = 1007) 33.5 G/DL RDW (test code = 1038) 12.9 % NEUTROPHILS (test code = 1008) 60.7 % LYMPHOCYTES (test code = 1010) 31.3 % MONOCYTES (test code = 1011) 5.4 % EOSINOPHILS (test code = 1012) 2.0 % BASOPHILS (test code = 1013) 0.6 % PLATELET COUNT (test code = 1015) 93 K/UL Jc GerardoHEMOGLOBIN [id number] 00:00:00* Test Item Value Reference Range Interpretation Comme nts HEMOGLOBIN A1c (test code = 88334) 10.3 % Jc GerardoCOMPREHENSIVE METABOLIC [id number] 00:00:00* Test Item Value Reference Range Interpretation Comme nts GLUCOSE (test code = 2217) 248 MG/DL BUN (test code = 2208) 7 MG/DL CREATININE (test code = 2214) 0.50 MG/DL eGFR AMER. (test cod e = 49750) 119 ML/MIN/1.73 eGFR NON- AMER. (test code = 12226) 103 ML/MIN/1.73 CALC BUN/CREAT (test code = 2235) 14 RATIO SODIUM (test code = 2231) 140 MEQ/L POTASSIUM (test code = 2228) 4.3 MEQ/L CHLORIDE (test code = 2215) 103 MEQ/L CARBON DIOXIDE (test code = 2206) 24 MEQ/L CALCIUM (test code = 2209) 9.9 MG/DL PROTEIN, TOTAL (test code = 2229) 6.9 G/DL ALBUMIN (test code = 2201) 4.1 G/DL CALC GLOBULIN (test code = 2240) 2.8 G/DL CALC A/G RATIO (test code = 2234) 1.5 RATIO BILIRUBIN, TOTAL (test code = 2207) 0.6 MG/DL ALKALINE PHOSPHATASE (test code = 2204) 214 U/L AST (test code = 2218) 27 U/L ALT (test code = 2219) 27 U/L Jc GerardoCBC W/AUTO [id number] 00:00:00* Test Item Value Reference Range Interpretation Comme nts WBC (test code = 1001) 11.5 K/UL RBC (test code = 1002) 5.65 M/UL HEMOGLOBIN (test code = 1003) 16.1 G/DL HEMATOCRIT (test code = 1004) 48.1 % MCV (test code = 1005) 85.1 fL MCH (test code = 1006) 28.5 PG MCHC (test code = 1007) 33.5 G/DL RDW (test code = 1038) 12.9 % NEUTROPHILS (test code = 1008) 60.7 % LYMPHOCYTES (test code = 1010) 31.3 % MONOCYTES (test code = 1011) 5.4 % EOSINOPHILS (test code = 1012) 2.0 % BASOPHILS (test code = 1013) 0.6 % PLATELET COUNT (test code = 1015) 93 K/UL Jc GerardoHEMOGLOBIN [id number] 00:00:00* Test Item Value Reference Range Interpretation Comme nts HEMOGLOBIN A1c (test code = 40049) 10.3 % Jc GerardoCOMPREHENSIVE METABOLIC [id number] 00:00:00* Test Item Value Reference Range Interpretation Comme nts GLUCOSE (test code = 2217) 342 MG/DL BUN (test code = 2208) 7 MG/DL CREATININE (test code = 2214) 0.53 MG/DL eGFR AMER. (test cod e = 95398) 117 ML/MIN/1.73 eGFR NON- AMER. (test code = 04594) 101 ML/MIN/1.73 CALC BUN/CREAT (test code = 2235) 13 RATIO SODIUM (test code = 2231) 136 MEQ/L POTASSIUM (test code = 2228) 4.1 MEQ/L CHLORIDE (test code = 2215) 100 MEQ/L CARBON DIOXIDE (test code = 2206) 25 MEQ/L CALCIUM (test code = 2209) 9.9 MG/DL PROTEIN, TOTAL (test code = 2229) 7.0 G/DL ALBUMIN (test code = 2201) 3.9 G/DL CALC GLOBULIN (test code = 2240) 3.1 G/DL CALC A/G RATIO (test code = 2234) 1.3 RATIO BILIRUBIN, TOTAL (test code = 2207) 0.5 MG/DL ALKALINE PHOSPHATASE (test code = 2204) 208 U/L AST (test code = 2218) 27 U/L ALT (test code = 2219) 29 U/L Jc GerardoCBC W/AUTO [id number] 00:00:00* Test Item Value Reference Range Interpretation Comme nts WBC (test code = 1001) 13.8 K/UL RBC (test code = 1002) 5.46 M/UL HEMOGLOBIN (test code = 1003) 16.1 G/DL HEMATOCRIT (test code = 1004) 48.9 % MCV (test code = 1005) 89.6 fL MCH (test code = 1006) 29.5 PG MCHC (test code = 1007) 32.9 G/DL RDW (test code = 1038) 13.7 % NEUTROPHILS (test code = 1008) 60.9 % LYMPHOCYTES (test code = 1010) 31.2 % MONOCYTES (test code = 1011) 5.2 % EOSINOPHILS (test code = 1012) 2.0 % BASOPHILS (test code = 1013) 0.7 % PLATELET COUNT (test code = 1015) 147 K/UL Jc GerardoLIPID [id number] 00:00:00* Test Item Value Reference Range Interpretation Comme nts CHOLESTEROL (test code = 2210) 149 MG/DL TRIGLYCERIDES (test code = 2232) 98 MG/DL HDL CHOLESTEROL (test code = 2220) 37 MG/DL CALC LDL CHOL (test code = 2237) 92 MG/DL RISK RATIO LDL/HDL (test cod e = 2238) 2.50 RATIO Jc GerardoHEMOGLOBIN [id number] 00:00:00* Test Item Value Reference Range Interpretation Comme nts HEMOGLOBIN A1c (test code = 98012) 10.6 % Jc GerardoCOMPREHENSIVE METABOLIC [id number] 00:00:00* Test Item Value Reference Range Interpretation Comme nts GLUCOSE (test code = 2217) 342 MG/DL BUN (test code = 2208) 7 MG/DL CREATININE (test code = 2214) 0.53 MG/DL eGFR AMER. (test cod e = 10720) 117 ML/MIN/1.73 eGFR NON- AMER. (test code = 11320) 101 ML/MIN/1.73 CALC BUN/CREAT (test code = 2235) 13 RATIO SODIUM (test code = 2231) 136 MEQ/L POTASSIUM (test code = 2228) 4.1 MEQ/L CHLORIDE (test code = 2215) 100 MEQ/L CARBON DIOXIDE (test code = 2206) 25 MEQ/L CALCIUM (test code = 2209) 9.9 MG/DL PROTEIN, TOTAL (test code = 2229) 7.0 G/DL ALBUMIN (test code = 2201) 3.9 G/DL CALC GLOBULIN (test code = 2240) 3.1 G/DL CALC A/G RATIO (test code = 2234) 1.3 RATIO BILIRUBIN, TOTAL (test code = 2207) 0.5 MG/DL ALKALINE PHOSPHATASE (test code = 2204) 208 U/L AST (test code = 2218) 27 U/L ALT (test code = 2219) 29 U/L Jc GerardoCBC W/AUTO [id number] 00:00:00* Test Item Value Reference Range Interpretation Comme nts WBC (test code = 1001) 13.8 K/UL RBC (test code = 1002) 5.46 M/UL HEMOGLOBIN (test code = 1003) 16.1 G/DL HEMATOCRIT (test code = 1004) 48.9 % MCV (test code = 1005) 89.6 fL MCH (test code = 1006) 29.5 PG MCHC (test code = 1007) 32.9 G/DL RDW (test code = 1038) 13.7 % NEUTROPHILS (test code = 1008) 60.9 % LYMPHOCYTES (test code = 1010) 31.2 % MONOCYTES (test code = 1011) 5.2 % EOSINOPHILS (test code = 1012) 2.0 % BASOPHILS (test code = 1013) 0.7 % PLATELET COUNT (test code = 1015) 147 K/UL Jc Millan AustinLIPID [id number] 00:00:00* Test Item Value Reference Range Interpretation Comme nts CHOLESTEROL (test code = 2210) 149 MG/DL TRIGLYCERIDES (test code = 2232) 98 MG/DL HDL CHOLESTEROL (test code = 2220) 37 MG/DL CALC LDL CHOL (test code = 2237) 92 MG/DL RISK RATIO LDL/HDL (test cod e = 2238) 2.50 RATIO Jc GerardoHEMOGLOBIN [id number] 00:00:00* Test Item Value Reference Range Interpretation Comme nts HEMOGLOBIN A1c (test code = 99766) 10.6 % Jc GerardoCOMPREHENSIVE METABOLIC [id number] 00:00:00* Test Item Value Reference Range Interpretation Comme nts GLUCOSE (test code = 2217) 342 MG/DL BUN (test code = 2208) 7 MG/DL CREATININE (test code = 2214) 0.53 MG/DL eGFR AMER. (test cod e = 93081) 117 ML/MIN/1.73 eGFR NON- AMER. (test code = 16922) 101 ML/MIN/1.73 CALC BUN/CREAT (test code = 2235) 13 RATIO SODIUM (test code = 2231) 136 MEQ/L POTASSIUM (test code = 2228) 4.1 MEQ/L CHLORIDE (test code = 2215) 100 MEQ/L CARBON DIOXIDE (test code = 2206) 25 MEQ/L CALCIUM (test code = 2209) 9.9 MG/DL PROTEIN, TOTAL (test code = 2229) 7.0 G/DL ALBUMIN (test code = 2201) 3.9 G/DL CALC GLOBULIN (test code = 2240) 3.1 G/DL CALC A/G RATIO (test code = 2234) 1.3 RATIO BILIRUBIN, TOTAL (test code = 2207) 0.5 MG/DL ALKALINE PHOSPHATASE (test code = 2204) 208 U/L AST (test code = 2218) 27 U/L ALT (test code = 2219) 29 U/L Jc GerardoCBC W/AUTO [id number] 00:00:00* Test Item Value Reference Range Interpretation Comme nts WBC (test code = 1001) 13.8 K/UL RBC (test code = 1002) 5.46 M/UL HEMOGLOBIN (test code = 1003) 16.1 G/DL HEMATOCRIT (test code = 1004) 48.9 % MCV (test code = 1005) 89.6 fL MCH (test code = 1006) 29.5 PG MCHC (test code = 1007) 32.9 G/DL RDW (test code = 1038) 13.7 % NEUTROPHILS (test code = 1008) 60.9 % LYMPHOCYTES (test code = 1010) 31.2 % MONOCYTES (test code = 1011) 5.2 % EOSINOPHILS (test code = 1012) 2.0 % BASOPHILS (test code = 1013) 0.7 % PLATELET COUNT (test code = 1015) 147 K/UL Jc GerardoLIPID [id number] 00:00:00* Test Item Value Reference Range Interpretation Comme nts CHOLESTEROL (test code = 2210) 149 MG/DL TRIGLYCERIDES (test code = 2232) 98 MG/DL HDL CHOLESTEROL (test code = 2220) 37 MG/DL CALC LDL CHOL (test code = 2237) 92 MG/DL RISK RATIO LDL/HDL (test cod e = 2238) 2.50 RATIO Jc GerardoHEMOGLOBIN [id number] 00:00:00* Test Item Value Reference Range Interpretation Comme [facility] HEMOGLOBIN A1c (test code = 33431) 10.6 % Jc GerardoCOMPREHENSIVE METABOLIC [id number] 00:00:00* Test Item Value Reference Range Interpretation Comme nts GLUCOSE (test code = 2217) 342 MG/DL BUN (test code = 2208) 7 MG/DL CREATININE (test code = 2214) 0.53 MG/DL eGFR AMER. (test cod e = 51975) 117 ML/MIN/1.73 eGFR NON- AMER. (test code = 44486) 101 ML/MIN/1.73 CALC BUN/CREAT (test code = 2235) 13 RATIO SODIUM (test code = 2231) 136 MEQ/L POTASSIUM (test code = 2228) 4.1 MEQ/L CHLORIDE (test code = 2215) 100 MEQ/L CARBON DIOXIDE (test code = 2206) 25 MEQ/L CALCIUM (test code = 2209) 9.9 MG/DL PROTEIN, TOTAL (test code = 2229) 7.0 G/DL ALBUMIN (test code = 2201) 3.9 G/DL CALC GLOBULIN (test code = 2240) 3.1 G/DL CALC A/G RATIO (test code = 2234) 1.3 RATIO BILIRUBIN, TOTAL (test code = 2207) 0.5 MG/DL ALKALINE PHOSPHATASE (test code = 2204) 208 U/L AST (test code = 2218) 27 U/L ALT (test code = 2219) 29 U/L Jc GerardoCBC W/AUTO [id number] 00:00:00* Test Item Value Reference Range Interpretation Comme nts WBC (test code = 1001) 13.8 K/UL RBC (test code = 1002) 5.46 M/UL HEMOGLOBIN (test code = 1003) 16.1 G/DL HEMATOCRIT (test code = 1004) 48.9 % MCV (test code = 1005) 89.6 fL MCH (test code = 1006) 29.5 PG MCHC (test code = 1007) 32.9 G/DL RDW (test code = 1038) 13.7 % NEUTROPHILS (test code = 1008) 60.9 % LYMPHOCYTES (test code = 1010) 31.2 % MONOCYTES (test code = 1011) 5.2 % EOSINOPHILS (test code = 1012) 2.0 % BASOPHILS (test code = 1013) 0.7 % PLATELET COUNT (test code = 1015) 147 K/UL Jc GerardoLIPID [id number] 00:00:00* Test Item Value Reference Range Interpretation Comme nts CHOLESTEROL (test code = 2210) 149 MG/DL TRIGLYCERIDES (test code = 2232) 98 MG/DL HDL CHOLESTEROL (test code = 2220) 37 MG/DL CALC LDL CHOL (test code = 2237) 92 MG/DL RISK RATIO LDL/HDL (test cod e = 2238) 2.50 RATIO Jc GerardoHEMOGLOBIN [id number] 00:00:00* Test Item Value Reference Range Interpretation Comme nts HEMOGLOBIN A1c (test code = 54584) 10.6 % Jc GerardoCOMPREHENSIVE METABOLIC [id number] 00:00:00* Test Item Value Reference Range Interpretation Comme nts GLUCOSE (test code = 2217) 342 MG/DL BUN (test code = 2208) 7 MG/DL CREATININE (test code = 2214) 0.53 MG/DL eGFR AMER. (test cod e = 39294) 117 ML/MIN/1.73 eGFR NON- AMER. (test code = 93682) 101 ML/MIN/1.73 CALC BUN/CREAT (test code = 2235) 13 RATIO SODIUM (test code = 2231) 136 MEQ/L POTASSIUM (test code = 2228) 4.1 MEQ/L CHLORIDE (test code = 2215) 100 MEQ/L CARBON DIOXIDE (test code = 2206) 25 MEQ/L CALCIUM (test code = 2209) 9.9 MG/DL PROTEIN, TOTAL (test code = 2229) 7.0 G/DL ALBUMIN (test code = 2201) 3.9 G/DL CALC GLOBULIN (test code = 2240) 3.1 G/DL CALC A/G RATIO (test code = 2234) 1.3 RATIO BILIRUBIN, TOTAL (test code = 2207) 0.5 MG/DL ALKALINE PHOSPHATASE (test code = 2204) 208 U/L AST (test code = 2218) 27 U/L ALT (test code = 2219) 29 U/L Jc GerardoCBC W/AUTO [id number] 00:00:00* Test Item Value Reference Range Interpretation Comme nts WBC (test code = 1001) 13.8 K/UL RBC (test code = 1002) 5.46 M/UL HEMOGLOBIN (test code = 1003) 16.1 G/DL HEMATOCRIT (test code = 1004) 48.9 % MCV (test code = 1005) 89.6 fL MCH (test code = 1006) 29.5 PG MCHC (test code = 1007) 32.9 G/DL RDW (test code = 1038) 13.7 % NEUTROPHILS (test code = 1008) 60.9 % LYMPHOCYTES (test code = 1010) 31.2 % MONOCYTES (test code = 1011) 5.2 % EOSINOPHILS (test code = 1012) 2.0 % BASOPHILS (test code = 1013) 0.7 % PLATELET COUNT (test code = 1015) 147 K/UL Jc GerardoLIPID [id number] 00:00:00* Test Item Value Reference Range Interpretation Comme nts CHOLESTEROL (test code = 2210) 149 MG/DL TRIGLYCERIDES (test code = 2232) 98 MG/DL HDL CHOLESTEROL (test code = 2220) 37 MG/DL CALC LDL CHOL (test code = 2237) 92 MG/DL RISK RATIO LDL/HDL (test cod e = 2238) 2.50 RATIO Jc GerardoHEMOGLOBIN [id number] 00:00:00* Test Item Value Reference Range Interpretation Comme nts HEMOGLOBIN A1c (test code = 33829) 10.6 % Jc GerardoCOMPREHENSIVE METABOLIC [id number] 00:00:00* Test Item Value Reference Range Interpretation Comme nts GLUCOSE (test code = 2217) 342 MG/DL BUN (test code = 2208) 7 MG/DL CREATININE (test code = 2214) 0.53 MG/DL eGFR AMER. (test cod e = 00734) 117 ML/MIN/1.73 eGFR NON- AMER. (test code = 75288) 101 ML/MIN/1.73 CALC BUN/CREAT (test code = 2235) 13 RATIO SODIUM (test code = 2231) 136 MEQ/L POTASSIUM (test code = 2228) 4.1 MEQ/L CHLORIDE (test code = 2215) 100 MEQ/L CARBON DIOXIDE (test code = 2206) 25 MEQ/L CALCIUM (test code = 2209) 9.9 MG/DL PROTEIN, TOTAL (test code = 2229) 7.0 G/DL ALBUMIN (test code = 2201) 3.9 G/DL CALC GLOBULIN (test code = 2240) 3.1 G/DL CALC A/G RATIO (test code = 2234) 1.3 RATIO BILIRUBIN, TOTAL (test code = 2207) 0.5 MG/DL ALKALINE PHOSPHATASE (test code = 2204) 208 U/L AST (test code = 2218) 27 U/L ALT (test code = 2219) 29 U/L Jc GerardoCBC W/AUTO [id number] 00:00:00* Test Item Value Reference Range Interpretation Comme nts WBC (test code = 1001) 13.8 K/UL RBC (test code = 1002) 5.46 M/UL HEMOGLOBIN (test code = 1003) 16.1 G/DL HEMATOCRIT (test code = 1004) 48.9 % MCV (test code = 1005) 89.6 fL MCH (test code = 1006) 29.5 PG MCHC (test code = 1007) 32.9 G/DL RDW (test code = 1038) 13.7 % NEUTROPHILS (test code = 1008) 60.9 % LYMPHOCYTES (test code = 1010) 31.2 % MONOCYTES (test code = 1011) 5.2 % EOSINOPHILS (test code = 1012) 2.0 % BASOPHILS (test code = 1013) 0.7 % PLATELET COUNT (test code = 1015) 147 K/UL Jc GerardoLIPID [id number] 00:00:00* Test Item Value Reference Range Interpretation Comme nts CHOLESTEROL (test code = 2210) 149 MG/DL TRIGLYCERIDES (test code = 2232) 98 MG/DL HDL CHOLESTEROL (test code = 2220) 37 MG/DL CALC LDL CHOL (test code = 2237) 92 MG/DL RISK RATIO LDL/HDL (test cod e = 2238) 2.50 RATIO Jc GerardoHEMOGLOBIN [id number] 00:00:00* Test Item Value Reference Range Interpretation Comme nts HEMOGLOBIN A1c (test code = 59808) 10.6 % Jc GerardoCOMPREHENSIVE METABOLIC [id number] 00:00:00* Test Item Value Reference Range Interpretation Comme nts GLUCOSE (test code = 2217) 342 MG/DL BUN (test code = 2208) 7 MG/DL CREATININE (test code = 2214) 0.53 MG/DL eGFR AMER. (test cod e = 80644) 117 ML/MIN/1.73 eGFR NON- AMER. (test code = 72109) 101 ML/MIN/1.73 CALC BUN/CREAT (test code = 2235) 13 RATIO SODIUM (test code = 2231) 136 MEQ/L POTASSIUM (test code = 2228) 4.1 MEQ/L CHLORIDE (test code = 2215) 100 MEQ/L CARBON DIOXIDE (test code = 2206) 25 MEQ/L CALCIUM (test code = 2209) 9.9 MG/DL PROTEIN, TOTAL (test code = 2229) 7.0 G/DL ALBUMIN (test code = 2201) 3.9 G/DL CALC GLOBULIN (test code = 2240) 3.1 G/DL CALC A/G RATIO (test code = 2234) 1.3 RATIO BILIRUBIN, TOTAL (test code = 2207) 0.5 MG/DL ALKALINE PHOSPHATASE (test code = 2204) 208 U/L AST (test code = 2218) 27 U/L ALT (test code = 2219) 29 U/L Jc GerardoCBC W/AUTO [id number] 00:00:00* Test Item Value Reference Range Interpretation Comme nts WBC (test code = 1001) 13.8 K/UL RBC (test code = 1002) 5.46 M/UL HEMOGLOBIN (test code = 1003) 16.1 G/DL HEMATOCRIT (test code = 1004) 48.9 % MCV (test code = 1005) 89.6 fL MCH (test code = 1006) 29.5 PG MCHC (test code = 1007) 32.9 G/DL RDW (test code = 1038) 13.7 % NEUTROPHILS (test code = 1008) 60.9 % LYMPHOCYTES (test code = 1010) 31.2 % MONOCYTES (test code = 1011) 5.2 % EOSINOPHILS (test code = 1012) 2.0 % BASOPHILS (test code = 1013) 0.7 % PLATELET COUNT (test code = 1015) 147 K/UL Jc GerardoLIPID [id number] 00:00:00* Test Item Value Reference Range Interpretation Comme nts CHOLESTEROL (test code = 2210) 149 MG/DL TRIGLYCERIDES (test code = 2232) 98 MG/DL HDL CHOLESTEROL (test code = 2220) 37 MG/DL CALC LDL CHOL (test code = 2237) 92 MG/DL RISK RATIO LDL/HDL (test cod e = 2238) 2.50 RATIO Jc GerardoHEMOGLOBIN [id number] 00:00:00* Test Item Value Reference Range Interpretation Comme tana HEMOGLOBIN A1c (test code = 17464) 10.6 % Jc GerardoCOMPREHENSIVE METABOLIC [id number] 00:00:00* Test Item Value Reference Range Interpretation Comme nts GLUCOSE (test code = 2217) 342 MG/DL BUN (test code = 2208) 7 MG/DL CREATININE (test code = 2214) 0.53 MG/DL eGFR AMER. (test cod e = 16728) 117 ML/MIN/1.73 eGFR NON- AMER. (test code = 89893) 101 ML/MIN/1.73 CALC BUN/CREAT (test code = 2235) 13 RATIO SODIUM (test code = 2231) 136 MEQ/L POTASSIUM (test code = 2228) 4.1 MEQ/L CHLORIDE (test code = 2215) 100 MEQ/L CARBON DIOXIDE (test code = 2206) 25 MEQ/L CALCIUM (test code = 2209) 9.9 MG/DL PROTEIN, TOTAL (test code = 2229) 7.0 G/DL ALBUMIN (test code = 2201) 3.9 G/DL CALC GLOBULIN (test code = 2240) 3.1 G/DL CALC A/G RATIO (test code = 2234) 1.3 RATIO BILIRUBIN, TOTAL (test code = 2207) 0.5 MG/DL ALKALINE PHOSPHATASE (test code = 2204) 208 U/L AST (test code = 2218) 27 U/L ALT (test code = 2219) 29 U/L Jc GerardoCBC W/AUTO [id number] 00:00:00* Test Item Value Reference Range Interpretation Comme tana WBC (test code = 1001) 13.8 K/UL RBC (test code = 1002) 5.46 M/UL HEMOGLOBIN (test code = 1003) 16.1 G/DL HEMATOCRIT (test code = 1004) 48.9 % MCV (test code = 1005) 89.6 fL MCH (test code = 1006) 29.5 PG MCHC (test code = 1007) 32.9 G/DL RDW (test code = 1038) 13.7 % NEUTROPHILS (test code = 1008) 60.9 % LYMPHOCYTES (test code = 1010) 31.2 % MONOCYTES (test code = 1011) 5.2 % EOSINOPHILS (test code = 1012) 2.0 % BASOPHILS (test code = 1013) 0.7 % PLATELET COUNT (test code = 1015) 147 K/UL Jc GerardoLIPID [id number] 00:00:00* Test Item Value Reference Range Interpretation Comme nts CHOLESTEROL (test code = 2210) 149 MG/DL TRIGLYCERIDES (test code = 2232) 98 MG/DL HDL CHOLESTEROL (test code = 2220) 37 MG/DL CALC LDL CHOL (test code = 2237) 92 MG/DL RISK RATIO LDL/HDL (test cod e = 2238) 2.50 RATIO Jc GerardoHEMOGLOBIN [id number] 00:00:00* Test Item Value Reference Range Interpretation Comme [facility] HEMOGLOBIN A1c (test code = 43008) 10.6 % Jc GerardoCOMPREHENSIVE METABOLIC [id number] 00:00:00* Test Item Value Reference Range Interpretation Comme nts GLUCOSE (test code = 2217) 342 MG/DL BUN (test code = 2208) 7 MG/DL CREATININE (test code = 2214) 0.53 MG/DL eGFR AMER. (test cod e = 05117) 117 ML/MIN/1.73 eGFR NON- AMER. (test code = 48288) 101 ML/MIN/1.73 CALC BUN/CREAT (test code = 2235) 13 RATIO SODIUM (test code = 2231) 136 MEQ/L POTASSIUM (test code = 2228) 4.1 MEQ/L CHLORIDE (test code = 2215) 100 MEQ/L CARBON DIOXIDE (test code = 2206) 25 MEQ/L CALCIUM (test code = 2209) 9.9 MG/DL PROTEIN, TOTAL (test code = 2229) 7.0 G/DL ALBUMIN (test code = 2201) 3.9 G/DL CALC GLOBULIN (test code = 2240) 3.1 G/DL CALC A/G RATIO (test code = 2234) 1.3 RATIO BILIRUBIN, TOTAL (test code = 2207) 0.5 MG/DL ALKALINE PHOSPHATASE (test code = 2204) 208 U/L AST (test code = 2218) 27 U/L ALT (test code = 2219) 29 U/L Jc GerardoCBC W/AUTO [id number] 00:00:00* Test Item Value Reference Range Interpretation Comme nts WBC (test code = 1001) 13.8 K/UL RBC (test code = 1002) 5.46 M/UL HEMOGLOBIN (test code = 1003) 16.1 G/DL HEMATOCRIT (test code = 1004) 48.9 % MCV (test code = 1005) 89.6 fL MCH (test code = 1006) 29.5 PG MCHC (test code = 1007) 32.9 G/DL RDW (test code = 1038) 13.7 % NEUTROPHILS (test code = 1008) 60.9 % LYMPHOCYTES (test code = 1010) 31.2 % MONOCYTES (test code = 1011) 5.2 % EOSINOPHILS (test code = 1012) 2.0 % BASOPHILS (test code = 1013) 0.7 % PLATELET COUNT (test code = 1015) 147 K/UL Jc GerardoLIPID [id number] 00:00:00* Test Item Value Reference Range Interpretation Comme nts CHOLESTEROL (test code = 2210) 149 MG/DL TRIGLYCERIDES (test code = 2232) 98 MG/DL HDL CHOLESTEROL (test code = 2220) 37 MG/DL CALC LDL CHOL (test code = 2237) 92 MG/DL RISK RATIO LDL/HDL (test cod e = 2238) 2.50 RATIO Jc GerardoHEMOGLOBIN [id number] 00:00:00* Test Item Value Reference Range Interpretation Comme [facility]ana HEMOGLOBIN A1c (test code = 09552) 10.6 % Jc GerardoCOMPREHENSIVE METABOLIC [id number] 00:00:00* Test Item Value Reference Range Interpretation Comme nts GLUCOSE (test code = 2217) 342 MG/DL BUN (test code = 2208) 7 MG/DL CREATININE (test code = 2214) 0.53 MG/DL eGFR AMER. (test cod e = 54838) 117 ML/MIN/1.73 eGFR NON- AMER. (test code = 34460) 101 ML/MIN/1.73 CALC BUN/CREAT (test code = 2235) 13 RATIO SODIUM (test code = 2231) 136 MEQ/L POTASSIUM (test code = 2228) 4.1 MEQ/L CHLORIDE (test code = 2215) 100 MEQ/L CARBON DIOXIDE (test code = 2206) 25 MEQ/L CALCIUM (test code = 2209) 9.9 MG/DL PROTEIN, TOTAL (test code = 2229) 7.0 G/DL ALBUMIN (test code = 2201) 3.9 G/DL CALC GLOBULIN (test code = 2240) 3.1 G/DL CALC A/G RATIO (test code = 2234) 1.3 RATIO BILIRUBIN, TOTAL (test code = 2207) 0.5 MG/DL ALKALINE PHOSPHATASE (test code = 2204) 208 U/L AST (test code = 2218) 27 U/L ALT (test code = 2219) 29 U/L Jc GerardoCBC W/AUTO [id number] 00:00:00* Test Item Value Reference Range Interpretation Comme nts WBC (test code = 1001) 13.8 K/UL RBC (test code = 1002) 5.46 M/UL HEMOGLOBIN (test code = 1003) 16.1 G/DL HEMATOCRIT (test code = 1004) 48.9 % MCV (test code = 1005) 89.6 fL MCH (test code = 1006) 29.5 PG MCHC (test code = 1007) 32.9 G/DL RDW (test code = 1038) 13.7 % NEUTROPHILS (test code = 1008) 60.9 % LYMPHOCYTES (test code = 1010) 31.2 % MONOCYTES (test code = 1011) 5.2 % EOSINOPHILS (test code = 1012) 2.0 % BASOPHILS (test code = 1013) 0.7 % PLATELET COUNT (test code = 1015) 147 K/UL Jc GerardoLIPID [id number] 00:00:00* Test Item Value Reference Range Interpretation Comme nts CHOLESTEROL (test code = 2210) 149 MG/DL TRIGLYCERIDES (test code = 2232) 98 MG/DL HDL CHOLESTEROL (test code = 2220) 37 MG/DL CALC LDL CHOL (test code = 2237) 92 MG/DL RISK RATIO LDL/HDL (test cod e = 2238) 2.50 RATIO Jc GerardoHEMOGLOBIN [id number] 00:00:00* Test Item Value Reference Range Interpretation Comme nts HEMOGLOBIN A1c (test code = 63213) 10.6 % Jc GerardoCOMPREHENSIVE METABOLIC [id number] 00:00:00* Test Item Value Reference Range Interpretation Comme nts GLUCOSE (test code = 2217) 342 MG/DL BUN (test code = 2208) 7 MG/DL CREATININE (test code = 2214) 0.53 MG/DL eGFR AMER. (test cod e = 86917) 117 ML/MIN/1.73 eGFR NON- AMER. (test code = 12645) 101 ML/MIN/1.73 CALC BUN/CREAT (test code = 2235) 13 RATIO SODIUM (test code = 2231) 136 MEQ/L POTASSIUM (test code = 2228) 4.1 MEQ/L CHLORIDE (test code = 2215) 100 MEQ/L CARBON DIOXIDE (test code = 2206) 25 MEQ/L CALCIUM (test code = 2209) 9.9 MG/DL PROTEIN, TOTAL (test code = 2229) 7.0 G/DL ALBUMIN (test code = 2201) 3.9 G/DL CALC GLOBULIN (test code = 2240) 3.1 G/DL CALC A/G RATIO (test code = 2234) 1.3 RATIO BILIRUBIN, TOTAL (test code = 2207) 0.5 MG/DL ALKALINE PHOSPHATASE (test code = 2204) 208 U/L AST (test code = 2218) 27 U/L ALT (test code = 2219) 29 U/L Jc GerardoCBC W/AUTO [id number] 00:00:00* Test Item Value Reference Range Interpretation Comme nts WBC (test code = 1001) 13.8 K/UL RBC (test code = 1002) 5.46 M/UL HEMOGLOBIN (test code = 1003) 16.1 G/DL HEMATOCRIT (test code = 1004) 48.9 % MCV (test code = 1005) 89.6 fL MCH (test code = 1006) 29.5 PG MCHC (test code = 1007) 32.9 G/DL RDW (test code = 1038) 13.7 % NEUTROPHILS (test code = 1008) 60.9 % LYMPHOCYTES (test code = 1010) 31.2 % MONOCYTES (test code = 1011) 5.2 % EOSINOPHILS (test code = 1012) 2.0 % BASOPHILS (test code = 1013) 0.7 % PLATELET COUNT (test code = 1015) 147 K/UL Jc GerardoLIPID [id number] 00:00:00* Test Item Value Reference Range Interpretation Comme nts CHOLESTEROL (test code = 2210) 149 MG/DL TRIGLYCERIDES (test code = 2232) 98 MG/DL HDL CHOLESTEROL (test code = 2220) 37 MG/DL CALC LDL CHOL (test code = 2237) 92 MG/DL RISK RATIO LDL/HDL (test cod e = 2238) 2.50 RATIO Jc GerardoHEMOGLOBIN [id number] 00:00:00* Test Item Value Reference Range Interpretation Comme nts HEMOGLOBIN A1c (test code = 43192) 10.6 % Jc GerardoCOMPREHENSIVE METABOLIC [id number] 00:00:00* Test Item Value Reference Range Interpretation Comme nts GLUCOSE (test code = 2217) 342 MG/DL BUN (test code = 2208) 7 MG/DL CREATININE (test code = 2214) 0.53 MG/DL eGFR AMER. (test cod e = 34444) 117 ML/MIN/1.73 eGFR NON- AMER. (test code = 03972) 101 ML/MIN/1.73 CALC BUN/CREAT (test code = 2235) 13 RATIO SODIUM (test code = 2231) 136 MEQ/L POTASSIUM (test code = 2228) 4.1 MEQ/L CHLORIDE (test code = 2215) 100 MEQ/L CARBON DIOXIDE (test code = 2206) 25 MEQ/L CALCIUM (test code = 2209) 9.9 MG/DL PROTEIN, TOTAL (test code = 2229) 7.0 G/DL ALBUMIN (test code = 2201) 3.9 G/DL CALC GLOBULIN (test code = 2240) 3.1 G/DL CALC A/G RATIO (test code = 2234) 1.3 RATIO BILIRUBIN, TOTAL (test code = 2207) 0.5 MG/DL ALKALINE PHOSPHATASE (test code = 2204) 208 U/L AST (test code = 2218) 27 U/L ALT (test code = 2219) 29 U/L Jc GerardoCBC W/AUTO [id number] 00:00:00* Test Item Value Reference Range Interpretation Comme nts WBC (test code = 1001) 13.8 K/UL RBC (test code = 1002) 5.46 M/UL HEMOGLOBIN (test code = 1003) 16.1 G/DL HEMATOCRIT (test code = 1004) 48.9 % MCV (test code = 1005) 89.6 fL MCH (test code = 1006) 29.5 PG MCHC (test code = 1007) 32.9 G/DL RDW (test code = 1038) 13.7 % NEUTROPHILS (test code = 1008) 60.9 % LYMPHOCYTES (test code = 1010) 31.2 % MONOCYTES (test code = 1011) 5.2 % EOSINOPHILS (test code = 1012) 2.0 % BASOPHILS (test code = 1013) 0.7 % PLATELET COUNT (test code = 1015) 147 K/UL Jc Millan AustinLIPID [id number] 00:00:00* Test Item Value Reference Range Interpretation Comme nts CHOLESTEROL (test code = 2210) 149 MG/DL TRIGLYCERIDES (test code = 2232) 98 MG/DL HDL CHOLESTEROL (test code = 2220) 37 MG/DL CALC LDL CHOL (test code = 2237) 92 MG/DL RISK RATIO LDL/HDL (test cod e = 2238) 2.50 RATIO Jc GerardoHEMOGLOBIN [id number] 00:00:00* Test Item Value Reference Range Interpretation Comme nts HEMOGLOBIN A1c (test code = 16340) 10.6 % Jc GerardoCOMPREHENSIVE METABOLIC [id number] 00:00:00* Test Item Value Reference Range Interpretation Comme nts GLUCOSE (test code = 2217) 342 MG/DL BUN (test code = 2208) 7 MG/DL CREATININE (test code = 2214) 0.53 MG/DL eGFR AMER. (test cod e = 97435) 117 ML/MIN/1.73 eGFR NON- AMER. (test code = 36306) 101 ML/MIN/1.73 CALC BUN/CREAT (test code = 2235) 13 RATIO SODIUM (test code = 2231) 136 MEQ/L POTASSIUM (test code = 2228) 4.1 MEQ/L CHLORIDE (test code = 2215) 100 MEQ/L CARBON DIOXIDE (test code = 2206) 25 MEQ/L CALCIUM (test code = 2209) 9.9 MG/DL PROTEIN, TOTAL (test code = 2229) 7.0 G/DL ALBUMIN (test code = 2201) 3.9 G/DL CALC GLOBULIN (test code = 2240) 3.1 G/DL CALC A/G RATIO (test code = 2234) 1.3 RATIO BILIRUBIN, TOTAL (test code = 2207) 0.5 MG/DL ALKALINE PHOSPHATASE (test code = 2204) 208 U/L AST (test code = 2218) 27 U/L ALT (test code = 2219) 29 U/L Jc GerardoCBC W/AUTO [id number] 00:00:00* Test Item Value Reference Range Interpretation Comme nts WBC (test code = 1001) 13.8 K/UL RBC (test code = 1002) 5.46 M/UL HEMOGLOBIN (test code = 1003) 16.1 G/DL HEMATOCRIT (test code = 1004) 48.9 % MCV (test code = 1005) 89.6 fL MCH (test code = 1006) 29.5 PG MCHC (test code = 1007) 32.9 G/DL RDW (test code = 1038) 13.7 % NEUTROPHILS (test code = 1008) 60.9 % LYMPHOCYTES (test code = 1010) 31.2 % MONOCYTES (test code = 1011) 5.2 % EOSINOPHILS (test code = 1012) 2.0 % BASOPHILS (test code = 1013) 0.7 % PLATELET COUNT (test code = 1015) 147 K/UL Jc GerardoLIPID [id number] 00:00:00* Test Item Value Reference Range Interpretation Comme nts CHOLESTEROL (test code = 2210) 149 MG/DL TRIGLYCERIDES (test code = 2232) 98 MG/DL HDL CHOLESTEROL (test code = 2220) 37 MG/DL CALC LDL CHOL (test code = 2237) 92 MG/DL RISK RATIO LDL/HDL (test cod e = 2238) 2.50 RATIO Jc GerardoHEMOGLOBIN [id number] 00:00:00* Test Item Value Reference Range Interpretation Comme [facility] HEMOGLOBIN A1c (test code = 10008) 10.6 % Jc GerardoCOMPREHENSIVE METABOLIC [id number] 00:00:00* Test Item Value Reference Range Interpretation Comme nts GLUCOSE (test code = 2217) 342 MG/DL BUN (test code = 2208) 7 MG/DL CREATININE (test code = 2214) 0.53 MG/DL eGFR AMER. (test cod e = 61591) 117 ML/MIN/1.73 eGFR NON- AMER. (test code = 74336) 101 ML/MIN/1.73 CALC BUN/CREAT (test code = 2235) 13 RATIO SODIUM (test code = 2231) 136 MEQ/L POTASSIUM (test code = 2228) 4.1 MEQ/L CHLORIDE (test code = 2215) 100 MEQ/L CARBON DIOXIDE (test code = 2206) 25 MEQ/L CALCIUM (test code = 2209) 9.9 MG/DL PROTEIN, TOTAL (test code = 2229) 7.0 G/DL ALBUMIN (test code = 2201) 3.9 G/DL CALC GLOBULIN (test code = 2240) 3.1 G/DL CALC A/G RATIO (test code = 2234) 1.3 RATIO BILIRUBIN, TOTAL (test code = 2207) 0.5 MG/DL ALKALINE PHOSPHATASE (test code = 2204) 208 U/L AST (test code = 2218) 27 U/L ALT (test code = 2219) 29 U/L Jc GerardoCBC W/AUTO [id number] 00:00:00* Test Item Value Reference Range Interpretation Comme nts WBC (test code = 1001) 13.8 K/UL RBC (test code = 1002) 5.46 M/UL HEMOGLOBIN (test code = 1003) 16.1 G/DL HEMATOCRIT (test code = 1004) 48.9 % MCV (test code = 1005) 89.6 fL MCH (test code = 1006) 29.5 PG MCHC (test code = 1007) 32.9 G/DL RDW (test code = 1038) 13.7 % NEUTROPHILS (test code = 1008) 60.9 % LYMPHOCYTES (test code = 1010) 31.2 % MONOCYTES (test code = 1011) 5.2 % EOSINOPHILS (test code = 1012) 2.0 % BASOPHILS (test code = 1013) 0.7 % PLATELET COUNT (test code = 1015) 147 K/UL Jc F AustinLIPID [id number] 00:00:00* Test Item Value Reference Range Interpretation Comme nts CHOLESTEROL (test code = 2210) 149 MG/DL TRIGLYCERIDES (test code = 2232) 98 MG/DL HDL CHOLESTEROL (test code = 2220) 37 MG/DL CALC LDL CHOL (test code = 2237) 92 MG/DL RISK RATIO LDL/HDL (test cod e = 2238) 2.50 RATIO Jc Millan AustinHEMOGLOBIN [id number] 00:00:00* Test Item Value Reference Range Interpretation Comme nts HEMOGLOBIN A1c (test code = 15581) 10.6 % Jc Millan AustinLIPID [id number] 00:00:00* Test Item Value Reference Range Interpretation Comme nts CHOLESTEROL (test code = 2210) 161 MG/DL TRIGLYCERIDES (test code = 2232) 118 MG/DL HDL CHOLESTEROL (test code = 2220) 40 MG/DL CALC LDL CHOL (test code = 2237) 97 MG/DL RISK RATIO LDL/HDL (test cod e = 2238) 2.44 RATIO Jc GerardoCBC W/AUTO [id number] 00:00:00* Test Item Value Reference Range Interpretation Comme nts WBC (test code = 1001) 12.0 K/UL RBC (test code = 1002) 5.70 M/UL HEMOGLOBIN (test code = 1003) 16.1 G/DL HEMATOCRIT (test code = 1004) 49.1 % MCV (test code = 1005) 86.1 fL MCH (test code = 1006) 28.2 PG MCHC (test code = 1007) 32.8 G/DL RDW (test code = 1038) 13.9 % NEUTROPHILS (test code = 1008) 59.0 % LYMPHOCYTES (test code = 1010) 33.3 % MONOCYTES (test code = 1011) 4.8 % EOSINOPHILS (test code = 1012) 2.2 % BASOPHILS (test code = 1013) 0.7 % PLATELET COUNT (test code = 1015) 104 K/UL Jc GerardoHEMOGLOBIN [id number] 00:00:00* Test Item Value Reference Range Interpretation Comme nts HEMOGLOBIN A1c (test code = 95942) 10.4 % Jc GerardoCOMPREHENSIVE METABOLIC [id number] 00:00:00* Test Item Value Reference Range Interpretation Comme nts GLUCOSE (test code = 2217) 313 MG/DL BUN (test code = 2208) 8 MG/DL CREATININE (test code = 2214) 0.60 MG/DL eGFR AMER. (test cod e = 46479) 113 ML/MIN/1.73 eGFR NON- AMER. (test code = 74359) 98 ML/MIN/1.73 CALC BUN/CREAT (test code = 2235) 13 RATIO SODIUM (test code = 2231) 139 MEQ/L POTASSIUM (test code = 2228) 4.3 MEQ/L CHLORIDE (test code = 2215) 102 MEQ/L CARBON DIOXIDE (test code = 2206) 25 MEQ/L CALCIUM (test code = 2209) 10.1 MG/DL PROTEIN, TOTAL (test code = 2229) 7.0 G/DL ALBUMIN (test code = 2201) 4.2 G/DL CALC GLOBULIN (test code = 2240) 2.8 G/DL CALC A/G RATIO (test code = 2234) 1.5 RATIO BILIRUBIN, TOTAL (test code = 2207) 0.5 MG/DL ALKALINE PHOSPHATASE (test code = 2204) 229 U/L AST (test code = 2218) 32 U/L ALT (test code = 2219) 34 U/L Jc GerardoLIPID [id number] 00:00:00* Test Item Value Reference Range Interpretation Comme nts CHOLESTEROL (test code = 2210) 161 MG/DL TRIGLYCERIDES (test code = 2232) 118 MG/DL HDL CHOLESTEROL (test code = 2220) 40 MG/DL CALC LDL CHOL (test code = 2237) 97 MG/DL RISK RATIO LDL/HDL (test cod e = 2238) 2.44 RATIO Jc GerardoCBC W/AUTO [id number] 00:00:00* Test Item Value Reference Range Interpretation Comme nts WBC (test code = 1001) 12.0 K/UL RBC (test code = 1002) 5.70 M/UL HEMOGLOBIN (test code = 1003) 16.1 G/DL HEMATOCRIT (test code = 1004) 49.1 % MCV (test code = 1005) 86.1 fL MCH (test code = 1006) 28.2 PG MCHC (test code = 1007) 32.8 G/DL RDW (test code = 1038) 13.9 % NEUTROPHILS (test code = 1008) 59.0 % LYMPHOCYTES (test code = 1010) 33.3 % MONOCYTES (test code = 1011) 4.8 % EOSINOPHILS (test code = 1012) 2.2 % BASOPHILS (test code = 1013) 0.7 % PLATELET COUNT (test code = 1015) 104 K/UL Jc GerardoHEMOGLOBIN [id number] 00:00:00* Test Item Value Reference Range Interpretation Comme nts HEMOGLOBIN A1c (test code = 18755) 10.4 % Jc GerardoCOMPREHENSIVE METABOLIC [id number] 00:00:00* Test Item Value Reference Range Interpretation Comme nts GLUCOSE (test code = 2217) 313 MG/DL BUN (test code = 2208) 8 MG/DL CREATININE (test code = 2214) 0.60 MG/DL eGFR AMER. (test cod e = 81069) 113 ML/MIN/1.73 eGFR NON- AMER. (test code = 33816) 98 ML/MIN/1.73 CALC BUN/CREAT (test code = 2235) 13 RATIO SODIUM (test code = 2231) 139 MEQ/L POTASSIUM (test code = 2228) 4.3 MEQ/L CHLORIDE (test code = 2215) 102 MEQ/L CARBON DIOXIDE (test code = 2206) 25 MEQ/L CALCIUM (test code = 2209) 10.1 MG/DL PROTEIN, TOTAL (test code = 2229) 7.0 G/DL ALBUMIN (test code = 2201) 4.2 G/DL CALC GLOBULIN (test code = 2240) 2.8 G/DL CALC A/G RATIO (test code = 2234) 1.5 RATIO BILIRUBIN, TOTAL (test code = 2207) 0.5 MG/DL ALKALINE PHOSPHATASE (test code = 2204) 229 U/L AST (test code = 2218) 32 U/L ALT (test code = 2219) 34 U/L Jc GerardoLIPID [id number] 00:00:00* Test Item Value Reference Range Interpretation Comme nts CHOLESTEROL (test code = 2210) 161 MG/DL TRIGLYCERIDES (test code = 2232) 118 MG/DL HDL CHOLESTEROL (test code = 2220) 40 MG/DL CALC LDL CHOL (test code = 2237) 97 MG/DL RISK RATIO LDL/HDL (test cod e = 2238) 2.44 RATIO Jc GerardoCBC W/AUTO [id number] 00:00:00* Test Item Value Reference Range Interpretation Comme nts WBC (test code = 1001) 12.0 K/UL RBC (test code = 1002) 5.70 M/UL HEMOGLOBIN (test code = 1003) 16.1 G/DL HEMATOCRIT (test code = 1004) 49.1 % MCV (test code = 1005) 86.1 fL MCH (test code = 1006) 28.2 PG MCHC (test code = 1007) 32.8 G/DL RDW (test code = 1038) 13.9 % NEUTROPHILS (test code = 1008) 59.0 % LYMPHOCYTES (test code = 1010) 33.3 % MONOCYTES (test code = 1011) 4.8 % EOSINOPHILS (test code = 1012) 2.2 % BASOPHILS (test code = 1013) 0.7 % PLATELET COUNT (test code = 1015) 104 K/UL Jc GerardoHEMOGLOBIN [id number] 00:00:00* Test Item Value Reference Range Interpretation Comme nts HEMOGLOBIN A1c (test code = 19390) 10.4 % Jc GerardoCOMPREHENSIVE METABOLIC [id number] 00:00:00* Test Item Value Reference Range Interpretation Comme nts GLUCOSE (test code = 2217) 313 MG/DL BUN (test code = 2208) 8 MG/DL CREATININE (test code = 2214) 0.60 MG/DL eGFR AMER. (test cod e = 26862) 113 ML/MIN/1.73 eGFR NON- AMER. (test code = 44853) 98 ML/MIN/1.73 CALC BUN/CREAT (test code = 2235) 13 RATIO SODIUM (test code = 2231) 139 MEQ/L POTASSIUM (test code = 2228) 4.3 MEQ/L CHLORIDE (test code = 2215) 102 MEQ/L CARBON DIOXIDE (test code = 2206) 25 MEQ/L CALCIUM (test code = 2209) 10.1 MG/DL PROTEIN, TOTAL (test code = 2229) 7.0 G/DL ALBUMIN (test code = 2201) 4.2 G/DL CALC GLOBULIN (test code = 2240) 2.8 G/DL CALC A/G RATIO (test code = 2234) 1.5 RATIO BILIRUBIN, TOTAL (test code = 2207) 0.5 MG/DL ALKALINE PHOSPHATASE (test code = 2204) 229 U/L AST (test code = 2218) 32 U/L ALT (test code = 2219) 34 U/L Jc GerardoLIPID [id number] 00:00:00* Test Item Value Reference Range Interpretation Comme nts CHOLESTEROL (test code = 2210) 161 MG/DL TRIGLYCERIDES (test code = 2232) 118 MG/DL HDL CHOLESTEROL (test code = 2220) 40 MG/DL CALC LDL CHOL (test code = 2237) 97 MG/DL RISK RATIO LDL/HDL (test cod e = 2238) 2.44 RATIO Jc GerardoCBC W/AUTO [id number] 00:00:00* Test Item Value Reference Range Interpretation Comme nts WBC (test code = 1001) 12.0 K/UL RBC (test code = 1002) 5.70 M/UL HEMOGLOBIN (test code = 1003) 16.1 G/DL HEMATOCRIT (test code = 1004) 49.1 % MCV (test code = 1005) 86.1 fL MCH (test code = 1006) 28.2 PG MCHC (test code = 1007) 32.8 G/DL RDW (test code = 1038) 13.9 % NEUTROPHILS (test code = 1008) 59.0 % LYMPHOCYTES (test code = 1010) 33.3 % MONOCYTES (test code = 1011) 4.8 % EOSINOPHILS (test code = 1012) 2.2 % BASOPHILS (test code = 1013) 0.7 % PLATELET COUNT (test code = 1015) 104 K/UL Jc GerardoHEMOGLOBIN [id number] 00:00:00* Test Item Value Reference Range Interpretation Comme tana HEMOGLOBIN A1c (test code = 58814) 10.4 % Jc GerardoCOMPREHENSIVE METABOLIC [id number] 00:00:00* Test Item Value Reference Range Interpretation Comme nts GLUCOSE (test code = 2217) 313 MG/DL BUN (test code = 2208) 8 MG/DL CREATININE (test code = 2214) 0.60 MG/DL eGFR AMER. (test cod e = 67612) 113 ML/MIN/1.73 eGFR NON- AMER. (test code = 74066) 98 ML/MIN/1.73 CALC BUN/CREAT (test code = 2235) 13 RATIO SODIUM (test code = 2231) 139 MEQ/L POTASSIUM (test code = 2228) 4.3 MEQ/L CHLORIDE (test code = 2215) 102 MEQ/L CARBON DIOXIDE (test code = 2206) 25 MEQ/L CALCIUM (test code = 2209) 10.1 MG/DL PROTEIN, TOTAL (test code = 2229) 7.0 G/DL ALBUMIN (test code = 2201) 4.2 G/DL CALC GLOBULIN (test code = 2240) 2.8 G/DL CALC A/G RATIO (test code = 2234) 1.5 RATIO BILIRUBIN, TOTAL (test code = 2207) 0.5 MG/DL ALKALINE PHOSPHATASE (test code = 2204) 229 U/L AST (test code = 2218) 32 U/L ALT (test code = 2219) 34 U/L Jc GerardoLIPID [id number] 00:00:00* Test Item Value Reference Range Interpretation Comme nts CHOLESTEROL (test code = 2210) 161 MG/DL TRIGLYCERIDES (test code = 2232) 118 MG/DL HDL CHOLESTEROL (test code = 2220) 40 MG/DL CALC LDL CHOL (test code = 2237) 97 MG/DL RISK RATIO LDL/HDL (test cod e = 2238) 2.44 RATIO Jc GerardoCBC W/AUTO [id number] 00:00:00* Test Item Value Reference Range Interpretation Comme nts WBC (test code = 1001) 12.0 K/UL RBC (test code = 1002) 5.70 M/UL HEMOGLOBIN (test code = 1003) 16.1 G/DL HEMATOCRIT (test code = 1004) 49.1 % MCV (test code = 1005) 86.1 fL MCH (test code = 1006) 28.2 PG MCHC (test code = 1007) 32.8 G/DL RDW (test code = 1038) 13.9 % NEUTROPHILS (test code = 1008) 59.0 % LYMPHOCYTES (test code = 1010) 33.3 % MONOCYTES (test code = 1011) 4.8 % EOSINOPHILS (test code = 1012) 2.2 % BASOPHILS (test code = 1013) 0.7 % PLATELET COUNT (test code = 1015) 104 K/UL Jc GerardoHEMOGLOBIN [id number] 00:00:00* Test Item Value Reference Range Interpretation Comme tana HEMOGLOBIN A1c (test code = 93324) 10.4 % Jc GerardoCOMPREHENSIVE METABOLIC [id number] 00:00:00* Test Item Value Reference Range Interpretation Comme nts GLUCOSE (test code = 2217) 313 MG/DL BUN (test code = 2208) 8 MG/DL CREATININE (test code = 2214) 0.60 MG/DL eGFR AMER. (test cod e = 35764) 113 ML/MIN/1.73 eGFR NON- AMER. (test code = 88327) 98 ML/MIN/1.73 CALC BUN/CREAT (test code = 2235) 13 RATIO SODIUM (test code = 2231) 139 MEQ/L POTASSIUM (test code = 2228) 4.3 MEQ/L CHLORIDE (test code = 2215) 102 MEQ/L CARBON DIOXIDE (test code = 2206) 25 MEQ/L CALCIUM (test code = 2209) 10.1 MG/DL PROTEIN, TOTAL (test code = 2229) 7.0 G/DL ALBUMIN (test code = 2201) 4.2 G/DL CALC GLOBULIN (test code = 2240) 2.8 G/DL CALC A/G RATIO (test code = 2234) 1.5 RATIO BILIRUBIN, TOTAL (test code = 2207) 0.5 MG/DL ALKALINE PHOSPHATASE (test code = 2204) 229 U/L AST (test code = 2218) 32 U/L ALT (test code = 2219) 34 U/L Jc GerardoLIPID [id number] 00:00:00* Test Item Value Reference Range Interpretation Comme nts CHOLESTEROL (test code = 2210) 161 MG/DL TRIGLYCERIDES (test code = 2232) 118 MG/DL HDL CHOLESTEROL (test code = 2220) 40 MG/DL CALC LDL CHOL (test code = 2237) 97 MG/DL RISK RATIO LDL/HDL (test cod e = 2238) 2.44 RATIO Jc GerardoCBC W/AUTO [id number] 00:00:00* Test Item Value Reference Range Interpretation Comme nts WBC (test code = 1001) 12.0 K/UL RBC (test code = 1002) 5.70 M/UL HEMOGLOBIN (test code = 1003) 16.1 G/DL HEMATOCRIT (test code = 1004) 49.1 % MCV (test code = 1005) 86.1 fL MCH (test code = 1006) 28.2 PG MCHC (test code = 1007) 32.8 G/DL RDW (test code = 1038) 13.9 % NEUTROPHILS (test code = 1008) 59.0 % LYMPHOCYTES (test code = 1010) 33.3 % MONOCYTES (test code = 1011) 4.8 % EOSINOPHILS (test code = 1012) 2.2 % BASOPHILS (test code = 1013) 0.7 % PLATELET COUNT (test code = 1015) 104 K/UL Jc Millan AkinHEMOGLOBIN [id number] 00:00:00* Test Item Value Reference Range Interpretation Comme nts HEMOGLOBIN A1c (test code = 71253) 10.4 % Jc Millan AkinCOMPREHENSIVE METABOLIC [id number] 00:00:00* Test Item Value Reference Range Interpretation Comme nts GLUCOSE (test code = 2217) 313 MG/DL BUN (test code = 2208) 8 MG/DL CREATININE (test code = 2214) 0.60 MG/DL eGFR AMER. (test cod e = 62843) 113 ML/MIN/1.73 eGFR NON- AMER. (test code = 47686) 98 ML/MIN/1.73 CALC BUN/CREAT (test code = 2235) 13 RATIO SODIUM (test code = 2231) 139 MEQ/L POTASSIUM (test code = 2228) 4.3 MEQ/L CHLORIDE (test code = 2215) 102 MEQ/L CARBON DIOXIDE (test code = 2206) 25 MEQ/L CALCIUM (test code = 2209) 10.1 MG/DL PROTEIN, TOTAL (test code = 2229) 7.0 G/DL ALBUMIN (test code = 2201) 4.2 G/DL CALC GLOBULIN (test code = 2240) 2.8 G/DL CALC A/G RATIO (test code = 2234) 1.5 RATIO BILIRUBIN, TOTAL (test code = 2207) 0.5 MG/DL ALKALINE PHOSPHATASE (test code = 2204) 229 U/L AST (test code = 2218) 32 U/L ALT (test code = 2219) 34 U/L Jc GerardoLIPID [id number] 00:00:00* Test Item Value Reference Range Interpretation Comme nts CHOLESTEROL (test code = 2210) 161 MG/DL TRIGLYCERIDES (test code = 2232) 118 MG/DL HDL CHOLESTEROL (test code = 2220) 40 MG/DL CALC LDL CHOL (test code = 2237) 97 MG/DL RISK RATIO LDL/HDL (test cod e = 2238) 2.44 RATIO Jc GerardoCBC W/AUTO [id number] 00:00:00* Test Item Value Reference Range Interpretation Comme nts WBC (test code = 1001) 12.0 K/UL RBC (test code = 1002) 5.70 M/UL HEMOGLOBIN (test code = 1003) 16.1 G/DL HEMATOCRIT (test code = 1004) 49.1 % MCV (test code = 1005) 86.1 fL MCH (test code = 1006) 28.2 PG MCHC (test code = 1007) 32.8 G/DL RDW (test code = 1038) 13.9 % NEUTROPHILS (test code = 1008) 59.0 % LYMPHOCYTES (test code = 1010) 33.3 % MONOCYTES (test code = 1011) 4.8 % EOSINOPHILS (test code = 1012) 2.2 % BASOPHILS (test code = 1013) 0.7 % PLATELET COUNT (test code = 1015) 104 K/UL Jc GerardoHEMOGLOBIN [id number] 00:00:00* Test Item Value Reference Range Interpretation Comme tana HEMOGLOBIN A1c (test code = 60772) 10.4 % Jc GerardoCOMPREHENSIVE METABOLIC [id number] 00:00:00* Test Item Value Reference Range Interpretation Comme nts GLUCOSE (test code = 2217) 313 MG/DL BUN (test code = 2208) 8 MG/DL CREATININE (test code = 2214) 0.60 MG/DL eGFR AMER. (test cod e = 70956) 113 ML/MIN/1.73 eGFR NON- AMER. (test code = 18931) 98 ML/MIN/1.73 CALC BUN/CREAT (test code = 2235) 13 RATIO SODIUM (test code = 2231) 139 MEQ/L POTASSIUM (test code = 2228) 4.3 MEQ/L CHLORIDE (test code = 2215) 102 MEQ/L CARBON DIOXIDE (test code = 2206) 25 MEQ/L CALCIUM (test code = 2209) 10.1 MG/DL PROTEIN, TOTAL (test code = 2229) 7.0 G/DL ALBUMIN (test code = 2201) 4.2 G/DL CALC GLOBULIN (test code = 2240) 2.8 G/DL CALC A/G RATIO (test code = 2234) 1.5 RATIO BILIRUBIN, TOTAL (test code = 2207) 0.5 MG/DL ALKALINE PHOSPHATASE (test code = 2204) 229 U/L AST (test code = 2218) 32 U/L ALT (test code = 2219) 34 U/L Jc GerardoLIPID [id number] 00:00:00* Test Item Value Reference Range Interpretation Comme nts CHOLESTEROL (test code = 2210) 161 MG/DL TRIGLYCERIDES (test code = 2232) 118 MG/DL HDL CHOLESTEROL (test code = 2220) 40 MG/DL CALC LDL CHOL (test code = 2237) 97 MG/DL RISK RATIO LDL/HDL (test cod e = 2238) 2.44 RATIO Jc GerardoCBC W/AUTO [id number] 00:00:00* Test Item Value Reference Range Interpretation Comme nts WBC (test code = 1001) 12.0 K/UL RBC (test code = 1002) 5.70 M/UL HEMOGLOBIN (test code = 1003) 16.1 G/DL HEMATOCRIT (test code = 1004) 49.1 % MCV (test code = 1005) 86.1 fL MCH (test code = 1006) 28.2 PG MCHC (test code = 1007) 32.8 G/DL RDW (test code = 1038) 13.9 % NEUTROPHILS (test code = 1008) 59.0 % LYMPHOCYTES (test code = 1010) 33.3 % MONOCYTES (test code = 1011) 4.8 % EOSINOPHILS (test code = 1012) 2.2 % BASOPHILS (test code = 1013) 0.7 % PLATELET COUNT (test code = 1015) 104 K/UL Jc GerardoHEMOGLOBIN [id number] 00:00:00* Test Item Value Reference Range Interpretation Comme nts HEMOGLOBIN A1c (test code = 44055) 10.4 % Jc GerardoCOMPREHENSIVE METABOLIC [id number] 00:00:00* Test Item Value Reference Range Interpretation Comme nts GLUCOSE (test code = 2217) 313 MG/DL BUN (test code = 2208) 8 MG/DL CREATININE (test code = 2214) 0.60 MG/DL eGFR AMER. (test cod e = 89441) 113 ML/MIN/1.73 eGFR NON- AMER. (test code = 42341) 98 ML/MIN/1.73 CALC BUN/CREAT (test code = 2235) 13 RATIO SODIUM (test code = 2231) 139 MEQ/L POTASSIUM (test code = 2228) 4.3 MEQ/L CHLORIDE (test code = 2215) 102 MEQ/L CARBON DIOXIDE (test code = 2206) 25 MEQ/L CALCIUM (test code = 2209) 10.1 MG/DL PROTEIN, TOTAL (test code = 2229) 7.0 G/DL ALBUMIN (test code = 2201) 4.2 G/DL CALC GLOBULIN (test code = 2240) 2.8 G/DL CALC A/G RATIO (test code = 2234) 1.5 RATIO BILIRUBIN, TOTAL (test code = 2207) 0.5 MG/DL ALKALINE PHOSPHATASE (test code = 2204) 229 U/L AST (test code = 2218) 32 U/L ALT (test code = 2219) 34 U/L Jc GerardoLIPID [id number] 00:00:00* Test Item Value Reference Range Interpretation Comme nts CHOLESTEROL (test code = 2210) 161 MG/DL TRIGLYCERIDES (test code = 2232) 118 MG/DL HDL CHOLESTEROL (test code = 2220) 40 MG/DL CALC LDL CHOL (test code = 2237) 97 MG/DL RISK RATIO LDL/HDL (test cod e = 2238) 2.44 RATIO Jc GerardoCBC W/AUTO [id number] 00:00:00* Test Item Value Reference Range Interpretation Comme nts WBC (test code = 1001) 12.0 K/UL RBC (test code = 1002) 5.70 M/UL HEMOGLOBIN (test code = 1003) 16.1 G/DL HEMATOCRIT (test code = 1004) 49.1 % MCV (test code = 1005) 86.1 fL MCH (test code = 1006) 28.2 PG MCHC (test code = 1007) 32.8 G/DL RDW (test code = 1038) 13.9 % NEUTROPHILS (test code = 1008) 59.0 % LYMPHOCYTES (test code = 1010) 33.3 % MONOCYTES (test code = 1011) 4.8 % EOSINOPHILS (test code = 1012) 2.2 % BASOPHILS (test code = 1013) 0.7 % PLATELET COUNT (test code = 1015) 104 K/UL Jc GerardoHEMOGLOBIN [id number] 00:00:00* Test Item Value Reference Range Interpretation Comme nts HEMOGLOBIN A1c (test code = 62981) 10.4 % Jc GerardoCOMPREHENSIVE METABOLIC [id number] 00:00:00* Test Item Value Reference Range Interpretation Comme nts GLUCOSE (test code = 2217) 313 MG/DL BUN (test code = 2208) 8 MG/DL CREATININE (test code = 2214) 0.60 MG/DL eGFR AMER. (test cod e = 87476) 113 ML/MIN/1.73 eGFR NON- AMER. (test code = 27423) 98 ML/MIN/1.73 CALC BUN/CREAT (test code = 2235) 13 RATIO SODIUM (test code = 2231) 139 MEQ/L POTASSIUM (test code = 2228) 4.3 MEQ/L CHLORIDE (test code = 2215) 102 MEQ/L CARBON DIOXIDE (test code = 2206) 25 MEQ/L CALCIUM (test code = 2209) 10.1 MG/DL PROTEIN, TOTAL (test code = 2229) 7.0 G/DL ALBUMIN (test code = 2201) 4.2 G/DL CALC GLOBULIN (test code = 2240) 2.8 G/DL CALC A/G RATIO (test code = 2234) 1.5 RATIO BILIRUBIN, TOTAL (test code = 2207) 0.5 MG/DL ALKALINE PHOSPHATASE (test code = 2204) 229 U/L AST (test code = 2218) 32 U/L ALT (test code = 2219) 34 U/L Jc GerardoLIPID [id number] 00:00:00* Test Item Value Reference Range Interpretation Comme nts CHOLESTEROL (test code = 2210) 161 MG/DL TRIGLYCERIDES (test code = 2232) 118 MG/DL HDL CHOLESTEROL (test code = 2220) 40 MG/DL CALC LDL CHOL (test code = 2237) 97 MG/DL RISK RATIO LDL/HDL (test cod e = 2238) 2.44 RATIO Jc GerardoCBC W/AUTO [id number] 00:00:00* Test Item Value Reference Range Interpretation Comme nts WBC (test code = 1001) 12.0 K/UL RBC (test code = 1002) 5.70 M/UL HEMOGLOBIN (test code = 1003) 16.1 G/DL HEMATOCRIT (test code = 1004) 49.1 % MCV (test code = 1005) 86.1 fL MCH (test code = 1006) 28.2 PG MCHC (test code = 1007) 32.8 G/DL RDW (test code = 1038) 13.9 % NEUTROPHILS (test code = 1008) 59.0 % LYMPHOCYTES (test code = 1010) 33.3 % MONOCYTES (test code = 1011) 4.8 % EOSINOPHILS (test code = 1012) 2.2 % BASOPHILS (test code = 1013) 0.7 % PLATELET COUNT (test code = 1015) 104 K/UL Jc GerardoHEMOGLOBIN [id number] 00:00:00* Test Item Value Reference Range Interpretation Comme tana HEMOGLOBIN A1c (test code = 51724) 10.4 % Jc GerardoCOMPREHENSIVE METABOLIC [id number] 00:00:00* Test Item Value Reference Range Interpretation Comme nts GLUCOSE (test code = 2217) 313 MG/DL BUN (test code = 2208) 8 MG/DL CREATININE (test code = 2214) 0.60 MG/DL eGFR AMER. (test cod e = 74721) 113 ML/MIN/1.73 eGFR NON- AMER. (test code = 30171) 98 ML/MIN/1.73 CALC BUN/CREAT (test code = 2235) 13 RATIO SODIUM (test code = 2231) 139 MEQ/L POTASSIUM (test code = 2228) 4.3 MEQ/L CHLORIDE (test code = 2215) 102 MEQ/L CARBON DIOXIDE (test code = 2206) 25 MEQ/L CALCIUM (test code = 2209) 10.1 MG/DL PROTEIN, TOTAL (test code = 2229) 7.0 G/DL ALBUMIN (test code = 2201) 4.2 G/DL CALC GLOBULIN (test code = 2240) 2.8 G/DL CALC A/G RATIO (test code = 2234) 1.5 RATIO BILIRUBIN, TOTAL (test code = 2207) 0.5 MG/DL ALKALINE PHOSPHATASE (test code = 2204) 229 U/L AST (test code = 2218) 32 U/L ALT (test code = 2219) 34 U/L Jc GerardoLIPID [id number] 00:00:00* Test Item Value Reference Range Interpretation Comme nts CHOLESTEROL (test code = 2210) 161 MG/DL TRIGLYCERIDES (test code = 2232) 118 MG/DL HDL CHOLESTEROL (test code = 2220) 40 MG/DL CALC LDL CHOL (test code = 2237) 97 MG/DL RISK RATIO LDL/HDL (test cod e = 2238) 2.44 RATIO Jc GerardoCBC W/AUTO [id number] 00:00:00* Test Item Value Reference Range Interpretation Comme nts WBC (test code = 1001) 12.0 K/UL RBC (test code = 1002) 5.70 M/UL HEMOGLOBIN (test code = 1003) 16.1 G/DL HEMATOCRIT (test code = 1004) 49.1 % MCV (test code = 1005) 86.1 fL MCH (test code = 1006) 28.2 PG MCHC (test code = 1007) 32.8 G/DL RDW (test code = 1038) 13.9 % NEUTROPHILS (test code = 1008) 59.0 % LYMPHOCYTES (test code = 1010) 33.3 % MONOCYTES (test code = 1011) 4.8 % EOSINOPHILS (test code = 1012) 2.2 % BASOPHILS (test code = 1013) 0.7 % PLATELET COUNT (test code = 1015) 104 K/UL Jc GerardoHEMOGLOBIN [id number] 00:00:00* Test Item Value Reference Range Interpretation Comme nts HEMOGLOBIN A1c (test code = 99086) 10.4 % Jc Millan AkinCOMPREHENSIVE METABOLIC [id number] 00:00:00* Test Item Value Reference Range Interpretation Comme nts GLUCOSE (test code = 2217) 313 MG/DL BUN (test code = 2208) 8 MG/DL CREATININE (test code = 2214) 0.60 MG/DL eGFR AMER. (test cod e = 97904) 113 ML/MIN/1.73 eGFR NON- AMER. (test code = 06103) 98 ML/MIN/1.73 CALC BUN/CREAT (test code = 2235) 13 RATIO SODIUM (test code = 2231) 139 MEQ/L POTASSIUM (test code = 2228) 4.3 MEQ/L CHLORIDE (test code = 2215) 102 MEQ/L CARBON DIOXIDE (test code = 2206) 25 MEQ/L CALCIUM (test code = 2209) 10.1 MG/DL PROTEIN, TOTAL (test code = 2229) 7.0 G/DL ALBUMIN (test code = 2201) 4.2 G/DL CALC GLOBULIN (test code = 2240) 2.8 G/DL CALC A/G RATIO (test code = 2234) 1.5 RATIO BILIRUBIN, TOTAL (test code = 2207) 0.5 MG/DL ALKALINE PHOSPHATASE (test code = 2204) 229 U/L AST (test code = 2218) 32 U/L ALT (test code = 2219) 34 U/L Jc GerardoLIPID [id number] 00:00:00* Test Item Value Reference Range Interpretation Comme nts CHOLESTEROL (test code = 2210) 161 MG/DL TRIGLYCERIDES (test code = 2232) 118 MG/DL HDL CHOLESTEROL (test code = 2220) 40 MG/DL CALC LDL CHOL (test code = 2237) 97 MG/DL RISK RATIO LDL/HDL (test cod e = 2238) 2.44 RATIO Jc GerardoCBC W/AUTO [id number] 00:00:00* Test Item Value Reference Range Interpretation Comme nts WBC (test code = 1001) 12.0 K/UL RBC (test code = 1002) 5.70 M/UL HEMOGLOBIN (test code = 1003) 16.1 G/DL HEMATOCRIT (test code = 1004) 49.1 % MCV (test code = 1005) 86.1 fL MCH (test code = 1006) 28.2 PG MCHC (test code = 1007) 32.8 G/DL RDW (test code = 1038) 13.9 % NEUTROPHILS (test code = 1008) 59.0 % LYMPHOCYTES (test code = 1010) 33.3 % MONOCYTES (test code = 1011) 4.8 % EOSINOPHILS (test code = 1012) 2.2 % BASOPHILS (test code = 1013) 0.7 % PLATELET COUNT (test code = 1015) 104 K/UL Jc GerardoHEMOGLOBIN [id number] 00:00:00* Test Item Value Reference Range Interpretation Comme nts HEMOGLOBIN A1c (test code = 82739) 10.4 % Jc GerardoCOMPREHENSIVE METABOLIC [id number] 00:00:00* Test Item Value Reference Range Interpretation Comme nts GLUCOSE (test code = 2217) 313 MG/DL BUN (test code = 2208) 8 MG/DL CREATININE (test code = 2214) 0.60 MG/DL eGFR AMER. (test cod e = 35609) 113 ML/MIN/1.73 eGFR NON- AMER. (test code = 05992) 98 ML/MIN/1.73 CALC BUN/CREAT (test code = 2235) 13 RATIO SODIUM (test code = 2231) 139 MEQ/L POTASSIUM (test code = 2228) 4.3 MEQ/L CHLORIDE (test code = 2215) 102 MEQ/L CARBON DIOXIDE (test code = 2206) 25 MEQ/L CALCIUM (test code = 2209) 10.1 MG/DL PROTEIN, TOTAL (test code = 2229) 7.0 G/DL ALBUMIN (test code = 2201) 4.2 G/DL CALC GLOBULIN (test code = 2240) 2.8 G/DL CALC A/G RATIO (test code = 2234) 1.5 RATIO BILIRUBIN, TOTAL (test code = 2207) 0.5 MG/DL ALKALINE PHOSPHATASE (test code = 2204) 229 U/L AST (test code = 2218) 32 U/L ALT (test code = 2219) 34 U/L Jc GerardoLIPID [id number] 00:00:00* Test Item Value Reference Range Interpretation Comme nts CHOLESTEROL (test code = 2210) 161 MG/DL TRIGLYCERIDES (test code = 2232) 118 MG/DL HDL CHOLESTEROL (test code = 2220) 40 MG/DL CALC LDL CHOL (test code = 2237) 97 MG/DL RISK RATIO LDL/HDL (test cod e = 2238) 2.44 RATIO Jc Millan AustinCBC W/AUTO [id number] 00:00:00* Test Item Value Reference Range Interpretation Comme nts WBC (test code = 1001) 12.0 K/UL RBC (test code = 1002) 5.70 M/UL HEMOGLOBIN (test code = 1003) 16.1 G/DL HEMATOCRIT (test code = 1004) 49.1 % MCV (test code = 1005) 86.1 fL MCH (test code = 1006) 28.2 PG MCHC (test code = 1007) 32.8 G/DL RDW (test code = 1038) 13.9 % NEUTROPHILS (test code = 1008) 59.0 % LYMPHOCYTES (test code = 1010) 33.3 % MONOCYTES (test code = 1011) 4.8 % EOSINOPHILS (test code = 1012) 2.2 % BASOPHILS (test code = 1013) 0.7 % PLATELET COUNT (test code = 1015) 104 K/UL Jc GerardoHEMOGLOBIN [id number] 00:00:00* Test Item Value Reference Range Interpretation Comme nts HEMOGLOBIN A1c (test code = 60296) 10.4 % Jc GerardoCBC W/AUTO [id number] 00:00:00* Test Item Value Reference Range Interpretation Comme nts WBC (test code = 1001) 12.0 K/UL RBC (test code = 1002) 5.70 M/UL HEMOGLOBIN (test code = 1003) 16.1 G/DL HEMATOCRIT (test code = 1004) 49.1 % MCV (test code = 1005) 86.1 fL MCH (test code = 1006) 28.2 PG MCHC (test code = 1007) 32.8 G/DL RDW (test code = 1038) 13.9 % NEUTROPHILS (test code = 1008) 59.0 % LYMPHOCYTES (test code = 1010) 33.3 % MONOCYTES (test code = 1011) 4.8 % EOSINOPHILS (test code = 1012) 2.2 % BASOPHILS (test code = 1013) 0.7 % PLATELET COUNT (test code = 1015) 104 K/UL Jc Milaln AkinCOMPREHENSIVE METABOLIC [id number] 00:00:00* Test Item Value Reference Range Interpretation Comme nts GLUCOSE (test code = 2217) 313 MG/DL BUN (test code = 2208) 8 MG/DL CREATININE (test code = 2214) 0.60 MG/DL eGFR AMER. (test cod e = 15656) 113 ML/MIN/1.73 eGFR NON- AMER. (test code = 93403) 98 ML/MIN/1.73 CALC BUN/CREAT (test code = 2235) 13 RATIO SODIUM (test code = 2231) 139 MEQ/L POTASSIUM (test code = 2228) 4.3 MEQ/L CHLORIDE (test code = 2215) 102 MEQ/L CARBON DIOXIDE (test code = 2206) 25 MEQ/L CALCIUM (test code = 2209) 10.1 MG/DL PROTEIN, TOTAL (test code = 2229) 7.0 G/DL ALBUMIN (test code = 2201) 4.2 G/DL CALC GLOBULIN (test code = 2240) 2.8 G/DL CALC A/G RATIO (test code = 2234) 1.5 RATIO BILIRUBIN, TOTAL (test code = 2207) 0.5 MG/DL ALKALINE PHOSPHATASE (test code = 2204) 229 U/L AST (test code = 2218) 32 U/L ALT (test code = 2219) 34 U/L Jc Millan AustinLIPID [id number] 00:00:00* Test Item Value Reference Range Interpretation Comme nts CHOLESTEROL (test code = 2210) 161 MG/DL TRIGLYCERIDES (test code = 2232) 118 MG/DL HDL CHOLESTEROL (test code = 2220) 40 MG/DL CALC LDL CHOL (test code = 2237) 97 MG/DL RISK RATIO LDL/HDL (test cod e = 2238) 2.44 RATIO Jc GerardoHEMOGLOBIN [id number] 00:00:00* Test Item Value Reference Range Interpretation Comme nts HEMOGLOBIN A1c (test code = 24088) 10.4 % Jc GerardoCOMPREHENSIVE METABOLIC [id number] 00:00:00* Test Item Value Reference Range Interpretation Comme nts GLUCOSE (test code = 2217) 313 MG/DL BUN (test code = 2208) 8 MG/DL CREATININE (test code = 2214) 0.60 MG/DL eGFR AMER. (test cod e = 31906) 113 ML/MIN/1.73 eGFR NON- AMER. (test code = 40660) 98 ML/MIN/1.73 CALC BUN/CREAT (test code = 2235) 13 RATIO SODIUM (test code = 2231) 139 MEQ/L POTASSIUM (test code = 2228) 4.3 MEQ/L CHLORIDE (test code = 2215) 102 MEQ/L CARBON DIOXIDE (test code = 2206) 25 MEQ/L CALCIUM (test code = 2209) 10.1 MG/DL PROTEIN, TOTAL (test code = 2229) 7.0 G/DL ALBUMIN (test code = 2201) 4.2 G/DL CALC GLOBULIN (test code = 2240) 2.8 G/DL CALC A/G RATIO (test code = 2234) 1.5 RATIO BILIRUBIN, TOTAL (test code = 2207) 0.5 MG/DL ALKALINE PHOSPHATASE (test code = 2204) 229 U/L AST (test code = 2218) 32 U/L ALT (test code = 2219) 34 U/L Jc Millan AustinLIPID [id number] 00:00:00* Test Item Value Reference Range Interpretation Comme nts CHOLESTEROL (test code = 2210) 154 MG/DL TRIGLYCERIDES (test code = 2232) 108 MG/DL HDL CHOLESTEROL (test code = 2220) 40 MG/DL CALC LDL CHOL (test code = 2237) 92 MG/DL RISK RATIO LDL/HDL (test cod e = 2238) 2.31 RATIO Jc Millan AustinHEMOGLOBIN [id number] 00:00:00* Test Item Value Reference Range Interpretation Comme nts HEMOGLOBIN A1c (test code = 20062) 10.4 % cJ Millan AustinLIPID [id number] 00:00:00* Test Item Value Reference Range Interpretation Comme nts CHOLESTEROL (test code = 2210) 154 MG/DL TRIGLYCERIDES (test code = 2232) 108 MG/DL HDL CHOLESTEROL (test code = 2220) 40 MG/DL CALC LDL CHOL (test code = 2237) 92 MG/DL RISK RATIO LDL/HDL (test cod e = 2238) 2.31 RATIO Jc Millan AustinHEMOGLOBIN [id number] 00:00:00* Test Item Value Reference Range Interpretation Comme nts HEMOGLOBIN A1c (test code = 58987) 10.4 % Jc Millan AustinLIPID [id number] 00:00:00* Test Item Value Reference Range Interpretation Comme nts CHOLESTEROL (test code = 2210) 154 MG/DL TRIGLYCERIDES (test code = 2232) 108 MG/DL HDL CHOLESTEROL (test code = 2220) 40 MG/DL CALC LDL CHOL (test code = 2237) 92 MG/DL RISK RATIO LDL/HDL (test cod e = 2238) 2.31 RATIO Jc Millan AustinHEMOGLOBIN [id number] 00:00:00* Test Item Value Reference Range Interpretation Comme nts HEMOGLOBIN A1c (test code = 52190) 10.4 % Jc Millan AustinLIPID [id number] 00:00:00* Test Item Value Reference Range Interpretation Comme nts CHOLESTEROL (test code = 2210) 154 MG/DL TRIGLYCERIDES (test code = 2232) 108 MG/DL HDL CHOLESTEROL (test code = 2220) 40 MG/DL CALC LDL CHOL (test code = 2237) 92 MG/DL RISK RATIO LDL/HDL (test cod e = 2238) 2.31 RATIO Jc Millan AustinHEMOGLOBIN [id number] 00:00:00* Test Item Value Reference Range Interpretation Comme nts HEMOGLOBIN A1c (test code = 08224) 10.4 % Jc Millan AustinLIPID [id number] 00:00:00* Test Item Value Reference Range Interpretation Comme nts CHOLESTEROL (test code = 2210) 154 MG/DL TRIGLYCERIDES (test code = 2232) 108 MG/DL HDL CHOLESTEROL (test code = 2220) 40 MG/DL CALC LDL CHOL (test code = 2237) 92 MG/DL RISK RATIO LDL/HDL (test cod e = 2238) 2.31 RATIO Jc Millan AustinHEMOGLOBIN [id number] 00:00:00* Test Item Value Reference Range Interpretation Comme nts HEMOGLOBIN A1c (test code = 31420) 10.4 % Jc Millan AustinLIPID [id number] 00:00:00* Test Item Value Reference Range Interpretation Comme nts CHOLESTEROL (test code = 2210) 154 MG/DL TRIGLYCERIDES (test code = 2232) 108 MG/DL HDL CHOLESTEROL (test code = 2220) 40 MG/DL CALC LDL CHOL (test code = 2237) 92 MG/DL RISK RATIO LDL/HDL (test cod e = 2238) 2.31 RATIO cJ Millan AustinHEMOGLOBIN [id number] 00:00:00* Test Item Value Reference Range Interpretation Comme nts HEMOGLOBIN A1c (test code = 83636) 10.4 % Jc Millan AustinLIPID [id number] 00:00:00* Test Item Value Reference Range Interpretation Comme nts CHOLESTEROL (test code = 2210) 154 MG/DL TRIGLYCERIDES (test code = 2232) 108 MG/DL HDL CHOLESTEROL (test code = 2220) 40 MG/DL CALC LDL CHOL (test code = 2237) 92 MG/DL RISK RATIO LDL/HDL (test cod e = 2238) 2.31 RATIO Jc Millan AustinHEMOGLOBIN [id number] 00:00:00* Test Item Value Reference Range Interpretation Comme nts HEMOGLOBIN A1c (test code = 84676) 10.4 % Jc Millan AustinLIPID [id number] 00:00:00* Test Item Value Reference Range Interpretation Comme nts CHOLESTEROL (test code = 2210) 154 MG/DL TRIGLYCERIDES (test code = 2232) 108 MG/DL HDL CHOLESTEROL (test code = 2220) 40 MG/DL CALC LDL CHOL (test code = 2237) 92 MG/DL RISK RATIO LDL/HDL (test cod e = 2238) 2.31 RATIO Jc Millan AustinHEMOGLOBIN [id number] 00:00:00* Test Item Value Reference Range Interpretation Comme nts HEMOGLOBIN A1c (test code = 12968) 10.4 % Jc Millan AustinLIPID [id number] 00:00:00* Test Item Value Reference Range Interpretation Comme nts CHOLESTEROL (test code = 2210) 154 MG/DL TRIGLYCERIDES (test code = 2232) 108 MG/DL HDL CHOLESTEROL (test code = 2220) 40 MG/DL CALC LDL CHOL (test code = 2237) 92 MG/DL RISK RATIO LDL/HDL (test cod e = 2238) 2.31 RATIO Jc Millan AustinHEMOGLOBIN [id number] 00:00:00* Test Item Value Reference Range Interpretation Comme nts HEMOGLOBIN A1c (test code = 60253) 10.4 % Jc Millan AustinLIPID [id number] 00:00:00* Test Item Value Reference Range Interpretation Comme nts CHOLESTEROL (test code = 2210) 154 MG/DL TRIGLYCERIDES (test code = 2232) 108 MG/DL HDL CHOLESTEROL (test code = 2220) 40 MG/DL CALC LDL CHOL (test code = 2237) 92 MG/DL RISK RATIO LDL/HDL (test cod e = 2238) 2.31 RATIO Jc Millan AustinHEMOGLOBIN [id number] 00:00:00* Test Item Value Reference Range Interpretation Comme nts HEMOGLOBIN A1c (test code = 61963) 10.4 % Jc Millan AustinLIPID [id number] 00:00:00* Test Item Value Reference Range Interpretation Comme nts CHOLESTEROL (test code = 2210) 154 MG/DL TRIGLYCERIDES (test code = 2232) 108 MG/DL HDL CHOLESTEROL (test code = 2220) 40 MG/DL CALC LDL CHOL (test code = 2237) 92 MG/DL RISK RATIO LDL/HDL (test cod e = 2238) 2.31 RATIO Jc Millan AustinHEMOGLOBIN [id number] 00:00:00* Test Item Value Reference Range Interpretation Comme nts HEMOGLOBIN A1c (test code = 42588) 10.4 % Jc Millan AustinLIPID [id number] 00:00:00* Test Item Value Reference Range Interpretation Comme nts CHOLESTEROL (test code = 2210) 154 MG/DL TRIGLYCERIDES (test code = 2232) 108 MG/DL HDL CHOLESTEROL (test code = 2220) 40 MG/DL CALC LDL CHOL (test code = 2237) 92 MG/DL RISK RATIO LDL/HDL (test cod e = 2238) 2.31 RATIO Jc Millan AustinHEMOGLOBIN [id number] 00:00:00* Test Item Value Reference Range Interpretation Comme nts HEMOGLOBIN A1c (test code = 56449) 10.4 % Jc Millan AustinLIPID [id number] 00:00:00* Test Item Value Reference Range Interpretation Comme nts CHOLESTEROL (test code = 2210) 154 MG/DL TRIGLYCERIDES (test code = 2232) 108 MG/DL HDL CHOLESTEROL (test code = 2220) 40 MG/DL CALC LDL CHOL (test code = 2237) 92 MG/DL RISK RATIO LDL/HDL (test cod e = 2238) 2.31 RATIO cJ Millan AustinHEMOGLOBIN [id number] 00:00:00* Test Item Value Reference Range Interpretation Comme nts HEMOGLOBIN A1c (test code = 27121) 10.4 % Jc GerardoLIPID [id number] 00:00:00* Test Item Value Reference Range Interpretation Comme nts CHOLESTEROL (test code = 2210) 154 MG/DL TRIGLYCERIDES (test code = 2232) 108 MG/DL HDL CHOLESTEROL (test code = 2220) 40 MG/DL CALC LDL CHOL (test code = 2237) 92 MG/DL RISK RATIO LDL/HDL (test cod e = 2238) 2.31 RATIO Jc GerardoHEMOGLOBIN [id number] 00:00:00* Test Item Value Reference Range Interpretation Comme nts HEMOGLOBIN A1c (test code = 14857) 10.4 % Jc GerardoIgG ALLERGEN, CORN*2018-07-22 00:00:00* Test Item Value Reference Range Interpretation Comme nts IgG ALLERGEN, CORN (test cod e = 1119) 7.00 KU/L CORN CLASS (test code = 73884) 1 Jc Millan AustinALLERMETRIX IgG ALLERGENS [REFLEX]2018-07-22 00:00:00* Test Item Value Reference Range Interpretation Comme nts INTERPRETATION: (test code = 1988) (NOTE) Jc Millan AustinIgG ALLERGEN, CORN*2018-07-22 00:00:00* Test Item Value Reference Range Interpretation Comme nts IgG ALLERGEN, CORN (test cod e = 1119) 7.00 KU/L CORN CLASS (test code = 09331) 1 Jc Millan AustinALLERMETRIX IgG ALLERGENS [REFLEX]2018-07-22 00:00:00* Test Item Value Reference Range Interpretation Comme nts INTERPRETATION: (test code = 1988) (NOTE) Jc Millan AustinIgG ALLERGEN, CORN*2018-07-22 00:00:00* Test Item Value Reference Range Interpretation Comme nts IgG ALLERGEN, CORN (test cod e = 1119) 7.00 KU/L CORN CLASS (test code = 39014) 1 Jc Millan AustinALLERMETRIX IgG ALLERGENS [REFLEX]2018-07-22 00:00:00* Test Item Value Reference Range Interpretation Comme nts INTERPRETATION: (test code = 1988) (NOTE) Jc Millan AustinIgG ALLERGEN, CORN*2018-07-22 00:00:00* Test Item Value Reference Range Interpretation Comme nts IgG ALLERGEN, CORN (test cod e = 1119) 7.00 KU/L CORN CLASS (test code = 22173) 1 Jc Millan AustinALLERMETRIX IgG ALLERGENS [REFLEX]2018-07-22 00:00:00* Test Item Value Reference Range Interpretation Comme nts INTERPRETATION: (test code = 1988) (NOTE) Jc GerardoIgG ALLERGEN, CORN*2018-07-22 00:00:00* Test Item Value Reference Range Interpretation Comme nts IgG ALLERGEN, CORN (test cod e = 1119) 7.00 KU/L CORN CLASS (test code = 51003) 1 Jc Millan AustinALLERMETRIX IgG ALLERGENS [REFLEX]2018-07-22 00:00:00* Test Item Value Reference Range Interpretation Comme nts INTERPRETATION: (test code = 1988) (NOTE) Jc GerardoIgG ALLERGEN, CORN*2018-07-22 00:00:00* Test Item Value Reference Range Interpretation Comme nts IgG ALLERGEN, CORN (test cod e = 1119) 7.00 KU/L CORN CLASS (test code = 94825) 1 Jc Millan AustinALLERMETRIX IgG ALLERGENS [REFLEX]2018-07-22 00:00:00* Test Item Value Reference Range Interpretation Comme nts INTERPRETATION: (test code = 1988) (NOTE) Jc Millan AustinIgG ALLERGEN, CORN*2018-07-22 00:00:00* Test Item Value Reference Range Interpretation Comme nts IgG ALLERGEN, CORN (test cod e = 1119) 7.00 KU/L CORN CLASS (test code = 18128) 1 Jc Millan AustinALLERMETRIX IgG ALLERGENS [REFLEX]2018-07-22 00:00:00* Test Item Value Reference Range Interpretation Comme nts INTERPRETATION: (test code = 1988) (NOTE) Jc Millan AustinIgG ALLERGEN, CORN*2018-07-22 00:00:00* Test Item Value Reference Range Interpretation Comme nts IgG ALLERGEN, CORN (test cod e = 1119) 7.00 KU/L CORN CLASS (test code = 05139) 1 Jc Millan AustinALLERMETRIX IgG ALLERGENS [REFLEX]2018-07-22 00:00:00* Test Item Value Reference Range Interpretation Comme nts INTERPRETATION: (test code = 1988) (NOTE) Jc Millan AustinIgG ALLERGEN, CORN*2018-07-22 00:00:00* Test Item Value Reference Range Interpretation Comme nts IgG ALLERGEN, CORN (test cod e = 1119) 7.00 KU/L CORN CLASS (test code = 55968) 1 Jc Millan AustinALLERMETRIX IgG ALLERGENS [REFLEX]2018-07-22 00:00:00* Test Item Value Reference Range Interpretation Comme nts INTERPRETATION: (test code = 1988) (NOTE) Jc Millan AustinIgG ALLERGEN, CORN*2018-07-22 00:00:00* Test Item Value Reference Range Interpretation Comme nts IgG ALLERGEN, CORN (test cod e = 1119) 7.00 KU/L CORN CLASS (test code = 13180) 1 Jc Millan AustinALLERMETRIX IgG ALLERGENS [REFLEX]2018-07-22 00:00:00* Test Item Value Reference Range Interpretation Comme nts INTERPRETATION: (test code = 1988) (NOTE) Jc Millan AustinIgG ALLERGEN, CORN*2018-07-22 00:00:00* Test Item Value Reference Range Interpretation Comme nts IgG ALLERGEN, CORN (test cod e = 1119) 7.00 KU/L CORN CLASS (test code = 39484) 1 Jc Millan AustinALLERMETRIX IgG ALLERGENS [REFLEX]2018-07-22 00:00:00* Test Item Value Reference Range Interpretation Comme nts INTERPRETATION: (test code = 1988) (NOTE) Jc Millan AustinIgG ALLERGEN, CORN*2018-07-22 00:00:00* Test Item Value Reference Range Interpretation Comme nts IgG ALLERGEN, CORN (test cod e = 1119) 7.00 KU/L CORN CLASS (test code = 90915) 1 Jc Millan AustinALLERMETRIX IgG ALLERGENS [REFLEX]2018-07-22 00:00:00* Test Item Value Reference Range Interpretation Comme nts INTERPRETATION: (test code = 1988) (NOTE) Jc Millan AustinIgG ALLERGEN, CORN*2018-07-22 00:00:00* Test Item Value Reference Range Interpretation Comme nts IgG ALLERGEN, CORN (test cod e = 1119) 7.00 KU/L CORN CLASS (test code = 79899) 1 Jc Millan AustinALLERMETRIX IgG ALLERGENS [REFLEX]2018-07-22 00:00:00* Test Item Value Reference Range Interpretation Comme nts INTERPRETATION: (test code = 1988) (NOTE) Jc Millan AustinIgG ALLERGEN, CORN*2018-07-22 00:00:00* Test Item Value Reference Range Interpretation Comme nts IgG ALLERGEN, CORN (test cod e = 1119) 7.00 KU/L CORN CLASS (test code = 31437) 1 Jc Millan AustinALLERMETRIX IgG ALLERGENS [REFLEX]2018-07-22 00:00:00* Test Item Value Reference Range Interpretation Comme nts INTERPRETATION: (test code = 1989) (NOTE) Jc Millan AustinMICROALBUMIN/CREATININE, RANDOM AND [id number] 00:00:00* Test Item Value Reference Range Interpretation Comme nts CREATININE, URINE, CONC. (te st code = 2071) 101.1 MG/DL ALBUMIN, URINE, RANDOM (test code = 48742) 1.5 MG/DL CALC ALBUMIN/CREAT, RND (mariola t code = 75299) 15 MG/G Jc Millan AustinMICROALBUMIN/CREATININE, RANDOM AND [id number] 00:00:00* Test Item Value Reference Range Interpretation Comme nts CREATININE, URINE, CONC. (te st code = 2071) 101.1 MG/DL ALBUMIN, URINE, RANDOM (test code = 98652) 1.5 MG/DL CALC ALBUMIN/CREAT, RND (mariola t code = 95856) 15 MG/G Jc Millan AustinMICROALBUMIN/CREATININE, RANDOM AND [id number] 00:00:00* Test Item Value Reference Range Interpretation Comme nts CREATININE, URINE, CONC. (te st code = 2071) 101.1 MG/DL ALBUMIN, URINE, RANDOM (test code = 76330) 1.5 MG/DL CALC ALBUMIN/CREAT, RND (mariola t code = 15788) 15 MG/G Jc Millan AustinMICROALBUMIN/CREATININE, RANDOM AND [id number] 00:00:00* Test Item Value Reference Range Interpretation Comme nts CREATININE, URINE, CONC. (te st code = 2071) 101.1 MG/DL ALBUMIN, URINE, RANDOM (test code = 80746) 1.5 MG/DL CALC ALBUMIN/CREAT, RND (mariola t code = 46602) 15 MG/G Jc Millan AustinMICROALBUMIN/CREATININE, RANDOM AND [id number] 00:00:00* Test Item Value Reference Range Interpretation Comme nts CREATININE, URINE, CONC. (te st code = 2071) 101.1 MG/DL ALBUMIN, URINE, RANDOM (test code = 36722) 1.5 MG/DL CALC ALBUMIN/CREAT, RND (mariola t code = 65893) 15 MG/G Jc Millan AustinMICROALBUMIN/CREATININE, RANDOM AND [id number] 00:00:00* Test Item Value Reference Range Interpretation Comme nts CREATININE, URINE, CONC. (te st code = 2071) 101.1 MG/DL ALBUMIN, URINE, RANDOM (test code = 48698) 1.5 MG/DL CALC ALBUMIN/CREAT, RND (mariola t code = 57952) 15 MG/G Jc Millan AustinMICROALBUMIN/CREATININE, RANDOM AND [id number] 00:00:00* Test Item Value Reference Range Interpretation Comme nts CREATININE, URINE, CONC. (te st code = 2071) 101.1 MG/DL ALBUMIN, URINE, RANDOM (test code = 16437) 1.5 MG/DL CALC ALBUMIN/CREAT, RND (mariola t code = 38892) 15 MG/G Jc Millan AustinMICROALBUMIN/CREATININE, RANDOM AND [id number] 00:00:00* Test Item Value Reference Range Interpretation Comme nts CREATININE, URINE, CONC. (te st code = 2071) 101.1 MG/DL ALBUMIN, URINE, RANDOM (test code = 44801) 1.5 MG/DL CALC ALBUMIN/CREAT, RND (mariola t code = 84177) 15 MG/G Jc Millan AustinMICROALBUMIN/CREATININE, RANDOM AND [id number] 00:00:00* Test Item Value Reference Range Interpretation Comme nts CREATININE, URINE, CONC. (te st code = 2071) 101.1 MG/DL ALBUMIN, URINE, RANDOM (test code = 72375) 1.5 MG/DL CALC ALBUMIN/CREAT, RND (mariola t code = 58578) 15 MG/G Jc Millan AustinMICROALBUMIN/CREATININE, RANDOM AND [id number] 00:00:00* Test Item Value Reference Range Interpretation Comme nts CREATININE, URINE, CONC. (te st code = 2071) 101.1 MG/DL ALBUMIN, URINE, RANDOM (test code = 97078) 1.5 MG/DL CALC ALBUMIN/CREAT, RND (mariola t code = 75842) 15 MG/G Jc Millan AustinMICROALBUMIN/CREATININE, RANDOM AND [id number] 00:00:00* Test Item Value Reference Range Interpretation Comme nts CREATININE, URINE, CONC. (te st code = 2071) 101.1 MG/DL ALBUMIN, URINE, RANDOM (test code = 24710) 1.5 MG/DL CALC ALBUMIN/CREAT, RND (mariola t code = 47134) 15 MG/G Jc Millan AustinMICROALBUMIN/CREATININE, RANDOM AND [id number] 00:00:00* Test Item Value Reference Range Interpretation Comme nts CREATININE, URINE, CONC. (te st code = 2071) 101.1 MG/DL ALBUMIN, URINE, RANDOM (test code = 35710) 1.5 MG/DL CALC ALBUMIN/CREAT, RND (mariola t code = 31935) 15 MG/G Jc Millan AustinMICROALBUMIN/CREATININE, RANDOM AND [id number] 00:00:00* Test Item Value Reference Range Interpretation Comme nts CREATININE, URINE, CONC. (te st code = 2071) 101.1 MG/DL ALBUMIN, URINE, RANDOM (test code = 84443) 1.5 MG/DL CALC ALBUMIN/CREAT, RND (mariola t code = 21224) 15 MG/G Jc Millan AustinMICROALBUMIN/CREATININE, RANDOM AND [id number] 00:00:00* Test Item Value Reference Range Interpretation Comme nts CREATININE, URINE, CONC. (te st code = 2071) 101.1 MG/DL ALBUMIN, URINE, RANDOM (test code = 52101) 1.5 MG/DL CALC ALBUMIN/CREAT, RND (mariola t code = 79342) 15 MG/G Jc GerardoHEMOGLOBIN [id number] 00:00:00* Test Item Value Reference Range Interpretation Comme nts HEMOGLOBIN A1c (test code = 07426) 10.3 % Jc GerardoCBC W/AUTO [id number] 00:00:00* Test Item Value Reference Range Interpretation Comme nts WBC (test code = 1001) 12.6 K/UL RBC (test code = 1002) 5.60 M/UL HEMOGLOBIN (test code = 1003) 16.0 G/DL HEMATOCRIT (test code = 1004) 47.8 % MCV (test code = 1005) 85.4 fL MCH (test code = 1006) 28.6 PG MCHC (test code = 1007) 33.5 G/DL RDW (test code = 1038) 12.8 % NEUTROPHILS (test code = 1008) 56.8 % LYMPHOCYTES (test code = 1010) 36.0 % MONOCYTES (test code = 1011) 4.5 % EOSINOPHILS (test code = 1012) 2.1 % BASOPHILS (test code = 1013) 0.6 % PLATELET COUNT (test code = 1015) 96 K/UL Jc GerardoCOMPREHENSIVE METABOLIC [id number] 00:00:00* Test Item Value Reference Range Interpretation Comme nts GLUCOSE (test code = 2217) 240 MG/DL BUN (test code = 2208) 8 MG/DL CREATININE (test code = 2214) 0.57 MG/DL eGFR AMER. (test cod e = 30409) 115 ML/MIN/1.73 eGFR NON- AMER. (test code = 97910) 99 ML/MIN/1.73 CALC BUN/CREAT (test code = 2235) 14 RATIO SODIUM (test code = 2231) 139 MEQ/L POTASSIUM (test code = 2228) 4.4 MEQ/L CHLORIDE (test code = 2215) 103 MEQ/L CARBON DIOXIDE (test code = 2206) 25 MEQ/L CALCIUM (test code = 2209) 10.0 MG/DL PROTEIN, TOTAL (test code = 2229) 6.9 G/DL ALBUMIN (test code = 2201) 4.0 G/DL CALC GLOBULIN (test code = 2240) 2.9 G/DL CALC A/G RATIO (test code = 2234) 1.4 RATIO BILIRUBIN, TOTAL (test code = 2207) 0.6 MG/DL ALKALINE PHOSPHATASE (test code = 2204) 172 U/L AST (test code = 2218) 32 U/L ALT (test code = 2219) 28 U/L Jc Millan AustinLIPID [id number] 00:00:00* Test Item Value Reference Range Interpretation Comme nts CHOLESTEROL (test code = 2210) 148 MG/DL TRIGLYCERIDES (test code = 2232) 98 MG/DL HDL CHOLESTEROL (test code = 2220) 39 MG/DL CALC LDL CHOL (test code = 2237) 89 MG/DL RISK RATIO LDL/HDL (test cod e = 2238) 2.29 RATIO Jc GerardoHEMOGLOBIN [id number] 00:00:00* Test Item Value Reference Range Interpretation Comme nts HEMOGLOBIN A1c (test code = 91331) 10.3 % Jc GerardoCBC W/AUTO [id number] 00:00:00* Test Item Value Reference Range Interpretation Comme nts WBC (test code = 1001) 12.6 K/UL RBC (test code = 1002) 5.60 M/UL HEMOGLOBIN (test code = 1003) 16.0 G/DL HEMATOCRIT (test code = 1004) 47.8 % MCV (test code = 1005) 85.4 fL MCH (test code = 1006) 28.6 PG MCHC (test code = 1007) 33.5 G/DL RDW (test code = 1038) 12.8 % NEUTROPHILS (test code = 1008) 56.8 % LYMPHOCYTES (test code = 1010) 36.0 % MONOCYTES (test code = 1011) 4.5 % EOSINOPHILS (test code = 1012) 2.1 % BASOPHILS (test code = 1013) 0.6 % PLATELET COUNT (test code = 1015) 96 K/UL Jc GerardoCOMPREHENSIVE METABOLIC [id number] 00:00:00* Test Item Value Reference Range Interpretation Comme nts GLUCOSE (test code = 2217) 240 MG/DL BUN (test code = 2208) 8 MG/DL CREATININE (test code = 2214) 0.57 MG/DL eGFR AMER. (test cod e = 09198) 115 ML/MIN/1.73 eGFR NON- AMER. (test code = 88458) 99 ML/MIN/1.73 CALC BUN/CREAT (test code = 2235) 14 RATIO SODIUM (test code = 2231) 139 MEQ/L POTASSIUM (test code = 2228) 4.4 MEQ/L CHLORIDE (test code = 2215) 103 MEQ/L CARBON DIOXIDE (test code = 2206) 25 MEQ/L CALCIUM (test code = 2209) 10.0 MG/DL PROTEIN, TOTAL (test code = 2229) 6.9 G/DL ALBUMIN (test code = 2201) 4.0 G/DL CALC GLOBULIN (test code = 2240) 2.9 G/DL CALC A/G RATIO (test code = 2234) 1.4 RATIO BILIRUBIN, TOTAL (test code = 2207) 0.6 MG/DL ALKALINE PHOSPHATASE (test code = 2204) 172 U/L AST (test code = 2218) 32 U/L ALT (test code = 2219) 28 U/L Jc GerardoLIPID [id number] 00:00:00* Test Item Value Reference Range Interpretation Comme nts CHOLESTEROL (test code = 2210) 148 MG/DL TRIGLYCERIDES (test code = 2232) 98 MG/DL HDL CHOLESTEROL (test code = 2220) 39 MG/DL CALC LDL CHOL (test code = 2237) 89 MG/DL RISK RATIO LDL/HDL (test cod e = 2238) 2.29 RATIO Jc GerardoHEMOGLOBIN [id number] 00:00:00* Test Item Value Reference Range Interpretation Comme nts HEMOGLOBIN A1c (test code = 69612) 10.3 % Jc GerardoCBC W/AUTO [id number] 00:00:00* Test Item Value Reference Range Interpretation Comme nts WBC (test code = 1001) 12.6 K/UL RBC (test code = 1002) 5.60 M/UL HEMOGLOBIN (test code = 1003) 16.0 G/DL HEMATOCRIT (test code = 1004) 47.8 % MCV (test code = 1005) 85.4 fL MCH (test code = 1006) 28.6 PG MCHC (test code = 1007) 33.5 G/DL RDW (test code = 1038) 12.8 % NEUTROPHILS (test code = 1008) 56.8 % LYMPHOCYTES (test code = 1010) 36.0 % MONOCYTES (test code = 1011) 4.5 % EOSINOPHILS (test code = 1012) 2.1 % BASOPHILS (test code = 1013) 0.6 % PLATELET COUNT (test code = 1015) 96 K/UL Jc GerardoCOMPREHENSIVE METABOLIC [id number] 00:00:00* Test Item Value Reference Range Interpretation Comme nts GLUCOSE (test code = 2217) 240 MG/DL BUN (test code = 2208) 8 MG/DL CREATININE (test code = 2214) 0.57 MG/DL eGFR AMER. (test cod e = 08064) 115 ML/MIN/1.73 eGFR NON- AMER. (test code = 26317) 99 ML/MIN/1.73 CALC BUN/CREAT (test code = 2235) 14 RATIO SODIUM (test code = 2231) 139 MEQ/L POTASSIUM (test code = 2228) 4.4 MEQ/L CHLORIDE (test code = 2215) 103 MEQ/L CARBON DIOXIDE (test code = 2206) 25 MEQ/L CALCIUM (test code = 2209) 10.0 MG/DL PROTEIN, TOTAL (test code = 2229) 6.9 G/DL ALBUMIN (test code = 2201) 4.0 G/DL CALC GLOBULIN (test code = 2240) 2.9 G/DL CALC A/G RATIO (test code = 2234) 1.4 RATIO BILIRUBIN, TOTAL (test code = 2207) 0.6 MG/DL ALKALINE PHOSPHATASE (test code = 2204) 172 U/L AST (test code = 2218) 32 U/L ALT (test code = 2219) 28 U/L Jc Monty AkinLIPID [id number] 00:00:00* Test Item Value Reference Range Interpretation Comme nts CHOLESTEROL (test code = 2210) 148 MG/DL TRIGLYCERIDES (test code = 2232) 98 MG/DL HDL CHOLESTEROL (test code = 2220) 39 MG/DL CALC LDL CHOL (test code = 2237) 89 MG/DL RISK RATIO LDL/HDL (test cod e = 223) 2.29 RATIO Jc Monty AkinHEMOGLOBIN [id number] 00:00:00* Test Item Value Reference Range Interpretation Comme nts HEMOGLOBIN A1c (test code = 62553) 10.3 % Jc F AkinCBC W/AUTO [id number] 00:00:00* Test Item Value Reference Range Interpretation Comme nts WBC (test code = 1001) 12.6 K/UL RBC (test code = 1002) 5.60 M/UL HEMOGLOBIN (test code = 1003) 16.0 G/DL HEMATOCRIT (test code = 1004) 47.8 % MCV (test code = 1005) 85.4 fL MCH (test code = 1006) 28.6 PG MCHC (test code = 1007) 33.5 G/DL RDW (test code = 1038) 12.8 % NEUTROPHILS (test code = 1008) 56.8 % LYMPHOCYTES (test code = 1010) 36.0 % MONOCYTES (test code = 1011) 4.5 % EOSINOPHILS (test code = 1012) 2.1 % BASOPHILS (test code = 1013) 0.6 % PLATELET COUNT (test code = 1015) 96 K/UL Jc GerardoCOMPREHENSIVE METABOLIC [id number] 00:00:00* Test Item Value Reference Range Interpretation Comme nts GLUCOSE (test code = 2217) 240 MG/DL BUN (test code = 2208) 8 MG/DL CREATININE (test code = 2214) 0.57 MG/DL eGFR AMER. (test cod e = 86899) 115 ML/MIN/1.73 eGFR NON- AMER. (test code = 74776) 99 ML/MIN/1.73 CALC BUN/CREAT (test code = 2235) 14 RATIO SODIUM (test code = 2231) 139 MEQ/L POTASSIUM (test code = 2228) 4.4 MEQ/L CHLORIDE (test code = 2215) 103 MEQ/L CARBON DIOXIDE (test code = 2206) 25 MEQ/L CALCIUM (test code = 2209) 10.0 MG/DL PROTEIN, TOTAL (test code = 2229) 6.9 G/DL ALBUMIN (test code = 2201) 4.0 G/DL CALC GLOBULIN (test code = 2240) 2.9 G/DL CALC A/G RATIO (test code = 2234) 1.4 RATIO BILIRUBIN, TOTAL (test code = 2207) 0.6 MG/DL ALKALINE PHOSPHATASE (test code = 2204) 172 U/L AST (test code = 2218) 32 U/L ALT (test code = 2219) 28 U/L Jc Millan AustinLIPID [id number] 00:00:00* Test Item Value Reference Range Interpretation Comme nts CHOLESTEROL (test code = 2210) 148 MG/DL TRIGLYCERIDES (test code = 2232) 98 MG/DL HDL CHOLESTEROL (test code = 2220) 39 MG/DL CALC LDL CHOL (test code = 2237) 89 MG/DL RISK RATIO LDL/HDL (test cod e = 2238) 2.29 RATIO Jc GerardoHEMOGLOBIN [id number] 00:00:00* Test Item Value Reference Range Interpretation Comme nts HEMOGLOBIN A1c (test code = 21412) 10.3 % Jc GerardoCBC W/AUTO [id number] 00:00:00* Test Item Value Reference Range Interpretation Comme nts WBC (test code = 1001) 12.6 K/UL RBC (test code = 1002) 5.60 M/UL HEMOGLOBIN (test code = 1003) 16.0 G/DL HEMATOCRIT (test code = 1004) 47.8 % MCV (test code = 1005) 85.4 fL MCH (test code = 1006) 28.6 PG MCHC (test code = 1007) 33.5 G/DL RDW (test code = 1038) 12.8 % NEUTROPHILS (test code = 1008) 56.8 % LYMPHOCYTES (test code = 1010) 36.0 % MONOCYTES (test code = 1011) 4.5 % EOSINOPHILS (test code = 1012) 2.1 % BASOPHILS (test code = 1013) 0.6 % PLATELET COUNT (test code = 1015) 96 K/UL Jc Millan AkinCOMPREHENSIVE METABOLIC [id number] 00:00:00* Test Item Value Reference Range Interpretation Comme nts GLUCOSE (test code = 2217) 240 MG/DL BUN (test code = 2208) 8 MG/DL CREATININE (test code = 2214) 0.57 MG/DL eGFR AMER. (test cod e = 01520) 115 ML/MIN/1.73 eGFR NON- AMER. (test code = 74884) 99 ML/MIN/1.73 CALC BUN/CREAT (test code = 2235) 14 RATIO SODIUM (test code = 2231) 139 MEQ/L POTASSIUM (test code = 2228) 4.4 MEQ/L CHLORIDE (test code = 2215) 103 MEQ/L CARBON DIOXIDE (test code = 2206) 25 MEQ/L CALCIUM (test code = 2209) 10.0 MG/DL PROTEIN, TOTAL (test code = 2229) 6.9 G/DL ALBUMIN (test code = 2201) 4.0 G/DL CALC GLOBULIN (test code = 2240) 2.9 G/DL CALC A/G RATIO (test code = 2234) 1.4 RATIO BILIRUBIN, TOTAL (test code = 2207) 0.6 MG/DL ALKALINE PHOSPHATASE (test code = 2204) 172 U/L AST (test code = 2218) 32 U/L ALT (test code = 2219) 28 U/L Jc GerardoLIPID [id number] 00:00:00* Test Item Value Reference Range Interpretation Comme nts CHOLESTEROL (test code = 2210) 148 MG/DL TRIGLYCERIDES (test code = 2232) 98 MG/DL HDL CHOLESTEROL (test code = 2220) 39 MG/DL CALC LDL CHOL (test code = 2237) 89 MG/DL RISK RATIO LDL/HDL (test cod e = 2238) 2.29 RATIO Jc GerardoHEMOGLOBIN [id number] 00:00:00* Test Item Value Reference Range Interpretation Comme [facility] HEMOGLOBIN A1c (test code = 57328) 10.3 % Jc GerardoCBC W/AUTO [id number] 00:00:00* Test Item Value Reference Range Interpretation Comme nts WBC (test code = 1001) 12.6 K/UL RBC (test code = 1002) 5.60 M/UL HEMOGLOBIN (test code = 1003) 16.0 G/DL HEMATOCRIT (test code = 1004) 47.8 % MCV (test code = 1005) 85.4 fL MCH (test code = 1006) 28.6 PG MCHC (test code = 1007) 33.5 G/DL RDW (test code = 1038) 12.8 % NEUTROPHILS (test code = 1008) 56.8 % LYMPHOCYTES (test code = 1010) 36.0 % MONOCYTES (test code = 1011) 4.5 % EOSINOPHILS (test code = 1012) 2.1 % BASOPHILS (test code = 1013) 0.6 % PLATELET COUNT (test code = 1015) 96 K/UL Jc GerardoCOMPREHENSIVE METABOLIC [id number] 00:00:00* Test Item Value Reference Range Interpretation Comme nts GLUCOSE (test code = 2217) 240 MG/DL BUN (test code = 2208) 8 MG/DL CREATININE (test code = 2214) 0.57 MG/DL eGFR AMER. (test cod e = 04631) 115 ML/MIN/1.73 eGFR NON- AMER. (test code = 66052) 99 ML/MIN/1.73 CALC BUN/CREAT (test code = 2235) 14 RATIO SODIUM (test code = 2231) 139 MEQ/L POTASSIUM (test code = 2228) 4.4 MEQ/L CHLORIDE (test code = 2215) 103 MEQ/L CARBON DIOXIDE (test code = 2206) 25 MEQ/L CALCIUM (test code = 2209) 10.0 MG/DL PROTEIN, TOTAL (test code = 2229) 6.9 G/DL ALBUMIN (test code = 2201) 4.0 G/DL CALC GLOBULIN (test code = 2240) 2.9 G/DL CALC A/G RATIO (test code = 2234) 1.4 RATIO BILIRUBIN, TOTAL (test code = 2207) 0.6 MG/DL ALKALINE PHOSPHATASE (test code = 2204) 172 U/L AST (test code = 2218) 32 U/L ALT (test code = 2219) 28 U/L Jc GerardoLIPID [id number] 00:00:00* Test Item Value Reference Range Interpretation Comme nts CHOLESTEROL (test code = 2210) 148 MG/DL TRIGLYCERIDES (test code = 2232) 98 MG/DL HDL CHOLESTEROL (test code = 2220) 39 MG/DL CALC LDL CHOL (test code = 2237) 89 MG/DL RISK RATIO LDL/HDL (test cod e = 2238) 2.29 RATIO Jc GerardoHEMOGLOBIN [id number] 00:00:00* Test Item Value Reference Range Interpretation Comme [facility] HEMOGLOBIN A1c (test code = 35305) 10.3 % Jc GerardoCBC W/AUTO [id number] 00:00:00* Test Item Value Reference Range Interpretation Comme [facility] WBC (test code = 1001) 12.6 K/UL RBC (test code = 1002) 5.60 M/UL HEMOGLOBIN (test code = 1003) 16.0 G/DL HEMATOCRIT (test code = 1004) 47.8 % MCV (test code = 1005) 85.4 fL MCH (test code = 1006) 28.6 PG MCHC (test code = 1007) 33.5 G/DL RDW (test code = 1038) 12.8 % NEUTROPHILS (test code = 1008) 56.8 % LYMPHOCYTES (test code = 1010) 36.0 % MONOCYTES (test code = 1011) 4.5 % EOSINOPHILS (test code = 1012) 2.1 % BASOPHILS (test code = 1013) 0.6 % PLATELET COUNT (test code = 1015) 96 K/UL Jc GerardoCOMPREHENSIVE METABOLIC [id number] 00:00:00* Test Item Value Reference Range Interpretation Comme nts GLUCOSE (test code = 2217) 240 MG/DL BUN (test code = 2208) 8 MG/DL CREATININE (test code = 2214) 0.57 MG/DL eGFR AMER. (test cod e = 51467) 115 ML/MIN/1.73 eGFR NON- AMER. (test code = 14991) 99 ML/MIN/1.73 CALC BUN/CREAT (test code = 2235) 14 RATIO SODIUM (test code = 2231) 139 MEQ/L POTASSIUM (test code = 2228) 4.4 MEQ/L CHLORIDE (test code = 2215) 103 MEQ/L CARBON DIOXIDE (test code = 2206) 25 MEQ/L CALCIUM (test code = 2209) 10.0 MG/DL PROTEIN, TOTAL (test code = 2229) 6.9 G/DL ALBUMIN (test code = 2201) 4.0 G/DL CALC GLOBULIN (test code = 2240) 2.9 G/DL CALC A/G RATIO (test code = 2234) 1.4 RATIO BILIRUBIN, TOTAL (test code = 2207) 0.6 MG/DL ALKALINE PHOSPHATASE (test code = 2204) 172 U/L AST (test code = 2218) 32 U/L ALT (test code = 2219) 28 U/L Jc GerardoLIPID [id number] 00:00:00* Test Item Value Reference Range Interpretation Comme nts CHOLESTEROL (test code = 2210) 148 MG/DL TRIGLYCERIDES (test code = 2232) 98 MG/DL HDL CHOLESTEROL (test code = 2220) 39 MG/DL CALC LDL CHOL (test code = 2237) 89 MG/DL RISK RATIO LDL/HDL (test cod e = 2238) 2.29 RATIO Jc GerardoHEMOGLOBIN [id number] 00:00:00* Test Item Value Reference Range Interpretation Comme nts HEMOGLOBIN A1c (test code = 85707) 10.3 % Jc Millan AkinCBC W/AUTO [id number] 00:00:00* Test Item Value Reference Range Interpretation Comme nts WBC (test code = 1001) 12.6 K/UL RBC (test code = 1002) 5.60 M/UL HEMOGLOBIN (test code = 1003) 16.0 G/DL HEMATOCRIT (test code = 1004) 47.8 % MCV (test code = 1005) 85.4 fL MCH (test code = 1006) 28.6 PG MCHC (test code = 1007) 33.5 G/DL RDW (test code = 1038) 12.8 % NEUTROPHILS (test code = 1008) 56.8 % LYMPHOCYTES (test code = 1010) 36.0 % MONOCYTES (test code = 1011) 4.5 % EOSINOPHILS (test code = 1012) 2.1 % BASOPHILS (test code = 1013) 0.6 % PLATELET COUNT (test code = 1015) 96 K/UL Jc GerardoCOMPREHENSIVE METABOLIC [id number] 00:00:00* Test Item Value Reference Range Interpretation Comme nts GLUCOSE (test code = 2217) 240 MG/DL BUN (test code = 2208) 8 MG/DL CREATININE (test code = 2214) 0.57 MG/DL eGFR AMER. (test cod e = 59058) 115 ML/MIN/1.73 eGFR NON- AMER. (test code = 98941) 99 ML/MIN/1.73 CALC BUN/CREAT (test code = 2235) 14 RATIO SODIUM (test code = 2231) 139 MEQ/L POTASSIUM (test code = 2228) 4.4 MEQ/L CHLORIDE (test code = 2215) 103 MEQ/L CARBON DIOXIDE (test code = 2206) 25 MEQ/L CALCIUM (test code = 2209) 10.0 MG/DL PROTEIN, TOTAL (test code = 2229) 6.9 G/DL ALBUMIN (test code = 2201) 4.0 G/DL CALC GLOBULIN (test code = 2240) 2.9 G/DL CALC A/G RATIO (test code = 2234) 1.4 RATIO BILIRUBIN, TOTAL (test code = 2207) 0.6 MG/DL ALKALINE PHOSPHATASE (test code = 2204) 172 U/L AST (test code = 2218) 32 U/L ALT (test code = 2219) 28 U/L Jc GerardoLIPID [id number] 00:00:00* Test Item Value Reference Range Interpretation Comme nts CHOLESTEROL (test code = 2210) 148 MG/DL TRIGLYCERIDES (test code = 2232) 98 MG/DL HDL CHOLESTEROL (test code = 2220) 39 MG/DL CALC LDL CHOL (test code = 2237) 89 MG/DL RISK RATIO LDL/HDL (test cod e = 2238) 2.29 RATIO Jc GerardoHEMOGLOBIN [id number] 00:00:00* Test Item Value Reference Range Interpretation Comme tana HEMOGLOBIN A1c (test code = 52799) 10.3 % Jc GerardoCBC W/AUTO [id number] 00:00:00* Test Item Value Reference Range Interpretation Comme nts WBC (test code = 1001) 12.6 K/UL RBC (test code = 1002) 5.60 M/UL HEMOGLOBIN (test code = 1003) 16.0 G/DL HEMATOCRIT (test code = 1004) 47.8 % MCV (test code = 1005) 85.4 fL MCH (test code = 1006) 28.6 PG MCHC (test code = 1007) 33.5 G/DL RDW (test code = 1038) 12.8 % NEUTROPHILS (test code = 1008) 56.8 % LYMPHOCYTES (test code = 1010) 36.0 % MONOCYTES (test code = 1011) 4.5 % EOSINOPHILS (test code = 1012) 2.1 % BASOPHILS (test code = 1013) 0.6 % PLATELET COUNT (test code = 1015) 96 K/UL Jc GerardoCOMPREHENSIVE METABOLIC [id number] 00:00:00* Test Item Value Reference Range Interpretation Comme nts GLUCOSE (test code = 2217) 240 MG/DL BUN (test code = 2208) 8 MG/DL CREATININE (test code = 2214) 0.57 MG/DL eGFR AMER. (test cod e = 86720) 115 ML/MIN/1.73 eGFR NON- AMER. (test code = 84169) 99 ML/MIN/1.73 CALC BUN/CREAT (test code = 2235) 14 RATIO SODIUM (test code = 2231) 139 MEQ/L POTASSIUM (test code = 2228) 4.4 MEQ/L CHLORIDE (test code = 2215) 103 MEQ/L CARBON DIOXIDE (test code = 2206) 25 MEQ/L CALCIUM (test code = 2209) 10.0 MG/DL PROTEIN, TOTAL (test code = 2229) 6.9 G/DL ALBUMIN (test code = 2201) 4.0 G/DL CALC GLOBULIN (test code = 2240) 2.9 G/DL CALC A/G RATIO (test code = 2234) 1.4 RATIO BILIRUBIN, TOTAL (test code = 2207) 0.6 MG/DL ALKALINE PHOSPHATASE (test code = 2204) 172 U/L AST (test code = 2218) 32 U/L ALT (test code = 2219) 28 U/L Jc GerardoLIPID [id number] 00:00:00* Test Item Value Reference Range Interpretation Comme nts CHOLESTEROL (test code = 2210) 148 MG/DL TRIGLYCERIDES (test code = 2232) 98 MG/DL HDL CHOLESTEROL (test code = 2220) 39 MG/DL CALC LDL CHOL (test code = 2237) 89 MG/DL RISK RATIO LDL/HDL (test cod e = 2238) 2.29 RATIO Jc GerardoHEMOGLOBIN [id number] 00:00:00* Test Item Value Reference Range Interpretation Comme nts HEMOGLOBIN A1c (test code = 93983) 10.3 % Jc GerardoCBC W/AUTO [id number] 00:00:00* Test Item Value Reference Range Interpretation Comme nts WBC (test code = 1001) 12.6 K/UL RBC (test code = 1002) 5.60 M/UL HEMOGLOBIN (test code = 1003) 16.0 G/DL HEMATOCRIT (test code = 1004) 47.8 % MCV (test code = 1005) 85.4 fL MCH (test code = 1006) 28.6 PG MCHC (test code = 1007) 33.5 G/DL RDW (test code = 1038) 12.8 % NEUTROPHILS (test code = 1008) 56.8 % LYMPHOCYTES (test code = 1010) 36.0 % MONOCYTES (test code = 1011) 4.5 % EOSINOPHILS (test code = 1012) 2.1 % BASOPHILS (test code = 1013) 0.6 % PLATELET COUNT (test code = 1015) 96 K/UL Jc Millan AkinCOMPREHENSIVE METABOLIC [id number] 00:00:00* Test Item Value Reference Range Interpretation Comme nts GLUCOSE (test code = 2217) 240 MG/DL BUN (test code = 2208) 8 MG/DL CREATININE (test code = 2214) 0.57 MG/DL eGFR AMER. (test cod e = ) 115 ML/MIN/1.73 eGFR NON- AMER. (test code = 22494) 99 ML/MIN/1.73 CALC BUN/CREAT (test code = 2235) 14 RATIO SODIUM (test code = 2231) 139 MEQ/L POTASSIUM (test code = 2228) 4.4 MEQ/L CHLORIDE (test code = 2215) 103 MEQ/L CARBON DIOXIDE (test code = 2206) 25 MEQ/L CALCIUM (test code = 2209) 10.0 MG/DL PROTEIN, TOTAL (test code = 2229) 6.9 G/DL ALBUMIN (test code = 2201) 4.0 G/DL CALC GLOBULIN (test code = 2240) 2.9 G/DL CALC A/G RATIO (test code = 2234) 1.4 RATIO BILIRUBIN, TOTAL (test code = 2207) 0.6 MG/DL ALKALINE PHOSPHATASE (test code = 2204) 172 U/L AST (test code = 2218) 32 U/L ALT (test code = 2219) 28 U/L Jc Millan AkinLIPID [id number] 00:00:00* Test Item Value Reference Range Interpretation Comme nts CHOLESTEROL (test code = 2210) 148 MG/DL TRIGLYCERIDES (test code = 2232) 98 MG/DL HDL CHOLESTEROL (test code = 2220) 39 MG/DL CALC LDL CHOL (test code = 2237) 89 MG/DL RISK RATIO LDL/HDL (test cod e = 2238) 2.29 RATIO Jc Millan AkinHEMOGLOBIN [id number] 00:00:00* Test Item Value Reference Range Interpretation Comme nts HEMOGLOBIN A1c (test code = 68109) 10.3 % Jc Monty AkinCBC W/AUTO [id number] 00:00:00* Test Item Value Reference Range Interpretation Comme nts WBC (test code = 1001) 12.6 K/UL RBC (test code = 1002) 5.60 M/UL HEMOGLOBIN (test code = 1003) 16.0 G/DL HEMATOCRIT (test code = 1004) 47.8 % MCV (test code = 1005) 85.4 fL MCH (test code = 1006) 28.6 PG MCHC (test code = 1007) 33.5 G/DL RDW (test code = 1038) 12.8 % NEUTROPHILS (test code = 1008) 56.8 % LYMPHOCYTES (test code = 1010) 36.0 % MONOCYTES (test code = 1011) 4.5 % EOSINOPHILS (test code = 1012) 2.1 % BASOPHILS (test code = 1013) 0.6 % PLATELET COUNT (test code = 1015) 96 K/UL Jc GerardoCOMPREHENSIVE METABOLIC [id number] 00:00:00* Test Item Value Reference Range Interpretation Comme nts GLUCOSE (test code = 2217) 240 MG/DL BUN (test code = 2208) 8 MG/DL CREATININE (test code = 2214) 0.57 MG/DL eGFR AMER. (test cod e = 82191) 115 ML/MIN/1.73 eGFR NON- AMER. (test code = 54118) 99 ML/MIN/1.73 CALC BUN/CREAT (test code = 2235) 14 RATIO SODIUM (test code = 2231) 139 MEQ/L POTASSIUM (test code = 2228) 4.4 MEQ/L CHLORIDE (test code = 2215) 103 MEQ/L CARBON DIOXIDE (test code = 2206) 25 MEQ/L CALCIUM (test code = 2209) 10.0 MG/DL PROTEIN, TOTAL (test code = 2229) 6.9 G/DL ALBUMIN (test code = 2201) 4.0 G/DL CALC GLOBULIN (test code = 2240) 2.9 G/DL CALC A/G RATIO (test code = 2234) 1.4 RATIO BILIRUBIN, TOTAL (test code = 2207) 0.6 MG/DL ALKALINE PHOSPHATASE (test code = 2204) 172 U/L AST (test code = 2218) 32 U/L ALT (test code = 2219) 28 U/L Jc Millan AustinLIPID [id number] 00:00:00* Test Item Value Reference Range Interpretation Comme nts CHOLESTEROL (test code = 2210) 148 MG/DL TRIGLYCERIDES (test code = 2232) 98 MG/DL HDL CHOLESTEROL (test code = 2220) 39 MG/DL CALC LDL CHOL (test code = 2237) 89 MG/DL RISK RATIO LDL/HDL (test cod e = 2238) 2.29 RATIO Jc GerardoHEMOGLOBIN [id number] 00:00:00* Test Item Value Reference Range Interpretation Comme nts HEMOGLOBIN A1c (test code = 36257) 10.3 % Jc GerardoCBC W/AUTO [id number] 00:00:00* Test Item Value Reference Range Interpretation Comme nts WBC (test code = 1001) 12.6 K/UL RBC (test code = 1002) 5.60 M/UL HEMOGLOBIN (test code = 1003) 16.0 G/DL HEMATOCRIT (test code = 1004) 47.8 % MCV (test code = 1005) 85.4 fL MCH (test code = 1006) 28.6 PG MCHC (test code = 1007) 33.5 G/DL RDW (test code = 1038) 12.8 % NEUTROPHILS (test code = 1008) 56.8 % LYMPHOCYTES (test code = 1010) 36.0 % MONOCYTES (test code = 1011) 4.5 % EOSINOPHILS (test code = 1012) 2.1 % BASOPHILS (test code = 1013) 0.6 % PLATELET COUNT (test code = 1015) 96 K/UL Jc GerardoCOMPREHENSIVE METABOLIC [id number] 00:00:00* Test Item Value Reference Range Interpretation Comme nts GLUCOSE (test code = 2217) 240 MG/DL BUN (test code = 2208) 8 MG/DL CREATININE (test code = 2214) 0.57 MG/DL eGFR AMER. (test cod e = 29498) 115 ML/MIN/1.73 eGFR NON- AMER. (test code = 53779) 99 ML/MIN/1.73 CALC BUN/CREAT (test code = 2235) 14 RATIO SODIUM (test code = 2231) 139 MEQ/L POTASSIUM (test code = 2228) 4.4 MEQ/L CHLORIDE (test code = 2215) 103 MEQ/L CARBON DIOXIDE (test code = 2206) 25 MEQ/L CALCIUM (test code = 2209) 10.0 MG/DL PROTEIN, TOTAL (test code = 2229) 6.9 G/DL ALBUMIN (test code = 2201) 4.0 G/DL CALC GLOBULIN (test code = 2240) 2.9 G/DL CALC A/G RATIO (test code = 2234) 1.4 RATIO BILIRUBIN, TOTAL (test code = 2207) 0.6 MG/DL ALKALINE PHOSPHATASE (test code = 2204) 172 U/L AST (test code = 2218) 32 U/L ALT (test code = 2219) 28 U/L Jc GerardoLIPID [id number] 00:00:00* Test Item Value Reference Range Interpretation Comme nts CHOLESTEROL (test code = 2210) 148 MG/DL TRIGLYCERIDES (test code = 2232) 98 MG/DL HDL CHOLESTEROL (test code = 2220) 39 MG/DL CALC LDL CHOL (test code = 2237) 89 MG/DL RISK RATIO LDL/HDL (test cod e = 2238) 2.29 RATIO Jc GerardoHEMOGLOBIN [id number] 00:00:00* Test Item Value Reference Range Interpretation Comme nts HEMOGLOBIN A1c (test code = 96307) 10.3 % Jc GerardoCBC W/AUTO [id number] 00:00:00* Test Item Value Reference Range Interpretation Comme nts WBC (test code = 1001) 12.6 K/UL RBC (test code = 1002) 5.60 M/UL HEMOGLOBIN (test code = 1003) 16.0 G/DL HEMATOCRIT (test code = 1004) 47.8 % MCV (test code = 1005) 85.4 fL MCH (test code = 1006) 28.6 PG MCHC (test code = 1007) 33.5 G/DL RDW (test code = 1038) 12.8 % NEUTROPHILS (test code = 1008) 56.8 % LYMPHOCYTES (test code = 1010) 36.0 % MONOCYTES (test code = 1011) 4.5 % EOSINOPHILS (test code = 1012) 2.1 % BASOPHILS (test code = 1013) 0.6 % PLATELET COUNT (test code = 1015) 96 K/UL Jc GerardoCOMPREHENSIVE METABOLIC [id number] 00:00:00* Test Item Value Reference Range Interpretation Comme nts GLUCOSE (test code = 2217) 240 MG/DL BUN (test code = 2208) 8 MG/DL CREATININE (test code = 2214) 0.57 MG/DL eGFR AMER. (test cod e = 29740) 115 ML/MIN/1.73 eGFR NON- AMER. (test code = 02446) 99 ML/MIN/1.73 CALC BUN/CREAT (test code = 2235) 14 RATIO SODIUM (test code = 2231) 139 MEQ/L POTASSIUM (test code = 2228) 4.4 MEQ/L CHLORIDE (test code = 2215) 103 MEQ/L CARBON DIOXIDE (test code = 2206) 25 MEQ/L CALCIUM (test code = 2209) 10.0 MG/DL PROTEIN, TOTAL (test code = 2229) 6.9 G/DL ALBUMIN (test code = 2201) 4.0 G/DL CALC GLOBULIN (test code = 2240) 2.9 G/DL CALC A/G RATIO (test code = 2234) 1.4 RATIO BILIRUBIN, TOTAL (test code = 2207) 0.6 MG/DL ALKALINE PHOSPHATASE (test code = 2204) 172 U/L AST (test code = 2218) 32 U/L ALT (test code = 2219) 28 U/L Jc Monty AkinLIPID [id number] 00:00:00* Test Item Value Reference Range Interpretation Comme nts CHOLESTEROL (test code = 2210) 148 MG/DL TRIGLYCERIDES (test code = 2232) 98 MG/DL HDL CHOLESTEROL (test code = 2220) 39 MG/DL CALC LDL CHOL (test code = 2237) 89 MG/DL RISK RATIO LDL/HDL (test cod e = 223) 2.29 RATIO Jc Monty AkinHEMOGLOBIN [id number] 00:00:00* Test Item Value Reference Range Interpretation Comme nts HEMOGLOBIN A1c (test code = 95993) 10.3 % Jc F AkinCBC W/AUTO [id number] 00:00:00* Test Item Value Reference Range Interpretation Comme nts WBC (test code = 1001) 12.6 K/UL RBC (test code = 1002) 5.60 M/UL HEMOGLOBIN (test code = 1003) 16.0 G/DL HEMATOCRIT (test code = 1004) 47.8 % MCV (test code = 1005) 85.4 fL MCH (test code = 1006) 28.6 PG MCHC (test code = 1007) 33.5 G/DL RDW (test code = 1038) 12.8 % NEUTROPHILS (test code = 1008) 56.8 % LYMPHOCYTES (test code = 1010) 36.0 % MONOCYTES (test code = 1011) 4.5 % EOSINOPHILS (test code = 1012) 2.1 % BASOPHILS (test code = 1013) 0.6 % PLATELET COUNT (test code = 1015) 96 K/UL Jc GerardoCOMPREHENSIVE METABOLIC [id number] 00:00:00* Test Item Value Reference Range Interpretation Comme nts GLUCOSE (test code = 2217) 240 MG/DL BUN (test code = 2208) 8 MG/DL CREATININE (test code = 2214) 0.57 MG/DL eGFR AMER. (test cod e = 97928) 115 ML/MIN/1.73 eGFR NON- AMER. (test code = 59818) 99 ML/MIN/1.73 CALC BUN/CREAT (test code = 2235) 14 RATIO SODIUM (test code = 2231) 139 MEQ/L POTASSIUM (test code = 2228) 4.4 MEQ/L CHLORIDE (test code = 2215) 103 MEQ/L CARBON DIOXIDE (test code = 2206) 25 MEQ/L CALCIUM (test code = 2209) 10.0 MG/DL PROTEIN, TOTAL (test code = 2229) 6.9 G/DL ALBUMIN (test code = 2201) 4.0 G/DL CALC GLOBULIN (test code = 2240) 2.9 G/DL CALC A/G RATIO (test code = 2234) 1.4 RATIO BILIRUBIN, TOTAL (test code = 2207) 0.6 MG/DL ALKALINE PHOSPHATASE (test code = 2204) 172 U/L AST (test code = 2218) 32 U/L ALT (test code = 2219) 28 U/L Jc GerardoLIPID [id number] 00:00:00* Test Item Value Reference Range Interpretation Comme nts CHOLESTEROL (test code = 2210) 148 MG/DL TRIGLYCERIDES (test code = 2232) 98 MG/DL HDL CHOLESTEROL (test code = 2220) 39 MG/DL CALC LDL CHOL (test code = 2237) 89 MG/DL RISK RATIO LDL/HDL (test cod e = 2238) 2.29 RATIO Jc Millan AustinCT Abdomen Pelvis Wo ContrastCT Abdomen Pelvis Wo Contrast Notes Date/Time Note Provider Source Jc F. [facility]2025-06-04 00:00:00 Jc Mendoza [facility]2025-03-03 00:00:00 Jc Donaldson [facility]2025-02-26 00:00:00 Jc Donaldson [facility]2025-02-19 00:00:00 Jc Mendoza [facility]2025-02-12 [facility] Jc Mendoza [facility]2024-09-27 [facility]2024-05-17 00:00:00 [facility]
--- NOTE | 2025-05-28 11:13 | RAD REPORT ---
EXAMINATION: Head C Spine Mpr Wo Con CLINICAL INDICATION: Female, 70 years old. fall TECHNIQUE: Axial CT images from the skull base to the vertex without intravenous contrast. Axial CT i mages through the cervical spine were obtained without intravenous contrast. Sagittal and coronal reformatted images were created from the data set. Coronal and sagittal reformatted images were creat ed from the data set. One or more of the following dose reduction techniques were used: Automated exposure control, adjustment of the mA and/or kV according to patient size, and/or iterative reconstr uction. Unless otherwise specified, incidental findings do not require dedicated imaging follow-up. [id number]. COMPARISON: No prior exams FINDINGS: Head: INTRACRANIAL: No acute intracranial hemorrhage. No acute large vascular territory infarct. No hydroce phalus. No mass effect or midline shift. No significant white matter disease. VASCULATURE: No visualized abnormalities in the arteries or dural venous sinuses. SCALP/SKULL: No calvarial fracture identified. No acute soft tissue abnormality. SINUSES: The visualized paranasal sinuses are mostly clear. No significant mastoid fluid. Cervical spine: ALIGNMENT: The cervical spine has normal alignment without scoliosis or spondylolisthesis. BONE: Vertebral body heights are maintained. No aggressive osseous lesions. DEGENERATIVE: No significant focal degenerative changes. SOFT TISSUE: No significant abnormalities in the soft tissue of the neck. The visualized lung apices are clear. IMPRESSION: No acute intracranial abnormality. No acute fracture or traumatic malalignment of the cervical spine.
--- NOTE | 2025-05-28 11:29 | RAD REPORT ---
EXAMINATION: Shoulder Left 2+ Views CLINICAL INDICATION: Female, 70 years old. pain sp fall COMPARISON: No prior exam. FINDINGS: No acute fracture. No malalignment/dislocation. Mild left glenohumeral joint degenerative changes. Moderate left AC joint degenerative changes. Other: n/a IMPRESSION: No acute osseous abnormality.
--- NOTE | 2025-05-28 11:29 | RAD REPORT ---
EXAM: Chest Single View HISTORY: 70 years Female fall, pain COMPARISON: 07/07/2023 FINDINGS: LUNGS/PLEURA: The lungs are clear. No pleural effusions or pneumothorax. No pulmonary edema. CARDIAC/MEDIASTINUM: Stable size and configuration. UPPER ABDOMEN: No significant abnormality. BONES: No acute abnormality. LINES/TUBES/OTHER: N/A IMPRESSION: No evidence of acute cardiopulmonary disease.
--- NOTE | 2025-05-28 11:33 | RAD REPORT ---
EXAM: Knee Right 2 View INDICATION: pain sp fall COMPARISON: 07/07/2023 FINDINGS: No displaced fracture. Possible nondisplaced proximal fibular fracture. Lipohemarthrosis suspected. Spurring in the medial and lateral compartment. Mild patellofemoral compartment spurring as well. Other: N/A IMPRESSION: Possible nondisplaced proximal fibular fracture. In addition, there is lipohemarthrosis. Consider further evaluation with CT
--- NOTE | 2025-05-28 11:34 | RAD REPORT ---
EXAMINATION: Ankle Right 3 View VIEWS: Three views CLINICAL INDICATION: Female, 70 years old. pain sp fall COMPARISON: No prior exam. IMPRESSION: Slightly displaced fracture of the distal fibula at about the level of the tibiofibular syndesmosis. Soft tissue swelling is present laterally. No other fractures identified.
--- NOTE | 2025-05-28 11:35 | RAD REPORT ---
EXAMINATION: Pelvis CLINICAL INDICATION: Female, 70 years old. fall, pain COMPARISON: No prior exam. FINDINGS: No acute fracture. No malalignment/dislocation. Mild bilateral acetabular degenerative changes. Degenerative changes are present in the lower spine. Other: n/a IMPRESSION: No acute osseous abnormality.
--- NOTE | 2025-05-28 12:14 | EDPHYS ---
Physician Documentation [facility] Name: Familia Ingram Age: 70 yrs Sex: Female : 1955 Arrival Date: 05/28/2025 Time: 10:31 Bed 17 Private MD: ED Physician Anjel Ruiz HPI: 05/28 10:59 Chief Complaint: Fall with subsequent pain in the knee, leg, and shoulder. History of jr11 Present Illness: The patient experienced a fall, reportedly slipping on dog urine, and was on the ground for about five to ten minutes. Post-fall, the patient was able to walk for approximately seven to ten minutes. The patient reports a pain level of six out of ten, primarily from the knee down. Additionally, there is some discomfort in the left side and shoulder following the fall, with soreness noted on movement. The patient also mentioned a history of chest soreness she typically rubs, though not currently experiencing it. The patient has a history of poor circulation and was informed of a clot in the left leg by a specialist. The patient is not on any blood thinners. The patient has diabetes, with a current blood sugar level of 258. Review of Systems: - Musculoskeletal: Pain in the knee, leg, shoulder, and left side. - Cardiovascular: History of chest pain, not present currently. - Endocrine: Diabetes with elevated blood sugar level. - Hematologic: History of poor circulation and leg clot. - ROS otherwise negative. . Historical: - Allergies: 10:42 FLU VACCINE; me1 - PMHx: 10:42 Diabetes - IDDM; neuropathy; me1 - PSHx: 10:42 abdominal tumor removed; me1 - Immunization history:: Adult Immunizations unknown. - Infectious Disease History:: Denies. - Social history:: Smoking status: Patient reports the use of cigarette tobacco products, smokes one pack cigarettes per day. Exam: 10:59 Constitutional: This is a well developed, well nourished patient who is awake, alert, jr11 and in no acute distress. Head/Face: Normocephalic, atraumatic. Eyes: Extra-ocular motions intact. Lids and lashes normal. Conjunctiva and sclera are non-icteric and not injected. Cornea within normal limits. Periorbital areas with no swelling, redness, or edema. Neck: Trachea midline, no thyromegaly or masses palpated, and no cervical lymphadenopathy. Supple, full range of motion without nuchal rigidity, or vertebral point tenderness. No Meningismus. Chest/axilla: Normal chest wall appearance and motion. Nontender with no deformity. No lesions are appreciated. Cardiovascular: Regular rate and rhythm with a normal S1 and S2. No gallops, murmurs, or rubs. Normal PMI, no JVD. No pulse deficits. Respiratory: diminished at bases MS/ Extremity: Pulses equal, no cyanosis. Neurovascular intact. Full, normal range of motion except RLE ayers ROM 2/2 pain, L shoulder ayers ROM 2/2 pain Vital Signs: 10:39 BP 139 / 57; Pulse 58; Resp 18; Temp 98.5; Pulse Ox 99% ; Weight 101.6 kg; Height 5 ft. me1 2 in. ; Pain 6/10; 11:00 BP 112 / 98; Pulse 71; Resp 19; Pulse Ox 97% ; me1 12:00 BP 119 / 52; Pulse 82; Resp 18; Pulse Ox 95% ; me1 12:30 BP 134 / 50; Pulse 83; Resp 15; Temp 98.4; Pulse Ox 99% ; me1 10:39 Body Mass Index 40.97 (101.60 kg, 157.48 cm) me1 10:39 Pain Scale: Adult me1 MDM: 10:39 Medical Screening Exam initiated jr11 10:59 Differential Diagnosis Medical Decision Makin. Musculoskeletal Injury: Likely due [facility] to the fall, with possible strain or contusion, particularly in the knee, leg, and shoulder. 2. Diabetic Complications: Elevated blood sugar noted, which may impact healing and pain perception. Mechanical fall Plan: - Obtain EKG to rule out any cardiac issues due chest wall needing to be rubbed - Imaging of the knee, leg, and shoulder to assess for fractures or significant injuries. - Monitor blood sugar levels and manage as necessary. . 11:26 ED course: EKG interpreted by me shows normal sinus rhythm with PACs OR [address] [facility] first-degree AV block otherwise no acute ST changes.. 12:13 ED course: Ankle x-ray to my read shows right fibular fracture, will refer to [facility] orthopedics.. 05/28 10:44 Order name: CT Head C Spine; Complete Time: 11:20 [facility] 05/28 10:44 Order name: XRAY Chest (1 view); Complete Time: 11:39 11 05/28 10:44 Order name: XRAY Pelvis; Complete Time: 11:39 jr11 05/28 10:44 Order name: Knee Right 2 View XRAY; Complete Time: 11:39 jr11 05/28 10:44 Order name: Ankle Right 3 View XRAY; Complete Time: 11:39 jr11 05/28 10:44 Order name: Shoulder Left (2 View) XRAY; Complete Time: 11:39 11 05/28 11:24 Order name: EKG - Nurse/Tech; Complete Time: 11:24 me1 05/28 12:01 Order name: Splint: walking boot; Complete Time: 12:19 jr Administered Medications: 10:51 Drug: Hydrocodone-Acetaminophen PO (7.5 mg-325 mg) 1 tabs PO once Route: PO; me1 12:19 Follow up: Response: No adverse reaction; Pain is decreased me1 Disposition Summary: 05/28/25 12:14 Discharge Ordered Notes: Location: Home jr11 Condition: Stable jr11 Diagnosis - fall, fibular fracture jr11 Followup: jr11 - With: Abhi Peterson MD - When: 1 - 2 days - Reason: Re-evaluation by your physician Discharge Instructions: - Discharge Summary Sheet 11 - Nondisplaced Fibular Ankle Fracture Treated With Immobilization jr11 - Fall Prevention in the Home, Adult [facility] Forms: - Medication Reconciliation Form jr11 - Antibiotic Education jr11 - Prescription Opioid Use jr11 - Patient Portal Instructions 11 - Leadership Thank You Letter 11 Prescriptions: - Tramadol 50 mg Oral Tablet - take 1 tablet ORAL route every 8 hours as needed; 12 tablet; Refills: 0, jr11 Product Selection Permitted Signatures: Dispatcher [employer] EDMS Anjel Ruiz MD MD jr11 Mariia Huerta RN RN me1 Corrections: (The following items were deleted from the chart) 10:43 10:42 PMHx: decreased circulation to BLE (abdominal tumor removed); me1 me1 10:44 10:44 Pelvis+RAD.RAD.BRZ ordered. EDMS EDMS 10:44 10:44 Knee Right 2 View+RAD.RAD.BRZ ordered. EDMS EDMS 10:45 10:44 Ankle Right 3 View+RAD.RAD.BRZ ordered. EDMS EDMS 10:45 10:45 Shoulder Left 2 View+RAD.RAD.BRZ ordered. EDMS EDMS 12:00 10:44 Labs collected and sent ordered. jr11 me1
--- NOTE | 2025-05-28 12:14 | ER ---
Nurse's Notes [facility] Name: Familia Ingram Age: 70 yrs Sex: Female : 1955 Arrival Date: 05/28/2025 Time: 10:31 Bed 17 Private MD: Diagnosis: fall, fibular fracture Presentation: 05/28 10:39 Chief complaint: EMS states: toned out for slip and fall. Reports pain to R leg from me1 the knee down and to R hip. Did not hit her head, No blood thinners. Edema noted to BLE with redness noted to bilateral feet. Hx poor circulation. BGL 258. Reports some intermittent chest pain that resolves when patient rubs her chest. Coronavirus screen: Vaccine status: Patient reports receiving the 2nd dose of the covid vaccine. Ebola Screen: No symptoms or risks identified at this time. Initial Sepsis Screen: Does the patient meet any 2 criteria? No. Patient's initial sepsis screen is negative. Does the patient have a suspected source of infection? No. Patient's initial sepsis screen is negative. Risk Assessment: Do you want to hurt yourself or someone else? Patient reports no desire to harm self or others. Onset of symptoms was May 28, 2025 at 10:00. 10:39 Method Of Arrival: EMS: [place] [id number] 10:39 Acuity: SUNNY 3 me1 Triage Assessment: 10:42 General: Appears uncomfortable, Behavior is calm, cooperative, appropriate for age. me1 Pain: Complains of pain in right leg Pain does not radiate. Pain currently is 6 out of 10 on a pain scale. Quality of pain is described as aching, sharp, Pain began suddenly, Is continuous. EENT: No signs and/or symptoms were reported regarding the EENT system. Neuro: Level of Consciousness is awake, alert, obeys commands, Oriented to person, place, time, situation, Appropriate for age. Cardiovascular: Reports chest pain, since the past few days, intermittently, resolves when patient rubs her chest Patient's skin is warm and dry. Respiratory: Airway is patent Respiratory effort is even, unlabored, Respiratory pattern is regular, symmetrical. GI: No signs and/or symptoms were reported involving the gastrointestinal system. : No signs and/or symptoms were reported regarding the genitourinary system. Derm: Skin is intact, is healthy with good turgor, Skin is normal. Musculoskeletal: Swelling present in right leg and left leg Reports pain in right hip and right leg. Injury Description: slip and fall in dog urine. Historical: - Allergies: 10:42 FLU VACCINE; me1 - PMHx: 10:42 Diabetes - IDDM; neuropathy; me1 - PSHx: 10:42 abdominal tumor removed; me1 - Immunization history:: Adult Immunizations unknown. - Infectious Disease History:: Denies. - Social history:: Smoking status: Patient reports the use of cigarette tobacco products, smokes one pack cigarettes per day. Screenin:45 [facility] ED Fall Risk Assessment (Adult) History of falling in the last 3 months, me1 including since admission Yes- single mechanical fall (1 pt) Confusion or Disorientation No (0 pts) Intoxicated or Sedated No (0 pts) Impaired Gait Yes (1 pt) Mobility Assist Device Used No (0 pt) Altered Elimination No (0 pt) Score/Fall Risk Level 0 - 2 = Low Risk Maintained a safe environment, Provided non-skid footwear, Hourly rounding (assess needs \T\ fall precautionary measures) done. Abuse screen: Denies threats or abuse. Nutritional screening: No deficits noted. Tuberculosis screening: No symptoms or risk factors identified. Assessment: 10:45 General: See triage assessment. me1 Vital Signs: 10:39 BP 139 / 57; Pulse 58; Resp 18; Temp 98.5; Pulse Ox 99% ; Weight 101.6 kg; Height 5 ft. me1 2 in. ; Pain 6/10; 11:00 BP 112 / 98; Pulse 71; Resp 19; Pulse Ox 97% ; me1 12:00 BP 119 / 52; Pulse 82; Resp 18; Pulse Ox 95% ; me1 12:30 BP 134 / 50; Pulse 83; Resp 15; Temp 98.4; Pulse Ox 99% ; me1 10:39 Body Mass Index 40.97 (101.60 kg, 157.48 cm) me1 10:39 Pain Scale: Adult me1 ED Course: 10:31 Patient arrived in ED. em1 10:31 Anjel Ruiz MD is Attending Physician. jr11 10:33 Mariia Huerta RN is Primary Nurse. me1 10:42 Triage completed. me1 10:42 Arm band placed on Patient placed in an exam room. me1 10:45 Patient has correct armband on for positive identification. Bed in low position. Call me1 light in reach. Side rails up X2. Provided Education on: POC. Verbalized understanding.. Client placed on continuous cardiac and pulse oximetry monitoring. NIBP monitoring applied. 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 Pulse ox on. NIBP on. 10:45 No provider procedures requiring assistance completed. me1 11:03 CT Head C Spine In Process Unspecified. EDMS 11:17 XRAY Chest (1 view) In Process Unspecified. EDMS 11:17 XRAY Pelvis In Process Unspecified. EDMS 11:18 Knee Right 2 View XRAY In Process Unspecified. EDMS 11:18 Ankle Right 3 View XRAY In Process Unspecified. EDMS 11:18 Shoulder Left (2 View) XRAY In Process Unspecified. EDMS 11:24 EKG done, by ED staff, reviewed by Anjel Ruiz MD. me1 12:15 Abhi Peterson MD is Referral Physician. jr11 12:57 Patient did not have IV access during this emergency room visit. me1 Administered Medications: 10:51 Drug: Hydrocodone-Acetaminophen PO (7.5 mg-325 mg) 1 tabs PO once Route: PO; me1 12:19 Follow up: Response: No adverse reaction; Pain is decreased me1 Medication: 10:45 VIS not applicable for this client. me1 Outcome: 12:14 Discharge ordered by . jr11 12:57 Discharged to home via wheelchair, with family, me1 12:57 Condition: stable 12:57 Discharge instructions given to patient, family, Instructed on discharge instructions, follow up and referral plans. medication usage, Demonstrated understanding of instructions, follow-up care, medications, Prescriptions given X 1, 12:57 Patient left the ED. me1 Signatures: Dispatcher [employer] Martin Mares 1 Anjel Ruiz MD MD [email or web address] Mariia Huerta RN RN me1 Corrections: (The following items were deleted from the chart) 10:43 10:42 PMHx: decreased circulation to BLE (abdominal tumor removed); me1 me1
[2025-05-28 13:21] VITALS: BP 134/50; TEMP 98.4; O2SAT 99
== END 2025-05-28 12:57 | disposition home or self-care (01) ==
LOC: ER 10:32
DX: S82.831A Other fracture of upper and lower end of right fibula, initial encounter for closed fracture (principal); M25.512 Pain in left shoulder; W01.0XXA Fall on same level from slipping, tripping and stumbling without subsequent striking against object, initial encounter; F17.210 Nicotine dependence, cigarettes, uncomplicated
CPT/HCPCS: 70450; 71045; 72125; 72170; 93005; 99284